=== PATIENT | male | born 1980 | race Caucasian/White ===

== ENCOUNTER 2016-08-17 13:11 | Emergency (ER) | payer MEDICARE, OTHER ==
[2016-08-17 13:31] VITALS: TEMP 98.1
--- NOTE | 2016-08-17 15:12 | ED ---
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 Patient is otherwise relatively symptomatic feels a little weak with little headache but that ended in part for the courses he's been home from the hospital. Patient has completed dialysis recently. Otherwise has no complaints no chest patient's breath or abdominal pain, no headache no neurological complaints - Related Data Home Medications Medication Instructions Recorded Confirmed Aspirin 81 mg PO HS 03/12/15 02/29/16 Diazepam [Valium] 10 mg PO HS PRN 03/12/15 02/29/16 Lisinopril [Prinivil] 20 mg PO BID 03/12/15 02/29/16 rOPINIRole HCL [Requip] 4 mg PO HS 03/12/15 02/29/16 traMADol HCl [Ultram] 50 mg PO TID PRN 03/12/15 02/29/16 Cilostazol [Cilostazol] 100 mg PO BID 02/29/16 02/29/16 Cinacalcet [Sensipar] 30 mg PO DAILY 02/29/16 02/29/16 Diazepam 10 mg PO DIRECTED 02/29/16 02/29/16 HYDROmorphone HCL [Dilaudid] 4 - 8 mg PO Q4H PRN 02/29/16 02/29/16 Methadone [Dolophine] 20 mg PO TID 02/29/16 02/29/16 Metoclopramide [Reglan] 5 mg PO ACHS 02/29/16 02/29/16 cloNIDine [Clonidine] 1 patch TRANSDERM Q7D 02/29/16 02/29/16 rOPINIRole HCL [Requip] 4 mg PO DIRECTED 02/29/16 02/29/16 Previous Rx's Medication Instructions Recorded Ondansetron Odt [Zofran ODT] 4 mg PO Q8HR PRN #15 tab 02/29/16 Allergies Allergy/AdvReac Type Severity Reaction Status Date / Time baclofen Allergy Confusion Verified 08/17/16 13:31 Penicillins Allergy Unknown Verified 08/17/16 13:31 Childhood Review of Systems ROS Statement: Those systems with pertinent positive or pertinent negative responses have been documented in the HPI. ROS Other: All systems not noted in ROS Statement are negative. Past Medical History Past Medical History: CVA/TIA, Diabetes Mellitus, Hypertension Additional Past Medical History / Comment(s): chiari malformation, dialysis, legally blind History of Any Multi-Drug Resistant Organisms: None Reported Additional Past Surgical History / Comment(s): eye surgery, fistula. right below the knee amputation. Past Anesthesia/Blood Transfusion Reactions: No Reported Reaction Past Psychological History: No Psychological Hx Reported Additional Psychological History / Comment(s): Single, not occur and tobacco user, denies current recreational drug use, multiple tattoos none which are new. He has evidence of animal exposures. Relates that his family is quite supportive including his parents in which he lives with. Is not able to work outside of the home, is medically disabled due to his blindness. He has no experience or extensive travels. Smoking Status: Never smoker Past Alcohol Use History: None Reported Past Drug Use History: Marijuana - Past Family History Father Family Medical History: Hypertension Mother Family Medical History: Diabetes Mellitus General Exam Limitations: no limitations General appearance: alert, in no apparent distress Head exam: Present: atraumatic, normocephalic, normal inspection Eye exam: Present: normal appearance, PERRL, EOMI. Absent: scleral icterus, conjunctival injection, periorbital swelling ENT exam: Present: normal exam, mucous membranes moist Neck exam: Present: normal inspection. Absent: tenderness, meningismus, lymphadenopathy Respiratory exam: Present: normal lung sounds bilaterally. Absent: respiratory distress, wheezes, rales, rhonchi, stridor Cardiovascular Exam: Present: regular rate, normal rhythm, normal heart sounds. Absent: systolic murmur, diastolic murmur, rubs, gallop, clicks GI/Abdominal exam: Present: soft, normal bowel sounds. Absent: distended, tenderness, guarding, rebound, rigid Extremities exam: Present: normal inspection, full ROM, normal capillary refill. Absent: tenderness, pedal edema, joint swelling, calf tenderness Back exam: Present: normal inspection Neurological exam: Present: alert, oriented X3, CN II-XII intact Psychiatric exam: Present: normal affect, normal mood Skin exam: Present: warm, dry, intact, normal color. Absent: rash Course Vital Signs 08/17/16 13:22 Temperature 98.1 F Pulse Rate 79 Respiratory 18 Rate Blood Pressure 202/120 O2 Sat by Pulse 99 Oximetry - Reevaluation(s) Reevaluation #1: 08/17/16 15:11 Patient's blood pressures improving at that time was no modifying factors, no intervention Medical Decision Making - Medical Decision Making 35 male to the ER for evaluation of elevated blood pressure, uncontrolled hypertension. Patient will be discharged home to increase carvedilol 2 pills twice a day Disposition Clinical Impression: Uncontrolled hypertension Disposition: HOME SELF-CARE Condition: Good Instructions: Chronic Hypertension (ED), Hypertension (ED) Referrals: Yash Watson MD [Primary Care Provider] - 1-2 days
[2016-08-17 15:20] VITALS: BP 184/112; PULSE 99; RESP 14
== END 2016-08-17 15:28 | disposition home or self-care (01) ==
LOC: EC 13:11
DX: I12.0 Hypertensive chronic kidney disease with stage 5 chronic kidney disease or end stage renal disease (principal); N18.6 End stage renal disease; Z99.2 Dependence on renal dialysis; H54.8 Legal blindness, as defined in USA; Z89.511 Acquired absence of right leg below knee; Z79.82 Long term (current) use of aspirin; Z79.891 Long term (current) use of opiate analgesic; Z79.899 Other long term (current) drug therapy; Z88.0 Allergy status to penicillin; Z88.1 Allergy status to other antibiotic agents; Z86.73 Personal history of transient ischemic attack (TIA), and cerebral infarction without residual deficits
CPT/HCPCS: 99283

== ENCOUNTER 2016-09-24 19:50 | Emergency (ER) | payer MEDICARE, OTHER ==
[2016-09-24 19:57] VITALS: RESP 20
[2016-09-24] MEDS ORDERED: DIAZEPAM 5 MG TAB PO STA (20:14)
--- NOTE | 2016-09-24 20:32 | ED ---
General Adult HPI - General Chief complaint: Extremity Injury, Upper Stated complaint: L arm pain Time Seen by Provider: 09/24/16 20:01 Source: patient, family, RN notes reviewed Mode of arrival: wheelchair Limitations: no limitations - History of Present Illness Initial comments: 35-year-old male with history of diabetes and end-stage renal disease presenting for left arm restless feeling. Patient states that he has had history of a "restlessness" in his left arm for several years but is significantly worsened over the last few days. Does have a functioning AV fistula in this arm. He was started on Requip for this in the past but states he takes this as needed. He denies any significant pain associated with this, but states it is very irritating and is unable to sleep because of it. He denies any chest pain or shortness of breath associated. He did receive dialysis this morning. He is scheduled for his next dialysis treatment on Monday. He has been on dialysis for 3 years. - Related Data Home Medications Medication Instructions Recorded Confirmed Aspirin 81 mg PO HS 03/12/15 09/24/16 Lisinopril [Prinivil] 20 mg PO BID 03/12/15 09/24/16 rOPINIRole HCL [Requip] 4 mg PO HS 03/12/15 09/24/16 Cilostazol [Cilostazol] 100 mg PO BID 02/29/16 09/24/16 Cinacalcet [Sensipar] 30 mg PO DAILY 02/29/16 09/24/16 Methadone [Dolophine] 20 mg PO TID 02/29/16 09/24/16 Metoclopramide [Reglan] 5 mg PO ACHS 02/29/16 09/24/16 cloNIDine [Clonidine] 1 patch TRANSDERM Q7D 02/29/16 09/24/16 rOPINIRole HCL [Requip] 4 mg PO DIRECTED 02/29/16 09/24/16 Previous Rx's Medication Instructions Recorded Sodium Polystyrene Sulfonate 15 gm PO ONCE #15 gm 09/24/16 [Kayexalate] Allergies Allergy/AdvReac Type Severity Reaction Status Date / Time baclofen Allergy Confusion Verified 09/24/16 19:57 Penicillins Allergy Unknown Verified 09/24/16 19:57 Childhood Review of Systems ROS Statement: Those systems with pertinent positive or pertinent negative responses have been documented in the HPI. ROS Other: All systems not noted in ROS Statement are negative. Past Medical History Past Medical History: CVA/TIA, Diabetes Mellitus, Hypertension Additional Past Medical History / Comment(s): chiari malformation, dialysis, legally blind History of Any Multi-Drug Resistant Organisms: None Reported Additional Past Surgical History / Comment(s): eye surgery, fistula. right below the knee amputation. Past Anesthesia/Blood Transfusion Reactions: No Reported Reaction Past Psychological History: No Psychological Hx Reported Additional Psychological History / Comment(s): Single, not occur and tobacco user, denies current recreational drug use, multiple tattoos none which are new. He has evidence of animal exposures. Relates that his family is quite supportive including his parents in which he lives with. Is not able to work outside of the home, is medically disabled due to his blindness. He has no experience or extensive travels. Smoking Status: Never smoker Past Alcohol Use History: None Reported Past Drug Use History: Marijuana - Past Family History Father Family Medical History: Hypertension Mother Family Medical History: Diabetes Mellitus General Exam - General Exam Comments Initial Comments: General: Awake and Alert. No acute distress. Does not appear acutely ill. Eyes: KRYSTYNA, EOM intact. No nystagmus. No scleral icterus. HENT: Atraumatic, normocephalic. Mucous membranes moist. Trachea midline. Neck: The neck is supple, there is no tenderness or JVD. Cardiovascular: Regular rate and rhythm. No murmur, rub, or gallop is appreciated. Distal pulses intact, 2+ radial bilateral. Left upper arm AV fistula with intact thrill. Respiratory: Lungs are clear to auscultation bilaterally. No wheezes, rales, rhonchi. No respiratory distress. Gastrointestinal: Soft, Nontender. No rebound or guarding. Non-distended. No masses or organomegaly noted. No CVA tenderness. Musculoskeletal: No tenderness. Normal ROM. No gross deformity. No strength deficits. Right BKA. Neurological: A&Ox3. CN II-XII grossly intact, There are no obvious motor or sensory deficits. Coordination appears grossly intact. Speech is normal. Skin: Skin is warm and dry and no rashes or lesions are noted. Psychiatric: Cooperative, appropriate mood & affect, normal judgment. Limitations: no limitations Course Vital Signs 09/24/16 09/24/16 09/24/16 19:54 22:00 22:44 Temperature 98.7 F 98.3 F Pulse Rate 90 83 82 Respiratory 20 20 20 Rate Blood Pressure 189/111 147/80 148/61 O2 Sat by Pulse 97 98 99 Oximetry EKG Findings - EKG Comments: EKG Findings:: EKG 20:26. Normal sinus rhythm. Rate 98. MD 122. QRS 82. QT/ QTc 348/444. Normal axis. LVH. No STEMI. Nonspecific EKG. Medical Decision Making - Medical Decision Making 35 y/o male w/ hx ESRD presenting for left arm restlessness and pain. Hx of this pain in the past. Symptoms appear consistent with neuropathic pain. No significant findings on clinical exam. EKG without any significant changes. EKG without ischemic changes or significant T wave changes. Labwork with stable CBC. BMP with mild hyperkalemia and evidence of ESRD. I spoke with Dr. Dso Santos regarding possible admission for observation, requests I speak with nephro first. I spoke with Dr. Duke, Nephrology. We do not think pt requires emergent dialysis at this time. He recommends kayexalate dose tonight and tomorrow and plan for dialysis Monday. Patient mother were updated on discussion. Discussed overall clinical stability this time. Patient is given a dose of morphine with significant improvement of his symptoms and his left arm. There is low suspicion of ischemic cause of symptoms of this time. Symptoms appear consistent with neuropathic pain secondary to his other disease process. Discussed importance of close follow-up with nephrology and dialysis first thing Monday. Discussed taking Kayexalate tomorrow and prescription was provided. Patient is currently on Lyrica as well as Requip. Discussed that he should start taking his Requip daily as he has been taking when necessary. Also discussed continuing the Neurontin he was recently started on a continue have this titrated up by his primary doctor. Discussed concerning signs symptoms from immediate return to the ED. Patient and mother are agreeable to plan of discharge home. - Lab Data Result diagrams: 09/24/16 20:25 09/24/16 20:25 Lab Results 09/24/16 09/24/16 Range/Units 20:25 20:25 WBC 9.0 (3.8-10.6) k/uL RBC 4.99 (4.30-5.90) m/uL Hgb 14.5 (13.0-17.5) gm/dL Hct 46.2 (39.0-53.0) % MCV 92.4 (80.0-100.0) fL MCH 29.1 (25.0-35.0) pg MCHC 31.5 (31.0-37.0) g/dL RDW 15.2 (11.5-15.5) % Plt Count 273 (150-450) k/uL Neutrophils % 67 % Lymphocytes % 19 % Monocytes % 6 % Eosinophils % 4 % Basophils % 2 % Neutrophils # 6.0 (1.3-7.7) k/uL Lymphocytes # 1.7 (1.0-4.8) k/uL Monocytes # 0.5 (0-1.0) k/uL Eosinophils # 0.4 (0-0.7) k/uL Basophils # 0.2 (0-0.2) k/uL Sodium 136 L (137-145) mmol/L Potassium 5.7 H (3.5-5.1) mmol/L Chloride 90 L (98-107) mmol/L Carbon Dioxide 26 (22-30) mmol/L Anion Gap 20 mmol/L BUN 34 H (9-20) mg/dL Creatinine 5.90 H* (0.66-1.25) mg/dL Est GFR (MDRD) Af Amer 13 (>60 ml/min/1.73 sqM) Est GFR (MDRD) Non-Af 11 (>60 ml/min/1.73 sqM) Glucose 216 H (74-99) mg/dL Calcium 10.1 (8.4-10.2) mg/dL - EKG Data -: EKG Interpreted by Nh EKG shows normal: sinus rhythm Rate: normal Disposition Clinical Impression: Left arm pain, ESRD (end stage renal disease) on dialysis, Hyperkalemia, Neuropathic pain Disposition: ADMITTED IP TO THIS [facility] Condition: Stable Instructions: End Stage Kidney Disease (ED), Peripheral Neuropathy (ED), Hyperkalemia (ED) Additional Instructions: Please take a dose of kayexalate tomorrow. Please take your Requip every day. Please continue to follow up with your primary doctor for management of your pain. Prescriptions: Sodium Polystyrene Sulfonate [Kayexalate] 15 gm PO ONCE #15 gm Referrals: Yash Watson MD [Primary Care Provider] - 1-2 days Time of Disposition: 22:38
[2016-09-24 20:43] LABS: Basophils # (A) 0.2 k/uL (0-0.2); Basophils % (A) 2 %; CHCM 31.4; Eosinophils # (A) 0.4 k/uL (0-0.7); Eosinophils % (A) 4 %; HCT 46.2 % (39.0-53.0); HDW 2.44; HGB 14.5 gm/dL (13.0-17.5); Luc # (Auto) 0.28; Luc % (Auto) 3; Lymphocytes # (A) 1.7 k/uL (1.0-4.8); Lymphocytes % (A) 19 %; MCH 29.1 pg (25.0-35.0); MCHC 31.5 g/dL (31.0-37.0); MCV 92.4 fL (80.0-100.0); Mean Platelet Volume 7.8; Monocytes # (A) 0.5 k/uL (0-1.0); Monocytes % (A) 6 %; Neutrophils % (A) 67 %; RBC 4.99 m/uL (4.30-5.90); RDW 15.2 % (11.5-15.5); WBC (Perox) 8.46
[2016-09-24 20:57] LABS: Calcium 10.1 mg/dL (8.4-10.2); Potassium 5.7 mmol/L (3.5-5.1)
[2016-09-24] MEDS ORDERED: MORPHINE SULFATE 4 MG/ML SYRINGE IVP STA (21:54)
[2016-09-24] MEDS ORDERED: ONDANSETRON 4 MG/2 ML VIAL IVP STA (21:54)
[2016-09-24] MEDS ORDERED: SODIUM POLYSTYRENE SULFONATE 15 GM/60 ML BOTTLE PO ONE (22:02)
[2016-09-24 22:45] VITALS: BP 148/61; PULSE 82; TEMP 98.3
== END 2016-09-24 22:45 | disposition home or self-care (01) ==
LOC: EC 19:50
DX: M79.602 Pain in left arm (principal); N18.6 End stage renal disease; I12.0 Hypertensive chronic kidney disease with stage 5 chronic kidney disease or end stage renal disease; Z99.2 Dependence on renal dialysis; E87.5 Hyperkalemia; M79.2 Neuralgia and neuritis, unspecified; H54.8 Legal blindness, as defined in USA; Z86.73 Personal history of transient ischemic attack (TIA), and cerebral infarction without residual deficits; Z79.82 Long term (current) use of aspirin; Z79.899 Other long term (current) drug therapy; Z88.0 Allergy status to penicillin; Z88.8 Allergy status to other drugs, medicaments and biological substances; Z89.511 Acquired absence of right leg below knee
CPT/HCPCS: 36415; 93005; 80048; 85025; 99284; 96374; 96375; J2270; J2405

== ENCOUNTER → 2016-09-28 | Outpatient (CLI) | payer MEDICARE, OTHER ==
--- NOTE | 2016-09-28 14:15 | CT ---
EXAMINATION TYPE: CT cervical spine wo con DATE OF EXAM: 09/28/2016 1:37 PM COMPARISON: NONE HISTORY: Lt arm numbness and weakness CT DLP: 726 mGycm Automated exposure control for dose reduction was used. TECHNIQUE: CT scan of the cervical spine is obtained without contrast, axial images are obtained, sagittal and c oronal reformatted images are also reviewed. FINDINGS: Loss of normal cervical lordosis could be due to muscle spasm. No significant central canal stenosis or foraminal encroachment. No disc herniation evident with the exception of small posterior disc bulg e at C4-5, possibly C5-6. Extensive arterial calcifications are present, correlate for renal failure, hyperparathyroidism. Cervical spine is visualized in its entirety from C1 through upper thoracic levels, demonstrates sati sfactory alignment without evidence of acute fracture or dislocation. Prevertebral soft tissue appea rs within normal limits. The C1-C2 articulation is within normal limits on the coronal images. IMPRESSION: There is no acute fracture or dislocation evident in the cervical spine. Additional findings above.
== END | disposition home or self-care (01) ==
LOC: RADCTMAIN 12:57
PROVIDERS: ATTEND Nurse Practitioner Adult Health
DX: M54.12 Radiculopathy, cervical region (principal)
CPT/HCPCS: 72125

== ENCOUNTER 2016-09-29 05:22 | Emergency (ER) | payer MEDICARE, OTHER ==
[2016-09-29 05:29] VITALS: BP 196/119; PULSE 103; RESP 20; TEMP 97.6
[2016-09-29] MEDS ORDERED: BENZTROPINE MESYLATE 1 MG TAB PO STA (06:06)
[2016-09-29] MEDS ORDERED: diphenhydrAMINE 50 MG CAP PO STA (06:06)
[2016-09-29] MEDS ORDERED: LORazepam 2 MG/ML SYRINGE IM STA (06:06)
[2016-09-29] MEDS ORDERED: HYDROmorphone 2 MG/ML 1 ML SYRINGE IM STA (06:08)
--- NOTE | 2016-09-29 06:16 | ED ---
General Adult HPI - General Chief complaint: Recheck/Abnormal Lab/Rx Stated complaint: restlessness Time Seen by Provider: 09/29/16 06:01 Source: patient, family, RN notes reviewed, old records reviewed Mode of arrival: ambulatory Limitations: no limitations - History of Present Illness Initial comments: This is a 35-year-old noted ER for evaluation. This patient comes in for evaluation of agitation, restlessness. Patient's lung, care medical history is on multiple medications his multiple medical issues. Patient coming over 2-3 days of restlessness wears been getting worse, but symptoms for about 2 weeks. Patient denies any new medications, he was prescribed gabapentin for the symptoms that he currently has. Patient denies fever chest pain cough or congestion no other significant complaints. Patient denies been without medications did take methadone last night - Related Data Home Medications Medication Instructions Recorded Confirmed Aspirin 81 mg PO HS 03/12/15 09/29/16 Lisinopril [Prinivil] 20 mg PO BID 03/12/15 09/29/16 rOPINIRole HCL [Requip] 4 mg PO HS 03/12/15 09/29/16 Cilostazol [Cilostazol] 100 mg PO BID 02/29/16 09/29/16 Cinacalcet [Sensipar] 30 mg PO DAILY 02/29/16 09/29/16 Methadone [Dolophine] 20 mg PO TID 02/29/16 09/29/16 Metoclopramide [Reglan] 5 mg PO ACHS 02/29/16 09/29/16 cloNIDine [Clonidine] 1 patch TRANSDERM Q7D 02/29/16 09/29/16 rOPINIRole HCL [Requip] 4 mg PO DIRECTED 02/29/16 09/29/16 Previous Rx's Medication Instructions Recorded Sodium Polystyrene Sulfonate 15 gm PO ONCE #15 gm 09/24/16 [Kayexalate] Allergies Allergy/AdvReac Type Severity Reaction Status Date / Time baclofen Allergy Confusion Verified 09/29/16 05:29 Penicillins Allergy Unknown Verified 09/29/16 05:29 Childhood Review of Systems ROS Statement: Those systems with pertinent positive or pertinent negative responses have been documented in the HPI. ROS Other: All systems not noted in ROS Statement are negative. Past Medical History Past Medical History: CVA/TIA, Diabetes Mellitus, Hypertension Additional Past Medical History / Comment(s): chiari malformation, dialysis, legally blind History of Any Multi-Drug Resistant Organisms: None Reported Additional Past Surgical History / Comment(s): eye surgery, fistula. right below the knee amputation. Past Anesthesia/Blood Transfusion Reactions: No Reported Reaction Past Psychological History: No Psychological Hx Reported Additional Psychological History / Comment(s): Single, not occur and tobacco user, denies current recreational drug use, multiple tattoos none which are new. He has evidence of animal exposures. Relates that his family is quite supportive including his parents in which he lives with. Is not able to work outside of the home, is medically disabled due to his blindness. He has no experience or extensive travels. Smoking Status: Never smoker Past Alcohol Use History: None Reported Past Drug Use History: Marijuana - Past Family History Father Family Medical History: Hypertension Mother Family Medical History: Diabetes Mellitus General Exam Limitations: no limitations General appearance: alert, in no apparent distress Head exam: Present: atraumatic, normocephalic, normal inspection Eye exam: Present: normal appearance, PERRL, EOMI. Absent: scleral icterus, conjunctival injection, periorbital swelling ENT exam: Present: normal exam, mucous membranes moist Neck exam: Present: normal inspection. Absent: tenderness, meningismus, lymphadenopathy Respiratory exam: Present: normal lung sounds bilaterally. Absent: respiratory distress, wheezes, rales, rhonchi, stridor Cardiovascular Exam: Present: regular rate, normal rhythm, tachycardia, normal heart sounds. Absent: systolic murmur, diastolic murmur, rubs, gallop, clicks GI/Abdominal exam: Present: soft, normal bowel sounds. Absent: distended, tenderness, guarding, rebound, rigid Extremities exam: Present: normal inspection, full ROM, normal capillary refill. Absent: tenderness, pedal edema, joint swelling, calf tenderness Back exam: Present: normal inspection Neurological exam: Present: alert, oriented X3, CN II-XII intact Psychiatric exam: Present: normal affect, normal mood Skin exam: Present: warm, dry, intact, normal color. Absent: rash Course Vital Signs 09/29/16 05:25 Temperature 97.6 F Pulse Rate 103 H Respiratory 20 Rate Blood Pressure 196/119 O2 Sat by Pulse 98 Oximetry - Reevaluation(s) Reevaluation #1: 09/29/16 06:16 Patient seen at multiple institutions for similar symptoms. Disposition Clinical Impression: Akathisia Disposition: HOME SELF-CARE Condition: Good Instructions: Extrapyramidal Symptoms (ED) Referrals: Yash Watson MD [Primary Care Provider] - 1-2 days
[2016-09-29] MEDS: ONDANSETRON ODT 4 MG TAB PO STA ×2 (06:21→06:49)
== END 2016-09-29 06:58 | disposition home or self-care (01) ==
LOC: EC 05:22
DX: G25.71 Drug induced akathisia (principal); I10 Essential (primary) hypertension; Z79.82 Long term (current) use of aspirin; Z79.899 Other long term (current) drug therapy; Z88.0 Allergy status to penicillin; Z88.8 Allergy status to other drugs, medicaments and biological substances; Z86.73 Personal history of transient ischemic attack (TIA), and cerebral infarction without residual deficits
CPT/HCPCS: 99284; 96372 ×2; J2060; J1170

== ENCOUNTER → 2017-10-16 | Outpatient (CLI) | payer MEDICARE, OTHER ==
--- NOTE | 2017-10-18 08:57 | P.ARTDOP ---
Arterial Doppler LOWER EXTREMITY ARTERIAL DOPPLER: DATE OF SERVICE: 10/16/2017 Reason for study: Ulcer left great toe. Doppler waveforms: Atypical at the right femoral and popliteal. Status post right BKA. Multiphasic at the left femoral and popliteal and atypical below.. Pulse volume recording: Plethysmography on the remaining 4 toes on the left foot are flat line.. Pressure gradients: Across the knee on the left. Ankle-brachial indices: Left is greater than 1 but probably falsely elevated even the PPG readings. 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 Suspect severe infrapopliteal disease on the left. Clinical correlation recommended.
== END | disposition home or self-care (01) ==
LOC: RADUSWWP 12:16
PROVIDERS: ATTEND Family Medicine
DX: I77.1 Stricture of artery (principal)
CPT/HCPCS: 93923

== ENCOUNTER 2022-09-13 16:59 | Inpatient (IN) | payer MEDICARE, OTHER ==
[2022-09-13 21:34] LABS: Basophils # (A) 0.1 k/uL (0-0.2); Basophils % (A) 2 %; Eosinophils # (A) 0.4 k/uL (0-0.7); Eosinophils % (A) 4 %; HCT 46.7 % (39.0-53.0); HGB 14.3 gm/dL (13.0-17.5); Hypochromasia Slight; Lymphocytes # (A) 2.2 k/uL (1.0-4.8); Lymphocytes % (A) 24 %; MCH 27.1 pg (25.0-35.0); MCHC 30.7 g/dL (31.0-37.0); MCV 88.4 fL (80.0-100.0); Mean Platelet Volume 8.2; Monocytes # (A) 0.6 k/uL (0-1.0); Monocytes % (A) 6 %; Neutrophils # (A) 5.5 k/uL (1.3-7.7); Neutrophils % (A) 61 %; Platelet Count 231 k/uL (150-450); RBC 5.28 m/uL (4.30-5.90); RDW 15.2 % (11.5-15.5)
[2022-09-13 21:50] LABS: Albumin 4.2 g/dL (3.5-5.0); Calcium 8.9 mg/dL (8.4-10.2); Magnesium 3.1 mg/dL (1.6-2.3); Phosphorus 7.4 mg/dL (2.5-4.5); Total Bilirubin 0.8 mg/dL (0.2-1.3); Total Protein 7.2 g/dL (6.3-8.2)
[2022-09-13 21:57] LABS: Potassium 6.4 mmol/L (3.5-5.1)
[2022-09-13] MEDS ORDERED: INSULIN REGULAR 100 UNIT/ML VIAL (IV) IV ONE (22:07)
[2022-09-13] MEDS ORDERED: DEXTROSE 50% SYRINGE 50 ML IVP STA (22:08)
[2022-09-13] MEDS ORDERED: SODIUM ZIRCONIUM CYCLOSILICATE 10 GM PACKET PO ONE (22:30)
--- NOTE | 2022-09-13 22:34 | ED ---
General Adult HPI - General Chief complaint: Extremity Problem,Nontraumatic Stated complaint: Recheck Time Seen by Provider: 09/13/22 20:50 Source: patient Mode of arrival: ambulatory Limitations: no limitations, physical limitation - History of Present Illness Initial comments: 41-year-old with past medical history of CVA, diabetes, hypertension, end-stage renal disease on hemodialysis Monday, and Monday who presents to the emergency department reporting that his fistula is not functioning. Dr. Fleming is his gate watchman and Dr. Hays is his vascular surgeon. He went to have dialysis today. They tried access his fistula however they only received clots back. Patient was unable to be dialyzed. It was recommended that the patient come into the emergency department for evaluation. Patient is asymptomatic at this time. No chest pain or shortness of breath. 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 - Related Data Home Medications Medication Instructions Recorded Confirmed Methadone [Dolophine] 15 mg PO BID 02/29/16 09/13/22 Gabapentin [Neurontin] 100 mg PO BID 09/13/22 09/13/22 Lokelma 5 Gm Packet 5 gm PO MOWEFR 09/13/22 09/13/22 Pantoprazole [Protonix] 40 mg PO HS 09/13/22 09/13/22 Sevelamer [Renvela] 800 - 1,600 mg PO AC-TID PRN 09/13/22 09/13/22 Sildenafil Citrate [Viagra] 25 mg PO DAILY PRN 09/13/22 09/13/22 Sucralfate [Carafate] 1 gm PO BID 09/13/22 09/13/22 rOPINIRole HCL [Requip] 5 mg PO DAILY 09/13/22 09/13/22 rOPINIRole HCL [Requip] 10 mg PO HS 09/13/22 09/13/22 Allergies Allergy/AdvReac Type Severity Reaction Status Date / Time baclofen Allergy Confusion Verified 09/13/22 22:05 Penicillins Allergy Unknown Verified 09/13/22 22:05 Childhood Review of Systems ROS Statement: Those systems with pertinent positive or pertinent negative responses have been documented in the HPI. ROS Other: All systems not noted in ROS Statement are negative. Past Medical History Past Medical History: CVA/TIA, Diabetes Mellitus, Hypertension Additional Past Medical History / Comment(s): chiari malformation, dialysis, legally blind History of Any Multi-Drug Resistant Organisms: None Reported Additional Past Surgical History / Comment(s): eye surgery, fistula. right below the knee amputation. Past Anesthesia/Blood Transfusion Reactions: No Reported Reaction Past Psychological History: No Psychological Hx Reported Smoking Status: Former smoker Past Alcohol Use History: None Reported Past Drug Use History: Marijuana - Past Family History Father Family Medical History: Hypertension Mother Family Medical History: Diabetes Mellitus General Exam Limitations: no limitations, physical limitation General appearance: alert, in no apparent distress Head exam: Present: atraumatic, normocephalic, normal inspection Eye exam: Present: other (blind) Respiratory exam: Present: normal lung sounds bilaterally. Absent: respiratory distress, wheezes, rales, rhonchi, stridor Cardiovascular Exam: Present: regular rate, normal rhythm, normal heart sounds. Absent: systolic murmur, diastolic murmur, rubs, gallop, clicks Extremities exam: Present: other (fistula left upper extremity - thrill present) Course Vital Signs 09/13/22 09/13/22 09/13/22 17:05 21:00 23:05 Temperature 98.2 F Pulse Rate 68 68 Pulse Rate [ 68 Apical] Respiratory 18 14 Rate Blood Pressure 186/126 126/78 O2 Sat by Pulse 99 96 Oximetry - Reevaluation(s) Reevaluation #1: Dr. Fleming returned my call. Patient is given 10 g of lokelma, 10 units of insulin and an amp of dextrose. Recheck potassium at 2:30 AM 09/13/22 22:30 EKG Findings - EKG Comments: EKG Findings:: EKG demonstrates sinus rhythm with a rate of 65. OH interval 149. QRS 100. QTC of 399. No widening complex. Mildly peaked T waves V3-V4. No acute ST segment elevations. Inverted T-wave in aVL Medical Decision Making - Medical Decision Making Was pt. sent in by a medical professional or institution (, PA, AUDIO OPERATOR, urgent c are, hospital, or jail...) When possible be specific @ -Dialysis clinic Did you speak to anyone other than the patient for history (EMS, parent, family, police, friend...)? What history was obtained from this source @ -Patient Did you review nursing and triage notes (agree or disagree)? Why? @ -I reviewed and agree with nursing and triage notes Were old charts reviewed (outside hosp., previous admission, EMS record, old EKG, old radiological studies, urgent care reports/EKG's, jail records)? Report findings @ -Old charts were reviewed Differential Diagnosis (chest pain, altered mental status, abdominal pain women, abdominal pain men, vaginal bleeding, weakness, fever, dyspnea, syncope, headache, dizziness, GI bleed, back pain, seizure, CVA, palpatations, mental health, musculoskeletal)? @ -hyperkalemia, malfunctioning fistula, anemia, clotting disorder, bacteremia EKG interpreted by me (3pts min.). @ -Yes X-rays interpreted by me (1pt min.). @ -None done CT interpreted by me (1pt min.). @ -None done U/S interpreted by me (1pt. min.). @ -None done What testing was considered but not performed or refused? (CT, X-rays, U/S, labs)? Why? @ -None What meds were considered but not given or refused? Why? @ -None Did you discuss the management of the patient with other professionals (professionals i.e. , PA, AUDIO OPERATOR, lab, RT, psych nurse, mental health social worker, quill picking machine operator, teacher, naval gunfire liaison officer, director case management)? Give summary @ -Dr. Quinones, Dr. Fleming, Dr. Bose Was smoking cessation discussed for >3mins.? @ -No Was critical care preformed (if so, how long)? @ -Yes, 35 minutes for hyperkalemia Were there social determinants of health that impacted care today? How? (Homelessness, low income, unemployed, alcoholism, drug addiction, transportati on, low edu. Level, literacy, decrease access to med. care, half-way, rehab)? @ -No Was there de-escalation of care discussed even if they declined (Discuss DNR or withdrawal of care, Hospice)? DNR status @ -No What co-morbidities impacted this encounter? (DM, HTN, Smoking, COPD, CAD, Cancer, CVA, ARF, Chemo, Hep., AIDS, mental health diagnosis, sleep apnea, morbid obesity)? @ -ESRD on hd, dm Was patient admitted / discharged? Hospital course, mention meds given and route, prescriptions, significant lab abnormalities, going to OR and other pertinent info. @ - Upon arrival patient was placed into room 3. A thorough history and physical exam was performed. 12-lead EKG is performed. Laboratory studies are conducted and confirmed hyperkalemia at 6.4. Kt Fleming. Recommended 10 units of insulin and an amp of dextrose. Also recommended 10 g of Lokelma. We will repeat a potassium at 2:30 AM. So called and spoke with Dr. Quinones. Patient is made aware that he will be nothing by mouth at midnight for possible procedure tomorrow. Patient agreeable to this. Patient admitted to the floor in stable condition Undiagnosed new problem with uncertain prognosis? @ -yes Drug Therapy requiring intensive monitoring for toxicity (Heparin, Nitro, Insulin, Cardizem)? @ -Insulin/lokelma Were any procedures done? @ -No Diagnosis/symptom? @ -acute hyperkalemia, thrombosed dialysis fistula, esrd on hd Acute, or Chronic, or Acute on Chronic? @ -acute (esrd - chronic) Uncomplicated (without systemic symptoms) or Complicated (systemic symptoms)? @ -complicated Side effects of treatment? @ -Hypoglycemia Exacerbation, Progression, or Severe Exacerbation? @ -No Poses a threat to life or bodily function? How? (Chest pain, [place], [place], pneumonia, PE, COPD, DKA, ARF, appy, cholecystitis, CVA, Diverticulitis, Homicidal, Suicidal, threat to staff... and all critical care pts) @ -yes - Lab Data Result diagrams: 09/15/22 05:55 09/16/22 06:17 Lab Results 09/13/22 09/13/22 Range/Units 20:59 20:59 WBC 9.0 (3.8-10.6) k/uL RBC 5.28 (4.30-5.90) m/uL Hgb 14.3 (13.0-17.5) gm/dL Hct 46.7 (39.0-53.0) % MCV 88.4 (80.0-100.0) fL MCH 27.1 (25.0-35.0) pg MCHC 30.7 L (31.0-37.0) g/dL RDW 15.2 (11.5-15.5) % Plt Count 231 (150-450) k/uL MPV 8.2 Neutrophils % 61 % Lymphocytes % 24 % Monocytes % 6 % Eosinophils % 4 % Basophils % 2 % Neutrophils # 5.5 (1.3-7.7) k/uL Lymphocytes # 2.2 (1.0-4.8) k/uL Monocytes # 0.6 (0-1.0) k/uL Eosinophils # 0.4 (0-0.7) k/uL Basophils # 0.1 (0-0.2) k/uL Hypochromasia Slight Sodium 132 L (137-145) mmol/L Potassium 6.4 H* (3.5-5.1) mmol/L Chloride 92 L (98-107) mmol/L Carbon Dioxide 24 (22-30) mmol/L Anion Gap 16 mmol/L BUN 72 H (9-20) mg/dL Creatinine 12.49 H* (0.66-1.25) mg/dL Est GFR (CKD-EPI)AfAm 5 (>60 ml/min/1.73 sqM) Est GFR (CKD-EPI)NonAf 4 (>60 ml/min/1.73 sqM) Glucose 130 H (74-99) mg/dL Calcium 8.9 (8.4-10.2) mg/dL Phosphorus 7.4 H (2.5-4.5) mg/dL Magnesium 3.1 H (1.6-2.3) mg/dL Total Bilirubin 0.8 (0.2-1.3) mg/dL AST 17 (17-59) U/L ALT 15 (4-49) U/L Alkaline Phosphatase 88 (38-126) U/L Total Protein 7.2 (6.3-8.2) g/dL Albumin 4.2 (3.5-5.0) g/dL Critical Care Time Critical Care Time: Yes Critical Care Time: 35 minutes Disposition Clinical Impression: Hyperkalemia, Dialysis AV fistula malfunction Disposition: ADMITTED IP TO THIS [facility] Condition: Stable Is patient prescribed a controlled substance at d/c from ED?: No Time of Disposition: 22:53 Decision to Admit Reason: Admit from EC Decision Date: 09/13/22 Decision Time: 22:53
[2022-09-13] MEDS ORDERED: NALOXONE 0.4 MG/ML 1 ML VIAL IV PRN (22:53)
[2022-09-14 00:18] LABS: Glucose,Whole Blood 60 mg/dL (70-110)
--- NOTE | 2022-09-14 01:32 | P.HPIM ---
History of Present Illness H&P Date: 09/13/22 The patient is a 41-year-old male with a PMH of type II DM status post right BKA, left 5 toe amputations, and multiple finger amputations on bilateral hands, ESRD on hemodialysis via left upper extremity fistula Tu/Angela/Sat, history of CVA, hypertension who was sent to the emergency room for a malfunctioning fistula. The patient attempted to go to his routine dialysis session earlier today where they attempted to access the fistula multiple times were only able to receive clots. The patient was advised to go to the emergency room for further management. The patient has no complaints at the time of interview and reports feeling at his baseline. Denied experiencing chest discomfort or short ness of breath. Denied nausea, vomiting, abdominal pain, diarrhea. Review of systems: Pertinent positives and negatives as discussed in HPI, a complete review of systems was performed and all other systems are negative. Physical examination: Vital signs reviewed General: non toxic, no distress, appears older than stated age, overweight Derm: no unusual rashes/lesions, warm Head: atraumatic, normocephalic, symmetric Eyes: EOMI, no lid lag, anicteric sclera, pupils equal round reactive to light ENT: Nose and ears atraumatic Neck: No cervical lymphadenopathy, trachea midline, supple Mouth: no lip lesion, mucus membranes moist Cardiovascular: S1S2 reg, no murmur, positive dorsalis pedis pulse bilateral, no edema Lungs: CTA bilateral, no rhonchi, no rales, no accessory muscle use Abdominal: soft, nontender to palpation, no guarding Ext: Right BKA, no gross muscle atrophy, no contractures, left upper extremity fistula with strong pulse Neuro: CN II-XI grossly intact, no gross focal neuro deficits Psych: Alert, oriented, appropriate affect Assessment: Malfunctioning AV fistula Hyperkalemia Chronic conditions: ESRD, history of CVA, hypertension, type II DM Imaging: EKG reveals sinus rhythm at 65 bpm with left axis deviation and poor R-wave progression. Data Review: Laboratory evaluation was remarkable for sodium 130, potassium 6.4, BUN 72, creatinine 12.49, glucose 130, and magnesium 3.1. Plan: Vascular surgery consulted for fistula repair Nephrology consulted for resumption of hemodialysis Status post hyperkalemia cocktail Recheck levels at 2:30 AM Nothing by mouth after midnight Insulin sliding scale blood glucose monitoring DVT prophylaxis: Heparin subq The patient is admitted with an anticipated greater than 2 midnight stay for evaluation of AV fistula malfunction CODE STATUS: Full Code Discussed with: Patient Anticipated discharge place: Home Past Medical History Past Medical History: CVA/TIA, Diabetes Mellitus, Hypertension Additional Past Medical History / Comment(s): chiari malformation, dialysis, legally blind History of Any Multi-Drug Resistant Organisms: None Reported Additional Past Surgical History / Comment(s): eye surgery, fistula. right below the knee amputation. Past Anesthesia/Blood Transfusion Reactions: No Reported Reaction Past Psychological History: No Psychological Hx Reported Smoking Status: Former smoker Past Alcohol Use History: None Reported Past Drug Use History: Marijuana - Past Family History Father Family Medical History: Hypertension Mother Family Medical History: Diabetes Mellitus Medications and Allergies Home Medications Medication Instructions Recorded Confirmed Type Methadone [Dolophine] 15 mg PO BID 02/29/16 09/13/22 History Famotidine [Pepcid] 20 mg PO DAILY 09/13/22 09/13/22 History Gabapentin [Neurontin] 100 mg PO BID 09/13/22 09/13/22 History Lokelma 5 Gm Packet 5 gm PO MOWEFR 09/13/22 09/13/22 History Pantoprazole [Protonix] 40 mg PO HS 09/13/22 09/13/22 History Sevelamer [Renvela] 800 - 1,600 mg PO AC-TID PRN 09/13/22 09/13/22 History Sildenafil Citrate [Viagra] 25 mg PO DAILY PRN 09/13/22 09/13/22 History Sucralfate [Carafate] 1 gm PO BID 09/13/22 09/13/22 History rOPINIRole HCL [Requip] 5 mg PO DAILY 09/13/22 09/13/22 History rOPINIRole HCL [Requip] 10 mg PO HS 09/13/22 09/13/22 History Allergies Allergy/AdvReac Type Severity Reaction Status Date / Time baclofen Allergy Confusion Verified 09/13/22 22:05 Penicillins Allergy Unknown Verified 09/13/22 22:05 Childhood Physical Exam Vitals: Vital Signs Temp Pulse Pulse Resp BP Pulse Ox 09/13/22 23:05 68 14 126/78 96 09/13/22 21:00 68 09/13/22 17:05 98.2 F 68 18 186/126 99 Intake and Output 09/13/22 09/13/22 09/14/22 14:59 22:59 06:59 Other: Weight 86.6 kg Results CBC & Chem 7: 09/13/22 20:59 09/13/22 20:59 Labs: Abnormal Lab Results - Last 24 Hours (Table) 09/13/22 09/13/22 Range/Units 20:59 20:59 MCHC 30.7 L (31.0-37.0) g/dL Sodium 132 L (137-145) mmol/L Potassium 6.4 H* (3.5-5.1) mmol/L Chloride 92 L (98-107) mmol/L BUN 72 H (9-20) mg/dL Creatinine 12.49 H* (0.66-1.25) mg/dL Glucose 130 H (74-99) mg/dL Phosphorus 7.4 H (2.5-4.5) mg/dL Magnesium 3.1 H (1.6-2.3) mg/dL
[2022-09-14 01:47] LABS: Glucose,Whole Blood 131 mg/dL (70-110)
[2022-09-14] MEDS ORDERED: SODIUM POLYSTYRENE SULFONATE 15 GM/60 ML BOTTLE PO STA (04:45)
[2022-09-14 05:55] LABS: Glucose,Whole Blood 147 mg/dL (70-110)
[2022-09-14] MEDS: INSULIN ASPART (NovoLOG) 100 UNIT/ML VIAL SQ SCH ×4 (06:07→20:44)
[2022-09-14 06:09] LABS: Basophils # (A) 0.1 k/uL (0-0.2); Basophils % (A) 1 %; Eosinophils # (A) 0.3 k/uL (0-0.7); Eosinophils % (A) 3 %; HCT 49.3 % (39.0-53.0); HGB 14.8 gm/dL (13.0-17.5); Hypochromasia Moderate; Lymphocytes # (A) 1.8 k/uL (1.0-4.8); Lymphocytes % (A) 21 %; Mean Platelet Volume 8.1; Monocytes # (A) 0.5 k/uL (0-1.0); Monocytes % (A) 5 %; Neutrophils % (A) 67 %; Platelet Count 221 k/uL (150-450); RBC 5.48 m/uL (4.30-5.90); RDW 15.2 % (11.5-15.5)
[2022-09-14 06:10] LABS: Albumin 4.3 g/dL (3.5-5.0); Calcium 9.3 mg/dL (8.4-10.2); Total Bilirubin 0.9 mg/dL (0.2-1.3); Total Protein 7.3 g/dL (6.3-8.2)
[2022-09-14 07:17] LABS: Potassium 7.2 mmol/L (3.5-5.1)
[2022-09-14] MEDS ORDERED: DEXTROSE 50% SYRINGE 50 ML IVP STA ×2 (07:32→11:38)
[2022-09-14] MEDS: FAMOTIDINE 20 MG TAB PO SCH (07:38)
[2022-09-14] MEDS: SUCRALFATE 1 GM TAB PO SCH ×2 (07:38→20:46)
[2022-09-14] MEDS ORDERED: SODIUM ZIRCONIUM CYCLOSILICATE 10 GM PACKET PO ONE (08:00)
[2022-09-14] MEDS ORDERED: INSULIN REGULAR 100 UNIT/ML VIAL (IV) IV ONE (08:00)
[2022-09-14] MEDS ORDERED: CALCIUM GLUCONATE IN NACL 1 GM in SALINE 1 100ML.BAG IVPB ONE (08:00)
[2022-09-14] MEDS ORDERED: hydrALAZINE HCL 25 MG TAB PO STA (08:09)
[2022-09-14] MEDS: METHADONE 5 MG TAB PO SCH ×2 (08:42→20:45)
[2022-09-14] MEDS: GABAPENTIN 100 MG CAP PO SCH ×2 (08:42→20:45)
[2022-09-14] MEDS: HEPARIN SODIUM,PORCINE/PF 5,000 UNIT/0.5 ML SYRINGE SQ SCH ×2 (08:44→16:41)
--- NOTE | 2022-09-14 09:10 | US ---
EXAMINATION TYPE: US venous doppler duplex UE LT DATE OF EXAM: 09/14/2022 COMPARISON: NONE CLINICAL HISTORY: evaluate fistula. Exam ordered to specifically evaluate fistula . This was only an exam to evaluate the fistula. Full venous study was not performed. Exam is under venous extremity due to no charge for fistulas. *Malfunctioning fistula at dialysis yesterday. Dr. Hays was present to watch the ultrasound exam. Left fistula was scanned. Internal echoes were seen within the fistula. Partial thrombus noted within fistula, but color flow was seen throughout with color defect. IMPRESSION: Partial occlusion of the left upper extremity surgical fistula for dialysis. No complete occlusion seen.
--- NOTE | 2022-09-14 10:14 | P.GSCN ---
History of Present Illness Consult date: 09/14/22 Reason for Consult: Malfunctioning dialysis fistula Requesting physician: Ginny Villa History of present illness: This is a 41-year-old male with multiple comorbidities including coronary artery disease, peripheral arterial disease with previous below the knee amputation and TMA, end-stage renal disease on hemodialysis, CVA and hypertension who was sent to the emergency department from hemodialysis after having difficulty with access for dialysis yesterday. Patient initially went to [facility] and was transferred to [facility] for further vascular surgical evaluation. Patient states Dr. Vega placed his fistula about 11 years ago. It is in the left upper extremity and with history of aneurysm. Apparently a few weeks ago outpatient dialysis had some difficulty with accessing the fistula as well as yesterday and states that there were some clots obtained. He did not undergo dialysis yesterday. His regular schedule is Monday. He currently is complaining of bilateral hand pain, states that he has neuropathy. He denies any shortness of breath, chest pain, swelling, abdominal pain, nausea or vomiting. Today's labs WBC 9.0 hemoglobin 14.8 platelet count 221,000 sodium 134 potassium 7.2 BUN 77 creatinine 13 Review of Systems A 14 point review systems was completed all pertinent positives and negatives as stated in the HPI. Past Medical History Past Medical History: CVA/TIA, Diabetes Mellitus, Hypertension Additional Past Medical History / Comment(s): chiari malformation, dialysis, legally blind History of Any Multi-Drug Resistant Organisms: None Reported Additional Past Surgical History / Comment(s): eye surgery, fistula. right below the knee amputation. Past Anesthesia/Blood Transfusion Reactions: No Reported Reaction Past Psychological History: No Psychological Hx Reported Smoking Status: Former smoker Past Alcohol Use History: None Reported Past Drug Use History: Marijuana - Past Family History Father Family Medical History: Hypertension Mother Family Medical History: Diabetes Mellitus Medications and Allergies Home Medications Medication Instructions Recorded Confirmed Type Methadone [Dolophine] 15 mg PO BID 02/29/16 09/13/22 History Famotidine [Pepcid] 20 mg PO DAILY 09/13/22 09/13/22 History Gabapentin [Neurontin] 100 mg PO BID 09/13/22 09/13/22 History Lokelma 5 Gm Packet 5 gm PO MOWEFR 09/13/22 09/13/22 History Pantoprazole [Protonix] 40 mg PO HS 09/13/22 09/13/22 History Sevelamer [Renvela] 800 - 1,600 mg PO AC-TID PRN 09/13/22 09/13/22 History Sildenafil Citrate [Viagra] 25 mg PO DAILY PRN 09/13/22 09/13/22 History Sucralfate [Carafate] 1 gm PO BID 09/13/22 09/13/22 History rOPINIRole HCL [Requip] 5 mg PO DAILY 09/13/22 09/13/22 History rOPINIRole HCL [Requip] 10 mg PO HS 09/13/22 09/13/22 History Allergies Allergy/AdvReac Type Severity Reaction Status Date / Time baclofen Allergy Confusion Verified 09/13/22 22:05 Penicillins Allergy Unknown Verified 09/13/22 22:05 Childhood Surgical - Exam Vital Signs Temp Pulse Resp BP Pulse Ox 98.2 F 68 18 186/126 99 09/13/22 17:05 09/13/22 17:05 09/13/22 17:05 09/13/22 17:05 09/13/22 17:05 General appearance: The patient is alert, oriented, appears in no acute distress. HET: Head is normocephalic and atraumatic. Pupils are equal and reactive. Neck: Supple. Trachea midline. Heart: Regular. Lungs: Equal expansion, normal respiratory effort. Abdomen: Soft, nontender, nondistended. Extremities: Normal skin color and turgor. Left upper extremity fistula with palpable thrill and audible bruit, with noted aneurysm. Right lower extremity [id number] amputation a well healed. Left lower extremity TMA, left hand with prior finger amputations. Neurological: No focal deficits. Strength and sensation are grossly intact. Results - Labs 09/14/22 05:28 09/14/22 05:28 Abnormal Lab Results - Last 24 Hours (Table) 09/13/22 09/13/22 09/14/22 Range/Units 20:59 20:59 00:14 MCHC 30.7 L (31.0-37.0) g/dL Sodium 132 L (137-145) mmol/L Potassium 6.4 H* (3.5-5.1) mmol/L Chloride 92 L (98-107) mmol/L BUN 72 H (9-20) mg/dL Creatinine 12.49 H* (0.66-1.25) mg/dL Glucose 130 H (74-99) mg/dL POC Glucose (mg/dL) 60 L (70-110) mg/dL Phosphorus 7.4 H (2.5-4.5) mg/dL Magnesium 3.1 H (1.6-2.3) mg/dL AST (17-59) U/L 09/14/22 09/14/22 09/14/22 Range/Units 01:46 05:28 05:28 MCHC 30.0 L (31.0-37.0) g/dL Sodium 134 L (137-145) mmol/L Potassium 7.2 H* (3.5-5.1) mmol/L Chloride 91 L (98-107) mmol/L BUN 77 H (9-20) mg/dL Creatinine 13.04 H* (0.66-1.25) mg/dL Glucose 118 H (74-99) mg/dL POC Glucose (mg/dL) 131 H (70-110) mg/dL Phosphorus (2.5-4.5) mg/dL Magnesium (1.6-2.3) mg/dL AST 15 L (17-59) U/L 09/14/22 Range/Units 05:53 MCHC (31.0-37.0) g/dL Sodium (137-145) mmol/L Potassium (3.5-5.1) mmol/L Chloride (98-107) mmol/L BUN (9-20) mg/dL Creatinine (0.66-1.25) mg/dL Glucose (74-99) mg/dL POC Glucose (mg/dL) 147 H (70-110) mg/dL Phosphorus (2.5-4.5) mg/dL Magnesium (1.6-2.3) mg/dL AST (17-59) U/L Diabetes panel 09/13/22 09/14/22 Range/Units 20:59 05:28 Sodium 132 L 134 L (137-145) mmol/L Potassium 6.4 H* 7.2 H* (3.5-5.1) mmol/L Chloride 92 L 91 L (98-107) mmol/L Carbon Dioxide 24 26 (22-30) mmol/L BUN 72 H 77 H (9-20) mg/dL Creatinine 12.49 H* 13.04 H* (0.66-1.25) mg/dL Glucose 130 H 118 H (74-99) mg/dL Calcium 8.9 9.3 (8.4-10.2) mg/dL AST 17 15 L (17-59) U/L ALT 15 15 (4-49) U/L Alkaline Phosphatase 88 91 (38-126) U/L Total Protein 7.2 7.3 (6.3-8.2) g/dL Albumin 4.2 4.3 (3.5-5.0) g/dL Calcium panel 09/13/22 09/14/22 Range/Units 20:59 05:28 Calcium 8.9 9.3 (8.4-10.2) mg/dL Phosphorus 7.4 H (2.5-4.5) mg/dL Albumin 4.2 4.3 (3.5-5.0) g/dL Pituitary panel 09/13/22 09/14/22 Range/Units 20:59 05:28 Sodium 132 L 134 L (137-145) mmol/L Potassium 6.4 H* 7.2 H* (3.5-5.1) mmol/L Chloride 92 L 91 L (98-107) mmol/L Carbon Dioxide 24 26 (22-30) mmol/L BUN 72 H 77 H (9-20) mg/dL Creatinine 12.49 H* 13.04 H* (0.66-1.25) mg/dL Glucose 130 H 118 H (74-99) mg/dL Calcium 8.9 9.3 (8.4-10.2) mg/dL Adrenal panel 09/13/22 09/14/22 Range/Units 20:59 05:28 Sodium 132 L 134 L (137-145) mmol/L Potassium 6.4 H* 7.2 H* (3.5-5.1) mmol/L Chloride 92 L 91 L (98-107) mmol/L Carbon Dioxide 24 26 (22-30) mmol/L BUN 72 H 77 H (9-20) mg/dL Creatinine 12.49 H* 13.04 H* (0.66-1.25) mg/dL Glucose 130 H 118 H (74-99) mg/dL Calcium 8.9 9.3 (8.4-10.2) mg/dL Total Bilirubin 0.8 0.9 (0.2-1.3) mg/dL AST 17 15 L (17-59) U/L ALT 15 15 (4-49) U/L Alkaline Phosphatase 88 91 (38-126) U/L Total Protein 7.2 7.3 (6.3-8.2) g/dL Albumin 4.2 4.3 (3.5-5.0) g/dL - Imaging Comments: Left upper extremity venous duplex reports partial occlusion of the left upper extremity surgical fistula for dialysis. No complete occlusion seen. Assessment and Plan Assessment: 1. Malfunctioning left brachiocephalic fistula 2. End-stage renal disease requiring hemodialysis 3. Hyperkalemia 4. History of peripheral arterial disease 5. History of coronary artery disease 6. Prior right BKA, left TMA, left fifth finger amputations Plan: 1. Obtain ultrasound of left upper extremity to evaluate fistula 2. Left upper extremity ultrasound imaging reviewed by Dr. Hays 3. Recommend dialysis as a fistula has good blood flow, orders per nephrology 4. Patient tentatively scheduled for left upper extremity fistulogram 5. Keep nothing by mouth 6. Continue medical management Thank you for this consultation, we will continue to follow. The impression and plan of care has been dictated as directed. Dr. Hays I performed a history and examination of this patient, discussed the same with the dictator. I agree with the dictator's note ,documented as a scribe. Any additional findings or plans will be noted.
[2022-09-14] MEDS ORDERED: diphenhydrAMINE 50 MG/ML 1 ML VIAL IVP STA ×2 (10:15→11:44)
--- NOTE | 2022-09-14 11:07 | P.NPCON ---
History of Present Illness - Reason for Consult end stage renal disease - History of Present Illness Patient is a 41-year-old male with end-stage renal disease on hemodialysis on a Monday schedule. Patient was sent into the hospital from the dialysis unit as his AV graft was not functional and multiple clots were pulled out. Patient usually has significant hyperkalemia and potassium was elevated at 6.8 yesterday. This morning it was 7.2. Ultrasound of the AV graft shows that the graft is patent. Patient was evaluated by vascular surgery and they have asked to try hemodialysis. Patient has pseudoaneurysms as well Patient did receive IV treatment for the hyperkalemia. Review of Systems As per HPI Past Medical History Past Medical History: CVA/TIA, Diabetes Mellitus, Hypertension Additional Past Medical History / Comment(s): chiari malformation, dialysis, legally blind History of Any Multi-Drug Resistant Organisms: None Reported Additional Past Surgical History / Comment(s): eye surgery, fistula. right below the knee amputation. Past Anesthesia/Blood Transfusion Reactions: No Reported Reaction Past Psychological History: No Psychological Hx Reported Smoking Status: Former smoker Past Alcohol Use History: None Reported Past Drug Use History: Marijuana - Past Family History Father Family Medical History: Hypertension Mother Family Medical History: Diabetes Mellitus Medications and Allergies Home Medications Medication Instructions Recorded Confirmed Type Methadone [Dolophine] 15 mg PO BID 02/29/16 09/13/22 History Famotidine [Pepcid] 20 mg PO DAILY 09/13/22 09/13/22 History Gabapentin [Neurontin] 100 mg PO BID 09/13/22 09/13/22 History Lokelma 5 Gm Packet 5 gm PO MOWEFR 09/13/22 09/13/22 History Pantoprazole [Protonix] 40 mg PO HS 09/13/22 09/13/22 History Sevelamer [Renvela] 800 - 1,600 mg PO AC-TID PRN 09/13/22 09/13/22 History Sildenafil Citrate [Viagra] 25 mg PO DAILY PRN 09/13/22 09/13/22 History Sucralfate [Carafate] 1 gm PO BID 09/13/22 09/13/22 History rOPINIRole HCL [Requip] 5 mg PO DAILY 09/13/22 09/13/22 History rOPINIRole HCL [Requip] 10 mg PO HS 09/13/22 09/13/22 History Allergies Allergy/AdvReac Type Severity Reaction Status Date / Time baclofen Allergy Confusion Verified 09/13/22 22:05 Penicillins Allergy Unknown Verified 09/13/22 22:05 Childhood Physical Exam Vitals: Vital Signs Temp Pulse Pulse Resp BP BP BP 09/14/22 07:18 97.5 F L 58 L 17 199/136 207/144 09/14/22 02:00 97.0 F L 65 15 134/89 09/14/22 00:48 65 134/89 09/14/22 00:25 192/106 09/13/22 23:05 68 14 126/78 09/13/22 21:00 68 09/13/22 17:05 98.2 F 68 18 186/126 Pulse Ox 09/14/22 07:18 100 09/14/22 02:00 97 09/14/22 00:48 09/14/22 00:25 09/13/22 23:05 96 09/13/22 21:00 09/13/22 17:05 99 Intake and Output 09/13/22 09/14/22 09/14/22 22:59 06:59 14:59 Other: Voiding Method Urinal # Voids 0 Weight 86.6 kg 86.6 kg Patient is awake, comfortable, restless legs noted Alert oriented 3 Examination of the heart S1 and S2 Examination lungs bilateral breath sounds are heard Abdomen is soft nontender Examination of the lower extremities shows bilateral BKA AV graft currently dressed with to needles in, awaiting to start treatment Results - Lab Results Most recent lab results Calcium 9.3 mg/dL (8.4-10.2) 09/14/22 05:28 Phosphorus 7.4 mg/dL (2.5-4.5) H 09/13/22 20:59 Magnesium 3.1 mg/dL (1.6-2.3) H 09/13/22 20:59 09/14/22 05:28 09/14/22 05:28 Assessment and Plan Assessment: 1. End-stage renal disease on hemodialysis on a Monday [facility] 2. Hyperkalemia associated with end-stage renal disease 3. Malfunctioning AV graft been evaluated by vascular surgery 4. CK D mineral bone disorder Plan: Hemodialysis today if AV graft is functional. The venous pressures have been high and this will be communicated back to vascular surgery.
[2022-09-14 11:27] LABS: Glucose,Whole Blood 46 mg/dL (70-110)
[2022-09-14] MEDS ORDERED: hydrALAZINE HCL 20 MG/ML 1 ML VIAL IVP STA (11:35)
[2022-09-14 11:46] LABS: Glucose,Whole Blood 68 mg/dL (70-110)
[2022-09-14 12:10] LABS: Glucose,Whole Blood 84 mg/dL (70-110)
[2022-09-14] MEDS ORDERED: HYDROmorphone 1 MG/ML 1 ML SYRINGE IVP STA (14:29)
[2022-09-14] MEDS ORDERED: LORazepam 2 MG/ML INJ IV PRN (14:29)
--- NOTE | 2022-09-14 15:22 | P.PN ---
Subjective Progress Note Date: 09/14/22 The patient is a 41-year-old male with a PMH of type II DM status post right BKA, left 5 toe amputations, and multiple finger amputations on bilateral hands, ESRD on hemodialysis via left upper extremity fistula /Angela/Mon, history of CVA, hypertension who was sent to the emergency room for a malfunctioning fistula. The patient attempted to go to his routine dialysis session earlier today where they attempted to access the fistula multiple times were only able to receive clots. Laboratory evaluation was remarkable for sodium 130, potassium 6.4, BUN 72, creatinine 12.49, glucose 130, and magnesium 3.1. EKG reveals sinus rhythm at 65 bpm with left axis deviation and poor R-wave progression. Patient was given hyperkalemia cocktail and admitted for further management. Repeat potassium was 7.2 and hyperkalemia cocktail was repeated. Venous Doppler was performed which showed partial occlusion of the left upper extremity surgical fistula with no complete occlusion. Nephrology was consulted and dialysis was initiated. Patient was seen and examined this morning. No acute events overnight. Patient reports neuropathic pain in his upper extremities. He denies any chest pain, shortness of breath, palpitations or lightheadedness. General: non toxic, no distress, appears older than stated age, overweight Derm: no unusual rashes/lesions, warm Head: atraumatic, normocephalic, symmetric Eyes: EOMI, no lid lag, anicteric sclera ENT: Nose and ears atraumatic Neck: No cervical lymphadenopathy, trachea midline, supple Mouth: no lip lesion, mucus membranes moist Cardiovascular: S1S2 reg, no murmur, no edema Lungs: CTA bilateral, no rhonchi, no rales, no accessory muscle use Abdominal: soft, nontender to palpation, no guarding Ext: Right BKA, no gross muscle atrophy, no contractures, left upper extremity fistula with strong pulse Neuro: no gross focal neuro deficits Psych: Alert, oriented, appropriate affect Malfunctioning AV fistula Hyperkalemia Hypertensive urgency Diabetes mellitus with hypoglycemia Chronic conditions: ESRD, history of CVA, hypertension Based on my assessment of this patient, this patient meets a high complexity level of care. I have reviewed the following customer service sales consultant notes: Vascular surgery note 09/14, fistulogram tomorrow and possible tunneled catheter if needed. Nephrology note 09/14, hemodialysis today if AV graft functional. I have reviewed the results of the following tests: BMP shows potassium of 7.2, BUN of 77 and creatinine of 13.04. I have ordered the following tests: Repeat potassium ordered for today. Repeat BMP ordered for tomorrow morning. I have discussed the care of this patient with the following independent historian: None. I have independently interpreted the following test below: None. I have discussed the management of this patient with the following physician: None. This patient has a high risk of morbidity due to the following reasons: Patient has an acute diagnosis of hyperkalemia secondary to ESRD and missed dialysis session that poses a threat to life or bodily function. He is also noted to be hypoglycemic with [id number] glucose of 46 requiring amps of D50. He is also noted BP as high as 207/144 requiring IV push of hydralazine as needed. Patient was given 1 g calcium gluconate IV, 10 units of IV regular insulin/D50, Lokelma 10 g by mouth once for potassium of 7.2 this morning. His repeat potassium is 4.9. Currently undergoing hemodialysis. Plans for fistulogram tomorrow and possible tunneled catheter if needed. Telemetry monitoring order ed. Patient was given hydralazine 25 mg by mouth for BP of 207/144 this morning. Repeat BP 262/136. Hydralazine 10 mg IV ordered. Most recent BP 124/66. Objective - Vital Signs Vital signs: Vital Signs Temp 97.7 F 09/14/22 13:36 Pulse 79 09/14/22 13:36 Resp 19 09/14/22 13:36 BP 124/66 09/14/22 13:36 Pulse Ox 100 09/14/22 13:36 FiO2 Intake & Output 09/13/22 09/14/22 09/14/22 18:59 06:59 18:59 Weight 86.6 kg 86.6 kg Other: Voiding Method Urinal # Voids 0 - Labs CBC & Chem 7: 09/14/22 05:28 09/14/22 10:34 Labs: Abnormal Lab Results - Last 24 Hours (Table) 09/13/22 09/13/22 09/14/22 Range/Units 20:59 20:59 00:14 MCHC 30.7 L (31.0-37.0) g/dL Sodium 132 L (137-145) mmol/L Potassium 6.4 H* (3.5-5.1) mmol/L Chloride 92 L (98-107) mmol/L BUN 72 H (9-20) mg/dL Creatinine 12.49 H* (0.66-1.25) mg/dL Glucose 130 H (74-99) mg/dL POC Glucose (mg/dL) 60 L (70-110) mg/dL Phosphorus 7.4 H (2.5-4.5) mg/dL Magnesium 3.1 H (1.6-2.3) mg/dL AST (17-59) U/L 09/14/22 09/14/22 09/14/22 Range/Units 01:46 05:28 05:28 MCHC 30.0 L (31.0-37.0) g/dL Sodium 134 L (137-145) mmol/L Potassium 7.2 H* (3.5-5.1) mmol/L Chloride 91 L (98-107) mmol/L BUN 77 H (9-20) mg/dL Creatinine 13.04 H* (0.66-1.25) mg/dL Glucose 118 H (74-99) mg/dL POC Glucose (mg/dL) 131 H (70-110) mg/dL Phosphorus (2.5-4.5) mg/dL Magnesium (1.6-2.3) mg/dL AST 15 L (17-59) U/L 09/14/22 09/14/22 09/14/22 Range/Units 05:53 11:24 11:45 MCHC (31.0-37.0) g/dL Sodium (137-145) mmol/L Potassium (3.5-5.1) mmol/L Chloride (98-107) mmol/L BUN (9-20) mg/dL Creatinine (0.66-1.25) mg/dL Glucose (74-99) mg/dL POC Glucose (mg/dL) 147 H 46 L 68 L (70-110) mg/dL Phosphorus (2.5-4.5) mg/dL Magnesium (1.6-2.3) mg/dL AST (17-59) U/L
[2022-09-14 16:28] LABS: Glucose,Whole Blood 84 mg/dL (70-110)
[2022-09-14 18:07] LABS: Glucose,Whole Blood 117 mg/dL (70-110)
[2022-09-14] MEDS: HYDROmorphone 1 MG/ML 1 ML SYRINGE IVP PRN (18:22)
[2022-09-14 20:21] LABS: Glucose,Whole Blood 101 mg/dL (70-110)
[2022-09-14] MEDS: PANTOPRAZOLE 40 MG TABLET PO SCH (20:46)
[2022-09-14] MEDS: rOPINIRole HCL 4 MG TABLET PO SCH (20:46)
[2022-09-15] MEDS: HYDROmorphone 1 MG/ML 1 ML SYRINGE IVP PRN ×4 (00:36→21:55)
[2022-09-15] MEDS: HEPARIN SODIUM,PORCINE/PF 5,000 UNIT/0.5 ML SYRINGE SQ SCH ×3 (00:36→16:31)
[2022-09-15] MEDS ORDERED: diphenhydrAMINE 25 MG CAP PO STA (05:25)
[2022-09-15 06:07] LABS: Glucose,Whole Blood 71 mg/dL (70-110)
[2022-09-15] MEDS: INSULIN ASPART (NovoLOG) 100 UNIT/ML VIAL SQ SCH ×4 (06:07→20:43)
[2022-09-15 07:26] LABS: HCT 48.4 % (39.0-53.0); HGB 14.5 gm/dL (13.0-17.5); Hypochromasia Moderate; MCH 26.9 pg (25.0-35.0); MCV 89.8 fL (80.0-100.0); Mean Platelet Volume 8.5; Platelet Count 192 k/uL (150-450); RBC 5.39 m/uL (4.30-5.90); RDW 15.5 % (11.5-15.5); WBC 6.9 k/uL (3.8-10.6)
[2022-09-15 07:52] LABS: African American GFR (CKD) 6 (>60 ml/min/1.73 sqM); Anion Gap 16 mmol/L; Blood Urea Nitrogen 45 mg/dL (9-20); Calcium 8.8 mg/dL (8.4-10.2); Carbon Dioxide 24 mmol/L (22-30); Chloride 95 mmol/L (98-107); Glucose 68 mg/dL (74-99); Non-African American GFR(CKD) 6 (>60 ml/min/1.73 sqM); Sodium 135 mmol/L (137-145)
[2022-09-15] MEDS ORDERED: DEXTROSE 50% SYRINGE 50 ML IVP STA (08:22)
[2022-09-15] MEDS: GABAPENTIN 100 MG CAP PO SCH ×2 (10:37→20:39)
[2022-09-15] MEDS: SUCRALFATE 1 GM TAB PO SCH ×2 (10:37→20:40)
[2022-09-15] MEDS: FAMOTIDINE 20 MG TAB PO SCH (10:37)
[2022-09-15] MEDS: METHADONE 5 MG TAB PO SCH ×2 (10:37→20:39)
[2022-09-15 11:38] LABS: Glucose,Whole Blood 82 mg/dL (70-110)
[2022-09-15] MEDS ORDERED: LIDOCAINE 1% INJ 10MG/ML (20 ML MDV) ONE (12:11)
[2022-09-15] MEDS ORDERED: fentaNYL (PF) 50 MCG/ML 2 ML AMP ONE (12:28)
[2022-09-15] MEDS ORDERED: SODIUM CHLORIDE 0.9% 500 ML 500 ML IV ONE (12:30)
[2022-09-15] MEDS: fentaNYL (PF) 50 MCG/ML 2 ML AMP IVP ONE ×2 (12:31→12:43)
[2022-09-15] MEDS: MIDAZOLAM 2 MG/2 ML VIAL IVP ONE ×2 (12:31→12:39)
[2022-09-15] MEDS ORDERED: LIDOCAINE 1% INJ 10MG/ML (30 ML VIAL-PF) SQ ONE ×3 (12:35→12:37)
[2022-09-15] MEDS ORDERED: diphenhydrAMINE 50 MG/ML 1 ML VIAL ONE (12:50)
[2022-09-15] MEDS: diphenhydrAMINE 50 MG/ML 1 ML VIAL IVP ONE ×2 (12:51→13:00)
[2022-09-15] MEDS ORDERED: ALTEPLASE 2 MG VIAL (CATHFLO) IV STA (12:52)
--- NOTE | 2022-09-15 12:53 | P.PN ---
Subjective Patient is seen for follow-up for end-stage renal disease. He was admitted to the hospital with malfunctioning AV graft and hyperkalemia. Patient is scheduled for fistulogram today. He was able to have her treatment yesterday although he has been complaining of significant pain in his left hand. Patient will be dialyzed again today post fistulogram. Objective - Vital Signs Vital signs: Vital Signs Temp 98.3 F 09/15/22 07:14 Pulse 81 09/15/22 07:45 Resp 14 09/15/22 07:45 BP 144/82 09/15/22 07:14 Pulse Ox 97 09/15/22 07:14 FiO2 Intake & Output 09/14/22 09/15/22 09/15/22 18:59 06:59 18:59 Output Total 3500 3500 Balance -3500 -3500 Output: Hemodialysis 3500 3500 Other: Voiding Method Urinal Urinal Urinal # Voids 0 0 - Exam Awake, comfortable, no acute distress Alert oriented 3 Examination of the heart S1 and S2 Examination lungs bilateral breath sounds are heard Abdomen is soft nontender Examination of the lower extremities shows bilateral BKA DREDGE LEVER OPERATOR exam grossly intact - Labs CBC & Chem 7: 09/15/22 05:55 09/15/22 05:55 Labs: Abnormal Lab Results - Last 24 Hours (Table) 09/14/22 09/15/22 09/15/22 Range/Units 18:06 05:55 05:55 MCHC 30.0 L (31.0-37.0) g/dL Sodium 135 L (137-145) mmol/L Chloride 95 L (98-107) mmol/L BUN 45 H (9-20) mg/dL Creatinine 10.41 H* (0.66-1.25) mg/dL Glucose 68 L (74-99) mg/dL POC Glucose (mg/dL) 117 H (70-110) mg/dL Assessment and Plan Assessment: 1. End-stage renal disease on hemodialysis on a Monday schedule 2. Hyperkalemia associated with end-stage renal disease, improved post hemodialysis yesterday 3. Malfunctioning AV graft been evaluated by vascular surgery, going for fistulogram today 4. CK D mineral bone disorder Plan: Hemodialysis today after fistulogram
[2022-09-15] MEDS ORDERED: ALTEPLASE 2 MG VIAL (CATHFLO) IA ONE (13:07)
--- NOTE | 2022-09-15 13:30 | P.OP ---
Date of Procedure: 09/15/22 Description of Procedure: Preoperative diagnosis: [End-stage renal disease, malfunctioning left upper extremity fistula, aneurysmal.] Postoperative diagnosis: Same Procedure: [Ultrasound-guided axis Fistulogram From: Thrombolysis with TPA Percutaneous transluminal balloon angioplasty of in-stent restenosis, 8 x 40, 10 x 40 Percutaneous transluminal balloon angioplasty of fistula 8 x 40, 10 x 40 37 minutes moderate conscious sedation, personally monitoring certified RN administration as well as hemodynamic monitoring] Surgeon: Faith Hays D.O. EBL: [Less than 10 mL] IV fluids: [See records] Urine output: [None] Drains: [None] Complications: [None immediately apparent] Condition: [Stable, palpable thrill, palpable radial pulse] Operative indication and findings: [Patient is a 41-year-old male with end-stage renal disease and a complex access history. He has evidence of aneurysmal disease to his left upper extremity fistula and previous or stenting. This was areas of thrombus and has been having difficulty with dialysis. He is here today for fistulogram and intervention.] Procedure in detail: [Patient was taken to the special suite and placed in supine position. Left upper extremity is prepped and draped in usual sterile fashion. A preprocedure timeout was performed, all parties were in agreement. Using ultrasound, the fistula was identified, there was evidence of mild mural thrombus however the proximal portion of the vessel appeared patent and compressible. Permanent image was stored. Ultrasound guidance, micro-access needle was used to access the fistula and Seldinger technique was used eventually 6-Turkmen sheath. An angiogram was performed, initially there was no obvious flow beyond the first area of aneurysmal dilation. Catheters and wires were then utilized to access and passed through the fistula, through the stent into the subclavian and axillary veins. Imaging here was performed showing patency of the vessel was larger diameter. Contrast was then injected is otherwise fashion back towards the level of the stent, there did appear to be diminished flow in the stent without evidence of stenosis severely through the stent. At that point the wire was then readvanced, a 8 x 40 balloon was utilized to angioplasty the previous stent and through majority of the fistula. Imaging was performed showing significant improvement of flow but with still some evidence of waste at the outflow portion therefore a 10 x 40 balloon was used to area. Repeat imaging was significantly improved. There was still evidence of mural thrombus through the proximal area of aneurysmal dilation again this was angioplastied. Final imaging was in TPA was instilled at that moment in order to help macerated any further portions of more proximal thrombus. At that point there appeared to be significant improvement in palpation and thrill therefore the procedure was concluded. Catheters and wires were removed. The sheath was removed with [id number] suture for hemostasis and manual pressure. The patient tolerated the procedure well. Going forward he may need intervention and surgery to remove the portion of the dilated fistula if it continues to be problematic at dialysis.
--- NOTE | 2022-09-15 13:33 | IR ---
EXAMINATION TYPE: IR angio upper extremity LT DATE OF EXAM: 09/15/2022 CLINICAL HISTORY: Failed dialysis. TECHNIQUE: Fluoroscopy. COMPARISON: None. FINDINGS: Fluoroscopic guidance was provided during left upper extremity fistulogram procedure perfo rmed by Dr. Hays. A total of 8.1 minutes of fluoroscopic time was utilized during the procedure and the 117 spot images was acquired. Total DAP 2.36 Gy x cm2. Please refer to procedure note for furth er details. IMPRESSION: As Above.
--- NOTE | 2022-09-15 16:13 | P.PN ---
Subjective Progress Note Date: 09/15/22 The patient is a 41-year-old male with a PMH of type II DM status post right BKA, left 5 toe amputations, and multiple finger amputations on bilateral hands, ESRD on hemodialysis via left upper extremity fistula /Angela/Mon, history of CVA, hypertension who was sent to the emergency room for a malfunctioning fistula. The patient attempted to go to his routine dialysis session earlier today where they attempted to access the fistula multiple times were only able to receive clots. Laboratory evaluation was remarkable for sodium 130, potassium 6.4, BUN 72, creatinine 12.49, glucose 130, and magnesium 3.1. EKG reveals sinus rhythm at 65 bpm with left axis deviation and poor R-wave progression. Patient was given hyperkalemia cocktail and admitted for further management. Repeat potassium was 7.2 and hyperkalemia cocktail was repeated. Venous Doppler was performed which showed partial occlusion of the left upper extremity surgical fistula with no complete occlusion. Nephrology was consulted and dialysis was initiated. Patient was seen and examined this morning. No acute events overnight. Patient reports well controlled neuropathic pain in his upper extremities. He denies any chest pain, shortness of breath, palpitations or lightheadedness. General: non toxic, no distress, appears older than stated age, overweight Derm: no unusual rashes/lesions, warm Head: atraumatic, normocephalic, symmetric Eyes: EOMI, no lid lag, anicteric sclera ENT: Nose and ears atraumatic Neck: No cervical lymphadenopathy, trachea midline, supple Mouth: no lip lesion, mucus membranes moist Cardiovascular: S1S2 reg, no murmur, no edema Lungs: CTA bilateral, no rhonchi, no rales, no accessory muscle use Abdominal: soft, nontender to palpation, no guarding Ext: Right BKA, no gross muscle atrophy, no contractures, left upper extremity fistula with strong pulse Neuro: no gross focal neuro deficits Psych: Alert, oriented, appropriate affect Malfunctioning AV fistula Hypertension Diabetes mellitus with hypoglycemia Resolved: Hyperkalemia, Hypertensive urgency Chronic conditions: ESRD, history of CVA, hypertension Based on my assessment of this patient, this patient meets a moderate complexity level of care. I have reviewed the following weight loss sales consultant notes: Nephrology note 09/15, patient will be dialyzed again today post fistulogram. I have reviewed the results of the following tests: CBC is unremarkable. BMP shows sodium of 135, chloride of 95, BUN of 45, creatinine of 10.41, glucose of 68. I have ordered the following tests: Repeat BMP ordered for tomorrow morning. I have discussed the care of this patient with the following independent historian: None. I have independently interpreted the following test below: None. I have discussed the management of this patient with the following physician: None. This patient has a moderate risk of morbidity due to the following reasons: Plans for fistulogram today. Plans for dialysis after his procedure. His blood pressure is improved after receiving hemodialysis yesterday. Hyperkalemia has resolved with hyperkalemia cocktail and hemodialysis. Anticipated discharge home tomorrow if electrolytes remained stable. Objective - Vital Signs Vital signs: Vital Signs Temp 98.3 F 09/15/22 07:14 Pulse 81 09/15/22 07:45 Resp 14 09/15/22 07:45 BP 144/82 09/15/22 07:14 Pulse Ox 97 09/15/22 07:14 FiO2 Intake & Output 09/14/22 09/15/22 09/15/22 18:59 06:59 18:59 Intake Total 400 Output Total 3500 3500 Balance -3500 -3500 400 Intake: IV 400 Output: Hemodialysis 3500 3500 Other: Voiding Method Urinal Urinal Urinal # Voids 0 0 - Labs CBC & Chem 7: 09/15/22 05:55 09/15/22 05:55 Labs: Abnormal Lab Results - Last 24 Hours (Table) 09/14/22 09/15/22 09/15/22 Range/Units 18:06 05:55 05:55 MCHC 30.0 L (31.0-37.0) g/dL Sodium 135 L (137-145) mmol/L Chloride 95 L (98-107) mmol/L BUN 45 H (9-20) mg/dL Creatinine 10.41 H* (0.66-1.25) mg/dL Glucose 68 L (74-99) mg/dL POC Glucose (mg/dL) 117 H (70-110) mg/dL
[2022-09-15 16:54] LABS: Glucose,Whole Blood 74 mg/dL (70-110)
[2022-09-15] MEDS: rOPINIRole HCL 4 MG TABLET PO SCH (20:38)
[2022-09-15] MEDS: PANTOPRAZOLE 40 MG TABLET PO SCH (20:40)
[2022-09-15 20:42] LABS: Glucose,Whole Blood 154 mg/dL (70-110)
[2022-09-16] MEDS: HEPARIN SODIUM,PORCINE/PF 5,000 UNIT/0.5 ML SYRINGE SQ SCH ×3 (00:21→17:10)
[2022-09-16] MEDS: HYDROmorphone 1 MG/ML 1 ML SYRINGE IVP PRN ×2 (03:29→13:53)
[2022-09-16] MEDS ORDERED: hydrALAZINE HCL 25 MG TAB PO STA ×2 (05:17→15:43)
[2022-09-16] MEDS ORDERED: HYDROmorphone 1 MG/ML 1 ML SYRINGE IVP STA (06:30)
[2022-09-16 06:41] LABS: Glucose,Whole Blood 113 mg/dL (70-110)
[2022-09-16] MEDS: INSULIN ASPART (NovoLOG) 100 UNIT/ML VIAL SQ SCH ×3 (07:25→17:10)
[2022-09-16 07:44] LABS: African American GFR (CKD) 6 (>60 ml/min/1.73 sqM); Anion Gap 15 mmol/L; Blood Urea Nitrogen 55 mg/dL (9-20); Calcium 8.8 mg/dL (8.4-10.2); Carbon Dioxide 24 mmol/L (22-30); Chloride 95 mmol/L (98-107); Glucose 93 mg/dL (74-99); Non-African American GFR(CKD) 5 (>60 ml/min/1.73 sqM); Potassium 5.3 mmol/L (3.5-5.1); Sodium 134 mmol/L (137-145)
[2022-09-16] MEDS: GABAPENTIN 100 MG CAP PO SCH (10:34)
[2022-09-16] MEDS: FAMOTIDINE 20 MG TAB PO SCH (10:34)
[2022-09-16] MEDS: SUCRALFATE 1 GM TAB PO SCH (10:34)
[2022-09-16] MEDS: METHADONE 5 MG TAB PO SCH (10:34)
[2022-09-16] MEDS ORDERED: LIDOCAINE 1% INJ 10MG/ML (20 ML MDV) ONE (10:39)
[2022-09-16] MEDS ORDERED: HEPARIN SODIUM 1,000 UN/ML (10ML VL) ONE (10:40)
[2022-09-16] MEDS ORDERED: fentaNYL (PF) 50 MCG/ML 2 ML AMP ONE (10:45)
[2022-09-16] MEDS ORDERED: PROPOFOL 10 MG/ML 20 ML VIAL IV ONE (10:45)
[2022-09-16] MEDS ORDERED: MIDAZOLAM 2 MG/2 ML VIAL ONE (10:45)
[2022-09-16] MEDS ORDERED: KETAMINE 10 MG/ML 20 ML VIAL ONE (10:45)
[2022-09-16] MEDS: CLINDAMYCIN 900 MG in DEXTROSE 5% IN WATER 50 ML IVPB STA ×4 (11:00→11:15)
[2022-09-16] MEDS ORDERED: LIDOCAINE 1% INJ 10MG/ML (30 ML VIAL-PF) SQ ONE (11:17)
--- NOTE | 2022-09-16 11:57 | P.OP ---
Date of Procedure: 09/16/22 Description of Procedure: DATE OF PROCEDURE: 09/16/2022 PREOPERATIVE DIAGNOSIS: Need for dialysis malfunctioning left upper extremity AV fistula, aneurysmal PROCEDURE: 1. Ultrasound-guided right internal jugular vein access. 2. Placement of a 23 cm tunneled dialysis catheter with fluoroscopic ass istance. PROCEDURE: The patient was brought to the Professor Of Counseling placed in supine position. The bilateral necks were prepped and draped in usual sterile fashion. A preprocedure timeout was performed, all parties were in agreement. Using ultrasound the right internal jugular was identified. It was patent and compressible. Permanent image was stored The site overlying the vein was anesthetized with 1% lidocaine plain and an access needle was used to gain access to the internal jugular vein with return of dark venous, nonpulsatile blood. Seldinger technique was used and a micro-access sheath was placed. Attention was then turned towards the tunnel. The chest wall was anesthetized with 1% lidocaine plain. A small shirin and the skin was made and the previously flushed catheter was tunneled through the anticipated location. Using Seldinger technique and fluoroscopic assistance, the 35 Glidewire was placed and the tract was serially dilated. This was relatively difficult due to previous scar tissue. The final tear-away sheath was left in place. The inner cannula and wire were removed. The catheter was placed in the tear-away sheath was removed in standard fashion. The catheter showed good positioning was final resting place in the cavoatrial junction. The catheter aspirated and flushed freely. The incision at the neck was reapproximated with interrupted sutures of 4-0 Vi cryl. The catheter was sutured in place with 3-0 nylon. Dressings were placed. The patient was allowed to awaken from anesthesia and transferred to recovery in stable condition having tolerated the procedure well. A post procedure chest x-ray is pending
[2022-09-16 11:58] VITALS: RESP 16
[2022-09-16] MEDS ORDERED: IV FLUID CONTINUATION 1,000 ML IV ONE (11:58)
[2022-09-16 12:04] LABS: Glucose,Whole Blood 86 mg/dL (70-110)
--- NOTE | 2022-09-16 12:05 | IR ---
EXAMINATION TYPE: IR cvc insert central tunneled DATE OF EXAM: 09/16/2022 COMPARISON: NONE HISTORY: Fluoroscopy time. Fluoroscopy was provided to the referring clinician.
[2022-09-16 13:21] VITALS: PULSE 70
--- NOTE | 2022-09-16 15:44 | P.PN ---
Subjective Patient is seen for follow-up for end-stage renal disease. He was admitted to the hospital with malfunctioning AV graft and hyperkalemia. S/p fistulogram yesterday s/p angioplasty. Access could not be used yesterday therefore pt is having an IJ cath placed. Sleeping this am but arousable. Objective - Vital Signs Vital signs: Vital Signs Temp 98.0 F 09/16/22 11:50 Pulse 70 09/16/22 13:02 Resp 16 09/16/22 13:02 BP 205/100 09/16/22 13:02 Pulse Ox 97 09/16/22 13:02 FiO2 Intake & Output 09/15/22 09/16/22 09/16/22 18:59 06:59 18:59 Intake Total 600 281 Balance 600 281 Intake: IV 400 81 Oral 200 200 Other: Voiding Method Urinal Toilet Toilet # Voids 0 # Bowel Movements 1 - Exam Sleeping but arousable, comfortable, no acute distress Abdomen is soft nontender Examination of the lower extremities shows bilateral BKA - Labs CBC & Chem 7: 09/15/22 05:55 09/16/22 06:17 Labs: Abnormal Lab Results - Last 24 Hours (Table) 09/15/22 09/16/22 09/16/22 Range/Units 20:41 06:17 06:38 Sodium 134 L (137-145) mmol/L Potassium 5.3 H (3.5-5.1) mmol/L Chloride 95 L (98-107) mmol/L BUN 55 H (9-20) mg/dL Creatinine 11.73 H* (0.66-1.25) mg/dL POC Glucose (mg/dL) 154 H 113 H (70-110) mg/dL Assessment and Plan Assessment: 1. End-stage renal disease on hemodialysis on a Monday schedule 2. Hyperkalemia associated with end-stage renal disease, improved post hemodialysis yesterday 3. Malfunctioning AV graft been evaluated by vascular surgery, going for permcath placement today 4. CK D mineral bone disorder Plan: Hemodialysis today after catheter placement.
--- NOTE | 2022-09-16 15:47 | P.PN ---
Subjective Progress Note Date: 09/16/22 The patient is a 41-year-old male with a PMH of type II DM status post right BKA, left 5 toe amputations, and multiple finger amputations on bilateral hands, ESRD on hemodialysis via left upper extremity fistula /Angela/Mon, history of CVA, hypertension who was sent to the emergency room for a malfunctioning fistula. The patient attempted to go to his routine dialysis session earlier today where they attempted to access the fistula multiple times were only able to receive clots. Laboratory evaluation was remarkable for sodium 130, potassium 6.4, BUN 72, creatinine 12.49, glucose 130, and magnesium 3.1. EKG reveals sinus rhythm at 65 bpm with left axis deviation and poor R-wave progression. Patient was given hyperkalemia cocktail and admitted for further management. Repeat potassium was 7.2 and hyperkalemia cocktail was repeated. Venous Doppler was performed which showed partial occlusion of the left upper extremity surgical fistula with no complete occlusion. Nephrology was consulted and dialysis was initiated. Patient was seen and examined this morning. No acute events overnight. Patient reports well controlled neuropathic pain in his upper extremities. Fistulogram done yesterday but unable to obtain access for HD. Patient frustrated about being in the hospital. He denies any chest pain, shortness of breath, palpitations or lightheadedness. General: non toxic, no distress, appears older than stated age, overweight Derm: no unusual rashes/lesions, warm Head: atraumatic, normocephalic, symmetric Eyes: EOMI, no lid lag, anicteric sclera ENT: Nose and ears atraumatic Neck: No cervical lymphadenopathy, trachea midline, supple Mouth: no lip lesion, mucus membranes moist Cardiovascular: S1S2 reg, no murmur, no edema Lungs: CTA bilateral, no rhonchi, no rales, no accessory muscle use Abdominal: soft, nontender to palpation, no guarding Ext: Right BKA, no gross muscle atrophy, no contractures, left upper extremity fistula with strong pulse Neuro: no gross focal neuro deficits Psych: Alert, oriented, appropriate affect Malfunctioning AV fistula Hyperkalemia Hypertensive urgency Diabetes mellitus with resolved hypoglycemia Chronic conditions: ESRD, history of CVA, hypertension Based on my assessment of this patient, this patient meets a moderate complexity level of care. I have reviewed the following media consultant notes: Vascular note 09/16, Ultrasound-guided right internal jugular vein access, placement of a 23 cm tunneled dialysis catheter with fluoroscopic assistance. I have reviewed the results of the following tests: BMP shows sodium of 134, potassium of 5.3, chloride of 95, BUN of 55, creatinine of 11.73. I have ordered the following tests: Repeat BMP ordered for tomorrow morning. I have discussed the care of this patient with the following independent historian: None. I have independently interpreted the following test below: None. I have discussed the management of this patient with the following physician: None. This patient has a moderate risk of morbidity due to the following reasons: Patient will need hemodialysis access today to be done by Vascular surgery. Plans for dialysis after his procedure. His blood pressure is elevated at 205/100. Hydralazing 25 mg by mouth one time ordered. Hyperkalemia, mild at 5.3, hopeful hemodialysis today. Objective - Vital Signs Vital signs: Vital Signs Temp 98.0 F 09/16/22 11:50 Pulse 70 09/16/22 13:02 Resp 16 09/16/22 13:02 BP 205/100 09/16/22 13:02 Pulse Ox 97 09/16/22 13:02 FiO2 Intake & Output 09/15/22 09/16/22 09/16/22 18:59 06:59 18:59 Intake Total 600 281 Balance 600 281 Intake: IV 400 81 Oral 200 200 Other: Voiding Method Urinal Toilet Toilet # Voids 0 # Bowel Movements 1 - Labs CBC & Chem 7: 09/15/22 05:55 09/16/22 06:17 Labs: Abnormal Lab Results - Last 24 Hours (Table) 09/15/22 09/16/22 09/16/22 Range/Units 20:41 06:17 06:38 Sodium 134 L (137-145) mmol/L Potassium 5.3 H (3.5-5.1) mmol/L Chloride 95 L (98-107) mmol/L BUN 55 H (9-20) mg/dL Creatinine 11.73 H* (0.66-1.25) mg/dL POC Glucose (mg/dL) 154 H 113 H (70-110) mg/dL
[2022-09-16 16:20] VITALS: BP 90/50; TEMP 98.1
[2022-09-16 16:32] LABS: Glucose,Whole Blood 86 mg/dL (70-110)
--- NOTE | 2022-09-16 16:39 | XR ---
EXAMINATION TYPE: XR chest 1V portable DATE OF EXAM: 09/16/2022 Comparison: 06/29/2013 Clinical History: 41-year-old male check position of tunneled catheter placement Findings: Right-sided double-lumen hemodialysis catheter tip at the upper right atrium. Somewhat low lung volum es. Similar asymmetric elevation right hemidiaphragm. Benefit of atelectasis of the right mid lung. H eart appears normal size. Mild interstitial prominence likely chronic. No consolidation or pleural ef fusion. Impression: Hypoventilatory changes. Similar asymmetric elevation right hemidiaphragm. If concern for hemidiaphra gmatic paralysis, a fluoroscopic sniff test could be considered. The duodenal lumen right-sided hemodialysis catheter has its tip in the upper right atrium.
--- NOTE | 2022-09-16 18:39 | P.DS ---
Providers Date of admission: 09/13/22 23:00 Expected date of discharge: 09/16/22 Attending physician: Ace Bose MD Consults: 09/13/22 22:53 Consult Physician Urgent Consulting Provider: Faith Hays Consult Reason/Comments: non functioning dialysis fistula Do you want consulting provider notified?: Already Contacted Consult Physician Urgent Consulting Provider: Caitlyn Fleming Consult Reason/Comments: esrd on hd, hyperkalemia Do you want consulting provider notified?: Already Contacted Primary care physician: Yash Whyte [facility] Course: The patient is a 41-year-old male with a PMH of type II DM status post right BKA, left 5 toe amputations, and multiple finger amputations on bilateral hands, ESRD on hemodialysis via left upper extremity fistula /Mon/Mon, history of CVA, hypertension who was sent to the emergency room for a malfunctioning fistula. The patient attempted to go to his routine dialysis session earlier today where they attempted to access the fistula multiple times were only able to receive clots. Laboratory evaluation was remarkable for sodium 130, potassium 6.4, BUN 72, creatinine 12.49, glucose 130, and magnesium 3.1. EKG reveals sinus rhythm at 65 bpm with left axis deviation and poor R-wave progression. Patient was given hyperkalemia cocktail and admitted for further management. Repeat potassium was 7.2 and hyperkalemia cocktail was repeated. Venous Doppler was performed which showed partial occlusion of the left upper extremity surgical fistula with no complete occlusion. Nephrology was consulted and dialysis was initiated. His blood pressure normalized and hyperkalemia resolved after undergoing dialysis. He underwent fistulogram with thrombolysis with TPA on 09/15. Postprocedure, he was unable to be dialyzed. Dialysis catheter was placed under fluoroscopic assistance, ultrasound-guided in the right internal jugular vein on 09/16 by vascular surgery. He underwent hemodialysis successfully after that. Patient was requesting to be discharged home after hemodialysis today. Patient be discharged home with the following instructions: Diet: Renal diet Follow-up with your PCP within 1-2 days of discharge. Follow-up with vascular surgery within 1 week of discharge. Resume hemodialysis sessions on a Monday schedule. Take all medications as advised. Pertinent procedures include venous Doppler, chest x-ray Pertinent procedures include fistulogram and right internal jugular vein dialysis catheter insertion. Refer to progress note dated 09/16 for physical exam. Discharge diagnoses: Malfunctioning AV fistula Hyperkalemia Hypertensive urgency Diabetes mellitus with resolved hypoglycemia Chronic conditions: ESRD, history of CVA, hypertension This complication discharge took 35 minutes to complete. Patient Condition at Discharge: Stable Plan - Discharge Summary Discharge Rx Participant: Yes New Discharge Prescriptions: Continue Methadone [Dolophine] 15 mg PO BID Sucralfate [Carafate] 1 gm PO BID Sildenafil Citrate [Viagra] 25 mg PO DAILY PRN PRN Reason: e.d. rOPINIRole HCL [Requip] 5 mg PO DAILY Pantoprazole [Protonix] 40 mg PO HS Gabapentin [Neurontin] 100 mg PO BID rOPINIRole HCL [Requip] 10 mg PO HS Sevelamer [Renvela] 800 - 1,600 mg PO AC-TID PRN PRN Reason: depending on meal size Lokelma 5 Gm Packet 5 gm PO MOWEFR Discontinued Famotidine [Pepcid] 20 mg PO DAILY Discharge Medication List Methadone [Dolophine] 15 mg PO BID 02/29/16 [History] Gabapentin [Neurontin] 100 mg PO BID 09/13/22 [History] Lokelma 5 Gm Packet 5 gm PO MOWEFR 09/13/22 [History] Pantoprazole [Protonix] 40 mg PO HS 09/13/22 [History] Sevelamer [Renvela] 800 - 1,600 mg PO AC-TID PRN 09/13/22 [History] Sildenafil Citrate [Viagra] 25 mg PO DAILY PRN 09/13/22 [History] Sucralfate [Carafate] 1 gm PO BID 09/13/22 [History] rOPINIRole HCL [Requip] 5 mg PO DAILY 09/13/22 [History] rOPINIRole HCL [Requip] 10 mg PO HS 09/13/22 [History] Follow up Appointment(s)/Referral(s): Yash Watson MD [Primary Care Provider] - 1-2 days Faith Hays DO [STAFF PHYSICIAN] - 2 Weeks Activity/Diet/Wound Care/Special Instructions: Diet: Renal diet Follow-up with your PCP within 1-2 days of discharge. Follow-up with vascular surgery within 1 week of discharge. Resume hemodialysis sessions on a Jessica Thursday Saturday schedule. Take all medications as advised. Discharge Disposition: HOME SELF-CARE
== END 2022-09-16 19:56 | disposition home or self-care (01) | DRG 252 ==
LOC: EC 16:59 → 3SCARD 23:00 → 4SSUR 23:12
PROVIDERS: ADMIT Internal Medicine; ATTEND Internal Medicine
PROC: 03CY3ZZ Extirpation of Matter from Upper Artery, Percutaneous Approach (ICD-10-PCS; 2022-09-15)
PROC: 3E04317 Introduction of Other Thrombolytic into Central Vein, Percutaneous Approach (ICD-10-PCS; 2022-09-15)
PROC: B51W1ZZ Fluoroscopy of Dialysis Shunt/Fistula using Low Osmolar Contrast (ICD-10-PCS; principal; 2022-09-15 14:10)
PROC: 0JH63XZ Insertion of Tunneled Vascular Access Device into Chest Subcutaneous Tissue and Fascia, Percutaneous Approach (ICD-10-PCS; 2022-09-16)
PROC: 02HV33Z Insertion of Infusion Device into Superior Vena Cava, Percutaneous Approach (ICD-10-PCS; 2022-09-16)
PROC: 5A1D70Z Performance of Urinary Filtration, Intermittent, Less than 6 Hours Per Day (ICD-10-PCS; 2022-09-16)
DX: T82.510A Breakdown (mechanical) of surgically created arteriovenous fistula, initial encounter (principal); N18.6 End stage renal disease; I12.0 Hypertensive chronic kidney disease with stage 5 chronic kidney disease or end stage renal disease; T82.856A Stenosis of peripheral vascular stent, initial encounter; E11.649 Type 2 diabetes mellitus with hypoglycemia without coma; I51.3 Intracardiac thrombosis, not elsewhere classified; I72.8 Aneurysm of other specified arteries; E11.22 Type 2 diabetes mellitus with diabetic chronic kidney disease; E11.51 Type 2 diabetes mellitus with diabetic peripheral angiopathy without gangrene; E11.42 Type 2 diabetes mellitus with diabetic polyneuropathy; I16.0 Hypertensive urgency; M89.8X9 Other specified disorders of bone, unspecified site; E87.5 Hyperkalemia; H54.8 Legal blindness, as defined in USA; Y71.1 Therapeutic (nonsurgical) and rehabilitative cardiovascular devices associated with adverse incidents; Y71.2 Prosthetic and other implants, materials and accessory cardiovascular devices associated with adverse incidents; Z99.2 Dependence on renal dialysis; Z87.891 Personal history of nicotine dependence; Z89.511 Acquired absence of right leg below knee; Z86.73 Personal history of transient ischemic attack (TIA), and cerebral infarction without residual deficits; Q07.00 Arnold-Chiari syndrome without spina bifida or hydrocephalus; Z88.0 Allergy status to penicillin; Z88.8 Allergy status to other drugs, medicaments and biological substances; Z79.899 Other long term (current) drug therapy; Z79.891 Long term (current) use of opiate analgesic; Z86.79 Personal history of other diseases of the circulatory system; Z89.512 Acquired absence of left leg below knee; Z89.022 Acquired absence of left finger(s); Z89.021 Acquired absence of right finger(s)
CPT/HCPCS: 36415; 36558; 36905; 71045; 76937; 77001; 80048; 80053; 83735; 84100; 84132; 85025; 85027; 90935; 93005; 96374; 99285

== ENCOUNTER 2022-10-07 05:39 | Day surgery (SDC) | payer MEDICARE, OTHER ==
[2022-10-05 11:14] VITALS: BMI 28.0
[2022-10-07] MEDS ORDERED: LACTATED RINGERS 1,000 ML IV SCH (05:51)
[2022-10-07] MEDS ORDERED: ONDANSETRON 4 MG/2 ML VIAL IVP ONE (05:51)
[2022-10-07] MEDS ORDERED: SCOPOLAMINE 1 MG/72 HR PATCH TRANSDERM ONE (05:51)
[2022-10-07] MEDS ORDERED: DEXAMETHASONE SOD PHOSPHATE 4 MG/ML 1 ML VIAL IV ONE (05:51)
[2022-10-07 06:23] LABS: Glucose,Whole Blood 103 mg/dL (70-110)
[2022-10-07] MEDS ORDERED: MIDAZOLAM 2 MG/2 ML VIAL IVP ONE (06:51)
[2022-10-07] MEDS ORDERED: HYDROmorphone 0.5 MG/0.5 ML SYRINGE IVP PRN (07:00)
[2022-10-07] MEDS ORDERED: NEOSTIGMINE 1 MG/ML 10 ML VIAL ONE (07:29)
[2022-10-07] MEDS ORDERED: ROCURONIUM 10 MG/ML (5 ML VIAL) IV ONE (07:29)
[2022-10-07] MEDS ORDERED: fentaNYL (PF) 50 MCG/ML 2 ML AMP ONE (07:29)
[2022-10-07] MEDS ORDERED: GLYCOPYRROLATE 0.2 MG/ML 2 ML VIAL ONE (07:29)
[2022-10-07] MEDS ORDERED: HYDROmorphone (PF) 1 MG/ML ONE (07:29)
[2022-10-07] MEDS ORDERED: PHENYLEPHRINE-0.9% NACL SYG 1,000 MCG/10 ML SYRINGE ONE (07:29)
[2022-10-07] MEDS ORDERED: PROPOFOL 10 MG/ML 20 ML VIAL IV ONE (07:29)
[2022-10-07] MEDS ORDERED: LIDOCAINE 2% INJ 20 MG/ML (2 ML VIAL) ONE (07:29)
[2022-10-07] MEDS ORDERED: SUCCINYLCHOLINE CHLORIDE 200 MG/10 ML VIAL IV ONE (07:29)
[2022-10-07] MEDS ORDERED: ePHEDrine 50 MG/ML 1 ML VIAL ONE (07:29)
[2022-10-07] MEDS ORDERED: THROMBIN (BOVINE) 5,000 UNIT VIAL MISCELLANE ONE (07:56)
[2022-10-07] MEDS ORDERED: GELATIN SPONGE,ABSORB (LARGE) 1 EACH SPONGE MISCELLANE ONE (07:56)
[2022-10-07 10:44] VITALS: RESP 16; TEMP 97.4
--- NOTE | 2022-10-07 10:46 | P.OP ---
Date of Procedure: 10/07/22 Description of Procedure: Preoperative diagnosis: End-stage renal disease, aneurysmal left upper extremity AV fistula, malfunctioning Postoperative diagnosis: Same Procedure: Revision of left upper extremity AV fistula with aneurysmal resection and interposition CryoVein bypass graft Surgeon: Faith Hays D.O. Asst.: Anesthesia: Gen. 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 It has since had some thrombus and is leaking and painful therefore is brought here today for revision and resection of the aneurysmal portion. Risks and benefits including but not limited to bleeding, infection, worsened steal syndrome, injury to the vessel were discussed. He seemingly understands and is willing to proceed. Procedure in detail: The patient was brought to the operative suite and placed in supine position. Left upper extremity prepped and draped in usual sterile fashion. A preprocedure timeout was performed, all parties were in agreement. At the level of the inflow, an incision was made and carried down through subcutaneous tissues. Careful dissection was performed allowed to encircle the proximal portion of the AV fistula. It did appear to be thrombus at this time. A vessel loop was placed. Attention was then turned towards the outflow, a similar manner incision was made and carried down, electrocautery was used to dissect through the subcutaneous tissues and scar tissue. There was a previously placed stent in this area therefore further dissection towards the axilla was performed. A spot with there was no palpable stent was encircled. Again this also failed to have thrombus at this time. A curvilinear incision was made at the base of the medial portion of the fistula and aneurysmal disease. As best as possible, the aneurysmal fistula was skeletonized. There was a curvilinear incision made at the outward portion to excise the skin that was ulcerative. The fistula was dissected free circumferentially and at that point at the proximal distal control was transected and removed from the field. In part a skin flap was raised along the medial portion to allow for future proposed closure. Thrombectomy was then performed with multiple passes through the outflow, a 5 dilator was placed easily without issue at that point did return nonpulsatile venous flow. The same attention was then toward towards the inflow, multiple passes of the 4 Pato were placed with resolution of thrombus and improved inflow, there did appear to be some atherosclerotic disease at this level. Both vessels were flushed with heparinized saline. Attention was then turned toward the newly proposed location for the graft. A tunneler was placed. The CryoVein graft was inspected there was 2 areas of small leak that were sutured with 7-0 Prolene. Leak was improved. The graft was then tunneled and rested in place without any twisting. The graft was then cut to size and an anastomosis was created with 6-0 Prolene. Prior to completion of anastomosis, the graft was flushed. The mass was completed and hemostasis was achieved with rapid sutures of 6-0 Prolene and thrombin Gelfoam. Attention was then turned towards the outflow anastomosis. The graft was cut to size and again using 6-0 Prolene, an anastomosis was created. Prior to completion of the anastomosis, the vein was allowed to backbleed. The graft was flushed to alleviate any air. The anastomosis was completed. Again hemostasis was achieved with 6-0 Prolene and thrombin and Gelfoam. Hemostasis was found to be adequate at both sites. Attention was then turned towards closing, the wound was irrigated. Interrupted sutures of 3-0 Vicryl were placed at the deep dermal level. The skin appeared to come together quite well due to the previous release of the medial flap. There was multiphasic flow noted proximally and distally to the anastomosis prior to closure. The skin was then reprepped using running 4-0 Monocryl in subcuticular fashion. Dressings were placed. The patient was allowed awaken from anesthesia and transported to recovery in stable condition having tolerated the procedure well. Plan - Discharge Summary Discharge Rx Participant: No New Discharge Prescriptions: No Action Methadone [Dolophine] 15 mg PO BID Sucralfate [Carafate] 1 gm PO BID rOPINIRole HCL [Requip] 5 mg PO DAILY Pantoprazole [Protonix] 40 mg PO HS Gabapentin [Neurontin] 100 mg PO BID rOPINIRole HCL [Requip] 10 mg PO HS Sevelamer [Renvela] 800 - 1,600 mg PO AC-TID PRN PRN Reason: depending on meal size Lokelma 5 Gm Packet 5 gm PO MOWEFR PRN PRN Reason: High Potassium Levels Clopidogrel [Plavix] 75 mg PO DAILY Discharge Medication List Methadone [Dolophine] 15 mg PO BID 02/29/16 [History] Gabapentin [Neurontin] 100 mg PO BID 09/13/22 [History] Lokelma 5 Gm Packet 5 gm PO MOWEFR PRN 09/13/22 [History] Pantoprazole [Protonix] 40 mg PO HS 09/13/22 [History] Sevelamer [Renvela] 800 - 1,600 mg PO AC-TID PRN 09/13/22 [History] Sucralfate [Carafate] 1 gm PO BID 09/13/22 [History] rOPINIRole HCL [Requip] 5 mg PO DAILY 09/13/22 [History] rOPINIRole HCL [Requip] 10 mg PO HS 09/13/22 [History] Clopidogrel [Plavix] 75 mg PO DAILY 10/05/22 [History] Follow up Appointment(s)/Referral(s): Faith Hays DO [STAFF PHYSICIAN] - 2 Weeks Activity/Diet/Wound Care/Special Instructions: No showering. Leave dressing in place for 48 hours. May remove thereafter and recover. No heavy lifting. Minimal use of left upper extremity at this time. Continue home medications. Continue home diet otherwise. Discharge Disposition: HOME SELF-CARE
[2022-10-07] MEDS: fentaNYL (PF) 50 MCG/1 ML VIAL IV ONE ×2 (11:02→11:12)
[2022-10-07] MEDS ORDERED: fentaNYL (PF) 50 MCG/1 ML VIAL IV ONE (11:02)
[2022-10-07 11:23] LABS: Glucose,Whole Blood 120 mg/dL (70-110)
[2022-10-07 12:44] VITALS: BP 115/67; PULSE 75
== END 2022-10-07 12:45 | disposition home or self-care (01) ==
LOC: OR 05:39 → EDSTATUS 07:30 → OR 12:45
PROVIDERS: ATTEND Surgery
DX: T82.868A Thrombosis due to vascular prosthetic devices, implants and grafts, initial encounter (principal); T82.530A Leakage of surgically created arteriovenous fistula, initial encounter; Y83.2 Surgical operation with anastomosis, bypass or graft as the cause of abnormal reaction of the patient, or of later complication, without mention of misadventure at the time of the procedure; N18.6 End stage renal disease; Z99.2 Dependence on renal dialysis; E11.22 Type 2 diabetes mellitus with diabetic chronic kidney disease; F12.90 Cannabis use, unspecified, uncomplicated; Z86.73 Personal history of transient ischemic attack (TIA), and cerebral infarction without residual deficits; E11.319 Type 2 diabetes mellitus with unspecified diabetic retinopathy without macular edema; H54.8 Legal blindness, as defined in USA; Q07.00 Arnold-Chiari syndrome without spina bifida or hydrocephalus; Z79.02 Long term (current) use of antithrombotics/antiplatelets; Z79.899 Other long term (current) drug therapy; Z89.511 Acquired absence of right leg below knee; Z89.029 Acquired absence of unspecified finger(s); Z98.890 Other specified postprocedural states; Z88.0 Allergy status to penicillin; Z88.8 Allergy status to other drugs, medicaments and biological substances
CPT/HCPCS: 36833; C1757 ×2; J2250; J0330; J1100; J2710; J0690; J2405; J3010 ×2; J1170; J2370; J2704; J2001

== ENCOUNTER 2022-12-25 10:13 | Emergency (ER) | payer MEDICARE, OTHER ==
[2022-12-25 10:34] VITALS: BP 173/85; PULSE 66; RESP 18; TEMP 97.7
--- NOTE | 2022-12-25 11:18 | ED ---
General Adult HPI - General Chief complaint: Recheck/Abnormal Lab/Rx Stated complaint: Catheter issue Time Seen by Provider: 12/25/22 10:48 Source: patient, family, RN notes reviewed Mode of arrival: wheelchair Limitations: physical limitation - History of Present Illness Initial comments: Patient is a pleasant 42-year-old male presenting to the emergency department with concerns for leakage from his dialysis catheter. Patient does have catheter right chest for dialysis. Last dialysis was yesterday. Patient woke this morning with leaking of saline and some blood. Patient states this was less than a quarter of a cup. Patient states it may be continuing but is starting to improve. Patient does have fistula left arm however has not yet functioning psoas overlying on the dialysis catheter. No other complaints. - Related Data Home Medications Medication Instructions Recorded Confirmed Methadone [Dolophine] 15 mg PO BID 02/29/16 10/07/22 Gabapentin [Neurontin] 100 mg PO BID 09/13/22 10/07/22 Lokelma 5 Gm Packet 5 gm PO MOWEFR PRN 09/13/22 10/07/22 Pantoprazole [Protonix] 40 mg PO HS 09/13/22 10/07/22 Sevelamer [Renvela] 800 - 1,600 mg PO AC-TID PRN 09/13/22 10/07/22 Sucralfate [Carafate] 1 gm PO BID 09/13/22 10/07/22 rOPINIRole HCL [Requip] 5 mg PO DAILY 09/13/22 10/07/22 rOPINIRole HCL [Requip] 10 mg PO HS 09/13/22 10/07/22 Clopidogrel [Plavix] 75 mg PO DAILY 10/05/22 10/05/22 Allergies Allergy/AdvReac Type Severity Reaction Status Date / Time baclofen Allergy Confusion Verified 12/25/22 10:34 Penicillins Allergy Unknown Verified 12/25/22 10:34 Childhood Review of Systems ROS Statement: Those systems with pertinent positive or pertinent negative responses have been documented in the HPI. ROS Other: All systems not noted in ROS Statement are negative. Constitutional: Denies: fever Eyes: Denies: eye pain ENT: Denies: ear pain Respiratory: Denies: cough Cardiovascular: Denies: chest pain Endocrine: Denies: fatigue Gastrointestinal: Denies: abdominal pain Past Medical History Past Medical History: Coronary Artery Disease (CAD), CVA/TIA, Diabetes Mellitus, Dialysis, Eye Disorder, GERD/Reflux, Renal Disease, Vascular Disorder Additional Past Medical History / Comment(s): Hx CVA 11 yrs ago, no residual effects. Diet Controlled Diabetes. Chiari malformation. Dialysis, [facility]. Legally blind. History of Any Multi-Drug Resistant Organisms: None Reported Past Surgical History: Orthopedic Surgery Additional Past Surgical History / Comment(s): Eye surgery, fistula, right below the knee amputation. Bypass. Past Anesthesia/Blood Transfusion Reactions: No Reported Reaction Past Psychological History: No Psychological Hx Reported Smoking Status: Former smoker Past Alcohol Use History: None Reported Past Drug Use History: Marijuana - Past Family History Father Family Medical History: Hypertension Mother Family Medical History: Diabetes Mellitus General Exam Limitations: physical limitation General appearance: alert, in no apparent distress Head exam: Present: atraumatic Eye exam: Present: normal appearance Neck exam: Present: normal inspection Respiratory exam: Present: normal lung sounds bilaterally, other (Right anterior chest wall with dialysis catheter. There is a tiny hole, approximately 1 mm just after the application near the blue cap.) Cardiovascular Exam: Present: regular rate, normal rhythm GI/Abdominal exam: Present: soft. Absent: tenderness Extremities exam: Present: other (Left upper arm fistula) Neurological exam: Present: alert Psychiatric exam: Present: normal affect, normal mood Skin exam: Present: normal color Course Vital Signs 12/25/22 12/25/22 10:29 12:32 Temperature 97.7 F Pulse Rate 66 Respiratory 18 18 Rate Blood Pressure 173/85 O2 Sat by Pulse 95 Oximetry Medical Decision Making - Medical Decision Making Was pt. sent in by a medical professional or institution (, PA, MARKETING INTELLIGENCE MANAGER, urgent care, hospital, or jail...) When possible be specific @ -No Did you speak to anyone other than the patient for history (EMS, parent, family, police, friend...)? What history was obtained from this source @ -Family is present and helps her right history including history of dialysis days Did you review nursing and triage notes (agree or disagree)? Why? @ -I reviewed and agree with nursing and triage notes Were old charts reviewed (outside hosp., previous admission, EMS record, old EKG, old radiological studies, urgent care reports/EKG's, jail records)? Report findings @ -No old charts were reviewed Differential Diagnosis (chest pain, altered mental status, abdominal pain women, abdominal pain men, vaginal bleeding, weakness, fever, dyspnea, syncope, headache, dizziness, GI bleed, back pain, seizure, CVA, palpatations, mental health)? @ -not applicable EKG interpreted by me (3pts min.). @ -As above X-rays interpreted by me (1pt min.). @ -None done CT interpreted by me (1pt min.). @ -None done U/S interpreted by me (1pt. min.). @ -None done What testing was considered but not performed or refused? (CT, X-rays, U/S, labs)? Why? @ -None What meds were considered but not given or refused? Why? @ -None Did you discuss the management of the patient with other professionals (professionals i.e. , PA, MARKETING INTELLIGENCE MANAGER, lab, RT, psych nurse, social research assistant, vacuum metalizing supervisor, teacher, community development officer, pillowcase cutter)? Give summary @ -Case was discussed with Dr. Patel who states he cannot emergently switched catheter as he is in surgery at a different facility. He does recommend Tegaderm and patient follow-up with office for replacement of catheter Was smoking cessation discussed for >3mins.? @ -No Was critical care preformed (if so, how long)? @ -No Were there social determinants of health that impacted care today? How? (Homelessness, low income, unemployed, alcoholism, drug addiction, transportation, low edu. Level, literacy, decrease access to med. care, custodial, rehab)? @ -No Was there de-escalation of care discussed even if they declined (Discuss DNR or withdrawal of care, Hospice)? DNR status @ -No What co-morbidities impacted this encounter? (DM, HTN, Smoking, COPD, CAD, Cancer, CVA, ARF, Chemo, Hep., AIDS, mental health diagnosis, sleep apnea, morbid obesity)? @ -None Was patient admitted / discharged? Hospital course, mention meds given and route, prescriptions, significant lab abnormalities, going to OR and other pertinent info. @ -Patient had Tegaderm placed over catheter. Patient will be discharged for follow-up with vascular tomorrow for catheter replacement. Undiagnosed new problem with uncertain prognosis? @ -No Drug Therapy requiring intensive monitoring for toxicity (Heparin, Nitro, Insulin, Cardizem)? @ -No Were any procedures done? @ -Tegaderm was placed over catheter with control of leaking. This was reevaluated after 30 minutes and leaking is still control. Diagnosis/symptom? @ -Leaking dialysis catheter Acute, or Chronic, or Acute on Chronic? @ -Acute Uncomplicated (without systemic symptoms) or Complicated (systemic symptoms)? @ -default Side effects of treatment? @ -No Exacerbation, Progression, or Severe Exacerbation? @ -No Poses a threat to life or bodily function? How? (Chest pain, [place], [place], pneumonia, PE, COPD, DKA, ARF, appy, cholecystitis, CVA, Diverticulitis, Homicidal, Suici katy, threat to staff... and all critical care pts) @ -No Disposition Clinical Impression: Leakage of vascular dialysis catheter Disposition: HOME SELF-CARE Condition: Stable Instructions (If sedation given, give patient instructions): How to Care for Your Chest or Abdominal Catheter (ED) Additional Instructions: Please follow-up tomorrow with Dr. Beckman or Dr. Hays. You will need catheter changed for dialysis for Monday. Return for increased bleeding, bleeding, worsening symptoms or other concerns. Is patient prescribed a controlled substance at d/c from ED?: No Referrals: Yash Watson MD [Primary Care Provider] - 1-2 days Faith Hays DO [STAFF PHYSICIAN] - 1-2 days Reece Olsen DO [Doctor of Osteopathic Medicine] - 1-2 days Time of Disposition: 12:42
== END 2022-12-25 13:12 | disposition home or self-care (01) ==
LOC: EC 10:13
DX: T82.43XA Leakage of vascular dialysis catheter, initial encounter (principal); E11.9 Type 2 diabetes mellitus without complications; I25.10 Atherosclerotic heart disease of native coronary artery without angina pectoris; K21.9 Gastro-esophageal reflux disease without esophagitis; F12.90 Cannabis use, unspecified, uncomplicated; Z87.891 Personal history of nicotine dependence; Z99.2 Dependence on renal dialysis; Z86.73 Personal history of transient ischemic attack (TIA), and cerebral infarction without residual deficits; Z88.0 Allergy status to penicillin; Z88.6 Allergy status to analgesic agent; Z79.02 Long term (current) use of antithrombotics/antiplatelets; Z79.899 Other long term (current) drug therapy
CPT/HCPCS: 99283

== ENCOUNTER 2022-12-26 16:14 | Inpatient (IN) | payer MEDICARE, OTHER ==
--- NOTE | 2022-12-26 17:13 | XR ---
EXAMINATION TYPE: XR chest 2V DATE OF EXAM: 12/26/2022 COMPARISON: 09/16/22 HISTORY: difficulty breathing TECHNIQUE: Frontal and lateral views of the chest are obtained. FINDINGS: Large bore central venous line unchanged in position. Increased right infrahilar density may reflect developing infiltrate. No evidence for pneumothorax. No pleural effusion. The cardiac silhouette size is within normal limits. The osseous structures are grossly intact. IMPRESSION: 1. Increased right infrahilar density may reflect developing infiltrate.
[2022-12-26 17:21] LABS: Anisocytosis Slight; Basophils # (A) 0.1 k/uL (0-0.2); Basophils % (A) 1 %; Eosinophils # (A) 0.3 k/uL (0-0.7); Eosinophils % (A) 4 %; HCT 38.1 % (39.0-53.0); HGB 11.6 gm/dL (13.0-17.5); Hypochromasia Marked; Lymphocytes # (A) 1.4 k/uL (1.0-4.8); Lymphocytes % (A) 16 %; MCH 26.5 pg (25.0-35.0); MCHC 30.5 g/dL (31.0-37.0); MCV 87.1 fL (80.0-100.0); Mean Platelet Volume 8.1; Monocytes # (A) 0.5 k/uL (0-1.0); Monocytes % (A) 6 %; Neutrophils # (A) 6.2 k/uL (1.3-7.7); Neutrophils % (A) 73 %; Platelet Count 256 k/uL (150-450); RBC 4.38 m/uL (4.30-5.90); RDW 16.2 % (11.5-15.5); WBC 8.6 k/uL (3.8-10.6)
--- NOTE | 2022-12-26 17:21 | ED ---
General Adult HPI - General Chief complaint: Shortness of Breath Stated complaint: SOB-revisit Time Seen by Provider: 12/26/22 16:50 Source: patient, RN notes reviewed, old records reviewed Mode of arrival: ambulatory Limitations: no limitations - History of Present Illness Initial comments: Patient is a 42-year-old male who presents emergency Department, no shortness of breath. Patient is a history of blindness, diabetes, prior CVA, ESRD on hemodialysis via left upper extremity AV fistula and also has a dialysis port in the right chest. States he has not missed dialysis and only goes to state there is a Monday. Last dialysis run was on Monday. Was seen here yesterday for a leaky dialysis catheter which was resolved and he is to follow-up with passive surgery outpatient. States that approximately 1-2 hours prior to arrival he began experiencing worsening shortness of breath. Denies any cough. Denies any fevers. Denies chest pain. Denies any abdominal pain or nausea or vomiting. States he is normally hypertensive. His no other acute complaints at this time. Denies any sick contacts. Presents over concern for his acute onset shortness of breath of unknown etiology. Denies any lower extremity swelling. States this has happened previously over the long weekend when he does not get dialyzed, despite not missing any runs. States his blood pressure typically is elevated, with systolics running between 170 and 200. - Related Data Home Medications Medication Instructions Recorded Confirmed Methadone [Dolophine] 15 mg PO BID 02/29/16 12/26/22 Gabapentin [Neurontin] 100 mg PO TID 09/13/22 12/26/22 Lokelma 5 Gm Packet 5 gm PO MOWEFR PRN 09/13/22 12/26/22 Pantoprazole [Protonix] 40 mg PO DAILY 09/13/22 12/26/22 Sevelamer [Renvela] 800 - 1,600 mg PO TID-W/MEALS 09/13/22 12/26/22 Sucralfate [Carafate] 1 gm PO BID 09/13/22 12/26/22 rOPINIRole HCL [Requip] 5 mg PO DAILY 09/13/22 12/26/22 rOPINIRole HCL [Requip] 10 mg PO HS 09/13/22 12/26/22 Clopidogrel [Plavix] 75 mg PO DAILY 10/05/22 12/26/22 Allergies Allergy/AdvReac Type Severity Reaction Status Date / Time Penicillins Allergy Unknown Verified 12/26/22 17:37 Childhood baclofen AdvReac Confusion Verified 12/26/22 17:37 Review of Systems ROS Statement: Those systems with pertinent positive or pertinent negative responses have been documented in the HPI. Review of Systems: CONST: Denies fever EYES: Denies blurry vision ENT: Denies nasal congestion C/V: Denies Chest pain RESP: Endorses shortness of breath GI: Denies abdominal pain : Denies dysuria SKIN: Denies rash. MSK: Denies joint pain. NEURO: Denies headache ROS Other: All systems not noted in ROS Statement are negative. Past Medical History Past Medical History: Coronary Artery Disease (CAD), CVA/TIA, Diabetes Mellitus, Dialysis, Eye Disorder, GERD/Reflux, Renal Disease, Vascular Disorder Additional Past Medical History / Comment(s): Hx CVA 11 yrs ago, no residual effects. Diet Controlled Diabetes. Chiari malformation. Dialysis, [facility]. Lega lly blind. History of Any Multi-Drug Resistant Organisms: None Reported Past Surgical History: Orthopedic Surgery Additional Past Surgical History / Comment(s): Eye surgery, fistula, right below the knee amputation. Bypass. Past Anesthesia/Blood Transfusion Reactions: No Reported Reaction Past Psychological History: No Psychological Hx Reported Smoking Status: Former smoker Past Alcohol Use History: None Reported Past Drug Use History: Marijuana - Past Family History Father Family Medical History: Hypertension Mother Family Medical History: Diabetes Mellitus General Exam - General Exam Comments Initial Comments: General: Appears in no acute distress. HEAD: Normal with no signs of head trauma. EYES: Patient is blind. ENT: Hearing grossly intact, normal oropharynx. RESPIRATORY: Coarse breath sounds bilaterally. Apparently had increased work of breathing in triage but currently is resting comfortably. No hypoxia on room air. C/V: Regular rate and rhythm. S1 and S2 auscultated, no edema, peripheral pulses 2+ and intact throughout ABD: Abd is soft, nontender, nondistended EXT: Normal range of motion, no obvious deformity. Multiple chronic amputations of the lower extremities. SKIN: No rashes or lesions observed on exposed skin. NEURO: Alert and oriented x 4. Cranial nerves II-XII intact. No focal sensory or strength deficits. Limitations: no limitations Course Vital Signs 12/26/22 12/26/22 12/26/22 16:16 16:25 16:47 Temperature 97.4 F L Pulse Rate 68 67 73 Respiratory 38 H 24 22 Rate Blood Pressure 183/131 207/127 O2 Sat by Pulse 99 98 97 Oximetry 12/26/22 12/26/22 12/26/22 17:19 18:52 19:54 Temperature Pulse Rate 65 78 80 Respiratory 24 18 18 Rate Blood Pressure 194/124 225/127 209/124 O2 Sat by Pulse 99 98 98 Oximetry 12/26/22 12/26/22 12/26/22 20:12 20:57 21:12 Temperature 98.2 F Pulse Rate 86 87 72 Respiratory 18 18 18 Rate Blood Pressure 198/145 178/121 O2 Sat by Pulse 97 Oximetry Medical Decision Making - Medical Decision Making Was pt. sent in by a medical professional or institution (, PA, CONCRETE [employer] SUPERINTENDENT, urgent care, hospital, or fdc...) When possible be specific @ -No Did you speak to anyone other than the patient for history (EMS, parent, family, police, friend...)? What history was obtained from this source @ -No Did you review nursing and triage notes (agree or disagree)? Why? @ -I reviewed and agree with nursing and triage notes Were old charts reviewed (outside hosp., previous admission, EMS record, old EKG, old radiological studies, urgent care reports/EKG's, fdc records)? Report findings @ -No old charts were reviewed Differential Diagnosis (chest pain, altered mental status, abdominal pain women, abdominal pain men, vaginal bleeding, weakness, fever, dyspnea, syncope, headache, dizziness, GI bleed, back pain, seizure, CVA, palpatations, mental health, musculoskeletal)? @ -Differential Dyspnea: Coronary syndrome, arrhythmia, tamponade, asthma, COPD, pulmonary embolism, pneumonia, pneumothorax, pulmonary effusion, anaphylaxis, diabetic ketoacidosis, flailed chest, pulmonary contusion, diaphragmatic rupture, anemia, neuromuscular, this is not meant to be an all-inclusive list. EKG interpreted by me (3pts min.). @ -As above X-rays interpreted by me (1pt min.). @ -Chest x-ray reveals what appears to be pulmonary vascular congestion bilaterally. CT interpreted by me (1pt min.). @ -None done U/S interpreted by me (1pt. min.). @ -None done What testing was considered but not performed or refused? (CT, X-rays, U/S, labs)? Why? @ -None What meds were considered but not given or refused? Why? @ -None Did you discuss the management of the patient with other professionals (professionals i.e. , PA, CONCR[employer] SUPERINTENDENT, lab, RT, psych nurse, social contact worker, automotive parts advisor, teacher, press officer, case filler)? Give summary @ -I discussed the case with admitting physician Dr. Peñaloza who accepted the patient. I discussed the case with Dr. Quinones of vascular surgery who is on- call and spoke with the patient's vascular surgeon Dr. Hays who agreed to the consult but states after discussion that the AV fistula should work for dialysis without issue. I spoke with the emergency department director on-call Dr. Fleming who was in agreement with the plan for dialysis. I spoke with the ICU attending Dr. Torres who accepted the patient to the ICU, and we did discuss the vascular access issue, and we will attempt to dialyze in the ER if possible. He was in agreement with the plan. Was smoking cessation discussed for >3mins.? @ -No Was critical care preformed (if so, how long)? @ -yes, 45 min Were there social determinants of health that impacted care today? How? (Homelessness, low income, unemployed, alcoholism, drug addiction, transportation, low edu. Level, literacy, decrease access to med. care, shelter, rehab)? @ -No Was there de-escalation of care discussed even if they declined (Discuss DNR or withdrawal of care, Hospice)? DNR status @ -No What co-morbidities impacted this encounter? (DM, HTN, Smoking, COPD, CAD, Cancer, CVA, ARF, Chemo, Hep., AIDS, mental health diagnosis, sleep apnea, morbid obesity)? @ -ESRD on hemodialysis Was patient admitted / discharged? Hospital course, mention meds given and route, prescriptions, significant lab abnormalities, going to OR and other per tinent info. @ -Based on the patient's presentation and physical exam, I'm concerned for possible volume overload. The patient as we are approaching his dialysis state and patient appears mildly hypertensive. Vital signs were within acceptable limits. Mildly hypertensive but otherwise resting comfortably. No respiratory distress. No hypoxia. We will obtain broad workup, chest x-ray from EKG. EKG shows no signs of acute ischemia. Chest x-ray does show pulmonary vascular congestion. Patient's laboratory studies are remarkable for elevated BUN/creatinine setting of ESRD on hemodialysis. Potassium within normal limits. Troponin elevated, however I do suspect this is secondary to the renal dysfunction. Patient has no chest pain. We will trend it. BNP is also ric vated to 41,000. Viral swabs are negative. On reevaluation, patient is complaining of his chronic pain and he will be given his normal methadone dose he did not take earlier. Patient's blood pressure is ranging anywhere from 180s systolic to 220 systolic. I do believe this is likely multifactorial from both pain as well as volume overload state considering his workup and chest x-ray. Patient remains not hypoxic on room air. However due to his volume overload state, and likely impending need for dialysis I will admit the patient at this time with hypertensive emergency as well as need for dialysis for volume overload. He was in agreement this plan. We did discuss his vascular access, and he believes that the permacath needs to be swapped and that the AV fistula will not work. I did discuss with on-call vascular surgeon Dr. Quinones who discussed with the patient's vascular surgeon Dr. Hays who states that the vascular access in his left upper extremity, AV fistula will work without need for the permacath. I contacted nephrology on- call, Dr. Fleming who was in agreement with ranging from dialysis. Patient was placed on a nitroglycerin drip due to the hypertensive emergency. I contacted ICU attending on-call Dr. Torres as the patient will require a ICU bed for the titratable nitro drip. We did discuss that if possible we will obtain dialysis in the ER, however if unable to we will admit to the unit. We did discuss the vascular access issue which seems to be resolved. He accepted the patient to unit. I spoke with the admitting physician, Dr. Peñaloza who accepted the patient. I did the patient and he was in agreement this plan. Undiagnosed new problem with uncertain prognosis? @ -No Drug Therapy requiring intensive monitoring for toxicity (Heparin, Nitro, Insulin, Cardizem)? @ -yes, Nitro Were any procedures done? @ -No Diagnosis/symptom? @ -Hypertensive emergency, volume overload Acute, or Chronic, or Acute on Chronic? @ -Acute Uncomplicated (without systemic symptoms) or Complicated (systemic symptoms)? @ -Complicated Side effects of treatment? @ -none Exacerbation, Progression, or Severe Exacerbation] @ -Exacerbation Poses a threat to life or bodily function? @ -Yes Diagnosis/symptom? @ -ESRD on hemodialysis, Acute, or Chronic, or Acute on Chronic? @ -Chronic Uncomplicated (without systemic symptoms) or Complicated (systemic symptoms)? @ -Complicated Side effects of treatment? @ -none Exacerbation, Progression, or Severe Exacerbation] @ -no Poses a threat to life or bodily function? @ -no - Lab Data Result diagrams: 12/26/22 17:03 12/26/22 17:03 Lab Results 12/26/22 12/26/22 12/26/22 Range/Units 17:03 17:03 17:03 WBC 8.6 (3.8-10.6) k/uL RBC 4.38 (4.30-5.90) m/uL Hgb 11.6 L (13.0-17.5) gm/dL Hct 38.1 L (39.0-53.0) % MCV 87.1 (80.0-100.0) fL MCH 26.5 (25.0-35.0) pg MCHC 30.5 L (31.0-37.0) g/dL RDW 16.2 H (11.5-15.5) % Plt Count 256 (150-450) k/uL MPV 8.1 Neutrophils % 73 % Lymphocytes % 16 % Monocytes % 6 % Eosinophils % 4 % Basophils % 1 % Neutrophils # 6.2 (1.3-7.7) k/uL Lymphocytes # 1.4 (1.0-4.8) k/uL Monocytes # 0.5 (0-1.0) k/uL Eosinophils # 0.3 (0-0.7) k/uL Basophils # 0.1 (0-0.2) k/uL Hypochromasia Marked Anisocytosis Slight PT 10.4 (9.0-12.0) sec INR 1.0 (<1.2) APTT 30.1 H (22.0-30.0) sec Sodium 133 L (137-145) mmol/L Potassium 4.6 (3.5-5.1) mmol/L Chloride 93 L (98-107) mmol/L Carbon Dioxide 24 (22-30) mmol/L Anion Gap 16 mmol/L BUN 46 H (9-20) mg/dL Creatinine 8.83 H* (0.66-1.25) mg/dL Est GFR (CKD-EPI)AfAm 8 (>60 ml/min/1.73 sqM) Est GFR (CKD-EPI)NonAf 7 (>60 ml/min/1.73 sqM) Glucose 109 H (74-99) mg/dL Calcium 9.8 (8.4-10.2) mg/dL Magnesium 2.8 H (1.6-2.3) mg/dL Total Bilirubin 0.9 (0.2-1.3) mg/dL AST 20 (17-59) U/L ALT 18 (4-49) U/L Alkaline Phosphatase 62 (38-126) U/L Troponin I (0.000-0.034) ng/mL NT-Pro-B Natriuret Pep pg/mL Total Protein 7.2 (6.3-8.2) g/dL Albumin 4.1 (3.5-5.0) g/dL Influenza Type A (PCR) (Not Detectd) Influenza Type B (PCR) (Not Detectd) RSV (PCR) (Not Detectd) SARS-CoV-2 (PCR) (Not Detectd) 12/26/22 12/26/22 12/26/22 Range/Units 17:03 17:03 17:03 WBC (3.8-10.6) k/uL RBC (4.30-5.90) m/uL Hgb (13.0-17.5) gm/dL Hct (39.0-53.0) % MCV (80.0-100.0) fL MCH (25.0-35.0) pg MCHC (31.0-37.0) g/dL RDW (11.5-15.5) % Plt Count (150-450) k/uL MPV Neutrophils % % Lymphocytes % % Monocytes % % Eosinophils % % Basophils % % Neutrophils # (1.3-7.7) k/uL Lymphocytes # (1.0-4.8) k/uL Monocytes # (0-1.0) k/uL Eosinophils # (0-0.7) k/uL Basophils # (0-0.2) k/uL Hypochromasia Anisocytosis PT (9.0-12.0) sec INR (<1.2) APTT (22.0-30.0) sec Sodium (137-145) mmol/L Potassium (3.5-5.1) mmol/L Chloride (98-107) mmol/L Carbon Dioxide (22-30) mmol/L Anion Gap mmol/L BUN (9-20) mg/dL Creatinine (0.66-1.25) mg/dL Est GFR (CKD-EPI)AfAm (>60 ml/min/1.73 sqM) Est GFR (CKD-EPI)NonAf (>60 ml/min/1.73 sqM) Glucose (74-99) mg/dL Calcium (8.4-10.2) mg/dL Magnesium (1.6-2.3) mg/dL Total Bilirubin (0.2-1.3) mg/dL AST (17-59) U/L ALT (4-49) U/L Alkaline Phosphatase (38-126) U/L Troponin I 0.283 H* (0.000-0.034) ng/mL NT-Pro-B Natriuret Pep 75023 pg/mL Total Protein (6.3-8.2) g/dL Albumin (3.5-5.0) g/dL Influenza Type A (PCR) Not Detected (Not Detectd) Influenza Type B (PCR) Not Detected (Not Detectd) RSV (PCR) Not Detected (Not Detectd) SARS-CoV-2 (PCR) Not Detected (Not Detectd) - EKG Data -: EKG Interpreted by Me EKG Comments: 12-lead Electrocardiogram Interpretation Note EKG was reviewed and interpreted by myself. 12-lead ECG performed at 1626 is interpreted by me as revealing normal sinus rhythm at a rate of 67 beats per minute. [place] is normal. [place] interval is 154 ms, QRS durations 103 ms, QTc is 410 ms.. There were no ST or T wave abnormalities to suggest myocardial ischemia or injury. R wave progression across the precordium was satisfactory. By my interpretation this EKG is non-diagnostic for acute ischemia. Critical Care Time Critical Care Time: Yes Total Critical Care Time: 45 Disposition Clinical Impression: ESRD (end stage renal disease) on dialysis, Hypertensive emergency, Volume overload, Dyspnea, Elevated troponin, Chronic pain Disposition: ADMITTED IP TO THIS HOSP Condition: Serious Time of Disposition: 19:20
[2022-12-26] MEDS ORDERED: hydrALAZINE HCL 20 MG/ML 1 ML VIAL IVP STA (17:27)
[2022-12-26 17:32] LABS: Partial Thromboplastin Time 30.1 sec (22.0-30.0); Prothrombin Time 10.4 sec (9.0-12.0)
[2022-12-26 17:39] LABS: ALT 18 U/L (4-49); AST 20 U/L (17-59); African American GFR (CKD) 8 (>60 ml/min/1.73 sqM); Albumin 4.1 g/dL (3.5-5.0); Alkaline Phosphatase 62 U/L (38-126); Anion Gap 16 mmol/L; Blood Urea Nitrogen 46 mg/dL (9-20); Calcium 9.8 mg/dL (8.4-10.2); Carbon Dioxide 24 mmol/L (22-30); Chloride 93 mmol/L (98-107); Glucose 109 mg/dL (74-99); Magnesium 2.8 mg/dL (1.6-2.3); Non-African American GFR(CKD) 7 (>60 ml/min/1.73 sqM); Potassium 4.6 mmol/L (3.5-5.1); Sodium 133 mmol/L (137-145); Total Bilirubin 0.9 mg/dL (0.2-1.3); Total Protein 7.2 g/dL (6.3-8.2)
[2022-12-26] MEDS ORDERED: ACETAMINOPHEN TAB 500 MG TAB PO STA (17:52)
[2022-12-26] MEDS ORDERED: METHADONE 5 MG TAB PO STA (18:00)
[2022-12-26] MEDS ORDERED: MORPHINE SULFATE 4 MG/ML SYRINGE IVP STA (18:42)
[2022-12-26] MEDS ORDERED: NITROGLYCERIN-D5W PMX 50 MG in DEXTROSE/WATER 1 250ML.BAG IV ONE (18:57)
[2022-12-26] MEDS ORDERED: diphenhydrAMINE 50 MG/ML 1 ML VIAL IVP STA (18:58)
[2022-12-26] MEDS ORDERED: NALOXONE 0.4 MG/ML 1 ML VIAL IV PRN ×2 (19:27→20:45)
[2022-12-26 19:38] LABS: Glucose,Whole Blood 97 mg/dL (70-110)
[2022-12-26 21:12] LABS: Glucose,Whole Blood 93 mg/dL (70-110)
[2022-12-26] MEDS: SUCRALFATE 1 GM TAB PO SCH (21:38)
[2022-12-26] MEDS ORDERED: LORazepam 1 MG TAB PO STA (21:41)
[2022-12-26] MEDS ORDERED: diphenhydrAMINE 50 MG/ML 1 ML VIAL IVP ONE (22:30)
[2022-12-26] MEDS ORDERED: rOPINIRole HCL 4 MG TABLET PO SCH (23:00)
[2022-12-27] MEDS: GABAPENTIN 100 MG CAP PO SCH ×2 (00:38→13:44)
--- NOTE | 2022-12-27 01:24 | P.CNPUL ---
History of Present Illness Consult date: 12/27/22 Requesting physician: Sam Schneider Reason for consult: other (ICU management; fluid overload) Chief complaint: Shortness of breath History of present illness: I am seeing this patient in consultation today 12/27/2022 in the intensive care unit for hypertensive emergency and fluid overload. Patient is a 42-year-old white male with past medical history significant for multiple comorbidities including end-stage renal disease requiring hemodialyisis, diabetes mellitus type 2, hypertension, diabetic neuropathy, restless leg syndrome, peripheral arterial disease and prior vascular stents, right below the knee and left toe amputations, coronary artery disease, previous CVA, legally blind, and Chiari malformation. The patient normally receives hemodialysis on a Monday, , and Monday schedule. He does not normally miss dialysis. The patient had been having issues with his left arm AV fistula back in August,. Apparently, there was a thrombus and aneurysmal disease requiring revision of the fistula on October 07. The patient subsequently had a right subclavian Permacath placed for hemodialysis in the meantime. The patient presented on December 25 for leaking of the Permacath. He reportedly did not miss hemodialysis on Monday. He presented to the emergency room yesterday evening with reports of shortness of breath, headache, and chest pain. The symptoms started approximately 1-2 hours before arrival. At that time, he was severely hypertensive, requiring nitroglycerin infusion which is currently infusing at 10 mics per minute. He does not normally take any antihypertensives at home. Chest x-ray on arrival appeared consistent with fluid overload. The patient is currently sitting up in bed, quite restless in bed, but not in any respiratory distress. He is on room air, and oxygenating at 95%. He is currently receiving hemodialysis. His blood pressure is more controlled. His symptoms of headache, chest pain, and shortness breath have have resolved. He denies any significant cough, fevers, chills, hemoptysis. He denies any sick contacts. He is not a tobacco smoker, but does occasionally smoke marijuana. He denies any heart palpitations, lightheadedness, syncope. CBC on arrival showed a WBC count of 8.6, hemoglobin 11.6, hematocrit 38.1, platelets 256. BMP on arrival showed a sodium 133, potassium 4.6, chloride 93, serum bicarb 24, BUN 46, creatinine 8.83, glucose 109. Troponins are elevated at 0.283, and his NT proBNP was also elevated at 41,400. ECG shows no acute ischemic changes. He was negative for influenza, RSV, COVID-19. Overall, the patient's condition appears to be improving. The nurse has been able to titrate down on the patient's nitroglycerin infusion since the initiation of hemodialysis. He does not appear encephalopathic, is oriented, and able to hold a conversation. The patient had been given two doses of Benadryl and Ativan for restlessness. The patient does have restless leg syndrome, I will restart his Requip. He does take methadone for chronic pain on an outpatient basis. He denies any current pain. Patient will be monitored in the intensive care unit. Review of Systems REVIEW OF SYSTEMS: CONSTITUTIONAL: Denies any recent significant weight loss or weight gain. EYES: Denies change in vision. EARS, NOSE, MOUTH, THROAT: Denies denies sore throat. Admits to headache which has improved since hemodialysis and blood pressure control CARDIOVASCULAR: See HPI RESPIRATORY: See HPI GASTROINTESTINAL: Denies change in appetite, abdominal pain, nausea and vomi ting, or diarrhea GENITOURINARY: Denies hematuria, denies infections. MUSKULOSKELETAL: Denies pain, denies swelling. INTEGUMENTARY: Denies rash, denies eczema. NEUROLOGICAL: Denies recent memory loss, no recent seizure activity. PSYCHIATRIC: Denies anxiety, denies depression. HEMATOLOGIC/LYMPHATIC: Denies anemia, denies enlarged lymph node Past Medical History Past Medical History: Coronary Artery Disease (CAD), CVA/TIA, Diabetes Mellitus, Dialysis, Eye Disorder, GERD/Reflux, Renal Disease, Vascular Disorder Additional Past Medical History / Comment(s): Hx CVA 11 yrs ago, no residual effects. Diet Controlled Diabetes. Chiari malformation. Dialysis, [facility]. Legally blind. History of Any Multi-Drug Resistant Organisms: None Reported Past Surgical History: Orthopedic Surgery Additional Past Surgical History / Comment(s): Eye surgery, Left UE AV shunt, right below the knee amputation, Left hand digits 1 & 3 amputation, right hand digit 3 amputation, left kneecap amputation, left foot toes amputated. Past Anesthesia/Blood Transfusion Reactions: No Reported Reaction Past Psychological History: No Psychological Hx Reported Additional Psychological History / Comment(s): Relates that his family is quite supportive including his parents in which he lives with. Is not able to work outside of the home, is medically disabled due to his blindness. He has no [facility] experience or extensive travels. Smoking Status: Former smoker Past Alcohol Use History: None Reported Additional Past Alcohol Use History / Comment(s): Quit smoking 15 yrs ago, current daily marajuana smoker.. Past Drug Use History: Marijuana Additional Drug Use History / Comment(s): Marijuana use daily. - Past Family History Father Family Medical History: Hypertension, Myocardial Infarction (MT) Additional Family Medical History / Comment(s): Father passed of MT 10 years ago. Mother Family Medical History: Diabetes Mellitus, Myocardial Infarction (MT), Thyroid Disorder Additional Family Medical History / Comment(s): [place] (2021) with stent. Medications and Allergies Home Medications Medication Instructions Recorded Confirmed Type Methadone [Dolophine] 15 mg PO BID 02/29/16 12/26/22 History Gabapentin [Neurontin] 100 mg PO TID 09/13/22 12/26/22 History Lokelma 5 Gm Packet 5 gm PO MOWEFR PRN 09/13/22 12/26/22 History Pantoprazole [Protonix] 40 mg PO DAILY 09/13/22 12/26/22 History Sevelamer [Renvela] 800 - 1,600 mg PO TID-W/MEALS 09/13/22 12/26/22 History Sucralfate [Carafate] 1 gm PO BID 09/13/22 12/26/22 History rOPINIRole HCL [Requip] 5 mg PO DAILY 09/13/22 12/26/22 History rOPINIRole HCL [Requip] 10 mg PO HS 09/13/22 12/26/22 History Clopidogrel [Plavix] 75 mg PO DAILY 10/05/22 12/26/22 History Allergies Allergy/AdvReac Type Severity Reaction Status Date / Time Penicillins Allergy Unknown Verified 12/26/22 17:37 Childhood baclofen AdvReac Confusion Verified 12/26/22 17:37 Physical Exam Vitals: Vital Signs Temp Pulse Pulse Resp BP BP Pulse Ox 12/26/22 23:30 90 13 167/130 96 12/26/22 23:15 95 12 175/125 96 12/26/22 23:00 87 13 158/99 98 12/26/22 22:55 98.2 F 88 12 175/125 95 12/26/22 22:45 86 12 154/82 96 12/26/22 22:30 89 17 195/119 95 12/26/22 22:20 84 12 195/119 93 L 12/26/22 22:10 79 14 176/121 99 12/26/22 22:00 81 13 164/124 97 12/26/22 21:50 78 12 148/105 96 12/26/22 21:40 81 10 L 167/108 98 12/26/22 21:30 80 28 H 190/116 91 L 12/26/22 21:20 76 20 190/116 97 12/26/22 21:12 98.2 F 72 18 97 12/26/22 20:57 87 18 178/121 12/26/22 20:12 86 18 198/145 12/26/22 19:54 80 18 209/124 98 12/26/22 18:52 78 18 225/127 98 12/26/22 17:19 65 24 194/124 99 12/26/22 16:47 73 22 207/127 97 12/26/22 16:25 67 24 98 12/26/22 16:16 97.4 F L 68 38 H 183/131 99 Intake and Output 12/26/22 12/26/22 12/27/22 14:59 22:59 06:59 Intake Total 16.325 Balance 16.325 Intake: Intake, IV Titration 16.325 Amount Nitroglycerin-D5w Pmx 50 16.325 mg In Dextrose/Water 1 250ml.bag @ 10 MCG/MIN 3 mls/hr IV .Q24H ONE Rx#: [id number] Other: # Voids 0 0 Weight 86 kg GENERAL EXAM: Alert and fully oriented, he is restless, but in no apparent distress. HEAD: Normocephalic and atraumatic EYES: Normal reaction of pupils, equal size. NOSE: Clear with pink turbinates. THROAT: No erythema or exudates. NECK: No masses, no JVD. CHEST: No chest wall deformity. LUNGS: Equal air entry with bibasilar crackles. No wheeze, rhonchi or dullness. On room air. No conversational dyspnea or accessory muscle use.. CVS: S1 and S2 normal with no audible murmur, regular rhythm. No extra heart sounds ABDOMEN: No hepatosplenomegaly, active bowel sounds, no guarding or rigidity. SPINE: No scoliosis or deformity SKIN: No rashes CENTRAL NERVOUS SYSTEM: No focal deficits, tone is normal in all 4 extremities. EXTREMITIES: There is no peripheral edema, clubbing, or cyanosis. Right [id number] amputation and left 1 through 5 toe amputations Results - Laboratory Findings CBC and BMP: 12/26/22 17:03 12/26/22 17:03 PT/INR, D-dimer PT 10.4 sec (9.0-12.0) 12/26/22 17:03 INR 1.0 (<1.2) 12/26/22 17:03 Abnormal lab findings: Abnormal Labs 12/26/22 12/26/22 12/26/22 17:03 17:03 17:03 Hgb 11.6 L Hct 38.1 L MCHC 30.5 L RDW 16.2 H APTT 30.1 H Sodium 133 L Chloride 93 L BUN 46 H Creatinine 8.83 H* Glucose 109 H Magnesium 2.8 H Troponin I 12/26/22 17:03 Hgb Hct MCHC RDW APTT Sodium Chloride BUN Creatinine Glucose Magnesium Troponin I 0.283 H* - Diagnostic Findings Chest x-ray: image reviewed Assessment and Plan Assessment: Dyspnea related to fluid volume overload, currently receiving emergent hem odialysis. Hypertensive emergency secondary to above, currently on nitroglycerin infusion at 10 mics per minute. End-stage renal disease requiring hemodialysis on a Monday, , Monday schedule. The patient did not miss hemodialysis. He does have a left arm AV fistula, which is currently being utilized for hemodialysis. The patient also has a right subclavian permacath, which was leaking one day prior to admission. Vascular services were consulted, and okayed the use of the left arm AV fistula for emergent hemodialysis. Elevated troponins, rule out NSTEMI. No ECG evidence of acute ischemia. Diabetes mellitus type 2, [id number] Diabetic neuropathy Restless leg syndrome Peripheral arterial disease with history of vascular stents. Ultimately, requiring a right below the knee amputation and left toe amputations. History of CVA Legally blind History of Chiari malformation Chronic pain Plan: Patient's medications, labs, chest x-ray reviewed The patient is currently receiving hemodialysis Continue nitroglycerin infusion for hypertension On room air Vascular services were consulted for leaking Permacath, and the patient's left arm AV fistula appears functional Hemodialysis per nephrology Trend troponins Consult cardiology Restart the patient's Requip Heparin for DVT prophylaxis Protonix for GI prophylaxis The patient will be monitored in the intensive care unit I have personally seen and examined the patient, performed the documentation and the assessment and plan as written. Number of minutes spent on the visit:20 Time with Patient: Greater than 30
[2022-12-27] MEDS ORDERED: DEXTROSE 50% SYRINGE 50 ML IVP PRN ×2 (02:12)
--- NOTE | 2022-12-27 02:15 | P.HPIM ---
History of Present Illness H&P Date: 12/26/22 Chief Complaint: RAMOS 42-year-old male with diabetes mellitus, end-stage renal disease on hemodialysis TTS He is coming in today for shortness of breath that started couple hours prior to presentation all of a sudden he reports that this has happened before over long weekends even if he doesn't miss dialysis. He also noted that his blood pressure was high and elevated he denies any fevers or chills denies any chest pain denies any angina vomiting abdominal pain denies any edges in bowel or urinary habits he had his full session of dialysis done on Monday he presented he is surrogate to the ED for some leakage from his right permacath. Patient also reports some restlessness overall his body and bilateral legs. 9 patient denies any sick contacts or recent illnesses denies travel hospital stay In the ED patient was found to have elevated blood pressure, patient doesn't take any blood pressure medications at home. He was started on nitro drip to help control his blood pressure Review of Systems Pertinent positives as noted in HPI. All other systems were reviewed and are negative Past Medical History Past Medical History: Coronary Artery Disease (CAD), CVA/TIA, Diabetes Mellitus, Dialysis, Eye Disorder, GERD/Reflux, Renal Disease, Vascular Disorder Additional Past Medical History / Comment(s): Hx CVA 11 yrs ago, no residual effects. Diet Controlled Diabetes. Chiari malformation. Dialysis, [facility]. Legally blind. History of Any Multi-Drug Resistant Organisms: None Reported Past Surgical History: Orthopedic Surgery Additional Past Surgical History / Comment(s): Eye surgery, fistula, right below the knee amputation. Bypass. Past Anesthesia/Blood Transfusion Reactions: No Reported Reaction Past Psychological History: No Psychological Hx Reported Smoking Status: Former smoker Past Alcohol Use History: None Reported Past Drug Use History: Marijuana - Past Family History Father Family Medical History: Hypertension Mother Family Medical History: Diabetes Mellitus Medications and Allergies Home Medications Medication Instructions Recorded Confirmed Type Methadone [Dolophine] 15 mg PO BID 02/29/16 12/26/22 History Gabapentin [Neurontin] 100 mg PO TID 09/13/22 12/26/22 History Lokelma 5 Gm Packet 5 gm PO MOWEFR PRN 09/13/22 12/26/22 History Pantoprazole [Protonix] 40 mg PO DAILY 09/13/22 12/26/22 History Sevelamer [Renvela] 800 - 1,600 mg PO TID-W/MEALS 09/13/22 12/26/22 History Sucralfate [Carafate] 1 gm PO BID 09/13/22 12/26/22 History rOPINIRole HCL [Requip] 5 mg PO DAILY 09/13/22 12/26/22 History rOPINIRole HCL [Requip] 10 mg PO HS 09/13/22 12/26/22 History Clopidogrel [Plavix] 75 mg PO DAILY 10/05/22 12/26/22 History Allergies Allergy/AdvReac Type Severity Reaction Status Date / Time Penicillins Allergy Unknown Verified 12/26/22 17:37 Childhood baclofen AdvReac Confusion Verified 12/26/22 17:37 Physical Exam Vitals: Vital Signs Temp Pulse Resp BP Pulse Ox 12/26/22 18:52 78 18 225/127 98 12/26/22 17:19 65 24 194/124 99 12/26/22 16:47 73 22 207/127 97 12/26/22 16:25 67 24 98 12/26/22 16:16 97.4 F L 68 38 H 183/131 99 Intake and Output 12/26/22 12/26/22 12/26/22 06:59 14:59 22:59 Other: Weight 86 kg Constitutional: restless, anxious Eyes: Anicteric sclerae, moist conjunctiva ENMT: NC/AT Oropharynx clear, no erythema, or exudates Neck: Supple, no masses, or JVD No carotid bruits No thyromegaly Lungs: good breath sounds ,with some rales at lung bases Clear to percussion Normal respiratory effort, no accessory muscle use Cardiovascular: Heart regular in rate and rhythm, No murmurs, gallops, or rubs No peripheral edema Abdominal: Soft Nontender, no guarding, rebound or rigidity Abdomen moving with respiration Normoactive bowel sounds No hepatomegaly, No splenomegaly No palpable mass No abdominal wall hernia noted Skin: Normal temperature, tone, texture, turgor Extremities: right BKA, amputation of the toes in the left foot, amputation of multiple phalanges over bilateral hands left AV fistula right chest permacath No digital cyanosis No clubbing Radial pulses intact and symmetrical No calf tenderness Psychiatric: Alert and oriented to person, place and time Appropriate affect Neuro Muscles Strength 5/5 in all 4 extremities Sensation to light touch grossly present throughout Cranial nerves II-XII grossly intact Lymphatics: no palpable cervical or supraclavicular lymph nodes Results CBC & Chem 7: 12/26/22 17:03 12/26/22 17:03 Labs: Abnormal Lab Results - Last 24 Hours (Table) 12/26/22 12/26/22 12/26/22 Range/Units 17:03 17:03 17:03 Hgb 11.6 L (13.0-17.5) gm/dL Hct 38.1 L (39.0-53.0) % MCHC 30.5 L (31.0-37.0) g/dL RDW 16.2 H (11.5-15.5) % APTT 30.1 H (22.0-30.0) sec Sodium 133 L (137-145) mmol/L Chloride 93 L (98-107) mmol/L BUN 46 H (9-20) mg/dL Creatinine 8.83 H* (0.66-1.25) mg/dL Glucose 109 H (74-99) mg/dL Magnesium 2.8 H (1.6-2.3) mg/dL Troponin I (0.000-0.034) ng/mL 12/26/22 Range/Units 17:03 Hgb (13.0-17.5) gm/dL Hct (39.0-53.0) % MCHC (31.0-37.0) g/dL RDW (11.5-15.5) % APTT (22.0-30.0) sec Sodium (137-145) mmol/L Chloride (98-107) mmol/L BUN (9-20) mg/dL Creatinine (0.66-1.25) mg/dL Glucose (74-99) mg/dL Magnesium (1.6-2.3) mg/dL Troponin I 0.283 H* (0.000-0.034) ng/mL Assessment and Plan Assessment: 42 year old male with ESRD on HD TTS, presented with elevated blood pressure and trouble breathing , I discussed the case with ED doc, I accepted the admission for emergent HD and blood pressure control with anticipated length of stay > 2 midnights hypertensive emergency elevated trops denies chest pain initiated on nitro drip to control his blood pressure monitor vital signs not on blood pressure meds at home initiate amlodipine 10 mg daily ESRD on HD TTS through left AV fistual and right chest perma cath emergent dialysis nephro consult bun 46 cr 8.8 DM insulin sliding scale ' peripheral neuropathy gabapentine RLS resume requip full code DVT PPX heparin sc TID blood work reviewed chronic anemia hgb 11.6 denies any bleeding continue to monitor WBC 8.6 unremarkable acute respiratory viral panel negative forRSV, covid and influenza
[2022-12-27 05:18] LABS: African American GFR (CKD) 12 (>60 ml/min/1.73 sqM); Anion Gap 13 mmol/L; Blood Urea Nitrogen 27 mg/dL (9-20); Calcium 9.3 mg/dL (8.4-10.2); Carbon Dioxide 29 mmol/L (22-30); Chloride 92 mmol/L (98-107); Glucose 77 mg/dL (74-99); Non-African American GFR(CKD) 10 (>60 ml/min/1.73 sqM); Phosphorus 4.2 mg/dL (2.5-4.5); Potassium 3.8 mmol/L (3.5-5.1); Sodium 134 mmol/L (137-145)
[2022-12-27 05:22] LABS: Anisocytosis Slight; Basophils # (A) 0.1 k/uL (0-0.2); Basophils % (A) 1 %; Eosinophils # (A) 0.4 k/uL (0-0.7); Eosinophils % (A) 5 %; HCT 38.6 % (39.0-53.0); HGB 11.5 gm/dL (13.0-17.5); Hypochromasia Marked; Lymphocytes # (A) 1.5 k/uL (1.0-4.8); Lymphocytes % (A) 20 %; MCH 25.6 pg (25.0-35.0); MCHC 29.7 g/dL (31.0-37.0); MCV 86.3 fL (80.0-100.0); Mean Platelet Volume 7.9; Monocytes # (A) 0.6 k/uL (0-1.0); Monocytes % (A) 7 %; Neutrophils % (A) 66 %; Platelet Count 259 k/uL (150-450); RBC 4.47 m/uL (4.30-5.90); RDW 16.4 % (11.5-15.5); WBC 7.7 k/uL (3.8-10.6)
[2022-12-27 07:52] LABS: Glucose,Whole Blood 91 mg/dL (70-110)
[2022-12-27] MEDS ORDERED: METOPROLOL TARTRATE 25 MG TAB PO SCH (09:00)
[2022-12-27] MEDS ORDERED: PANTOPRAZOLE 40 MG TABLET PO SCH (09:00)
[2022-12-27] MEDS ORDERED: HEPARIN SODIUM,PORCINE/PF 5,000 UNIT/0.5 ML SYRINGE SQ SCH (09:00)
[2022-12-27] MEDS ORDERED: hydrALAZINE HCL 25 MG TAB PO SCH (09:00)
[2022-12-27] MEDS ORDERED: CLOPIDOGREL 75 MG TAB PO SCH (09:00)
[2022-12-27] MEDS ORDERED: METHADONE 5 MG TAB PO SCH (09:00)
[2022-12-27] MEDS ORDERED: amLODIPine 10 MG TAB PO SCH (09:00)
[2022-12-27] MEDS ORDERED: diphenhydrAMINE 50 MG/ML 1 ML VIAL IVP STA (09:53)
[2022-12-27] MEDS ORDERED: diphenhydrAMINE 50 MG/ML 1 ML VIAL IVP PRN ×2 (09:53)
[2022-12-27] MEDS: INSULIN ASPART (NovoLOG) 100 UNIT/ML VIAL SQ SCH ×2 (09:55→13:29)
--- NOTE | 2022-12-27 10:47 | P.NPCON ---
History of Present Illness - Reason for Consult end stage renal disease - History of Present Illness Patient is a 42-year-old male with history of end-stage renal disease on hemodialysis on a Monday schedule. Patient was admitted to the hospital with complaints of shortness of breath. Chest x-ray showed evidence of pulmonary vascular congestion. O2 sats were not low however blood pressure was significantly elevated. Patient was dialyzed last night with 3 L of ultrafiltration. Patient states his breathing has improved. Patient is seen on hemodialysis again today. Patient has had issues with his AV fistula and therefore he had a permacath placed. There was leakage noted from the permacath and it is scheduled to be replaced/removed if the AV fistula works well. No history of fever or chills Review of Systems As per HPI Past Medical History Past Medical History: Coronary Artery Disease (CAD), CVA/TIA, Diabetes Mellitus, Dialysis, Eye Disorder, GERD/Reflux, Renal Disease, Vascular Disorder Additional Past Medical History / Comment(s): Hx CVA 11 yrs ago, no residual effects. Diet Controlled Diabetes. Chiari malformation. Dialysis, [facility]SA. Legally blind. History of Any Multi-Drug Resistant Organisms: None Reported Past Surgical History: Orthopedic Surgery Additional Past Surgical History / Comment(s): Eye surgery, fistula, right below the knee amputation. Bypass. Past Anesthesia/Blood Transfusion Reactions: No Reported Reaction Past Psychological History: No Psychological Hx Reported Smoking Status: Former smoker Past Alcohol Use History: None Reported Past Drug Use History: Marijuana - Past Family History Father Family Medical History: Hypertension Additional Family Medical History / Comment(s): Father passed of [place] 10 years ago. Mother Family Medical History: Diabetes Mellitus Additional Family Medical History / Comment(s): [place] (2021) with stent. Medications and Allergies Home Medications Medication Instructions Recorded Confirmed Type Methadone [Dolophine] 15 mg PO BID 02/29/16 12/26/22 History Gabapentin [Neurontin] 100 mg PO TID 09/13/22 12/26/22 History Lokelma 5 Gm Packet 5 gm PO MOWEFR PRN 09/13/22 12/26/22 History Pantoprazole [Protonix] 40 mg PO DAILY 09/13/22 12/26/22 History Sevelamer [Renvela] 800 - 1,600 mg PO TID-W/MEALS 09/13/22 12/26/22 History Sucralfate [Carafate] 1 gm PO BID 09/13/22 12/26/22 History rOPINIRole HCL [Requip] 5 mg PO DAILY 09/13/22 12/26/22 History rOPINIRole HCL [Requip] 10 mg PO HS 09/13/22 12/26/22 History Clopidogrel [Plavix] 75 mg PO DAILY 10/05/22 12/26/22 History Allergies Allergy/AdvReac Type Severity Reaction Status Date / Time Penicillins Allergy Unknown Verified 12/26/22 17:37 Childhood baclofen AdvReac Confusion Verified 12/26/22 17:37 Physical Exam Vitals: Vital Signs Temp Pulse Pulse Resp BP BP Pulse Ox 12/27/22 07:45 82 18 147/91 98 12/27/22 07:30 70 12/27/22 07:15 90 14 217/121 99 12/27/22 07:00 79 13 153/118 95 12/27/22 06:45 83 12 143/94 98 12/27/22 06:30 82 17 160/109 98 12/27/22 06:15 89 15 149/113 96 12/27/22 06:00 82 12 141/91 97 12/27/22 05:45 82 12 95 12/27/22 05:30 79 13 167/89 98 12/27/22 05:15 77 12 96 12/27/22 05:00 79 14 165/97 98 12/27/22 04:45 78 13 149/102 91 L 12/27/22 04:30 79 12 179/110 94 L 12/27/22 04:15 82 13 183/114 98 12/27/22 04:00 98.6 F 86 12 161/110 92 L 12/27/22 03:45 88 23 162/109 97 12/27/22 03:30 80 23 149/104 92 L 12/27/22 03:15 82 22 166/102 94 L 12/27/22 03:00 78 13 151/112 92 L 12/27/22 02:45 86 24 140/96 96 12/27/22 02:30 81 12 115/98 99 12/27/22 02:15 81 12 131/103 99 12/27/22 02:00 79 13 139/67 98 12/27/22 01:45 88 16 125/91 95 12/27/22 01:30 87 12 118/94 96 12/27/22 01:15 82 10 L 114/79 97 12/27/22 01:00 84 11 L 142/103 96 12/27/22 00:46 98.8 F 77 18 137/93 12/27/22 00:45 86 14 137/93 97 12/27/22 00:30 87 13 141/119 97 12/27/22 00:15 87 18 146/100 96 12/27/22 00:00 97.7 F 86 12 166/115 97 12/26/22 23:45 89 12 133/95 88 L 12/26/22 23:38 90 16 92 L 12/26/22 23:30 90 13 167/130 96 12/26/22 23:15 95 12 175/125 96 12/26/22 23:00 87 13 158/99 98 12/26/22 22:55 98.2 F 88 12 175/125 95 12/26/22 22:45 86 12 154/82 96 12/26/22 22:30 89 17 195/119 95 12/26/22 22:20 84 12 195/119 93 L 12/26/22 22:10 79 14 176/121 99 12/26/22 22:00 81 13 164/124 97 12/26/22 21:50 78 12 148/105 96 12/26/22 21:40 81 10 L 167/108 98 12/26/22 21:30 80 28 H 190/116 91 L 12/26/22 21:20 76 20 190/116 97 12/26/22 21:12 98.2 F 72 18 97 12/26/22 20:57 87 18 178/121 12/26/22 20:12 86 18 198/145 12/26/22 19:54 80 18 209/124 98 12/26/22 18:52 78 18 225/127 98 12/26/22 17:19 65 24 194/124 99 12/26/22 16:47 73 22 207/127 97 12/26/22 16:25 67 24 98 12/26/22 16:16 97.4 F L 68 38 H 183/131 99 Intake and Output 12/26/22 12/27/22 12/27/22 22:59 06:59 14:59 Intake Total 16.325 709.675 12.225 Output Total 3000 0 Balance 16.325 -2290.325 12.225 Intake: Intake, IV Titration 16.325 9.675 12.225 Amount Nitroglycerin-D5w Pmx 50 16.325 9.675 12.225 mg In Dextrose/Water 1 250ml.bag @ 10 MCG/MIN 3 mls/hr IV .Q24H ONE Rx#: [id number] Oral 200 Hemodialysis 500 Output: Urine 0 0 Hemodialysis 3000 Other: # Voids 0 Weight 86 kg 84.7 kg Patient is awake, comfortable, no acute distress Alert oriented 3 Examination of the heart S1 and S2 Examination of the lungs bilateral breath sounds are heard [place] abdomen is soft Examination lower extremities shows right [employer] exam grossly intact Results - Lab Results Most recent lab results Calcium 9.3 mg/dL (8.4-10.2) 12/27/22 03:53 Phosphorus 4.2 mg/dL (2.5-4.5) 12/27/22 03:53 Magnesium 2.8 mg/dL (1.6-2.3) H 12/26/22 17:03 12/27/22 03:53 12/27/22 03:53 Assessment and Plan Assessment: 1. End-stage renal disease on hemodialysis on a Monday schedule currently with an IJ permacath and an AV fistula which has recently had intervention. The IJ permacath wasn't leaking therefore it is not being used and Will BE removed. . Fistula was used successfully last night. 2. Volume overload 3. Hypertension partly volume sensitive 4. Peripheral vascular disease follows with vascular at [facility] as well 5. Chronic pain being managed at [facility] Plan: Hemodialysis today. Goal UF about 2.5 L. Weaned down nitro drip We may not need an IJ permacath if we're able to use the fistula successfully. Increase hydralazine if blood pressure remains elevated post dialysis.
--- NOTE | 2022-12-27 11:19 | P.GSCN ---
History of Present Illness Consult date: 12/27/22 Reason for Consult: Permacath leaking Requesting physician: Sam Schneider History of present illness: This is a 42-year-old male with a past medical history including end-stage renal disease on hemodialysis, hypertension, diabetes mellitus, coronary artery disease, and CVA who presented to the emergency department with shortness of breath. Patient states he felt like it was similar to past episodes where he missed dialysis over long weekend however he did get his dialysis as scheduled with his last dialysis being on Monday prior to coming into the emergency department. Patient was admitted to the ICU with fluid overload and hypertensive emergency and was initiated on a nitro drip. Patient has a left u pper extremity V fistula as well as a right IJ permacath which patient has been complaining of it leaking. Patient was supposed to follow-up in our office to have it removed however he came to the emergency department with shortness of breath. Vascular surgery was consulted for permacatheter leaking. Patient underwent revision of left upper extremity AV fistula on 10/07/2022 and is able to use the fistula. He had a chest x-ray yesterday that showed pulmonary vascular congestion catheter in place. He underwent dialysis yesterday evening, he has again scheduled today. States breathing has improved, denies any chest pain, no abdominal pain, nausea or vomiting. No fever or chills. Review of Systems A 14 point review systems was completed all pertinent positives and negatives as stated in the HPI. Past Medical History Past Medical History: Coronary Artery Disease (CAD), CVA/TIA, Diabetes Mellitus, Dialysis, Eye Disorder, GERD/Reflux, Renal Disease, Vascular Disorder Additional Past Medical History / Comment(s): Hx CVA 11 yrs ago, no residual effects. Diet Controlled Diabetes. Chiari malformation. Dialysis, TUTHSA. Legally blind. History of Any Multi-Drug Resistant Organisms: None Reported Past Surgical History: Orthopedic Surgery Additional Past Surgical History / Comment(s): Eye surgery, fistula, right below the knee amputation. Bypass. Past Anesthesia/Blood Transfusion Reactions: No Reported Reaction Past Psychological History: No Psychological Hx Reported Smoking Status: Former smoker Past Alcohol Use History: None Reported Past Drug Use History: Marijuana - Past Family History Father Family Medical History: Hypertension Additional Family Medical History / Comment(s): Father passed of GA 10 years ago. Mother Family Medical History: Diabetes Mellitus Additional Family Medical History / Comment(s): GA (2021) with stent. Medications and Allergies Home Medications Medication Instructions Recorded Confirmed Type Methadone [Dolophine] 15 mg PO BID 02/29/16 12/26/22 History Gabapentin [Neurontin] 100 mg PO TID 09/13/22 12/26/22 History Lokelma 5 Gm Packet 5 gm PO MOWEFR PRN 09/13/22 12/26/22 History Pantoprazole [Protonix] 40 mg PO DAILY 09/13/22 12/26/22 History Sevelamer [Renvela] 800 - 1,600 mg PO TID-W/MEALS 09/13/22 12/26/22 History Sucralfate [Carafate] 1 gm PO BID 09/13/22 12/26/22 History rOPINIRole HCL [Requip] 5 mg PO DAILY 09/13/22 12/26/22 History rOPINIRole HCL [Requip] 10 mg PO HS 09/13/22 12/26/22 History Clopidogrel [Plavix] 75 mg PO DAILY 10/05/22 12/26/22 History Allergies Allergy/AdvReac Type Severity Reaction Status Date / Time Penicillins Allergy Unknown Verified 12/26/22 17:37 Childhood baclofen AdvReac Confusion Verified 12/26/22 17:37 Surgical - Exam Vital Signs Temp Pulse Resp BP Pulse Ox 97.4 F L 68 38 H 183/131 99 12/26/22 16:16 12/26/22 16:16 12/26/22 16:16 12/26/22 16:16 12/26/22 16:16 General appearance: The patient is alert, oriented, appears in no acute distress. HET: Head is normocephalic and atraumatic. Pupils are equal and reactive. Neck: Supple. Heart: Regular. Chest: Right chest wall HT catheter in place with no surrounding redness or drainage or hematoma. Lungs: Equal expansion, normal respiratory effort. Abdomen: Soft, nontender, nondistended. Extremities: Normal skin color and turgor. Neurological: No focal deficits. Results - Labs 12/27/22 03:53 12/27/22 03:53 Abnormal Lab Results - Last 24 Hours (Table) 12/26/22 12/26/22 12/26/22 Range/Units 17:03 17:03 17:03 Hgb 11.6 L (13.0-17.5) gm/dL Hct 38.1 L (39.0-53.0) % MCHC 30.5 L (31.0-37.0) g/dL RDW 16.2 H (11.5-15.5) % APTT 30.1 H (22.0-30.0) sec Sodium 133 L (137-145) mmol/L Chloride 93 L (98-107) mmol/L BUN 46 H (9-20) mg/dL Creatinine 8.83 H* (0.66-1.25) mg/dL Glucose 109 H (74-99) mg/dL Magnesium 2.8 H (1.6-2.3) mg/dL Troponin I (0.000-0.034) ng/mL 12/26/22 12/27/22 12/27/22 Range/Units 17:03 00:31 03:53 Hgb 11.5 L (13.0-17.5) gm/dL Hct 38.6 L (39.0-53.0) % MCHC 29.7 L (31.0-37.0) g/dL RDW 16.4 H (11.5-15.5) % APTT (22.0-30.0) sec Sodium (137-145) mmol/L Chloride (98-107) mmol/L BUN (9-20) mg/dL Creatinine (0.66-1.25) mg/dL Glucose (74-99) mg/dL Magnesium (1.6-2.3) mg/dL Troponin I 0.283 H* 0.314 H* (0.000-0.034) ng/mL 12/27/22 Range/Units 03:53 Hgb (13.0-17.5) gm/dL Hct (39.0-53.0) % MCHC (31.0-37.0) g/dL RDW (11.5-15.5) % APTT (22.0-30.0) sec Sodium 134 L (137-145) mmol/L Chloride 92 L (98-107) mmol/L BUN 27 H (9-20) mg/dL Creatinine 6.21 H (0.66-1.25) mg/dL Glucose (74-99) mg/dL Magnesium (1.6-2.3) mg/dL Troponin I (0.000-0.034) ng/mL Diabetes panel 12/26/22 12/27/22 Range/Units 17:03 03:53 Sodium 133 L 134 L (137-145) mmol/L Potassium 4.6 3.8 (3.5-5.1) mmol/L Chloride 93 L 92 L (98-107) mmol/L Carbon Dioxide 24 29 (22-30) mmol/L BUN 46 H 27 H (9-20) mg/dL Creatinine 8.83 H* 6.21 H (0.66-1.25) mg/dL Glucose 109 H 77 (74-99) mg/dL Calcium 9.8 9.3 (8.4-10.2) mg/dL AST 20 (17-59) U/L ALT 18 (4-49) U/L Alkaline Phosphatase 62 (38-126) U/L Total Protein 7.2 (6.3-8.2) g/dL Albumin 4.1 (3.5-5.0) g/dL Calcium panel 12/26/22 12/27/22 Range/Units 17:03 03:53 Calcium 9.8 9.3 (8.4-10.2) mg/dL Phosphorus 4.2 (2.5-4.5) mg/dL Albumin 4.1 (3.5-5.0) g/dL Pituitary panel 12/26/22 12/27/22 Range/Units 17:03 03:53 Sodium 133 L 134 L (137-145) mmol/L Potassium 4.6 3.8 (3.5-5.1) mmol/L Chloride 93 L 92 L (98-107) mmol/L Carbon Dioxide 24 29 (22-30) mmol/L BUN 46 H 27 H (9-20) mg/dL Creatinine 8.83 H* 6.21 H (0.66-1.25) mg/dL Glucose 109 H 77 (74-99) mg/dL Calcium 9.8 9.3 (8.4-10.2) mg/dL Adrenal panel 12/26/22 12/27/22 Range/Units 17:03 03:53 Sodium 133 L 134 L (137-145) mmol/L Potassium 4.6 3.8 (3.5-5.1) mmol/L Chloride 93 L 92 L (98-107) mmol/L Carbon Dioxide 24 29 (22-30) mmol/L BUN 46 H 27 H (9-20) mg/dL Creatinine 8.83 H* 6.21 H (0.66-1.25) mg/dL Glucose 109 H 77 (74-99) mg/dL Calcium 9.8 9.3 (8.4-10.2) mg/dL Total Bilirubin 0.9 (0.2-1.3) mg/dL AST 20 (17-59) U/L ALT 18 (4-49) U/L Alkaline Phosphatase 62 (38-126) U/L Total Protein 7.2 (6.3-8.2) g/dL Albumin 4.1 (3.5-5.0) g/dL Assessment and Plan Assessment: 1. End-stage renal disease on hemodialysis via left upper extremity AV fistula 2. Right IJ permacatheter, malfunctioning 3. Shortness of breath 4. Volume overload 5. Hypertensive emergency 6. Diabetes mellitus Plan: 1. Continue symptomatic and supportive care 2. May use left upper extremity AV fistula for hemodialysis 3. Plan will be to remove right IJ tunnel cath, this is nonemergent 4. Continue medical and ICU management 5. Continue recommendations from nephrology Thank you for this consultation. The impression and plan of care has been dictated as directed. I performed a history and examination of this patient, discussed the same with the dictator. I agree with the dictator's note ,documented as a scribe. Any additional findings or plans will be noted.
[2022-12-27 11:49] LABS: Glucose,Whole Blood 86 mg/dL (70-110)
--- NOTE | 2022-12-27 12:45 | CONS ---
CONSULTATION HISTORY OF PRESENT ILLNESS: Reece is a 42-year-old gentleman with history of end-stage renal disease, on hemodialysis, diabetes, CAD, prior CVA, who is legally blind, comes to the hospital, complaining of shortness of breath, was found to be in congestive heart failure and he also had elevated blood pressure. He received intravenous nitroglycerin for blood pressure control and is currently admitted to ICU. He received dialysis and the blood pressures have gotten better. He did not miss his dialysis. He does not have chest pain or difficulty in breathing at the moment. The shortness of breath that he came in with has improved. The blood pressures are better controlled. EKG shows sinus rhythm, left axis deviation, and changes of left ventricular hypertrophy. Troponins are elevated at 0.2 and 0.3 secondary to renal failure. BUN and creatinine are elevated at 27 and 6.2, hemoglobin is 11.5. The plan at this stage is to treat him with medical therapy, including hydralazine, Lopressor and Norvasc for better blood pressure control and if necessary, we will increase the dose of hydralazine. The mild elevation in troponin does not require any further workup at this time. I am going to obtain a 2D echo to evaluate his LV function. PAST MEDICAL HISTORY: Significant for end-stage renal disease, on hemodialysis; coronary artery disease; prior CVA; bilateral amputations. MEDICATIONS: At home included: 1. Requip. 2. Catapres. 3. Protonix. 4. . 5. Neurontin. 6. Plavix. ALLERGIES: To penicillin and baclofen. FAMILY HISTORY: Negative for premature coronary artery disease. REVIEW OF SYSTEMS: review of systems have been performed. Pertinents are as documented. PHYSICAL EXAMINATION: VITAL SIGNS: Stable. CHEST: Reveals good air entry bilaterally. HEART: Reveals first and second heart sounds and a systolic murmur at the apex. ABDOMEN: Soft. EXTREMITIES: Examination of the extremities shows right below-knee amputation and left- sided toe amputation. LABORATORY DATA: Labs showed that the BUN and creatinine were elevated; troponin is mildly elevated. EKG does not reveal acute ischemic changes. ASSESSMENT: 1. Acute onset pulmonary edema. 2. Hypertensive heart disease. 3. End-stage renal disease, on hemodialysis. PLAN: We will control his blood pressure. Continue current medications. Continue with dialysis. I will obtain a 2D echo on him. MMODL / GENOVEVAN: [id number] /
[2022-12-27 13:03] VITALS: TEMP 98
[2022-12-27] MEDS: SUCRALFATE 1 GM TAB PO SCH (13:33)
[2022-12-27 14:08] VITALS: BP 109/83; PULSE 84; RESP 16
--- NOTE | 2022-12-27 15:36 | P.DS ---
Providers Date of admission: 12/26/22 19:27 Expected date of discharge: 12/27/22 Attending physician: Iraida Peñaloza DO Consults: 12/26/22 19:17 Consult Physician Routine Consulting Provider: Manjinder Quinones Consult Reason/Comments: permacath leaking Do you want consulting provider notified?: Already Contacted Consult Physician Routine Consulting Provider: Caitlyn Fleming Consult Reason/Comments: dialysis Do you want consulting provider notified?: Yes 12/26/22 19:27 Consult Physician Stat Consulting Provider: Deuce Torres Consult Reason/Comments: htn emergency/volume overload on nitro drip Do you want consulting provider notified?: Already Contacted 12/27/22 01:25 Consult Physician Urgent Consulting Provider: Virgilio Gunderson Consult Reason/Comments: Hypertensive urgency; elevated troponins Do you want consulting provider notified?: Yes Primary care [facility]: [facility] Course: hypertensive emergency elevated trops ESRD on HD TTS through left AV fistual and right chest perma cath DM Peripheral Neuropathy RLS 42 year old male with ESRD on HD TTS who presented with elevated blood pressure and trouble breathing. In the emergency room, patient was afebrile, hypertensive to 207/127, heart rate 73, 97% on 2 L nasal pain. CBC showed mild anemia to 11.5. Basic metabolic panel showed creatinine of 3.83, BUN of 46. Liver function tests are unremarkable. Initial troponin is 0.283 that trended to 0.314. BNP was 41,400. If once a, B, RSV, Covid were negative. Coags are unremarkable. Chest x-ray showed increased right infrahilar density reflecting developing infiltrate. EKG showed normal sinus rhythm with mild left axis deviation. Patient was admitted for hypertensive emergency requiring nitroglycerin drip as well as need for dialysis. Patient underwent 2 dialysis sessions, the first was emergent during the day of admission, then had another dialysis session just prior to discharge. After these sessions in which he had a total of 4-5 L of ultrafiltrate removed, patient's blood pressure had improved to 109/83, off of the nitroglycerin drip and only requiring oral blood pressure medications including hydralazine, amlodipine, metoprolol. Patient was discharged home on the same medications and instructed to follow-up with primary care, vascular surgery for removal of permacath since his AV fistula was functioning, cardiology regarding his likelihood of diastolic dysfunction. I spent 40 minutes corrugating this discharge on 12/27 Gen: awake, alert HEENT: normocephalic, atraumatic, good hearing acuity, moist mucous membranes Resp: good air exchange, breathing comfortably with no accessory muscle use CVS: good distal perfusion x 4, GI: soft, NTTP, ND : no SPT, no CVAT, ching catheter not present MSK: no pitting edema, no clubbing, Right sided BKA Neuro: non-focal, moving all extremities Psych: cooperative, euthymic mood Patient Condition at Discharge: Good Plan - Discharge Summary Discharge Rx Participant: No New Discharge Prescriptions: New hydrALAZINE HCL [Apresoline] 25 mg PO BID #60 tab Metoprolol Tartrate [Lopressor] 25 mg PO DAILY #30 tab amLODIPine [Norvasc] 10 mg PO DAILY #30 tab Continue Methadone [Dolophine] 15 mg PO BID Sucralfate [Carafate] 1 gm PO BID rOPINIRole HCL [Requip] 5 mg PO DAILY Pantoprazole [Protonix] 40 mg PO DAILY Gabapentin [Neurontin] 100 mg PO TID rOPINIRole HCL [Requip] 10 mg PO HS Sevelamer [Renvela] 800 - 1,600 mg PO TID-W/MEALS Lokelma 5 Gm Packet 5 gm PO MOWEFR PRN PRN Reason: High Potassium Levels Clopidogrel [Plavix] 75 mg PO DAILY Discharge Medication List Methadone [Dolophine] 15 mg PO BID 02/29/16 [History] Gabapentin [Neurontin] 100 mg PO TID 09/13/22 [History] Lokelma 5 Gm Packet 5 gm PO MOWEFR PRN 09/13/22 [History] Pantoprazole [Protonix] 40 mg PO DAILY 09/13/22 [History] Sevelamer [Renvela] 800 - 1,600 mg PO TID-W/MEALS 09/13/22 [History] Sucralfate [Carafate] 1 gm PO BID 09/13/22 [History] rOPINIRole HCL [Requip] 5 mg PO DAILY 09/13/22 [History] rOPINIRole HCL [Requip] 10 mg PO HS 09/13/22 [History] Clopidogrel [Plavix] 75 mg PO DAILY 10/05/22 [History] Metoprolol Tartrate [Lopressor] 25 mg PO DAILY #30 tab 12/27/22 [Rx] amLODIPine [Norvasc] 10 mg PO DAILY #30 tab 12/27/22 [Rx] hydrALAZINE HCL [Apresoline] 25 mg PO BID #60 tab 12/27/22 [Rx] Follow up Appointment(s)/Referral(s): Yash Watson MD [Primary Care Provider] - 01/06/23 2:15 pm (Appointment with Faith Monae DO [STAFF PHYSICIAN] - 01/04/23 12:00 pm (See Dr Ching for [id number] removal.) Esteban Duarte MD [STAFF PHYSICIAN] - 1 Week (Office will call with appointment date and time.) Patient Instructions/Handouts: Heart Failure (ER), Pulmonary Edema (ED), Chronic Hypertension (ED), Dyspnea (ED), Low-Sodium Diet (ED), Hypertensive Crisis (GEN), Hypertension (ED), End Stage Kidney Disease (ED), Shortness of Breath (ED), Hypertension and Diabetes (ED) Activity/Diet/Wound Care/Special Instructions: Please follow up with Dr. Ching for permacath removal. Discharge Disposition: HOME SELF-CARE
[2022-12-27] MEDS ORDERED: rOPINIRole HCL 4 MG TABLET PO SCH (21:00)
[2022-12-28] MEDS ORDERED: SODIUM ZIRCONIUM CYCLOSILICATE 10 GM PACKET PO SCH (09:00)
--- NOTE | 2022-12-28 10:00 | CA ---
Transthoracic Echo Report Name: Reece Li Age: 42 Gender: M : 1980 Exam Date: 12/27/2022 13:58 Exam Location: [place] [facility] Ht (in): 69 Wt (lb): 186 Ordering Physician: Esteban Duarte MD ([id number]) Attending/Referring Phys: Felicia CHRISTENSEN [employer] Sales Representative Johnson Amaya Procedure CPT: Indications: chf Cardiac Hx: Technical Quality: Fair Contrast 1: Lumason Total Dose (mL): 5 Contrast 2: Agitated Saline Total Dose (mL): 10 MEASUREMENTS (Male / Female) Normal Values 2D ECHO LV Diastolic Diameter PLAX 3.7 cm 4.2 - 5.9 / 3.9 - 5.3 cm IVS Diastolic Thickness 1.4 cm 0.6 - 1.0 / 0.6 - 0.9 cm LVPW Diastolic Thickness 1.0 cm 0.6 - 1.0 / 0.6 - 0.9 cm LV Relative Wall Thickness 0.6 RV Internal Dim ED PLAX 3.0 cm LVOT Diameter 2.0 cm Aortic Root Diameter 2.6 cm LA Systolic Diameter LX 4.1 cm 3.0 - 4.0 / 2.7 - 3.8 cm LV Diastolic Volume MOD BP 63.7 cm??? 67 - 155 / 56 - 104 cm??? LV Systolic Volume MOD BP 29.8 cm??? 22 - 58 / 19 - 49 cm??? LV Ejection Fraction MOD BP 53.2 % >= 55 % LV Diastolic Volume MOD 4C 75.0 cm??? LV Systolic Volume MOD 4C 35.6 cm??? LV Ejection Fraction MOD 4C 52.5 % LV Diastolic Length 4C 6.6 cm LV Systolic Length 4C 6.0 cm LV Diastolic Volume MOD 2C 52.1 cm??? LV Systolic Volume MOD 2C 23.3 cm??? LV Ejection Fraction MOD 2C 55.3 % LV Diastolic Length 2C 6.9 cm LV Systolic Length 2C 6.5 cm LA Volume 59.9 cm??? 18 - 58 / 22 - 52 cm??? Ascending Aorta Diameter 2.9 cm DOPPLER AV Peak Velocity 206.6 cm/s AV Peak Gradient 17.1 mmHg LVOT Peak Velocity 129.3 cm/s LVOT Peak Gradient 6.7 mmHg AV Area Cont Eq pk 1.9 cm??? Mitral E Point Velocity 118.0 cm/s Mitral A Point Velocity 119.1 cm/s Mitral E to A Ratio 1.0 MV Deceleration Time 353.0 ms TR Peak Velocity 143.3 cm/s TR Peak Gradient 8.2 mmHg Right Ventricular Systolic Press 13.2 mmHg FINDINGS Left Ventricle Left ventricular ejection fraction is estimated at 60-65 %. Mild Concentric LVH. Normal LV size. Right Ventricle Normal right ventricular size. Right Atrium Normal right atrial size. Left Atrium Mildly increased left atrial diameter. Mildly increased left atrial volume. Mildly increased left atrial area. Mitral Valve Moderate thickening/calcification of the posterior mitral valve leaflet. Trace MR. Aortic Valve Mild AV Sclerosis/Calcilication. No aortic stenosis. No aortic regurgitation. Tricuspid Valve Structurally normal tricuspid valve. Trace TR. Pulmonic Valve Pulmonic valve not well visualized. No pulmonic regurgitation. Pericardium Not well visualized. Grossl unremarkable. Aorta Normal size aortic root and proximal ascending aorta. CONCLUSIONS Normal LV size and systolic function. Mild to moderate concentric LVH. Mild left atrial enlargement. Mitral annular calcification and aortic valve sclerosis without restriction. Mild mitral and tricuspid regurgitation no pulmonary hypertension no pericardial effusion Previewed by: Dr. Yonny Mcdermott MD (Electronically Signed) Final Date: 28 December 2022 09:59
== END 2022-12-27 15:30 | disposition home or self-care (01) | DRG 640 ==
LOC: EC 16:14 → SUPCPDRO 16:14 → 2SICU 19:27
PROVIDERS: ADMIT Internal Medicine; ATTEND Internal Medicine
PROC: 5A1D70Z Performance of Urinary Filtration, Intermittent, Less than 6 Hours Per Day (ICD-10-PCS; principal; 2022-12-27)
DX: E87.70 Fluid overload, unspecified (principal); J81.0 Acute pulmonary edema; I16.1 Hypertensive emergency; I13.2 Hypertensive heart and chronic kidney disease with heart failure and with stage 5 chronic kidney disease, or end stage renal disease; R79.89 Other specified abnormal findings of blood chemistry; Z20.822 Contact with and (suspected) exposure to COVID-19; H54.8 Legal blindness, as defined in USA; I25.10 Atherosclerotic heart disease of native coronary artery without angina pectoris; I50.9 Heart failure, unspecified; G25.81 Restless legs syndrome; E11.22 Type 2 diabetes mellitus with diabetic chronic kidney disease; E11.51 Type 2 diabetes mellitus with diabetic peripheral angiopathy without gangrene; E11.42 Type 2 diabetes mellitus with diabetic polyneuropathy; D64.9 Anemia, unspecified; G89.29 Other chronic pain; Z79.02 Long term (current) use of antithrombotics/antiplatelets; Z79.899 Other long term (current) drug therapy; I08.1 Rheumatic disorders of both mitral and tricuspid valves; Z86.73 Personal history of transient ischemic attack (TIA), and cerebral infarction without residual deficits; Z99.2 Dependence on renal dialysis; Z89.511 Acquired absence of right leg below knee; Z88.0 Allergy status to penicillin; Z88.1 Allergy status to other antibiotic agents; Z82.49 Family history of ischemic heart disease and other diseases of the circulatory system; Z87.891 Personal history of nicotine dependence; Z86.79 Personal history of other diseases of the circulatory system
CPT/HCPCS: 36415; 71046; 80048; 80053; 83735; 83880; 84100; 84484; 85025; 85610; 85730; 87636; 90935; 93005; 93306; 96365; 96375; 99291

== ENCOUNTER 2023-05-21 15:00 | Observation (INO) | payer MEDICARE, OTHER ==
--- NOTE | 2023-05-21 15:30 | ED ---
General Adult HPI - General Chief complaint: Shortness of Breath Stated complaint: sob Time Seen by Provider: 05/21/23 15:12 Source: patient Mode of arrival: wheelchair Limitations: no limitations - History of Present Illness Initial comments: Dictation was produced using [employer] dictation software. please excuse any grammatical, word or spelling errors. Chief Complaint: 42-year-old male presents emergency Department with chief compl aint of shortness of breath History of Present Illness: Patient is a 42-year-old male he has past medical history of end-stage renal disease. Patient states that he missed [facility] on Monday because of total body pain. 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 He gets dialysis typically Monday and Monday at the local nearby [facility]. Fever or chills. No cough. Patient's last dialysis was . His system technologist is Dr. Fleming. The ROS documented in this emergency department record has been reviewed and confirmed by me. Those systems with pertinent positive or negative responses have been documented in the HPI. All other systems are other negative and/or noncontributory. - Related Data Home Medications Medication Instructions Recorded Confirmed Methadone [Dolophine] 15 mg PO BID 02/29/16 12/26/22 Gabapentin [Neurontin] 100 mg PO TID 09/13/22 12/26/22 Lokelma 5 Gm Packet 5 gm PO MOWEFR PRN 09/13/22 12/26/22 Pantoprazole [Protonix] 40 mg PO DAILY 09/13/22 12/26/22 Sevelamer [Renvela] 800 - 1,600 mg PO TID-W/MEALS 09/13/22 12/26/22 Sucralfate [Carafate] 1 gm PO BID 09/13/22 12/26/22 rOPINIRole HCL [Requip] 5 mg PO DAILY 09/13/22 12/26/22 rOPINIRole HCL [Requip] 10 mg PO HS 09/13/22 12/26/22 Clopidogrel [Plavix] 75 mg PO DAILY 10/05/22 12/26/22 Previous Rx's Medication Instructions Recorded Metoprolol Tartrate [Lopressor] 25 mg PO DAILY #30 tab 12/27/22 amLODIPine [Norvasc] 10 mg PO DAILY #30 tab 12/27/22 hydrALAZINE HCL [Apresoline] 25 mg PO BID #60 tab 12/27/22 Allergies Allergy/AdvReac Type Severity Reaction Status Date / Time Penicillins Allergy Unknown Verified 05/21/23 15:05 Childhood baclofen AdvReac Confusion Verified 05/21/23 15:05 Review of Systems ROS Statement: Those systems with pertinent positive or pertinent negative responses have been documented in the HPI. ROS Other: All systems not noted in ROS Statement are negative. Past Medical History Past Medical History: Coronary Artery Disease (CAD), CVA/TIA, Diabetes Mellitus, Dialysis, Eye Disorder, GERD/Reflux, Renal Disease, Vascular Disorder Additional Past Medical History / Comment(s): Hx CVA 11 yrs ago, no residual effects. Diet Controlled Diabetes. Chiari malformation. Dialysis, [facility]. Legally blind. History of Any Multi-Drug Resistant Organisms: None Reported Past Surgical History: Orthopedic Surgery Additional Past Surgical History / Comment(s): Eye surgery, fistula, right below the knee amputation. Bypass. Past Anesthesia/Blood Transfusion Reactions: No Reported Reaction Past Psychological History: No Psychological Hx Reported Smoking Status: Former smoker Past Alcohol Use History: None Reported Past Drug Use History: Marijuana - Past Family History Father Family Medical History: Hypertension Additional Family Medical History / Comment(s): Father passed of [place] 10 years ago. Mother Family Medical History: Diabetes Mellitus Additional Family Medical History / Comment(s): [place] (2021) with stent. General Exam - General Exam Comments Initial Comments: PHYSICAL EXAM: General Impression: Alert and oriented x3, not in acute distress HEENT: Normocephalic atraumatic, extra-ocular movements intact, pupils equal and reactive to light bilaterally, mucous membranes moist. Cardiovascular: Heart regular rate and rhythm Chest: Able to complete full sentences, no retractions, no tachypnea Abdomen: abdomen soft, non-tender, non-distended, no organomegaly Musculoskeletal: Right lower extremity BKA Motor: no focal deficits noted Neurological: CN II-XII grossly intact, no focal motor or sensory deficits noted Skin: Intact with no visualized rashes Psych: Normal affect and mood Limitations: no limitations Course Vital Signs 05/21/23 05/21/23 05/21/23 15:02 15:15 15:18 Temperature 97.4 F L 97.9 F Pulse Rate 80 82 Respiratory 18 20 18 Rate Blood Pressure 211/120 185/102 O2 Sat by Pulse 99 100 Oximetry 05/21/23 16:35 Temperature Pulse Rate 85 Respiratory Rate Blood Pressure 225/146 O2 Sat by Pulse Oximetry EKG Findings - EKG Comments: EKG Findings:: My EKG interpretation: Ventricular rate 70, sinus rhythm,. 145, QRS 106, QTC 42. No NE prolongation, no QTC prolongation, no ST changes noted. Hyperacute T waves in anterior precordial leads. Medical Decision Making - Medical Decision Making Was pt. sent in by a medical professional or institution (, PA, MAINTENANCE MANAGER, urgent care, hospital, or halfway...) When possible be specific @ -No Did you speak to anyone other than the patient for history (EMS, parent, family, police, friend...)? What history was obtained from this source @ -No Did you review nursing and triage notes (agree or disagree)? Why? @ -I reviewed and agree with nursing and triage notes Were old charts reviewed (outside hosp., previous admission, EMS record, old EKG, old radiological studies, urgent care reports/EKG's, halfway records)? Report findings @ -No old charts were reviewed Differential Diagnosis (chest pain, altered mental status, abdominal pain women, abdominal pain men, vaginal bleeding, musculoskeletal, weakness, fever, dyspnea, syncope, headache, dizziness, GI bleed, back pain, seizure, CVA, palpatations, mental health)? @ -Differential Dyspnea: Coronary syndrome, arrhythmia, tamponade, asthma, COPD, pulmonary embolism, pne umonia, pneumothorax, pulmonary effusion, anaphylaxis, diabetic ketoacidosis, flailed chest, pulmonary contusion, diaphragmatic rupture, anemia, neuromuscular, this is not meant to be an all-inclusive list. EKG interpreted by me (3pts min.). @ -See above X-rays interpreted by me (1pt min.). @ -Chest x-ray shows small focal infiltrate right lung base CT interpreted by me (1pt min.). @ -None done U/S interpreted by me (1pt. min.). @ -None done What testing was considered but not performed or refused? (CT, X-rays, U/S, labs)? Why? @ -None What meds were considered but not given or refused? Why? @ -[None] Did you discuss the management of the patient with other professionals (professionals i.e. , PA, MAINTENANCE MANAGER, lab, RT, psych nurse, oncology social work, research tech, teacher, disciplinary hearing officer, correctional case manager)? Give summary @ -Case discussed with on-call system technologist for urgent dialysis Was smoking cessation discussed for >3mins.? @ -[No] Was critical care preformed (if so, how long)? @ -[No] Were there social determinants of health that impacted care today? How? (Homelessness, low income, unemployed, alcoholism, drug addiction, transportation, low edu. Level, literacy, decrease access to med. care, detention, rehab)? @ -[No] Was there de-escalation of care discussed even if they declined (Discuss DNR or withdrawal of care, Hospice)? DNR status @ -[No] What co-morbidities impacted this encounter? (DM, HTN, Smoking, COPD, CAD, Cancer, CVA, ARF, Chemo, Hep., AIDS, mental health diagnosis, sleep apnea, morbid obesity)? @ -[None] Was patient admitted / discharged? Hospital course, mention meds given and route, prescriptions, significant lab abnormalities, going to OR and other pertinent info. @ -22-year-old male presents emergency department for shortness of breath and missed hemodialysis. Vital signs upon arrival shows blood pressure of 211/120, rest of vital signs within acceptable limits. Patient states she's dyspneic however he is not showing any respiratory distress at the bedside. Laboratory evaluation obtained. CBC unremarkable. Metabolic panel shows potassium 6.0 with a BNP of 24,600. Creatinine 8.87. Nephrology was contacted for stat hemodialysis group. Admitted to [facility] emergency department physician group Undiagnosed new problem with uncertain prognosis? @ -[No] Drug Therapy requiring intensive monitoring for toxicity (Heparin, Nitro, Insulin, Cardizem)? @ -[No] Were any procedures done? @ -[No] Diagnosis/symptom? Acute, or Chronic, or Acute on Chronic? Uncomplicated (without systemic symptoms) or Complicated (systemic symptoms)? @ -Fluid overload secondary to missed HD Side effects of treatment? @ -[No] Exacerbation, Progression, or Severe Exacerbation? @ -[No] Poses a threat to life or bodily function? How? (Chest pain, [place], [place], pneumonia, PE, COPD, DKA, ARF, appy, cholecystitis, CVA, Diverticulitis, Homicidal, Suicidal, threat to staff... and all critical care pts) @ -yes - Lab Data Result diagrams: 05/21/23 15:39 05/21/23 15:39 Lab Results 05/21/23 05/21/23 Range/Units 15:39 15:39 WBC 11.2 H (3.8-10.6) k/uL RBC 5.18 (4.30-5.90) m/uL Hgb 14.3 (13.0-17.5) gm/dL Hct 46.2 (39.0-53.0) % MCV 89.0 (80.0-100.0) fL MCH 27.6 (25.0-35.0) pg MCHC 31.0 (31.0-37.0) g/dL RDW 15.9 H (11.5-15.5) % Plt Count 203 (150-450) k/uL MPV 8.8 Neutrophils % 77 % Lymphocytes % 13 % Monocytes % 6 % Eosinophils % 2 % Basophils % 0 % Neutrophils # 8.6 H (1.3-7.7) k/uL Lymphocytes # 1.4 (1.0-4.8) k/uL Monocytes # 0.7 (0-1.0) k/uL Eosinophils # 0.3 (0-0.7) k/uL Basophils # 0.0 (0-0.2) k/uL Hypochromasia Marked Sodium 135 L (137-145) mmol/L Potassium 6.0 H (3.5-5.1) mmol/L Chloride 93 L (98-107) mmol/L Carbon Dioxide 25 (22-30) mmol/L Anion Gap 17 mmol/L BUN 44 H (9-20) mg/dL Creatinine 8.87 H* (0.66-1.25) mg/dL Est GFR (CKD-EPI)AfAm 8 (>60 ml/min/1.73 sqM) Est GFR (CKD-EPI)NonAf 7 (>60 ml/min/1.73 sqM) Glucose 92 (74-99) mg/dL Calcium 9.4 (8.4-10.2) mg/dL NT-Pro-B Natriuret Pep 79986 pg/mL Disposition Clinical Impression: Fluid overload Disposition: ADMITTED IP TO THIS HOSP Condition: Serious Referrals: Yash Watson MD [Primary Care Provider] - 1-2 days Decision Time: 16:51
[2023-05-21 15:59] LABS: Basophils % (A) 0 %; Eosinophils # (A) 0.3 k/uL (0-0.7); Eosinophils % (A) 2 %; HCT 46.2 % (39.0-53.0); HGB 14.3 gm/dL (13.0-17.5); Hypochromasia Marked; Lymphocytes # (A) 1.4 k/uL (1.0-4.8); Lymphocytes % (A) 13 %; MCH 27.6 pg (25.0-35.0); Mean Platelet Volume 8.8; Monocytes # (A) 0.7 k/uL (0-1.0); Monocytes % (A) 6 %; Neutrophils # (A) 8.6 k/uL (1.3-7.7); Neutrophils % (A) 77 %; Platelet Count 203 k/uL (150-450); RBC 5.18 m/uL (4.30-5.90); RDW 15.9 % (11.5-15.5); WBC 11.2 k/uL (3.8-10.6)
[2023-05-21 16:09] LABS: African American GFR (CKD) 8 (>60 ml/min/1.73 sqM); Anion Gap 17 mmol/L; Blood Urea Nitrogen 44 mg/dL (9-20); Calcium 9.4 mg/dL (8.4-10.2); Carbon Dioxide 25 mmol/L (22-30); Chloride 93 mmol/L (98-107); Glucose 92 mg/dL (74-99); Non-African American GFR(CKD) 7 (>60 ml/min/1.73 sqM); Sodium 135 mmol/L (137-145)
[2023-05-21 16:18] LABS: NT-Pro-B-Type Natriuretic Pept 24600 pg/mL
--- NOTE | 2023-05-21 16:29 | XR ---
EXAMINATION TYPE: XR chest 2V DATE OF EXAM: 05/21/2023 COMPARISON: 12/26/2022 HISTORY: Dyspnea TECHNIQUE: Frontal and lateral views of the chest are obtained. FINDINGS: There is moderate elevation right hemidiaphragm which was seen previously. There is a small focal inf iltrate in the right lung base similar to that seen on the prior study. There is a small amount of fl uid in the minor fissure. The left lung is clear. The heart and pulmonary vasculature are normal. The osseous structures are intact. IMPRESSION: 1. Moderate elevation right hemidiaphragm. 2. Small focal infiltrate in the right lung base with mild fluid in the minor fissure.
[2023-05-21] MEDS ORDERED: NALOXONE 0.4 MG/ML 1 ML VIAL IV PRN ×2 (16:37→17:03)
[2023-05-21] MEDS ORDERED: ACETAMINOPHEN TAB 325 MG TAB PO PRN (17:03)
[2023-05-21] MEDS ORDERED: traMADol 50 MG TAB PO PRN (17:03)
--- NOTE | 2023-05-21 17:06 | P.HPIM ---
History of Present Illness H&P Date: 05/21/23 Chief Complaint: missed dialysis, dyspnea 42-year-old man with medical history of end-stage renal disease on Monday dialysis sessions via left upper extremity AV fistula, diabetes type 2, hypertension, hyperlipidemia, chronic narcotic dependence on methadone presented after missed dialysis session with dyspnea, headache. Patient says that he missed his Monday session of dialysis and since that time his been developing significant dyspnea, especially orthopnea as well as headache. Based on the symptoms coming presented to the hospital for further evaluation. He denies fevers, chills, nausea, vomiting, chest pain, palpitations, syncope, presyncope, cough. He denies abdominal pain, constipation, diarrhea, dysuria, dyschezia, numbness of extremities. In the emergency room, patient was afebrile, 225/146, heart rate 85, 98% on 2 L of nasal cannula. CBC demonstrated leukocytosis to 11.2, otherwise unremarkable. Basic metabolic panel showed sodium of 135, potassium of 6, chloride 93, BUN of 44, creatinine of 8.9. BNP was 24,600. EKG showed normal sinus rhythm with borderline left axis deviation, peaked T waves in V2 through V4 leads. Chest x-ray showed cardiomegaly with volume overload, fluid in the minor fissure. Case was discussed the emergency room for incision was made to admit the patient to observation for dialysis. All Systems reviewed and pertinent positives and negatives noted in HPI, all other symptoms are negative Gen: in no apparent distress, resting comfortably in bed Eyes: PERRL, no scleral injection or icterus HENT: normocephalic, atraumatic, good hearing acuity, moist mucous membranes Neck: no tracheal deviation, full range of motion Resp: no tactile fremitus, diffuse crackles throughout all lung jensen CVS: good distal perfusion x 4, no pitting edema, regular rate and rhythm with no murmurs. GI: soft, NTTP, ND, no hepatosplenomegaly : no suprapubic tenderness, no CVAT, ching catheter not present MSK: no clubbing, no cyanosis, no noted contractures of extremities, left upper extremity fistulas functioning well, bilateral BKA Skin: no noted rashes, petechiae; temperature of skin is appropriate Neuro: moving all extremities without signs of weakness, CN II-XII intact Psych: cooperative, euthymic mood, insight and judgment intact Labs and imaging as above Assessment/plan: Acute on chronic diastolic heart failure End-stage renal disease with missed dialysis Hyperkalemia with EKG changes Hypertensive emergency with headache -Admit to observation, discussed with the emergency room provider -Discussed with the senior portfolio analyst, patient will undergo emergent dialysis today; they would also like to start labetalol 10 mg IV push every 4 hours when necessary -Resume home blood pressure medication -Repeat labs tonight after dialysis and again tomorrow morning Diabetes type 2 Chronic narcotic dependence -Home medications reviewed and reconciled Patient is full code Past Medical History Past Medical History: Coronary Artery Disease (CAD), CVA/TIA, Diabetes Mellitus, Dialysis, Eye Disorder, GERD/Reflux, Renal Disease, Vascular Disorder Additional Past Medical History / Comment(s): Hx CVA 11 yrs ago, no residual effects. Diet Controlled Diabetes. Chiari malformation. Dialysis, [facility]. Legally blind. History of Any Multi-Drug Resistant Organisms: None Reported Past Surgical History: Orthopedic Surgery Additional Past Surgical History / Comment(s): Eye surgery, fistula, right below the knee amputation. Bypass. Past Anesthesia/Blood Transfusion Reactions: No Reported Reaction Past Psychological History: No Psychological Hx Reported Smoking Status: Former smoker Past Alcohol Use History: None Reported Past Drug Use History: Marijuana - Past Family History Father Family Medical History: Hypertension Additional Family Medical History / Comment(s): Father passed of [place] 10 years ago. Mother Family Medical History: Diabetes Mellitus Additional Family Medical History / Comment(s): [place] (2021) with stent. Medications and Allergies Home Medications Medication Instructions Recorded Confirmed Type Methadone [Dolophine] 15 mg PO BID 02/29/16 05/21/23 History Gabapentin [Neurontin] 100 mg PO TID 09/13/22 05/21/23 History Pantoprazole [Protonix] 40 mg PO DAILY 09/13/22 05/21/23 History Sevelamer [Renvela] 4,800 mg PO W/SUPPER 09/13/22 05/21/23 History rOPINIRole HCL [Requip] 5 mg PO DAILY 09/13/22 05/21/23 History rOPINIRole HCL [Requip] 10 mg PO HS 09/13/22 05/21/23 History Famotidine [Pepcid] 20 mg PO BID 05/21/23 05/21/23 History Allergies Allergy/AdvReac Type Severity Reaction Status Date / Time Penicillins Allergy Rash/Hives Verified 05/21/23 16:53 baclofen AdvReac Confusion Verified 05/21/23 16:53 Physical Exam Osteopathic Statement: *. No significant issues noted on an osteopathic structural exam other than those noted in the History and Physical/Consult. Vitals: Vital Signs Temp Pulse Resp BP Pulse Ox 05/21/23 16:35 85 225/146 05/21/23 15:18 97.9 F 82 18 185/102 100 05/21/23 15:15 20 05/21/23 15:02 97.4 F L 80 18 211/120 99 Intake and Output 05/21/23 05/21/23 05/21/23 06:59 14:59 22:59 Other: Weight 81.5 kg Results CBC & Chem 7: 05/21/23 15:39 05/21/23 15:39 Labs: Abnormal Lab Results - Last 24 Hours (Table) 05/21/23 05/21/23 Range/Units 15:39 15:39 WBC 11.2 H (3.8-10.6) k/uL RDW 15.9 H (11.5-15.5) % Neutrophils # 8.6 H (1.3-7.7) k/uL Sodium 135 L (137-145) mmol/L Potassium 6.0 H (3.5-5.1) mmol/L Chloride 93 L (98-107) mmol/L BUN 44 H (9-20) mg/dL Creatinine 8.87 H* (0.66-1.25) mg/dL
[2023-05-21] MEDS ORDERED: LABETALOL 5 MG/ML VIAL MDV IVP PRN (17:15)
[2023-05-21] MEDS ORDERED: SEVELAMER 800 MG TAB PO SCH (17:30)
[2023-05-21] MEDS ORDERED: MORPHINE SULFATE 4 MG/ML SYRINGE IV STA (18:11)
[2023-05-21] MEDS ORDERED: HYDROmorphone 0.5 MG/0.5 ML SYRINGE IVP STA (20:06)
[2023-05-21] MEDS ORDERED: rOPINIRole HCL 4 MG TABLET PO SCH (21:00)
[2023-05-21] MEDS ORDERED: FAMOTIDINE 20 MG TAB PO SCH ×2 (21:00)
[2023-05-21] MEDS ORDERED: METHADONE 5 MG TAB PO SCH (21:00)
[2023-05-21] MEDS ORDERED: GABAPENTIN 100 MG CAP PO SCH (22:00)
[2023-05-21 22:17] VITALS: RESP 18; TEMP 97.8
[2023-05-21 23:09] VITALS: BP 185/114; PULSE 78
[2023-05-22] MEDS ORDERED: PANTOPRAZOLE 40 MG TABLET PO SCH (07:30)
[2023-05-22] MEDS ORDERED: rOPINIRole HCL 4 MG TABLET PO SCH (09:00)
--- NOTE | 2023-05-23 07:36 | P.DS ---
Providers Date of admission: 05/21/23 16:37 Expected date of discharge: 05/21/23 Attending physician: Iraida Peñaloza DO Consults: 05/21/23 16:36 Consult Physician Stat Consulting Provider: Yari Baker Consult Reason/Comments: urgent dialysis Do you want consulting provider notified?: Already Contacted Primary care physician: Yash Watson [facility] Hospital Course: Patient left AMA. Patient Condition at Discharge: Undetermined Plan - Discharge Summary New Discharge Prescriptions: No Action Methadone [Dolophine] 15 mg PO BID rOPINIRole HCL [Requip] 5 mg PO DAILY Pantoprazole [Protonix] 40 mg PO DAILY Gabapentin [Neurontin] 100 mg PO TID Famotidine [Pepcid] 20 mg PO BID rOPINIRole HCL [Requip] 10 mg PO HS Sevelamer [Renvela] 4,800 mg PO W/SUPPER Discharge Medication List Methadone [Dolophine] 15 mg PO BID 02/29/16 [History] Gabapentin [Neurontin] 100 mg PO TID 09/13/22 [History] Pantoprazole [Protonix] 40 mg PO DAILY 09/13/22 [History] Sevelamer [Renvela] 4,800 mg PO W/SUPPER 09/13/22 [History] rOPINIRole HCL [Requip] 5 mg PO DAILY 09/13/22 [History] rOPINIRole HCL [Requip] 10 mg PO HS 09/13/22 [History] Famotidine [Pepcid] 20 mg PO BID 05/21/23 [History] Follow up Appointment(s)/Referral(s): Yash Watson MD [Primary Care Provider] - 1-2 days Discharge Disposition: LEFT AGAINST MEDICAL ADVICE
== END 2023-05-21 23:28 | disposition left against medical advice (07) ==
LOC: EC 15:00 → 3SCARD 16:37
PROVIDERS: ADMIT Internal Medicine; ATTEND Internal Medicine
DX: I16.1 Hypertensive emergency (principal); I13.2 Hypertensive heart and chronic kidney disease with heart failure and with stage 5 chronic kidney disease, or end stage renal disease; I50.33 Acute on chronic diastolic (congestive) heart failure; N18.6 End stage renal disease; E87.5 Hyperkalemia; Z53.29 Procedure and treatment not carried out because of patient's decision for other reasons; I25.10 Atherosclerotic heart disease of native coronary artery without angina pectoris; E11.22 Type 2 diabetes mellitus with diabetic chronic kidney disease; K21.9 Gastro-esophageal reflux disease without esophagitis; E78.5 Hyperlipidemia, unspecified; Z86.73 Personal history of transient ischemic attack (TIA), and cerebral infarction without residual deficits; Z87.891 Personal history of nicotine dependence; Z99.2 Dependence on renal dialysis; Z79.02 Long term (current) use of antithrombotics/antiplatelets; Z79.899 Other long term (current) drug therapy; Z88.0 Allergy status to penicillin
CPT/HCPCS: 96374; 96375; 99285; 36415; 93005; 83880; 80048; 85025; 71046; G0378; J2270; J1170; J1920; 90935

== ENCOUNTER → 2023-09-27 | Day surgery (SDC) | payer MEDICARE, OTHER ==
[~2023-09-27] MED LIST: LIDOCAINE 1% INJ 10MG/ML (20 ML MDV) ONE; fentaNYL (PF) 50 MCG/ML 2 ML AMP ONE
[2023-09-27] MEDS: SODIUM CHLORIDE 0.9% 1,000 ML IV ONE (06:22)
[2023-09-27 06:33] LABS: Basophils # (A) 0.1 k/uL (0-0.2); Basophils % (A) 1 %; Eosinophils # (A) 0.3 k/uL (0-0.7); Eosinophils % (A) 5 %; HCT 41.9 % (39.0-53.0); HGB 12.4 gm/dL (13.0-17.5); Hypochromasia Moderate; Lymphocytes # (A) 1.3 k/uL (1.0-4.8); Lymphocytes % (A) 18 %; MCH 26.9 pg (25.0-35.0); MCHC 29.7 g/dL (31.0-37.0); MCV 90.5 fL (80.0-100.0); Mean Platelet Volume 7.9; Monocytes # (A) 0.6 k/uL (0-1.0); Monocytes % (A) 8 %; Neutrophils # (A) 4.7 k/uL (1.3-7.7); Neutrophils % (A) 66 %; Platelet Count 226 k/uL (150-450); RBC 4.63 m/uL (4.30-5.90); RDW 15.8 % (11.5-15.5); WBC 7.1 k/uL (3.8-10.6)
[2023-09-27 06:35] VITALS: TEMP 100.1
[2023-09-27] MEDS: fentaNYL (PF) 50 MCG/ML 2 ML AMP IVP ONE (07:34)
[2023-09-27] MEDS: MIDAZOLAM 2 MG/2 ML VIAL IVP ONE (07:34)
[2023-09-27 07:43] LABS: African American GFR (CKD) 6 (>60 ml/min/1.73 sqM); Anion Gap 17 mmol/L; Blood Urea Nitrogen 95 mg/dL (9-20); Calcium 8.4 mg/dL (8.4-10.2); Carbon Dioxide 21 mmol/L (22-30); Chloride 97 mmol/L (98-107); Glucose 91 mg/dL (74-99); Non-African American GFR(CKD) 5 (>60 ml/min/1.73 sqM); Sodium 135 mmol/L (137-145)
[2023-09-27] MEDS: IOPAMIDOL-370 100ML BTL INTRATHECA ONE (08:00)
--- NOTE | 2023-09-27 08:25 | P.OP ---
Date of Procedure: 09/27/23 Description of Procedure: Preoperative diagnosis: End-stage renal disease, issues with dialysis Postoperative diagnosis: Same Procedure: Ultrasound-guided left AV fistula access Fistulogram Percutaneous transluminal balloon venoplasty with 7 x 40 balloon and 8 x 60 drug-coated balloon Moderate conscious sedation x 25 minutes with personal monitoring of certified RN administration with hemodynamic monitoring Surgeon: Faith Hays D.O. EBL: 10 cc IV fluids: See records Urine output: Not measured Drains: None Complications: None immediately apparent Condition: Stable Operative indication and findings: Patient is a 42-year-old male on dialysis via a left upper extremity brachial to axillary CryoVein graft that has previously had revision due to aneurysmal disease and replacement of the segment with CryoVein. Occasionally at dialysis to have issues with flow therefore he presents today for a fistulogram. Risks and benefits were discussed. He seemingly understood and was willing to proceed. Procedure in detail: Patient was taken to the special suite and placed in supine position. The left upper extremity was prepped and draped in usual sterile fashion. A preprocedural timeout was performed, all parties were in agreement. Using ultrasound, the fistula was identified the skin overlying was anesthetized. Using the ultrasound guidance, the vein was accessed with no issues. Seldinger technique was then used to place a micro access sheath and a fistulogram was performed. This showed outflow stenosis. Seldinger technique was then used to place a 6 [place] sheath. Catheters and wires were used to cross the lesion. A venoplasty was performed with a 7 x 40 balloon with improvement of the stenosis. An 8 x 60 drug-coated balloon was then utilized in this area. While this was inflated, and inflow image was performed showing no significant areas of stenosis or occlusion the balloon was desufflated. Flow was allowed to flush through with good washing of contrast. Repeat images performed showing improvement of the area of stenosis. Catheters and wires were then removed. The sheath was removed with a hemostatic [id number] suture. Pressure was held until hemostasis is adequate. Patient was transported back to recovery in stable condition having tolerated the procedure well. Plan - Discharge Summary Discharge Rx Participant: No New Discharge Prescriptions: No Action Methadone [Dolophine] 15 mg PO BID rOPINIRole HCL [Requip] 5 mg PO DAILY Pantoprazole [Protonix] 40 mg PO DAILY Gabapentin [Neurontin] 100 mg PO TID Famotidine [Pepcid] 20 mg PO BID rOPINIRole HCL [Requip] 10 mg PO HS Sevelamer [Renvela] 4,800 mg PO W/SUPPER Discharge Medication List Methadone [Dolophine] 15 mg PO BID 02/29/16 [History] Gabapentin [Neurontin] 100 mg PO TID 09/13/22 [History] Pantoprazole [Protonix] 40 mg PO DAILY 09/13/22 [History] Sevelamer [Renvela] 4,800 mg PO W/SUPPER 09/13/22 [History] rOPINIRole HCL [Requip] 5 mg PO DAILY 09/13/22 [History] rOPINIRole HCL [Requip] 10 mg PO HS 09/13/22 [History] Famotidine [Pepcid] 20 mg PO BID 05/21/23 [History] Follow up Appointment(s)/Referral(s): Faith Hays DO [STAFF PHYSICIAN] - 4 Weeks () Activity/Diet/Wound Care/Special Instructions: May utilize for dialysis. May remove suture at dialysis. Follow-up in the office in about 1 month with repeat ultrasound. Return to regular diet and activity. Discharge Disposition: HOME SELF-CARE
[2023-09-27 09:05] VITALS: BP 178/90; PULSE 72; RESP 16
--- NOTE | 2023-09-29 11:36 | IR ---
EXAMINATION TYPE: IR fistula/abscess/sinus tract DATE OF EXAM: 09/27/2023 COMPARISON: NONE HISTORY: Fluoroscopy time. Fluoroscopy was provided to the referring clinician.
== END | disposition home or self-care (01) ==
LOC: CATHCVL 05:39
PROVIDERS: ATTEND Surgery
DX: N18.6 End stage renal disease (principal); Z99.2 Dependence on renal dialysis; Z79.02 Long term (current) use of antithrombotics/antiplatelets; Z79.899 Other long term (current) drug therapy; Z88.0 Allergy status to penicillin
CPT/HCPCS: 76080; 80048; 85025; 36902; J2250; J3010; Q9967

== ENCOUNTER 2024-04-15 16:39 | Emergency (ER) | payer MEDICARE, OTHER ==
[2024-04-15 16:49] VITALS: RESP 18; TEMP 98.6
[2024-04-15] MEDS: HYDROmorphone 1 MG/ML 1 ML SYRINGE IM STA ×2 (17:47→20:01)
--- NOTE | 2024-04-15 17:58 | ED ---
General Adult HPI - General Chief complaint: Extremity Injury, Upper Stated complaint: Shoulder Pain Time Seen by Provider: 04/15/24 17:09 Source: patient Mode of arrival: wheelchair Limitations: physical limitation - History of Present Illness Initial comments: 43-year-old male with past medical history of end-stage renal disease on hemodialysis who presents to the emergency department reporting right shoulder pain. States that he has had right shoulder pain for years. He was following up with an orthopedist and having injections performed. States he has not followed up recently with them. Over the past couple of days he has had increased pain. Denies fevers or redness. Admits to swelling. Patient denies that he takes any home pain medications. He has pain when attempting to abduct his arm. Denies any numbness, tingling or weakness into his hands. No other alleviating, precipitating or modifying factors - Related Data Home Medications Medication Instructions Recorded Confirmed Methadone [Dolophine] 15 mg PO BID 02/29/16 09/27/23 Gabapentin [Neurontin] 100 mg PO TID 09/13/22 09/27/23 Pantoprazole [Protonix] 40 mg PO DAILY 09/13/22 09/27/23 Sevelamer [Renvela] 4,800 mg PO W/SUPPER 09/13/22 09/27/23 rOPINIRole HCL [Requip] 5 mg PO DAILY 09/13/22 09/27/23 rOPINIRole HCL [Requip] 10 mg PO HS 09/13/22 09/27/23 Famotidine [Pepcid] 20 mg PO BID 05/21/23 09/27/23 Previous Rx's Medication Instructions Recorded HYDROcodone/APAP 10-325MG [[place] 1 tab PO Q6HR PRN 3 Days #12 tab 04/15/24 10-325] Allergies Allergy/AdvReac Type Severity Reaction Status Date / Time Penicillins Allergy Rash/Hives Verified 04/15/24 16:49 baclofen AdvReac Confusion Verified 04/15/24 16:49 Review of Systems ROS Statement: Those systems with pertinent positive or pertinent negative responses have been documented in the HPI. ROS Other: All systems not noted in ROS Statement are negative. Past Medical History Past Medical History: Coronary Artery Disease (CAD), CVA/TIA, Diabetes Mellitus, Dialysis, Eye Disorder, GERD/Reflux, Renal Disease, Vascular Disorder Additional Past Medical History / Comment(s): Hx CVA 11 yrs ago, no residual effects. Diet Controlled Diabetes. Chiari malformation. Dialysis, [facility]. Legally blind. History of Any Multi-Drug Resistant Organisms: None Reported Past Surgical History: Orthopedic Surgery Additional Past Surgical History / Comment(s): Eye surgery, fistula, right below the knee amputation. Bypass. Past Anesthesia/Blood Transfusion Reactions: No Reported Reaction Past Psychological History: No Psychological Hx Reported Smoking Status: Former smoker Past Alcohol Use History: None Reported Past Drug Use History: Marijuana - Past Family History Father Family Medical History: Hypertension Additional Family Medical History / Comment(s): Father passed of NM 10 years ago. Mother Family Medical History: Diabetes Mellitus Additional Family Medical History / Comment(s): NM (2021) with stent. General Exam Limitations: physical limitation General appearance: alert Head exam: Present: atraumatic, normocephalic, normal inspection Eye exam: Present: normal appearance, PERRL, EOMI. Absent: scleral icterus, conjunctival injection, periorbital swelling ENT exam: Present: normal exam, mucous membranes moist Neck exam: Present: normal inspection Respiratory exam: Present: normal lung sounds bilaterally. Absent: respiratory distress, wheezes, rales, rhonchi, stridor Cardiovascular Exam: Present: regular rate, normal rhythm, normal heart sounds. Absent: systolic murmur, diastolic murmur, rubs, gallop, clicks Extremities exam: Present: other (Patient has pain with range of motion to the right shoulder. He does have some joint effusion. No redness or swelling. Patient could not abduct his arm higher than 90 degrees without significant pain. Equal exhibit display representative strength) Course Vital Signs 04/15/24 04/15/24 16:45 21:59 Temperature 98.6 F Pulse Rate 76 106 H Respiratory 18 18 Rate Blood Pressure 163/122 164/98 O2 Sat by Pulse 99 96 Oximetry Medical Decision Making - Medical Decision Making Was pt. sent in by a medical professional or institution (, PA, [employer], urgent care, hospital, or [facility]...) When possible be specific @ -No Did you speak to anyone other than the patient for history (EMS, parent, family, police, friend...)? What history was obtained from this source @ -Spoke with patient's mom for history Did you review nursing and triage notes (agree or disagree)? Why? @ -I reviewed and agree with nursing and triage notes Were old charts reviewed (outside hosp., previous admission, EMS record, old EKG , old radiological studies, urgent care reports/EKG's, [facility] records)? Report findings @ -No old charts were reviewed Differential Diagnosis (chest pain, altered mental status, abdominal pain women, abdominal pain men, vaginal bleeding, weakness, fever, dyspnea, syncope, headache, dizziness, GI bleed, back pain, seizure, CVA, palpatations, mental health, musculoskeletal)? @ -Differential Musculoskeletal Muscular strain, contusion, ligament sprain, fracture, arthritis, septic arthritis, bursitis, cellulitis, muscle spasm, nerve compression, DVT, arterial occlusion, herpes zoster, electrolyte abnormality, tumor.... This is not meant to be in all inclusive list EKG interpreted by me (3pts min.). @ -Yes and demonstrates sinus rhythm with a rate of 76. DE interval 158. QRS 107. QTc 402. No acute ST segment elevations or depressions X-rays interpreted by me (1pt min.). @ -Yes and the radiologist does read concerns for osteomyelitis CT interpreted by me (1pt min.). @ -None done U/S interpreted by me (1pt. min.). @ -None done What testing was considered but not performed or refused? (CT, X-rays, U/S, labs)? Why? @ -None What meds were considered but not given or refused? Why? @ -None Did you discuss the management of the patient with other professionals (professionals i.e. , PA, [employer], lab, RT, psych nurse, social problems specialist, forms builder, teacher, marine safety officer, transplant case manager)? Give summary @ -No Was smoking cessation discussed for >3mins.? @ -No Was critical care preformed (if so, how long)? @ -No Were there social determinants of health that impacted care today? How? (Homelessness, low income, unemployed, alcoholism, drug addiction, transportation, low edu. Level, literacy, decrease access to med. care, shelter, rehab)? @ -No Was there de-escalation of care discussed even if they declined (Discuss DNR or withdrawal of care, Hospice)? DNR status @ -No What co-morbidities impacted this encounter? (DM, HTN, Smoking, COPD, CAD, Cancer, CVA, ARF, Chemo, Hep., AIDS, mental health diagnosis, sleep apnea, morbid obesity)? @ -End-stage renal disease on hemodialysis Was patient admitted / discharged? Hospital course, mention meds given and route, prescriptions, significant lab abnormalities, going to OR and other pertinent info. @ -Upon arrival patient seen and evaluated in bed 31. Thorough history and physical exam was performed. Patient was given pain medications here in the emergency department. X-ray was performed. Radiology has a significant delay in reads. Imaging is reviewed by myself. I did discuss the case with the patient and he wants to leave. I did inform him that I would call him with the results of the x-ray. Patient did deny that he was taking any pain medications at home and therefore I did give him a short course of [place]. Stressed that he needs to follow-up with orthopedics for further evaluation. Patient was agreeable to this and was discharged in stable condition I did call the patient back to notify him of the abnormal x-ray read. His mother was also notified. They are instructed to return to the emergency department should they not be able to get an immediate appointment with orthopedics I received a call from the pharmacy stating that the patient does take methadone at home and therefore I instructed them not to fill the patient's [place] Undiagnosed new problem with uncertain prognosis? @ -No Drug Therapy requiring intensive monitoring for toxicity (Heparin, Nitro, Insulin, Cardizem)? @ -No Were any procedures done? @ -No Diagnosis/symptom? @ -Acute right shoulder pain Acute, or Chronic, or Acute on Chronic? @ -Acute on chronic Uncomplicated (without systemic symptoms) or Complicated (systemic symptoms)? @ -Complicated Side effects of treatment? @ -No Exacerbation, Progression, or Severe Exacerbation? @ -No Poses a threat to life or bodily function? How? (Chest pain, [place], [place], pneumonia, PE, COPD, DKA, ARF, appy, cholecystitis, CVA, Diverticulitis, Homicidal, Suicidal, threat to staff... and all critical care pts) @ -No Disposition Clinical Impression: Right shoulder pain Disposition: HOME SELF-CARE Condition: Stable Instructions (If sedation given, give patient instructions): Shoulder Pain (ED) Additional Instructions: Please follow-up with the orthopedist. You will need an MRI of your shoulder. Take the pain medications as directed and return for any new or worsening symptoms Prescriptions: HYDROcodone/APAP 10-325MG [[place] 10-325] 1 tab PO Q6HR PRN 3 Days #12 tab PRN Reason: Pain Is patient prescribed a controlled substance at d/c from ED?: Yes When asked, does pt state using other controlled substances?: No If prescribed controlled substance>3 days was MAPS reviewed?: Prescribed <3 Days If opioid is for acute pain is fill amount 7 days or less?: Yes Referrals: Yash Watson MD [Primary Care Provider] - 1-2 days Nomi Chaudhry MD [Medical Doctor] - 1-2 days Time of Disposition: 21:53
[2024-04-15] MEDS: ACET/COD 300 MG/30 MG STARTER PACK 6 TAB BTL PO STA (21:56)
[2024-04-15 22:00] VITALS: BP 164/98; PULSE 106
--- NOTE | 2024-04-15 22:21 | XR ---
EXAMINATION TYPE: XR shoulder complete RT DATE OF EXAM: 04/15/2024 6:09 PM CLINICAL INDICATION:Male, 43 years old with history of pain; [facility] COMPARISON: TECHNIQUE: XR shoulder complete RT; shoulder was examined in AP, internally rotated and scapular Y p rojections. FINDINGS: Examination limited by generalized osteopenia and mild-moderate degenerative changes. No acute fractu re or dislocation is seen. However, there seems to be a small moth-eaten area at the inferior aspect of the humeral head near the articular surface with possible involvement of the adjacent lip of the b sage glenoid. There also appears to be significant soft tissue swelling, especially superior lateral t o the proximal humerus, which is suspicious for underlying joint effusion and/or abscess. IMPRESSION: 1. Changes in the inferior humeral head and with possible involvement of the adjacent lip of the bon y glenoid, highly concerning for septic joint/osteomyelitis. 2. Prominent soft tissues about the shoulder, suspicious for underlying joint effusion and/or absces s. [facility], , 04/15/2024 10:18 PM
== END 2024-04-15 22:00 | disposition home or self-care (01) ==
LOC: EC 16:39
CPT/HCPCS: 96372; 99284

== ENCOUNTER 2024-05-09 21:31 | Inpatient (IN) | payer MEDICARE, OTHER ==
--- NOTE | 2024-05-09 21:33 | ED ---
SOB HPI - General Stated Complaint: RAMOS Time Seen by Provider: 05/09/24 21:32 Source: RN notes reviewed, old records reviewed Mode of arrival: EMS Limitations: altered mental status, physical limitation - History of Present Illness Initial Comments: This is a 43-year-old male in severe respiratory distress unable to provide history secondary to significant current breathing condition MD Complaint: shortness of breath, "asthma attack", anxiety -: days(s) Severity: severe Severity scale (1-10): 10 Consistency: constant Improves With: nothing Worsens With: nothing Known History Of: congestive heart failure Associated Symptoms: chest pain, sputum production, diaphoresis, nausea/vomiting Treatments Prior to Arrival: none - Related Data Home Medications Medication Instructions Recorded Confirmed Methadone [Dolophine] 10 mg PO TID 02/29/16 05/10/24 Gabapentin [Neurontin] 100 mg PO BID 09/13/22 05/10/24 Pantoprazole [Protonix] 40 mg PO DAILY 09/13/22 05/10/24 Sevelamer [Renvela] 1,600 - 6,400 mg PO TID-W/MEALS 09/13/22 05/10/24 rOPINIRole HCL [Requip] 5 mg PO DAILY 09/13/22 05/10/24 rOPINIRole HCL [Requip] 10 mg PO HS 09/13/22 05/10/24 Famotidine [Pepcid] 20 mg PO BID 05/21/23 05/10/24 Acetaminophen [Tylenol] 650 mg PO Q4H PRN 05/10/24 05/10/24 Atropine Sulfate/Pf [Atropine 1% 1 drop RIGHT EYE DAILY 05/10/24 05/10/24 Eye Drops] Clopidogrel [Plavix] 75 mg PO DAILY 05/10/24 05/10/24 Folic Acid/Vit B Complex and C 0.8 mg PO DAILY 05/10/24 05/10/24 [Alyssa-Reilly Tablet] Lanthanum Carbonate [Lanthanum 2,000 mg PO TID-W/MEALS 05/10/24 05/10/24 Carbonate Chewable] diphenhydrAMINE HCL [Benadryl] 50 mg PO BID 05/10/24 05/10/24 Previous Rx's Medication Instructions Recorded Apixaban [Eliquis] 2.5 mg PO BID #120 tab 11/12/24 Aspirin 81 mg PO DAILY #7 tab 05/14/24 Atorvastatin [Lipitor] 80 mg PO HS #60 tab 05/14/24 Metoprolol Succinate (ER) [Toprol 25 mg PO DAILY #60 tab 05/14/24 XL] Allergies Allergy/AdvReac Type Severity Reaction Status Date / Time Penicillins Allergy Rash/Hives Verified 05/10/24 10:46 baclofen AdvReac Confusion Verified 05/10/24 10:46 Review of Systems ROS Statement: Those systems with pertinent positive or pertinent negative responses have been documented in the HPI. ROS Other: All systems not noted in ROS Statement are negative. Past Medical History Past Medical History: Coronary Artery Disease (CAD), CVA/TIA, Diabetes Mellitus, Dialysis, Eye Disorder, GERD/Reflux, Renal Disease, Vascular Disorder Additional Past Medical History / Comment(s): Hx CVA 11 yrs ago, no residual effects. Diet Controlled Diabetes. Chiari malformation. Dialysis, [facility]. Legally blind. History of Any Multi-Drug Resistant Organisms: None Reported Past Surgical History: Orthopedic Surgery Additional Past Surgical History / Comment(s): Eye surgery, fistula, right below the knee amputation. Bypass. Past Anesthesia/Blood Transfusion Reactions: No Reported Reaction Past Psychological History: No Psychological Hx Reported Smoking Status: Former smoker Past Alcohol Use History: None Reported Past Drug Use History: Marijuana - Past Family History Father Family Medical History: Hypertension Additional Family Medical History / Comment(s): Father passed of KS 10 years ago. Mother Family Medical History: Diabetes Mellitus Additional Family Medical History / Comment(s): KS (2021) with stent. General Exam Limitations: altered mental status, physical limitation General appearance: anxious, in distress Head exam: Present: atraumatic, normocephalic, normal inspection Eye exam: Present: normal appearance, PERRL, EOMI. Absent: scleral icterus, conjunctival injection, periorbital swelling ENT exam: Present: normal exam, mucous membranes moist Neck exam: Present: normal inspection. Absent: tenderness, meningismus, l ymphadenopathy Respiratory exam: Present: normal lung sounds bilaterally. Absent: respiratory distress, wheezes, rales, rhonchi, stridor Cardiovascular Exam: Present: regular rate, normal rhythm, normal heart sounds. Absent: systolic murmur, diastolic murmur, rubs, gallop, clicks GI/Abdominal exam: Present: soft, normal bowel sounds. Absent: distended, tenderness, guarding, rebound, rigid Extremities exam: Present: normal inspection, full ROM, normal capillary refill. Absent: tenderness, pedal edema, joint swelling, calf tenderness Back exam: Present: normal inspection Neurological exam: Present: alert, oriented X3, CN II-XII intact Psychiatric exam: Present: normal affect, normal mood Skin exam: Present: warm, dry, intact, normal color. Absent: rash Course Vital Signs 05/09/24 05/09/24 05/09/24 21:33 21:37 21:43 Temperature 97.2 F L Pulse Rate 139 H 122 H Pulse Rate [ Pulse Oximetery ] Respiratory 28 H Rate Blood Pressure 122/105 Blood Pressure [Right Arm] O2 Sat by Pulse 86 L 88 L Oximetry Fraction of 100 Inspired Oxygen (FIO2) 05/09/24 05/09/24 05/09/24 21:45 22:01 22:10 Temperature Pulse Rate 146 H 134 H Pulse Rate [ Pulse Oximetery ] Respiratory 28 H 17 Rate Blood Pressure 129/91 125/114 Blood Pressure [Right Arm] O2 Sat by Pulse 90 L 91 L Oximetry Fraction of Inspired Oxygen (FIO2) 05/09/24 05/09/24 05/09/24 22:20 22:30 22:47 Temperature Pulse Rate 112 H 102 H 119 H Pulse Rate [ Pulse Oximetery ] Respiratory 16 16 25 H Rate Blood Pressure 94/74 105/91 Blood Pressure [Right Arm] O2 Sat by Pulse 90 L 88 L Oximetry Fraction of Inspired Oxygen (FIO2) 05/09/24 05/09/24 05/09/24 22:54 23:10 23:33 Temperature Pulse Rate 105 H 115 H 101 H Pulse Rate [ Pulse Oximetery ] Respiratory 26 H 25 H 16 Rate Blood Pressure 95/73 97/47 Blood Pressure [Right Arm] O2 Sat by Pulse 99 98 Oximetry Fraction of Inspired Oxygen (FIO2) 05/10/24 05/10/24 05/10/24 00:12 00:40 00:45 Temperature Pulse Rate 87 85 Pulse Rate [ Pulse Oximetery ] Respiratory 16 16 Rate Blood Pressure 84/54 85/56 Blood Pressure [Right Arm] O2 Sat by Pulse 97 98 Oximetry Fraction of 70 Inspired Oxygen (FIO2) 05/10/24 05/10/24 05/10/24 01:03 01:48 02:23 Temperature Pulse Rate 89 79 78 Pulse Rate [ Pulse Oximetery ] Respiratory 16 16 16 Rate Blood Pressure 100/60 96/61 91/77 Blood Pressure [Right Arm] O2 Sat by Pulse 97 99 98 Oximetry Fraction of Inspired Oxygen (FIO2) 05/10/24 05/10/24 05/10/24 02:52 03:31 03:58 Temperature Pulse Rate 71 74 Pulse Rate [ Pulse Oximetery ] Respiratory 16 16 Rate Blood Pressure 110/49 Blood Pressure [Right Arm] O2 Sat by Pulse 99 93 L Oximetry Fraction of 70 Inspired Oxygen (FIO2) 05/10/24 05/10/24 05/10/24 07:48 07:50 09:50 Temperature Pulse Rate 82 82 Pulse Rate [ Pulse Oximetery ] Respiratory 20 20 Rate Blood Pressure 120/89 95/75 Blood Pressure [Right Arm] O2 Sat by Pulse 96 98 94 L Oximetry Fraction of Inspired Oxygen (FIO2) 05/10/24 05/10/24 05/10/24 12:50 14:00 16:59 Temperature 98.9 F 98.1 F 99.2 F Pulse Rate 88 93 Pulse Rate [ 83 Pulse Oximetery ] Respiratory 26 H 16 16 Rate Blood Pressure 112/85 96/66 Blood Pressure 110/76 [Right Arm] O2 Sat by Pulse 98 94 L Oximetry Fraction of Inspired Oxygen (FIO2) - Reevaluation(s) Reevaluation #1: 05/09/24 21:53 Medical records reviewed Reevaluation #2: 05/09/24 21:54 Patient symptoms unchanged Reevaluation #3: Patient informed of results and questions answered Reevaluation #4: Was pt. sent in by a medical professional or institution (, PA, GREEN HOUSE MANAGER, urgent care, hospital, or [facility]...) When possible be specific @ -no Did you speak to anyone other than the patient for history (EMS, parent, family, police, friend...)? What history was obtained from this source @ -no Did you review nursing and triage notes (agree or disagree)? Why? @ -agree Are old charts reviewed (outside hosp., previous admission, EMS record, old EKG, old radiological studies, urgent care reports/EKG's, [facility] records)? Report findings @ -yes Differential Diagnosis (chest pain, altered mental status, abdominal pain women, abdominal pain men, vaginal bleeding, weakness, fever, dyspnea, syncope, headache, dizziness, GI bleed, back pain, seizure, CVA, palpatations, mental health, musculoskeletal)? @ -prior EKG interpreted by me (3pts min.). @ -yes X-rays interpreted by me (1pt min.). @ -yes CHF CT interpreted by me (1pt min.). @ -no U/S interpreted by me (1pt. min.). @ -no What testing was considered but not performed or refused? (CT, X-rays, U/S, labs)? Why? @ -none What meds were considered but not given or refused? Why? @ -none Did you discuss the management of the patient with other professionals (professionals i.e. , PA, GREEN HOUSE MANAGER, lab, RT, psych nurse, school social worker, citizen participation specialist, teacher, parole or probation officer, rehabilitation case coordinator)? Give summary @ -no Was smoking cessation discussed for >3mins.? @ -no Was critical care preformed (if so, how long)? @ -yes31 Were there social determinants of health that impacted care today? How? (H omelessness, low income, unemployed, alcoholism, drug addiction, transportation, low edu. Level, literacy, decrease access to med. care, penitentiary, rehab)? @ -none Was there de-escalation of care discussed even if they declined (Discuss DNR or withdrawal of care, Hospice)? DNR status @ -no What co-morbidities impacted this encounter? (DM, HTN, Smoking, COPD, CAD, Cancer, CVA, ARF, Chemo, Hep., AIDS, mental health diagnosis, sleep apnea, morbid obesity)? @ -none Was patient admitted / discharged? Hospital course, mention meds given and route, prescriptions, significant lab abnormalities, going to OR and other pertinent info. @ - 43 male to the ER for evaluation of severe respiratory distress volume overload fluid overload CHF and hypoxia Admitted Undiagnosed new problem with uncertain prognosis? @ -no Drug Therapy requiring intensive monitoring for toxicity (Heparin, Nitro, Insulin, Cardizem)? @ -no Were any procedures done? @ -no Diagnosis/symptom? @ -Respiratory distress with hypoxia CHF Acute, or Chronic, or Acute on Chronic? @ -Acute Uncomplicated (without systemic symptoms) or Complicated (systemic symptoms)? @ -Complicated Side effects of treatment? @ -no Exacerbation, Progression, or Severe Exacerbation? @ -exacerbation Poses a threat to life or bodily function? How? (Chest pain, [place], [place], pneumonia, PE, COPD, DKA, ARF, appy, cholecystitis, CVA, Diverticulitis, Homicidal, Suicidal, threat to staff... and all critical care pts) @ -yes significant respiratory distress and hypoxia Reevaluation #5: Differential Dyspnea: Coronary syndrome, arrhythmia, tamponade, asthma, COPD, pulmonary embolism, pneumonia, pneumothorax, pulmonary effusion, anaphylaxis, diabetic ketoacidosis, flailed chest, pulmonary contusion, diaphragmatic rupture, anemia, neuromuscular, this is not meant to be an all-inclusive list. - Consultations Consultation #1: Spoke with sound who will admit this patient Medical Decision Making - Medical Decision Making 43 male to the ER for evaluation of severe respiratory distress volume overload fluid overload CHF and hypoxia - Lab Data Result diagrams: 05/14/24 06:18 05/14/24 06:18 Lab Results 05/09/24 05/09/24 05/09/24 Range/Units 21:32 21:32 21:32 WBC 12.4 H (3.8-10.6) k/uL RBC 5.15 (4.30-5.90) m/uL Hgb 13.2 (13.0-17.5) gm/dL Hct 45.3 (39.0-53.0) % MCV 88.0 (80.0-100.0) fL MCH 25.6 (25.0-35.0) pg MCHC 29.1 L (31.0-37.0) g/dL RDW 16.1 H (11.5-15.5) % Plt Count 619 H (150-450) k/uL MPV 7.3 Neutrophils % 72 % Lymphocytes % 19 % Monocytes % 5 % Eosinophils % 1 % Basophils % 1 % Neutrophils # 8.9 H (1.3-7.7) k/uL Lymphocytes # 2.4 (1.0-4.8) k/uL Monocytes # 0.7 (0-1.0) k/uL Eosinophils # 0.1 (0-0.7) k/uL Basophils # 0.1 (0-0.2) k/uL Hypochromasia Marked Anisocytosis Slight PT 12.0 (10.0-12.5) sec INR 1.1 (<1.2) APTT 27.9 (22.0-30.0) sec Sodium 135 L (137-145) mmol/L Potassium 5.5 H (3.5-5.1) mmol/L Chloride 92 L (98-107) mmol/L Carbon Dioxide 19 L (22-30) mmol/L Anion Gap 24 mmol/L BUN 83 H (9-20) mg/dL Creatinine 9.79 H* (0.66-1.25) mg/dL Est GFR (CKD-EPI)AfAm 7 (>60 ml/min/1.73 sqM) Est GFR (CKD-EPI)NonAf 6 (>60 ml/min/1.73 sqM) Glucose 113 H (74-99) mg/dL Plasma Lactic Acid [place] (0.7-2.0) mmol/L Calcium 9.0 (8.4-10.2) mg/dL Magnesium 2.6 H (1.6-2.3) mg/dL Total Bilirubin 1.1 (0.2-1.3) mg/dL AST 17 (17-59) U/L ALT 14 (4-49) U/L Alkaline Phosphatase 225 H (38-126) U/L Troponin I (0.000-0.034) ng/mL NT-Pro-B Natriuret Pep 64852 pg/mL Total Protein 8.2 (6.3-8.2) g/dL Albumin 4.0 (3.5-5.0) g/dL 05/09/24 05/09/24 Range/Units 21:32 21:32 WBC (3.8-10.6) k/uL RBC (4.30-5.90) m/uL Hgb (13.0-17.5) gm/dL Hct (39.0-53.0) % MCV (80.0-100.0) fL MCH (25.0-35.0) pg MCHC (31.0-37.0) g/dL RDW (11.5-15.5) % Plt Count (150-450) k/uL MPV Neutrophils % % Lymphocytes % % Monocytes % % Eosinophils % % Basophils % % Neutrophils # (1.3-7.7) k/uL Lymphocytes # (1.0-4.8) k/uL Monocytes # (0-1.0) k/uL Eosinophils # (0-0.7) k/uL Basophils # (0-0.2) k/uL Hypochromasia Anisocytosis PT (10.0-12.5) sec INR (<1.2) APTT (22.0-30.0) sec Sodium (137-145) mmol/L Potassium (3.5-5.1) mmol/L Chloride (98-107) mmol/L Carbon Dioxide (22-30) mmol/L Anion Gap mmol/L BUN (9-20) mg/dL Creatinine (0.66-1.25) mg/dL Est GFR (CKD-EPI)AfAm (>60 ml/min/1.73 sqM) Est GFR (CKD-EPI)NonAf (>60 ml/min/1.73 sqM) Glucose (74-99) mg/dL Plasma Lactic Acid [place] 4.5 H* (0.7-2.0) mmol/L Calcium (8.4-10.2) mg/dL Magnesium (1.6-2.3) mg/dL Total Bilirubin (0.2-1.3) mg/dL AST (17-59) U/L ALT (4-49) U/L Alkaline Phosphatase (38-126) U/L Troponin I 0.141 H* (0.000-0.034) ng/mL NT-Pro-B Natriuret Pep pg/mL Total Protein (6.3-8.2) g/dL Albumin (3.5-5.0) g/dL - EKG Data -: EKG Interpreted by Me (EKG is A-fib with RVR 149 QRS 137 QTc 365) - Radiology Data Radiology results: report reviewed (CXR is positive for pulmonary edema), image reviewed Critical Care Time Critical Care Time: Yes Total Critical Care Time: 31 Disposition Clinical Impression: ESRD (end stage renal disease) on dialysis, Hypertensive emergency, Volume overload, Dyspnea, Hypoxia, Atrial fibrillation with rapid ventricular response, CHF (congestive heart failure), Pulmonary edema Disposition: ADMITTED IP TO THIS [facility] Condition: Stable Is patient prescribed a controlled substance at d/c from ED?: No Time of Disposition: 22:00
[2024-05-09] MEDS: LORazepam 2 MG/ML INJ IV STA ×2 (21:39→23:31)
[2024-05-09] MEDS: HYDROmorphone 1 MG/ML 1 ML SYRINGE IVP STA (21:40)
--- NOTE | 2024-05-09 21:58 | XR ---
EXAMINATION TYPE: XR chest 1V portable DATE OF EXAM: 05/09/2024 9:54 PM COMPARISON: 05/21/2023 CLINICAL INDICATION: Male, 43 years old with history of sob, TECHNIQUE: XR chest 1V portable view(s) obtained. FINDINGS: The heart size is normal. The pulmonary vasculature is normal. Diffuse patchy infiltrate is present slightly greater on the left. Correlate for atypical pneumonia. Pneumonia pulmonary edema can be considered. IMPRESSION: 1. Patchy diffuse infiltrate. Correlate for atypical pneumonia. [facility], , 05/09/2024 9:56 PM
[2024-05-09] MEDS ORDERED: NALOXONE 0.4 MG/ML 1 ML VIAL IV PRN (22:10)
[2024-05-09] MEDS: DILTIAZEM DRIP BOLUS FROM BAG 1 MG SOLN IV ONE (22:11)
[2024-05-09 22:12] LABS: Anisocytosis Slight; Basophils # (A) 0.1 k/uL (0-0.2); Basophils % (A) 1 %; Eosinophils # (A) 0.1 k/uL (0-0.7); Eosinophils % (A) 1 %; HCT 45.3 % (39.0-53.0); HGB 13.2 gm/dL (13.0-17.5); Hypochromasia Marked; Lymphocytes # (A) 2.4 k/uL (1.0-4.8); Lymphocytes % (A) 19 %; MCH 25.6 pg (25.0-35.0); MCHC 29.1 g/dL (31.0-37.0); Mean Platelet Volume 7.3; Monocytes # (A) 0.7 k/uL (0-1.0); Monocytes % (A) 5 %; Neutrophils # (A) 8.9 k/uL (1.3-7.7); Neutrophils % (A) 72 %; Platelet Count 619 k/uL (150-450); RBC 5.15 m/uL (4.30-5.90); RDW 16.1 % (11.5-15.5); WBC 12.4 k/uL (3.8-10.6)
[2024-05-09] MEDS: DILTIAZEM 125 MG in SODIUM CHLORIDE 0.9% 100 ML IV SCH (22:13)
[2024-05-09] MEDS: SODIUM CHLORIDE 0.9% 1,000 ML IV SCH (22:18)
[2024-05-09 22:25] LABS: ALT 14 U/L (4-49); AST 17 U/L (17-59); African American GFR (CKD) 7 (>60 ml/min/1.73 sqM); Alkaline Phosphatase 225 U/L (38-126); Anion Gap 24 mmol/L; Blood Urea Nitrogen 83 mg/dL (9-20); Carbon Dioxide 19 mmol/L (22-30); Chloride 92 mmol/L (98-107); Glucose 113 mg/dL (74-99); INR 1.1 (<1.2); Magnesium 2.6 mg/dL (1.6-2.3); Non-African American GFR(CKD) 6 (>60 ml/min/1.73 sqM); Partial Thromboplastin Time 27.9 sec (22.0-30.0); Potassium 5.5 mmol/L (3.5-5.1); Sodium 135 mmol/L (137-145); Total Bilirubin 1.1 mg/dL (0.2-1.3); Total Protein 8.2 g/dL (6.3-8.2)
[2024-05-09] MEDS: PANTOPRAZOLE 40 MG/10 ML VIAL IV SCH (22:26)
[2024-05-09] MEDS: IPRATROPIUM-ALBUTEROL 3 ML NEB INHALATION STA (22:47)
[2024-05-09] MEDS: ACETAMINOPHEN IV (For NPO) 1,000 MG in EMPTY BAG 1 BAG IVPB STA (23:06)
[2024-05-09] MEDS: SODIUM CHLORIDE 0.9% 1,000 ML IV STA (23:10)
[2024-05-09 23:31] LABS: NT-Pro-B-Type Natriuretic Pept 53200 pg/mL
[2024-05-09] MEDS: MORPHINE SULFATE 2 MG/ML SYRINGE IVP STA (23:46)
[2024-05-10] MEDS: MORPHINE SULFATE 2 MG/ML SYRINGE IVP STA (01:43)
--- NOTE | 2024-05-10 02:29 | P.HPIM ---
History of Present Illness H&P Date: 05/09/24 History of present illness; 43-year-old man with a past medical history significant for blindness, coronary artery disease, CVA/TIA, diabetes mellitus, ESRD needing dialysis and GERD/reflux. Presented to the emergency department in severe respiratory distress. The patient states that around 8 PM on 05/09 he was noted to be having increased pain and difficulty breathing. He notes difficulty breathing as a 10/10 difficulty, he was unable to catch his breath at any point. Mother states that this has happened previously at times and the patient misses his hemodialysis sessions which occurred today (05/09). Additionally the patient states that upon getting in the car, following the difficulty breathing, he noted an intense pressure-like feeling in his chest. Patient states his chest pain is like an elephant sitting on his chest, however he notes that at the time of our conversation this pain had improved. He states that he follows up with a pain clinic, as he states that he is in constant pain. He states the pain earlier in the evening was an 8-9/10, however at the time of our conversation he rated as a 7/10. He was noted to be in atrial fibrillation with RVR upon arriva l in the emergency department. After discussion with the patient and his mother, they agree that this is something he has never had before and never been diagnosed with before. The patient is currently sitting in bed, remaining uncomfortable as he states the pain is not well-controlled. Initial lab work done in the ER showed WBCs 12.4, Hgb 13.2, hct 45.3, PLT 619; sodium 135, potassium 5.5, BUN 83, creatinine 9.79, magnesium 2.6, alkaline phosphatase 225 Troponin 0.141 EKG showed a rate of 149 and atrial fibrillation with RVR, QTc 365 Subsequent EKG showed a rate of 108, QTc 394 and atrial flutter with RVR Chest x-ray completed in the emergency department showed patchy diffuse infilt rate slightly greater in the left side. Patient admitted to internal medicine service REVIEW OF SYSTEMS: CONSTITUTIONAL: No fever, no malaise, no fatigue. States he has generalized body pain, as though he is being crushed. HEENT: No recent visual problems or hearing problems. Denied any sore throat. CARDIOVASCULAR: No orthopnea, PND, no palpitations, no syncope. Endorses having had severe chest pain earlier in the evening. PULMONARY: No shortness of breath, no cough, no hemoptysis. GASTROINTESTINAL: No diarrhea, no nausea, no vomiting, no abdominal pain. NEUROLOGICAL: No headaches, no weakness, no numbness. HEMATOLOGICAL: Denies any bleeding or petechiae. GENITOURINARY: Denies any burning micturition, frequency, or urgency. MUSCULOSKELETAL/RHEUMATOLOGICAL: Denies any joint pain, swelling, or any muscle pain. ENDOCRINE: Denies any polyuria or polydipsia. The rest of the 14-point review of systems is negative. PHYSICAL EXAMINATION: GENERAL: The patient is alert and oriented x3, in some distress. on bipap, obese appearing with limb amputations. HEENT: No scleral icterus. No conjunctival pallor. Normocephalic, atraumatic. CARDIOVASCULAR: S1 and S2 present. No murmurs, rubs, or gallops. PULMONARY: Chest is clear to auscultation, no wheezing or crackles. ABDOMEN: Soft, nontender, nondistended, normoactive bowel sounds. No palpable organomegaly. MUSCULOSKELETAL: No joint swelling. Right leg below knee amputation. Left foot partial amputation, with wounds noted at various points of healing and dry looking and scaly skin noted on the lateral aspect of his left lower leg. Left hand with 3 digits amputated. left upper extremity fistulas functioning well for hemodialysis EXTREMITIES: No cyanosis, clubbing, or pedal edema. NEUROLOGICAL: Gross neurological examination did not reveal any focal deficits. SKIN: No rashes. Assessment and plan # NSTEMI -Initiate Heparin infusion -Initiate Aspirin -Trend troponin -Cardiac monitoring -Case discussed with Cardiology database consultant Dr Gunderson who recommended initiating heparin infusion #New onset atrial fibrillation with rapid ventricular rate -Patient states no history of atrial fibrillation, and is unfamiliar with what is -Started on Cardizem drip in the emergency department -Subsequent EKG showed the patient in atrial flutter with RVR - Cardiology consulted - Cardiac monitoring - Check TSH #ESRD on hemodialysis #Chronic mild hyponatremia #Chronic hypermagnesemia #Chronic hyperkalemia -Patient endorses being on a Monday, , Monday hemodialysis schedule -Patient missed hemodialysis this (05/09) -Continue medications (sevelamer) when verified by pharmacy -During dialysis consider challenge UF -Sodium 135 on arrival -Magnesium 2.6 on arrival -Potassium on arrival 5.5 -Nephrology consulted #Acute hypoxic respiratory failure: DDx -> PE v. Pneumonia v. CHF #SIRS #Leukocytosis #Lactic acidosis -Patient currently on BiPAP requiring no oxygen at home -WBCs 12.4, Heart rate 139 on arrival yes, respiratory rate 28 -Lactic acid on arrival 4.5 -Chest x-ray showed patchy diffuse infiltrates -Assess for potential pneumonia, bacterial/viral/atypical -ProBNP 53, 200 -Chronically elevated ProBNP, most recent echo on record 12/27/2022 showed EF 60- 65% followin ProBNP 41,000 on 12/26/2022 -Consider PE evaluation w/D-Dimer and potential V/Q scan -Check procalcitonin levels #Thrombocytosis possibly reactive -PLT 619 -Continue to monitor CBC #Peripheral neuropathy -Continue home medication (gabapentin) once verified by pharmacy #Restless leg syndrome -Continue home medication (ropinirole) when verified by pharmacy GI prohylaxis: Protonix 40 mg daily DVT prophylaxis: Heparin subq Continue to monitor vital signs Monitor CBC, monitor CMP, magnesium, phosphorous, TSH, D-Dimer, Troponin Continue telemetry monitoring. Continue with symptomatic treatment Resume home medication Further condition as per the clinical course of the patient Dictation was produced using [employer] dictation software. please excuse any grammatical, word or spelling errors. Past Medical History Past Medical History: Coronary Artery Disease (CAD), CVA/TIA, Diabetes Mellitus, Dialysis, Eye Disorder, GERD/Reflux, Renal Disease, Vascular Disorder Additional Past Medical History / Comment(s): Hx CVA 11 yrs ago, no residual effects. Diet Controlled Diabetes. Chiari malformation. Dialysis, [facility]. Legall y blind. History of Any Multi-Drug Resistant Organisms: None Reported Past Surgical History: Orthopedic Surgery Additional Past Surgical History / Comment(s): Eye surgery, fistula, right below the knee amputation. Bypass. Past Anesthesia/Blood Transfusion Reactions: No Reported Reaction Past Psychological History: No Psychological Hx Reported Smoking Status: Former smoker Past Alcohol Use History: None Reported Past Drug Use History: Marijuana - Past Family History Father Family Medical History: Hypertension Additional Family Medical History / Comment(s): Father passed of [place] 10 years ago. Mother Family Medical History: Diabetes Mellitus Additional Family Medical History / Comment(s): [place] (2021) with stent. Medications and Allergies Home Medications Medication Instructions Recorded Confirmed Type Methadone [Dolophine] 15 mg PO BID 02/29/16 09/27/23 History Gabapentin [Neurontin] 100 mg PO TID 09/13/22 09/27/23 History Pantoprazole [Protonix] 40 mg PO DAILY 09/13/22 09/27/23 History Sevelamer [Renvela] 4,800 mg PO W/SUPPER 09/13/22 09/27/23 History rOPINIRole HCL [Requip] 5 mg PO DAILY 09/13/22 09/27/23 History rOPINIRole HCL [Requip] 10 mg PO HS 09/13/22 09/27/23 History Famotidine [Pepcid] 20 mg PO BID 05/21/23 09/27/23 History HYDROcodone/APAP 10-325MG [[place] 1 tab PO Q6HR PRN 3 Days #12 tab 04/15/24 Rx 10-325] Allergies Allergy/AdvReac Type Severity Reaction Status Date / Time Penicillins Allergy Rash/Hives Verified 05/09/24 21:36 baclofen AdvReac Confusion Verified 05/09/24 21:36 Physical Exam Vitals: Vital Signs Temp Pulse Resp BP Pulse Ox FiO2 05/09/24 22:54 105 H 26 H 05/09/24 22:47 119 H 25 H 05/09/24 22:30 102 H 16 105/91 88 L 05/09/24 22:20 112 H 16 94/74 90 L 05/09/24 22:10 134 H 125/114 91 L 05/09/24 22:01 146 H 17 129/91 90 L 05/09/24 21:43 100 05/09/24 21:37 122 H 122/105 88 L 05/09/24 21:33 97.2 F L 139 H 28 H 86 L Intake and Output 05/09/24 05/09/24 05/09/24 06:59 14:59 22:59 Other: Weight 84 kg Results CBC & Chem 7: 05/09/24 21:32 05/09/24 21:32 Labs: Abnormal Lab Results - Last 24 Hours (Table) 05/09/24 05/09/24 05/09/24 Range/Units 21:32 21:32 21:32 WBC 12.4 H (3.8-10.6) k/uL MCHC 29.1 L (31.0-37.0) g/dL RDW 16.1 H (11.5-15.5) % Plt Count 619 H (150-450) k/uL Neutrophils # 8.9 H (1.3-7.7) k/uL Sodium 135 L (137-145) mmol/L Potassium 5.5 H (3.5-5.1) mmol/L Chloride 92 L (98-107) mmol/L Carbon Dioxide 19 L (22-30) mmol/L BUN 83 H (9-20) mg/dL Creatinine 9.79 H* (0.66-1.25) mg/dL Glucose 113 H (74-99) mg/dL Plasma Lactic Acid [place] 4.5 H* (0.7-2.0) mmol/L Magnesium 2.6 H (1.6-2.3) mg/dL Alkaline Phosphatase 225 H (38-126) U/L Troponin I (0.000-0.034) ng/mL 05/09/24 Range/Units 21:32 WBC (3.8-10.6) k/uL MCHC (31.0-37.0) g/dL RDW (11.5-15.5) % Plt Count (150-450) k/uL Neutrophils # (1.3-7.7) k/uL Sodium (137-145) mmol/L Potassium (3.5-5.1) mmol/L Chloride (98-107) mmol/L Carbon Dioxide (22-30) mmol/L BUN (9-20) mg/dL Creatinine (0.66-1.25) mg/dL Glucose (74-99) mg/dL Plasma Lactic Acid [place] (0.7-2.0) mmol/L Magnesium (1.6-2.3) mg/dL Alkaline Phosphatase (38-126) U/L Troponin I 0.141 H* (0.000-0.034) ng/mL
[2024-05-10 03:42] LABS: Anisocytosis Slight; Basophils % (A) 0 %; Eosinophils # (A) 0.1 k/uL (0-0.7); Eosinophils % (A) 1 %; HCT 37.1 % (39.0-53.0); HGB 10.8 gm/dL (13.0-17.5); Hypochromasia Marked; Lymphocytes # (A) 0.6 k/uL (1.0-4.8); Lymphocytes % (A) 5 %; MCH 25.5 pg (25.0-35.0); Mean Platelet Volume 7.3; Monocytes # (A) 0.6 k/uL (0-1.0); Monocytes % (A) 5 %; Neutrophils # (A) 10.5 k/uL (1.3-7.7); Neutrophils % (A) 88 %; Platelet Count 390 k/uL (150-450); RBC 4.21 m/uL (4.30-5.90); RDW 16.2 % (11.5-15.5)
[2024-05-10 04:01] LABS: INR 1.2 (<1.2); Partial Thromboplastin Time 29.6 sec (22.0-30.0); Prothrombin Time 12.9 sec (10.0-12.5)
[2024-05-10] MEDS: HEPARIN SOD,PORK IN 0.45% NACL 25,000 UNIT in 0.45% NACL 1 250ML.BAG IV SCH (04:36)
[2024-05-10] MEDS: HEPARIN SODIUM 1,000 UN/ML (10ML VL) IV ONE (04:39)
[2024-05-10] MEDS: ASPIRIN 325 MG TAB PO STA (04:46)
[2024-05-10] MEDS: ATORVASTATIN 80 MG TAB PO STA (04:46)
[2024-05-10] MEDS: HYDROmorphone 1 MG/ML 1 ML SYRINGE IVP PRN ×2 (05:22→18:02)
[2024-05-10 06:56] LABS: Anisocytosis Slight; Basophils % (A) 0 %; Eosinophils % (A) 0 %; HCT 37.8 % (39.0-53.0); HGB 11.2 gm/dL (13.0-17.5); Hypochromasia Marked; Lymphocytes # (A) 0.7 k/uL (1.0-4.8); Lymphocytes % (A) 5 %; MCH 26.2 pg (25.0-35.0); MCHC 29.6 g/dL (31.0-37.0); MCV 88.4 fL (80.0-100.0); Mean Platelet Volume 7.5; Monocytes # (A) 0.6 k/uL (0-1.0); Monocytes % (A) 5 %; Neutrophils # (A) 11.7 k/uL (1.3-7.7); Neutrophils % (A) 89 %; Platelet Count 404 k/uL (150-450); RBC 4.28 m/uL (4.30-5.90); RDW 16.3 % (11.5-15.5); WBC 13.2 k/uL (3.8-10.6)
[2024-05-10 07:28] LABS: ALT 12 U/L (4-49); AST 32 U/L (17-59); African American GFR (CKD) 7 (>60 ml/min/1.73 sqM); Albumin 3.4 g/dL (3.5-5.0); Alkaline Phosphatase 156 U/L (38-126); Anion Gap 20 mmol/L; Blood Urea Nitrogen 90 mg/dL (9-20); Calcium 8.1 mg/dL (8.4-10.2); Carbon Dioxide 22 mmol/L (22-30); Chloride 92 mmol/L (98-107); Glucose 172 mg/dL (74-99); Magnesium 2.4 mg/dL (1.6-2.3); Non-African American GFR(CKD) 6 (>60 ml/min/1.73 sqM); Sodium 134 mmol/L (137-145); Total Bilirubin 0.6 mg/dL (0.2-1.3); Total Protein 6.9 g/dL (6.3-8.2)
[2024-05-10 07:37] LABS: Potassium 6.3 mmol/L (3.5-5.1)
[2024-05-10] MEDS ORDERED: DEXTROSE 50% SYRINGE 50 ML IVP PRN ×2 (08:00)
--- NOTE | 2024-05-10 08:04 | XR ---
EXAMINATION TYPE: XR chest 1V DATE OF EXAM: 05/10/2024 5:19 AM COMPARISON: 05/09/2024 CLINICAL INDICATION: Male, 43 years old with history of chf, TECHNIQUE: XR chest 1V view(s) obtained. FINDINGS: The heart size is normal. The pulmonary vasculature is normal. Patchy infiltrates are present throughout the bilateral lung jensen. Correlate for pneumonia and atyp ical pneumonia. Pulmonary edema could be considered. IMPRESSION: 1. Worsening patchy bilateral lung infiltrates. Correlate for pneumonia and atypical pneumonia. [facility], , 05/10/2024 8:02 AM
[2024-05-10] MEDS: DEXTROSE 50% SYRINGE 50 ML IVP STA (08:29)
[2024-05-10 08:33] LABS: Phosphorus 10.4 mg/dL (2.5-4.5)
[2024-05-10] MEDS: INSULIN REGULAR 100 UNIT/ML VIAL (IV) IV ONE (08:33)
[2024-05-10] MEDS: CALCIUM GLUCONATE IN NACL 1 GM in SALINE 1 100ML.BAG IVPB ONE (08:35)
[2024-05-10] MEDS: ASPIRIN 81 MG PO SCH (08:35)
[2024-05-10 09:27] LABS: Glucose,Whole Blood 189 mg/dL (70-110)
--- NOTE | 2024-05-10 09:47 | P.NPCON ---
History of Present Illness - Reason for Consult end stage renal disease - History of Present Illness Reason for consultation: End-stage renal disease History of present illness: Patient is a 43-year-old male seen in renal consultation for end-stage renal disease. Patient was seen and examined in the emergency room. He is maintained on hemodialysis on Monday schedule. Last dialysis was on Monday. Patient came to the hospital due to shortness of breath. Patient has longstanding history of diabetes. Denies history of coronary artery disease. He does have history of peripheral vascular disease and has undergone right below the knee amputation and stenting in the left lower extremities with amputation of toes. He does not make much urine. Potassium level this morning was 6.3 which was treated with IV calcium, IV insulin and D50. He is scheduled to undergo dialysis today. Hemodynamically stable. He is currently on IV heparin and is being followed by cardiology. Echocardiogram is pending. Patient also noted to be in A-fib with RVR on admission and is now off Cardizem drip. Vital signs are stable. General: No acute distress. HEENT: Head exam is unremarkable. On nasal cannula. LUNGS: No audible rhonchi or wheezes. HEART: Rate and Rhythm are regular. ABDOMEN: Nontender. EXTREMITITES: Right below the knee amputation. Left toes amputated. Past Medical History Past Medical History: Coronary Artery Disease (CAD), CVA/TIA, Diabetes Mellitus, Dialysis, Eye Disorder, GERD/Reflux, Renal Disease, Vascular Disorder Additional Past Medical History / Comment(s): Hx CVA 11 yrs ago, no residual effects. Diet Controlled Diabetes. Chiari malformation. Dialysis, [facility]. Legally blind. History of Any Multi-Drug Resistant Organisms: None Reported Past Surgical History: Orthopedic Surgery Additional Past Surgical History / Comment(s): Eye surgery, fistula, right below the knee amputation. Bypass. Past Anesthesia/Blood Transfusion Reactions: No Reported Reaction Past Psychological History: No Psychological Hx Reported Smoking Status: Former smoker Past Alcohol Use History: None Reported Past Drug Use History: Marijuana - Past Family History Father Family Medical History: Hypertension Additional Family Medical History / Comment(s): Father passed of [place] 10 years ago. Mother Family Medical History: Diabetes Mellitus Additional Family Medical History / Comment(s): [place] (2021) with stent. Medications and Allergies Home Medications Medication Instructions Recorded Confirmed Type Methadone [Dolophine] 15 mg PO BID 02/29/16 09/27/23 History Gabapentin [Neurontin] 100 mg PO TID 09/13/22 09/27/23 History Pantoprazole [Protonix] 40 mg PO DAILY 09/13/22 09/27/23 History Sevelamer [Renvela] 4,800 mg PO W/SUPPER 09/13/22 09/27/23 History rOPINIRole HCL [Requip] 5 mg PO DAILY 09/13/22 09/27/23 History rOPINIRole HCL [Requip] 10 mg PO HS 09/13/22 09/27/23 History Famotidine [Pepcid] 20 mg PO BID 05/21/23 09/27/23 History HYDROcodone/APAP 10-325MG [[place] 1 tab PO Q6HR PRN 3 Days #12 tab 04/15/24 Rx 10-325] Allergies Allergy/AdvReac Type Severity Reaction Status Date / Time Penicillins Allergy Rash/Hives Verified 05/09/24 21:36 baclofen AdvReac Confusion Verified 05/09/24 21:36 Physical Exam Vitals: Vital Signs Temp Pulse Resp BP Pulse Ox FiO2 05/10/24 07:50 82 20 120/89 98 05/10/24 07:48 96 05/10/24 03:58 74 16 93 L 05/10/24 03:31 70 05/10/24 02:52 71 16 110/49 99 05/10/24 02:23 78 16 91/77 98 05/10/24 01:48 79 16 96/61 99 05/10/24 01:03 89 16 100/60 97 05/10/24 00:45 85 16 85/56 98 05/10/24 00:40 87 16 84/54 97 05/10/24 00:12 70 05/09/24 23:33 101 H 16 97/47 98 05/09/24 23:10 115 H 25 H 95/73 99 05/09/24 22:54 105 H 26 H 05/09/24 22:47 119 H 25 H 05/09/24 22:30 102 H 16 105/91 88 L 05/09/24 22:20 112 H 16 94/74 90 L 05/09/24 22:10 134 H 125/114 91 L 05/09/24 22:01 146 H 17 129/91 90 L 05/09/24 21:45 28 H 05/09/24 21:43 100 05/09/24 21:37 122 H 122/105 88 L 05/09/24 21:33 97.2 F L 139 H 28 H 86 L Intake and Output 05/09/24 05/10/24 05/10/24 22:59 06:59 14:59 Other: Weight 84 kg Results - Lab Results Most recent lab results Calcium 8.1 mg/dL (8.4-10.2) L 05/10/24 06:13 Phosphorus 10.4 mg/dL (2.5-4.5) H* 05/10/24 06:13 Magnesium 2.4 mg/dL (1.6-2.3) H 05/10/24 06:13 05/10/24 06:13 05/10/24 06:13 Assessment and Plan Plan: Assessment: 1. End-stage renal disease maintained on hemodialysis on Monday schedule via left upper extremity AV graft. 2. Hyperkalemia secondary to missed dialysis yesterday and chronic kidney disease. 3. Volume overload. 4. Acute hypoxic respiratory failure. 5. Chronic kidney disease mineral bone disease. Phosphorus level 10.4. 6. Peripheral vascular disease with left lower extremity stenting. 7. Status post right BKA. Plan: Hemodialysis today and again tomorrow per his outpatient schedule. Challenge ultrafiltration. Resume Renvela with meals. Follow-up echocardiogram. Thank you for the consultation. I will continue to follow the patient with you during his hospital stay.
--- NOTE | 2024-05-10 11:48 | P.CRDCN ---
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 He has not had a car cath in the past. He has a past medical history of PAD status post right BKA, left leg stent as well as toe amputations and finger amputations, end-stage renal disease on hemodialysis, hyperlipidemia, GERD. We have been asked to evaluate the patient for A-fib with RVR. Patient states that he missed his dialysis treatment on because h e is trying to get off methadone and he was having significant pain would not have been able to sit through dialysis treatments so it has been rescheduled for today. However, due to significant shortness of breath last evening, patient came into the emergency center for treatment. The shortness of breath started about 830 last evening. Nephrology is on consult and correcting potassium and HD is to start this morning. Blood pressure 120/89, heart rate 82, pulse ox 98% on 5 L nasal cannula. Due to concern for atrial fibrillation, patient was started on a heparin drip and also was on a Cardizem drip for approximately 6 hours and stopped. Heart rate is currently controlled. EKGs and telemetry have been reviewed. Appears the patient is more likely sinus rhythm with sinus tach and PVCs versus atrial fibrillation. He also was noted to have a rate induced IVCD. Patient is seen today in the emergency center waiting for bed on the cardiac stepdown unit. EKG: Most likely sinus rhythm with PVCs and rate induced IVCD, however, atrial fibrillation not completely ruled out Chest x-ray: Patchy diffuse infiltrates correlate for atypical pneumonia, #2 worsening patchy bilateral lung infiltrates. Correlate for pneumonia and atypical pneumonia. Laboratory studies: WBC 13.2, hemoglobin 11.2. Potassium 6.3, BUN 90 creatinine 9.85. Troponins 0.141, 1.09, 6.55. proBNP 53,200. TSH 1.54. Influenza A, influenza B, RSV, COVID-19 not detected. D-dimer 5.52. Home cardiac medications: Plavix 75 mg daily. Review Of Systems: At the time of my exam: CONSTITUTIONAL: Denies fever or chills. HEENT: Denies blurred vision, vision changes, or eye pain. Denies hemoptysis CARDIOVASCULAR: Denies chest pain. Denies orthopnea. Denies PND. Denies palpitations RESPIRATORY: Denies shortness of breath. GASTROINTESTINAL: Denies abdominal pain. Denies nausea or vomiting. HEMATOLOGIC: Denies bleeding disorders. GENITOURINARY: Denies any blood in urine. SKIN: Denies puritis. Denies rash. Physical examination: Gen: This is a 43-year-old male in no acute distress dress VS: reviewed HEENT: Head is atraumatic, normocephalic. Pupils equal, round. Sclerae is anicteric. NECK: Supple. Mild JVD. LUNGS: Clear to auscultation. No wheezes or rhonchi. No intercostal retractions. HEART: Irregular rate and rhythm. Systolic murmur. ABDOMEN: Soft No tenderness. EXTREMITIES: No pedal edema. No calf tenderness. NEUROLOGICAL: Patient is awake, alert and oriented x3. Assessment: Acute hypoxic respiratory failure secondary to flash pulmonary edema from missed dialysis treatment End-stage renal disease on hemodialysis Monday Hyperkalemia Elevated troponins secondary to type II CT, tachycardia, hypoxia and poor renal clearance Tachyarrhythmia most likely sinus rhythm sinus tachycardia with PVCs but atrial fibrillation not completely ruled out Peripheral vascular disease with left lower extremity stenting and right BKA, left fingers and left toes amputated Plan: Resume patient's home cardiac medications Continue heparin drip Discontinue Cardizem drip Start patient on aspirin 81 mg daily and statin Obtain limited 2-D echocardiogram and Doppler study Further recommendations to follow based upon clinical course Thank you kindly for this consultation. Nurse practitioner note has been reviewed, I agree with documented findings and plan of care. Patient was seen and examined. Past Medical History Past Medical History: Coronary Artery Disease (CAD), CVA/TIA, Diabetes Mellitus, Dialysis, Eye Disorder, GERD/Reflux, Renal Disease, Vascular Disorder Additional Past Medical History / Comment(s): Hx CVA 11 yrs ago, no residual effects. Diet Controlled Diabetes. Chiari malformation. Dialysis, [facility]. Legally blind. History of Any Multi-Drug Resistant Organisms: None Reported Past Surgical History: Orthopedic Surgery Additional Past Surgical History / Comment(s): Eye surgery, fistula, right below the knee amputation. Bypass. Past Anesthesia/Blood Transfusion Reactions: No Reported Reaction Past Psychological History: No Psychological Hx Reported Smoking Status: Former smoker Past Alcohol Use History: None Reported Past Drug Use History: Marijuana - Past Family History Father Family Medical History: Hypertension Additional Family Medical History / Comment(s): Father passed of CT 10 years ago. Mother Family Medical History: Diabetes Mellitus Additional Family Medical History / Comment(s): CT (2021) with stent. Medications and Allergies Home Medications Medication Instructions Recorded Confirmed Type Methadone [Dolophine] 10 mg PO TID 02/29/16 05/10/24 History Gabapentin [Neurontin] 100 mg PO BID 09/13/22 05/10/24 History Pantoprazole [Protonix] 40 mg PO DAILY 09/13/22 05/10/24 History Sevelamer [Renvela] 1,600 - 6,400 mg PO TID-W/MEALS 09/13/22 05/10/24 History rOPINIRole HCL [Requip] 5 mg PO DAILY 09/13/22 05/10/24 History rOPINIRole HCL [Requip] 10 mg PO HS 09/13/22 05/10/24 History Famotidine [Pepcid] 20 mg PO BID 05/21/23 05/10/24 History Acetaminophen [Tylenol] 650 mg PO Q4H PRN 05/10/24 05/10/24 History Atropine Sulfate/Pf [Atropine 1% 1 drop RIGHT EYE DAILY 05/10/24 05/10/24 History Eye Drops] Clopidogrel [Plavix] 75 mg PO DAILY 05/10/24 05/10/24 History Folic Acid/Vit B Complex and C 0.8 mg PO DAILY 05/10/24 05/10/24 History [Alyssa-Reilly Tablet] Lanthanum Carbonate [Lanthanum 2,000 mg PO TID-W/MEALS 05/10/24 05/10/24 History Carbonate Chewable] diphenhydrAMINE HCL [Benadryl] 50 mg PO BID 05/10/24 05/10/24 History Allergies Allergy/AdvReac Type Severity Reaction Status Date / Time Penicillins Allergy Rash/Hives Verified 05/10/24 10:46 baclofen AdvReac Confusion Verified 05/10/24 10:46 Physical Exam Vitals: Vital Signs Temp Pulse Resp BP Pulse Ox FiO2 05/10/24 07:50 82 20 120/89 98 05/10/24 07:48 96 05/10/24 03:58 74 16 93 L 05/10/24 03:31 70 05/10/24 02:52 71 16 110/49 99 05/10/24 02:23 78 16 91/77 98 05/10/24 01:48 79 16 96/61 99 05/10/24 01:03 89 16 100/60 97 05/10/24 00:45 85 16 85/56 98 05/10/24 00:40 87 16 84/54 97 05/10/24 00:12 70 05/09/24 23:33 101 H 16 97/47 98 05/09/24 23:10 115 H 25 H 95/73 99 05/09/24 22:54 105 H 26 H 05/09/24 22:47 119 H 25 H 05/09/24 22:30 102 H 16 105/91 88 L 05/09/24 22:20 112 H 16 94/74 90 L 05/09/24 22:10 134 H 125/114 91 L 05/09/24 22:01 146 H 17 129/91 90 L 05/09/24 21:45 28 H 05/09/24 21:43 100 05/09/24 21:37 122 H 122/105 88 L 05/09/24 21:33 97.2 F L 139 H 28 H 86 L Intake and Output 05/09/24 05/10/24 05/10/24 22:59 06:59 14:59 Other: Weight 84 kg Results 05/10/24 06:13 05/10/24 06:13 Cardiac Enzymes 05/09/24 05/09/24 05/10/24 Range/Units 21:32 21:32 01:59 AST 17 (17-59) U/L Troponin I 0.141 H* 1.090 H* (0.000-0.034) ng/mL 05/10/24 05/10/24 Range/Units 06:13 06:13 AST 32 (17-59) U/L Troponin I 6.550 H* (0.000-0.034) ng/mL Coagulation 05/09/24 05/10/24 Range/Units 21:32 03:30 PT 12.0 12.9 H (10.0-12.5) sec APTT 27.9 29.6 (22.0-30.0) sec CBC 05/09/24 05/10/24 05/10/24 Range/Units 21:32 03:30 06:13 WBC 12.4 H 12.0 H 13.2 H (3.8-10.6) k/uL RBC 5.15 4.21 L 4.28 L (4.30-5.90) m/uL Hgb 13.2 10.8 L 11.2 L (13.0-17.5) gm/dL Hct 45.3 37.1 L 37.8 L (39.0-53.0) % Plt Count 619 H 390 404 (150-450) k/uL Comprehensive Metabolic Panel 05/09/24 05/10/24 Range/Units 21:32 06:13 Sodium 135 L 134 L (137-145) mmol/L Potassium 5.5 H 6.3 H* (3.5-5.1) mmol/L Chloride 92 L 92 L (98-107) mmol/L Carbon Dioxide 19 L 22 (22-30) mmol/L BUN 83 H 90 H (9-20) mg/dL Creatinine 9.79 H* 9.85 H* (0.66-1.25) mg/dL Glucose 113 H 172 H (74-99) mg/dL Calcium 9.0 8.1 L (8.4-10.2) mg/dL AST 17 32 (17-59) U/L ALT 14 12 (4-49) U/L Alkaline Phosphatase 225 H 156 H (38-126) U/L Total Protein 8.2 6.9 (6.3-8.2) g/dL Albumin 4.0 3.4 L (3.5-5.0) g/dL Current Medications Generic Name Dose Route Start Last Admin Trade Name Freq PRN Reason Stop Dose Admin Aspirin 81 mg 05/10/24 09:00 Aspirin 81 Mg PO DAILY GLORIA Atorvastatin Calcium 80 mg 05/10/24 21:00 Atorvastatin 80 Mg Tab PO HS GLORIA Dextrose/Water 50 ml 05/10/24 08:00 Dextrose 50% Syringe 50 Ml IVP PER PROTOCOL PRN Hypoglycemia Protocol Dextrose/Water 25 ml 05/10/24 08:00 Dextrose 50% Syringe 50 Ml IVP PER PROTOCOL PRN Hypoglycemia Protocol Heparin Sodium (Porcine) 0 unit 05/10/24 03:09 Heparin Sodium 1,000 Un/Ml (10ml Vl) IV PER PROTOCOL PRN Low PTT Protocol Hydromorphone HCl 1 mg 05/10/24 08:01 Hydromorphone 2 Mg/Ml 1 Ml Syringe IVP Q3HR PRN Severe Pain (Scale 7 to 10) Sodium Chloride 1,000 mls @ 20 mls/hr 05/09/24 21:32 05/09/24 23:10 Saline 0.9% IV 05/10/24 21:31 Not Given .Q24H STA Diltiazem HCl 125 mg/ Sodium 125 mls @ 5 mls/hr 05/09/24 22:15 05/09/24 22:13 Chloride IV 5 mg/hr .Q24H GLORIA 5 mls/hr Administration 5 MG/HR Heparin Sodium/Sodium Chloride 250 mls @ 10.08 mls/hr 05/10/24 03:15 05/10/24 04:36 25,000 unit/ Sodium Chloride IV 11.9 units/kg/hr .Q24H GLORIA 10 mls/hr Administration Protocol 12 UNITS/KG/HR Insulin Aspart 0 unit 05/10/24 12:30 Insulin Aspart (Novolog) 100 Unit/Ml Vial SQ ACHS GLORIA Protocol Naloxone HCl 0.2 mg 05/09/24 22:10 Naloxone 0.4 Mg/Ml 1 Ml Vial IV Q2M PRN Opioid Reversal Pantoprazole Sodium 40 mg 05/09/24 22:15 05/09/24 22:26 Pantoprazole 40 Mg/10 Ml Vial IV 40 mg DAILY GLORIA Administration Intake and Output 05/09/24 05/10/24 05/10/24 22:59 06:59 14:59 Other: Weight 84 kg 05/10/24 06:13 05/10/24 06:13
[2024-05-10] MEDS ORDERED: SEVELAMER 800 MG TAB PO SCH (12:30)
[2024-05-10] MEDS: HYDROmorphone 2 MG/ML 1 ML SYRINGE IVP PRN (12:58)
--- NOTE | 2024-05-10 13:14 | P.PN ---
Subjective Progress Note Date: 05/10/24 Hospital course: Subjective: This is a 43-year-old male with history of peripheral vascular disease status post stent to left lower extremity, CVA, type 2 diabetes mellitus, end-stage renal disease with dialysis on Tuesdays, and Saturdays and GERD presented to ER with severe respiratory distress associated with shortness of breath and chest tightness. Initial lab work done in the ER shows that his white blood cell count were 12.4, hemoglobin 13.2, hematocrit 45.3, platelet 619, sodium 135, potassium 5.5, BUN 83, creatinine 9.79, magnesium 2.6, ALP 225. His troponin level initially was 0.141 but has been trending upward. Initial EKG shows that he is in A-fib with RVR with a heart rate of 149 and repeat EKG shows him being A-fib/a flutter with RVR. Patient was started on heparin and Cardizem drip. Cardiology and nephrology are on board. Echocardiogram pending. Patient is getting dialysis. All Systems reviewed and pertinent positives and negatives noted in HPI, all other symptoms are negative Objective: Vital signs reviewed. General: non toxic, no distress, appears older than stated age, overweight Derm: no unusual rashes/lesions, warm, Functioning AV graft on left upper extremity Head: atraumatic, normocephalic, symmetric Eyes: EOMI, no lid lag, anicteric sclera, pupils equal round reactive to light ENT: Nose and ears atraumatic Neck: No cervical lymphadenopathy, trachea midline, supple Mouth: no lip lesion, mucus membranes moist Cardiovascular: S1S2 reg, no murmur, positive dorsalis pedis pulse bilateral, no edema Lungs: CTA bilateral, no rhonchi, no rales, no accessory muscle use Abdominal: soft, nontender to palpation, no guarding Ext: Right below-knee amputation, left foot partial amputation, left hand with amputation of the 3 phalanxes Neuro: CN II-XI grossly intact, no gross focal neuro deficits Psych: Alert, oriented, appropriate affect Data reviewed today: Labs: WBC 13.2, hemoglobin 11.2, hematocrit 37.8, platelet count 404, potassium 6.3, chloride 92, bicarb 22, anion gap 20, BUN 90, creatinine 9.85, calcium 8.1, phosphorus 10.4, magnesium 2.4, alkaline phosphatase 156, troponin I 6.550, TSH 1.54 Images: Chest x-ray shows diffuse patchy bilateral infiltrate with right pleural effusion Assessment and Plan: # Acute NSTEMI Continue with heparin drip Aspirin 81 mg p.o. daily and Lipitor 80 mg p.o. daily Continue to trend troponin Continue cardiac monitoring Case discussed with Cardiology; note reviewed; consider coronary angiogram Order echocardiogram Order lipid panel #Paroxysmal atrial fibrillation/atrial flutter with variable block with rapid ventricular rate Patient converted to normal sinus rhythm Subsequent EKG showed the patient in atrial flutter with variable block Cardizem drip discontinued Patient continue be on heparin drip for NSTEMI Cardiology following Continue with cardiac monitoring TSH 1.54 Previous echocardiogram shows left atrium dilatation Order echocardiogram #ESRD on hemodialysis #mild hyponatremia # hypermagnesemia # hyperkalemia #Hyperphosphatemia Hyperkalemia with a potassium level of 6.3 Order IV calcium gluconate, insulin and D50 Resume sevelamer Nephrology consulted, note reviewed, dialysis with challenge UF Continue monitor BMP, mag and phosphorus #Acute hypoxic respiratory failure likely secondary to acute pulmonary edema Other differential: Pulmonary embolism versus bacterial pneumonia #SIRS #Leukocytosis #Lactic acidosis, resolved Patient currently on 5 L via nasal cannula Lactic acid on arrival 4.5, trending down Repeat chest x-ray showed worsening diffuse pulmonary edema Assess for potential pneumonia, bacterial/viral/atypical Procalcitonin is 5.45 likely in the setting of ESRD ProBNP 53,200 Chronically elevated ProBNP, most recent echo on record 12/27/2022 showed EF 60- 65% following ProBNP 41,000 on 12/26/[address] angio if concerning for PE #Thrombocytosis possibly reactive, resolved -PLT 404 -Continue to monitor CBC #Chronic conditions: GERD: Resume Pepcid Opiate use disorder:Resume methadone Peripheral neuropathy: resume gabapentin Restless leg syndrome: resume ropinirole GI prohylaxis: Protonix 40 mg daily DVT prophylaxis: Heparin subq F: IV normal saline at KVO E: Replete as needed with dialysis N: N.p.o. and then renal diet A: Wheelchair-bound with debility DVT ppx: Heparin drip Code Status: Full code Anticipated discharge place: Pending clinical course Anticipated discharge date: Pending clinical course I have seen and evaluated the patient today. Discussed with the resident and agree with the residents finding and plan as documented in the resident's note. Changes highlighted in blue font. Objective - Vital Signs Vital signs: Vital Signs Temp 97.2 F L 05/09/24 21:33 Pulse 82 05/10/24 09:50 Resp 20 05/10/24 09:50 BP 95/75 05/10/24 09:50 Pulse Ox 94 L 05/10/24 09:50 FiO2 70 05/10/24 03:31 Intake & Output 05/09/24 05/10/24 05/10/24 18:59 06:59 18:59 Weight 84 kg - Labs CBC & Chem 7: 05/10/24 06:13 05/10/24 06:13 Labs: Abnormal Lab Results - Last 24 Hours (Table) 05/09/24 05/09/24 05/09/24 Range/Units 21:32 21:32 21:32 WBC 12.4 H (3.8-10.6) k/uL RBC (4.30-5.90) m/uL Hgb (13.0-17.5) gm/dL Hct (39.0-53.0) % MCHC 29.1 L (31.0-37.0) g/dL RDW 16.1 H (11.5-15.5) % Plt Count 619 H (150-450) k/uL Neutrophils # 8.9 H (1.3-7.7) k/uL Lymphocytes # (1.0-4.8) k/uL PT (10.0-12.5) sec INR (<1.2) APTT (22.0-30.0) sec D-Dimer (<0.60) mg/L FEU Sodium 135 L (137-145) mmol/L Potassium 5.5 H (3.5-5.1) mmol/L Chloride 92 L (98-107) mmol/L Carbon Dioxide 19 L (22-30) mmol/L BUN 83 H (9-20) mg/dL Creatinine 9.79 H* (0.66-1.25) mg/dL Glucose 113 H (74-99) mg/dL POC Glucose (mg/dL) (70-110) mg/dL Plasma Lactic Acid [place] 4.5 H* (0.7-2.0) mmol/L Calcium (8.4-10.2) mg/dL Phosphorus (2.5-4.5) mg/dL Magnesium 2.6 H (1.6-2.3) mg/dL Alkaline Phosphatase 225 H (38-126) U/L Troponin I (0.000-0.034) ng/mL Albumin (3.5-5.0) g/dL Procalcitonin (0.02-0.50) ng/mL 05/09/24 05/10/24 05/10/24 Range/Units 21:32 01:59 03:30 WBC (3.8-10.6) k/uL RBC (4.30-5.90) m/uL Hgb (13.0-17.5) gm/dL Hct (39.0-53.0) % MCHC (31.0-37.0) g/dL RDW (11.5-15.5) % Plt Count (150-450) k/uL Neutrophils # (1.3-7.7) k/uL Lymphocytes # (1.0-4.8) k/uL PT 12.9 H (10.0-12.5) sec INR 1.2 H (<1.2) APTT (22.0-30.0) sec D-Dimer 5.52 H (<0.60) mg/L FEU Sodium (137-145) mmol/L Potassium (3.5-5.1) mmol/L Chloride (98-107) mmol/L Carbon Dioxide (22-30) mmol/L BUN (9-20) mg/dL Creatinine (0.66-1.25) mg/dL Glucose (74-99) mg/dL POC Glucose (mg/dL) (70-110) mg/dL Plasma Lactic Acid [place] (0.7-2.0) mmol/L Calcium (8.4-10.2) mg/dL Phosphorus (2.5-4.5) mg/dL Magnesium (1.6-2.3) mg/dL Alkaline Phosphatase (38-126) U/L Troponin I 0.141 H* 1.090 H* (0.000-0.034) ng/mL Albumin (3.5-5.0) g/dL Procalcitonin (0.02-0.50) ng/mL 05/10/24 05/10/2405/10/24 Range/Units 03:30 03:45 06:13 WBC 12.0 H 13.2 H (3.8-10.6) k/uL RBC 4.21 L 4.28 L (4.30-5.90) m/uL Hgb 10.8 L 11.2 L (13.0-17.5) gm/dL Hct 37.1 L 37.8 L (39.0-53.0) % MCHC 29.0 L 29.6 L (31.0-37.0) g/dL RDW 16.2 H 16.3 H (11.5-15.5) % Plt Count (150-450) k/uL Neutrophils # 10.5 H 11.7 H (1.3-7.7) k/uL Lymphocytes # 0.6 L 0.7 L (1.0-4.8) k/uL PT (10.0-12.5) sec INR (<1.2) APTT (22.0-30.0) sec D-Dimer (<0.60) mg/L FEU Sodium (137-145) mmol/L Potassium (3.5-5.1) mmol/L Chloride (98-107) mmol/L Carbon Dioxide (22-30) mmol/L BUN (9-20) mg/dL Creatinine (0.66-1.25) mg/dL Glucose (74-99) mg/dL POC Glucose (mg/dL) (70-110) mg/dL Plasma Lactic Acid [place] (0.7-2.0) mmol/L Calcium (8.4-10.2) mg/dL Phosphorus (2.5-4.5) mg/dL Magnesium (1.6-2.3) mg/dL Alkaline Phosphatase (38-126) U/L Troponin I (0.000-0.034) ng/mL Albumin (3.5-5.0) g/dL Procalcitonin 5.45 H (0.02-0.50) ng/mL 05/10/24 05/10/24 05/10/24 Range/Units 06:13 06:13 09:25 WBC (3.8-10.6) k/uL RBC (4.30-5.90) m/uL Hgb (13.0-17.5) gm/dL Hct (39.0-53.0) % MCHC (31.0-37.0) g/dL RDW (11.5-15.5) % Plt Count (150-450) k/uL Neutrophils # (1.3-7.7) k/uL Lymphocytes # (1.0-4.8) k/uL PT (10.0-12.5) sec INR (<1.2) APTT (22.0-30.0) sec D-Dimer (<0.60) mg/L FEU Sodium 134 L (137-145) mmol/L Potassium 6.3 H* (3.5-5.1) mmol/L Chloride 92 L (98-107) mmol/L Carbon Dioxide (22-30) mmol/L BUN 90 H (9-20) mg/dL Creatinine 9.85 H* (0.66-1.25) mg/dL Glucose 172 H (74-99) mg/dL POC Glucose (mg/dL) 189 H (70-110) mg/dL Plasma Lactic Acid [place] (0.7-2.0) mmol/L Calcium 8.1 L (8.4-10.2) mg/dL Phosphorus 10.4 H* (2.5-4.5) mg/dL Magnesium 2.4 H (1.6-2.3) mg/dL Alkaline Phosphatase 156 H (38-126) U/L Troponin I 6.550 H* (0.000-0.034) ng/mL Albumin 3.4 L (3.5-5.0) g/dL Procalcitonin (0.02-0.50) ng/mL 05/10/24 Range/Units 10:24 WBC (3.8-10.6) k/uL RBC (4.30-5.90) m/uL Hgb (13.0-17.5) gm/dL Hct (39.0-53.0) % MCHC (31.0-37.0) g/dL RDW (11.5-15.5) % Plt Count (150-450) k/uL Neutrophils # (1.3-7.7) k/uL Lymphocytes # (1.0-4.8) k/uL PT (10.0-12.5) sec INR (<1.2) APTT 38.1 H (22.0-30.0) sec D-Dimer (<0.60) mg/L FEU Sodium (137-145) mmol/L Potassium (3.5-5.1) mmol/L Chloride (98-107) mmol/L Carbon Dioxide (22-30) mmol/L BUN (9-20) mg/dL Creatinine (0.66-1.25) mg/dL Glucose (74-99) mg/dL POC Glucose (mg/dL) (70-110) mg/dL Plasma Lactic Acid [place] (0.7-2.0) mmol/L Calcium (8.4-10.2) mg/dL Phosphorus (2.5-4.5) mg/dL Magnesium (1.6-2.3) mg/dL Alkaline Phosphatase (38-126) U/L Troponin I (0.000-0.034) ng/mL Albumin (3.5-5.0) g/dL Procalcitonin (0.02-0.50) ng/mL
[2024-05-10] MEDS: HEPARIN SODIUM 1,000 UN/ML (10ML VL) IV PRN (13:19)
[2024-05-10] MEDS: rOPINIRole HCL 4 MG TABLET PO SCH (13:22)
[2024-05-10] MEDS: INSULIN ASPART (NovoLOG) 100 UNIT/ML VIAL SQ SCH (13:26)
[2024-05-10 13:27] LABS: Glucose,Whole Blood 69 mg/dL (70-110)
[2024-05-10] MEDS: SEVELAMER 800 MG TAB PO SCH (13:29)
[2024-05-10] MEDS: METHADONE 10 MG TAB PO SCH (15:14)
[2024-05-10 15:27] LABS: Chol/HDL Ratio 2.27 Ratio; VLDL Calculation 11.58 mg/dL (5.00-40.00)
[2024-05-10 17:52] LABS: Glucose,Whole Blood 67 mg/dL (70-110)
[2024-05-10 18:19] LABS: Glucose,Whole Blood 85 mg/dL (70-110)
[2024-05-10 19:46] LABS: Glucose,Whole Blood 138 mg/dL (70-110)
[2024-05-10] MEDS ORDERED: FAMOTIDINE 20 MG TAB PO SCH (21:00)
[2024-05-10] MEDS: ATORVASTATIN 80 MG TAB PO SCH (22:16)
[2024-05-10] MEDS: GABAPENTIN 100 MG CAP PO SCH (22:16)
[2024-05-10] MEDS: FAMOTIDINE 20 MG TAB PO SCH (22:53)
[2024-05-11 06:11] LABS: Glucose,Whole Blood 86 mg/dL (70-110)
[2024-05-11 06:55] LABS: Anisocytosis Slight; Basophils # (A) 0.1 k/uL (0-0.2); Basophils % (A) 1 %; Eosinophils # (A) 0.1 k/uL (0-0.7); Eosinophils % (A) 2 %; HCT 32.5 % (39.0-53.0); Hypochromasia Marked; Lymphocytes # (A) 1.1 k/uL (1.0-4.8); Lymphocytes % (A) 15 %; MCH 25.9 pg (25.0-35.0); MCHC 29.7 g/dL (31.0-37.0); MCV 87.3 fL (80.0-100.0); Monocytes # (A) 0.5 k/uL (0-1.0); Monocytes % (A) 7 %; Neutrophils # (A) 5.7 k/uL (1.3-7.7); Neutrophils % (A) 75 %; Platelet Count 368 k/uL (150-450); RBC 3.72 m/uL (4.30-5.90); RDW 16.1 % (11.5-15.5); WBC 7.6 k/uL (3.8-10.6)
[2024-05-11 07:00] LABS: HGB 9.6 gm/dL (13.0-17.5)
[2024-05-11 07:05] LABS: INR 1.2 (<1.2); Prothrombin Time 12.4 sec (10.0-12.5)
[2024-05-11 07:09] LABS: African American GFR (CKD) 11 (>60 ml/min/1.73 sqM); Anion Gap 11 mmol/L; Blood Urea Nitrogen 46 mg/dL (9-20); Calcium 8.2 mg/dL (8.4-10.2); Carbon Dioxide 30 mmol/L (22-30); Chloride 92 mmol/L (98-107); Glucose 75 mg/dL (74-99); Magnesium 2.3 mg/dL (1.6-2.3); Non-African American GFR(CKD) 10 (>60 ml/min/1.73 sqM); Potassium 4.7 mmol/L (3.5-5.1); Sodium 133 mmol/L (137-145)
[2024-05-11] MEDS: ATROPINE OPHTH SOLN 1% 5ML BTL RIGHT EYE SCH (08:24)
--- NOTE | 2024-05-11 08:54 | P.PN ---
Subjective Patient is seen in follow-up for end-stage renal disease. He is maintained on hemodialysis on Monday schedule. Tolerated 3.5 L ultrafiltration yesterday. Denies chest pain or shortness of breath. On heparin drip due to elevated troponin levels. Denies chest pain. Vital signs are stable. General: No acute distress. HEENT: Head exam is unremarkable. LUNGS: No audible rhonchi or wheezes. HEART: Rate and Rhythm are regular. ABDOMEN: Nontender. EXTREMITITES: Right BKA noted. Left toes amputated. No edema. Objective - Vital Signs Vital signs: Vital Signs Temp 98.4 F 05/11/24 03:16 Pulse 84 05/11/24 08:04 Resp 18 05/11/24 08:04 BP 141/88 05/11/24 08:04 Pulse Ox 94 L 05/11/24 08:04 FiO2 70 05/10/24 03:31 Intake & Output 05/10/24 05/11/24 05/11/24 18:59 06:59 18:59 Intake Total 487 163.000 36.061 Output Total 7400 0 Balance -6913 163.000 36.061 Weight 84 kg Intake: Intake, IV Titration 87 163.000 36.061 Amount Heparin Sod,Pork in 0.45% 87 163.000 36.061 NaCl 25,000 unit In 0.45 % NaCl 1 250ml.bag @ 12 UNITS/KG/HR 10.08 mls/hr IV .Q24H [facility] Rx#: [id number] Hemodialysis 400 Output: Urine 0 Hemodialysis 3900 Hemodialysis Net Amount 3500 Other: Voiding Method Toilet - Labs CBC & Chem 7: 05/11/24 06:09 05/11/24 06:09 Labs: Abnormal Lab Results - Last 24 Hours (Table) 05/10/24 05/10/24 05/10/24 Range/Units 03:45 09:25 10:24 RBC (4.30-5.90) m/uL Hgb (13.0-17.5) gm/dL Hct (39.0-53.0) % MCHC (31.0-37.0) g/dL RDW (11.5-15.5) % INR (<1.2) APTT 38.1 H (22.0-30.0) sec Sodium (137-145) mmol/L Potassium (3.5-5.1) mmol/L Chloride (98-107) mmol/L BUN (9-20) mg/dL Creatinine (0.66-1.25) mg/dL POC Glucose (mg/dL) 189 H (70-110) mg/dL Calcium (8.4-10.2) mg/dL Troponin I (0.000-0.034) ng/mL HDL Cholesterol (40.00-60.00) mg/dL Procalcitonin 5.45 H (0.02-0.50) ng/mL 05/10/24 05/10/24 05/10/24 Range/Units 10:24 13:26 16:35 RBC (4.30-5.90) m/uL Hgb (13.0-17.5) gm/dL Hct (39.0-53.0) % MCHC (31.0-37.0) g/dL RDW (11.5-15.5) % INR (<1.2) APTT (22.0-30.0) sec Sodium (137-145) mmol/L Potassium (3.5-5.1) mmol/L Chloride (98-107) mmol/L BUN (9-20) mg/dL Creatinine (0.66-1.25) mg/dL POC Glucose (mg/dL) 69 L (70-110) mg/dL Calcium (8.4-10.2) mg/dL Troponin I 11.800 H* (0.000-0.034) ng/mL HDL Cholesterol 34.40 L (40.00-60.00) mg/dL Procalcitonin (0.02-0.50) ng/mL 05/10/24 05/10/24 05/10/24 Range/Units 17:51 19:36 19:45 RBC (4.30-5.90) m/uL Hgb (13.0-17.5) gm/dL Hct (39.0-53.0) % MCHC (31.0-37.0) g/dL RDW (11.5-15.5) % INR (<1.2) APTT 35.8 H (22.0-30.0) sec Sodium (137-145) mmol/L Potassium (3.5-5.1) mmol/L Chloride (98-107) mmol/L BUN (9-20) mg/dL Creatinine (0.66-1.25) mg/dL POC Glucose (mg/dL) 67 L 138 H (70-110) mg/dL Calcium (8.4-10.2) mg/dL Troponin I (0.000-0.034) ng/mL HDL Cholesterol (40.00-60.00) mg/dL Procalcitonin (0.02-0.50) ng/mL 05/10/24 05/11/24 05/11/24 Range/Units 23:25 06:09 06:09 RBC 3.72 L (4.30-5.90) m/uL Hgb 9.6 L D (13.0-17.5) gm/dL Hct 32.5 L (39.0-53.0) % MCHC 29.7 L (31.0-37.0) g/dL RDW 16.1 H (11.5-15.5) % INR (<1.2) APTT (22.0-30.0) sec Sodium 133 L (137-145) mmol/L Potassium 7.0 H* (3.5-5.1) mmol/L Chloride 92 L (98-107) mmol/L BUN 46 H (9-20) mg/dL Creatinine 6.43 H (0.66-1.25) mg/dL POC Glucose (mg/dL) (70-110) mg/dL Calcium 8.2 L (8.4-10.2) mg/dL Troponin I (0.000-0.034) ng/mL HDL Cholesterol (40.00-60.00) mg/dL Procalcitonin (0.02-0.50) ng/mL 05/11/24 05/11/24 05/11/24 Range/Units 06: 06:09 06:09 RBC (4.30-5.90) m/uL Hgb (13.0-17.5) gm/dL Hct (39.0-53.0) % MCHC (31.0-37.0) g/dL RDW (11.5-15.5) % INR 1.2 H (<1.2) APTT 35.2 H (22.0-30.0) sec Sodium (137-145) mmol/L Potassium (3.5-5.1) mmol/L Chloride (98-107) mmol/L BUN (9-20) mg/dL Creatinine (0.66-1.25) mg/dL POC Glucose (mg/dL) (70-110) mg/dL Calcium (8.4-10.2) mg/dL Troponin I 8.550 H* (0.000-0.034) ng/mL HDL Cholesterol (40.00-60.00) mg/dL Procalcitonin (0.02-0.50) ng/mL Assessment and Plan Plan: Assessment: 1. End-stage renal disease maintained on hemodialysis on Monday schedule via left upper extremity AV graft. 2. Hyperkalemia secondary to missed dialysis yesterday and chronic kidney disease. Improved postdialysis. 3. Volume overload. Improved with UF. 4. Acute hypoxic respiratory failure. Now on room air. 5. Chronic kidney disease mineral bone disease. Phosphorus level 10.4. Renvela resumed. 6. Peripheral vascular disease with left lower extremity stenting. 7. Status post right BKA. 8. Elevated troponins. Concern for acute coronary syndrome. On IV heparin. Cardiology following. Plan: Hemodialysis today per his outpatient schedule. Follow-up echocardiogram.
[2024-05-11] MEDS ORDERED: PANTOPRAZOLE 40 MG TABLET PO SCH (09:00)
[2024-05-11] MEDS: ONDANSETRON 4 MG/2 ML VIAL IVP PRN (09:32)
--- NOTE | 2024-05-11 11:10 | P.PN ---
Subjective Progress Note Date: 05/11/24 Hospital course: Subjective: This is a 43-year-old male with history of peripheral vascular disease status post stent to left lower extremity, CVA, type 2 diabetes mellitus, end-stage renal disease with dialysis on Tuesdays, and Saturdays and GERD presented to ER with severe respiratory distress associated with shortness of breath and chest tightness. Initial lab work done in the ER shows that his white blood cell count were 12.4, hemoglobin 13.2, hematocrit 45.3, platelet 619, sodium 135, potassium 5.5, BUN 83, creatinine 9.79, magnesium 2.6, ALP 225. His troponin level initially was 0.141 but has been trending upward. Initial EKG shows that he is in A-fib with RVR with a heart rate of 149 and repeat EKG shows him being A-fib/a flutter with RVR. Patient was started on heparin and Cardizem drip. Cardiology and nephrology are on board. Echocardiogram pending. Patient is getting dialysis. All Systems reviewed and pertinent positives and negatives noted in HPI, all other symptoms are negative Objective: Vital signs reviewed. General: non toxic, no distress, appears older than stated age, overweight Derm: no unusual rashes/lesions, warm, Functioning AV graft on left upper extremity Head: atraumatic, normocephalic, symmetric Eyes: EOMI, no lid lag, anicteric sclera, pupils equal round reactive to light ENT: Nose and ears atraumatic Neck: No cervical lymphadenopathy, trachea midline, supple Mouth: no lip lesion, mucus membranes moist Cardiovascular: S1S2 reg, no murmur, positive dorsalis pedis pulse bilateral, no edema Lungs: CTA bilateral, no rhonchi, no rales, no accessory muscle use Abdominal: soft, nontender to palpation, no guarding Ext: Right below-knee amputation, left foot partial amputation, left hand with amputation of the 3 phalanxes Neuro: CN II-XI grossly intact, no gross focal neuro deficits Psych: Alert, oriented, appropriate affect Data reviewed today: Labs: WBC 7.6, hemoglobin 9.6, platelet count 368, PT 12.4, INR 1.2, APTT 35.2, sodium 133, potassium 4.7, chloride 92, bicarb 30, BUN 46, creatinine 6.43, glucose 75, HbA1c 6.2, calcium 8.2 Troponin I 8.5 Images: No new imaging Assessment and Plan: # Acute NSTEMI Continue with heparin drip Aspirin 81 mg p.o. daily and Lipitor 80 mg p.o. daily Troponin I is trending down Continue cardiac monitoring Cardiology following; consider coronary angiogram Order echocardiogram, pending results Lipid panel: LDL 32, HDL 34.4 #Paroxysmal atrial fibrillation/atrial flutter with variable block with rapid ventricular rate, now in sinus Patient converted to normal sinus rhythm Subsequent EKG showed the patient in atrial flutter with variable block Cardizem drip discontinued Patient continue be on heparin drip for NSTEMI Cardiology following Continue with cardiac monitoring TSH 1.54 Previous echocardiogram shows left atrium dilatation #ESRD on hemodialysis #mild hyponatremia # hypermagnesemia, resolved # hyperkalemia, resolved #Hyperphosphatemia #Normocytic anemia in the setting of ESRD Potassium level improved to 4.7 Continue with sevelamer Nephrology consulted, note reviewed, dialysis today as per schedule Hemoglobin dropped to 9.6 from baseline of 13.2 No active bleeding Continue monitor CBC, BMP, mag and phosphorus Repeat CBC this afternoon at 1600-hour #Acute hypoxic respiratory failure likely secondary to acute pulmonary edema, resolved Other differential: Pulmonary embolism versus bacterial pneumonia #SIRS #Leukocytosis #Lactic acidosis, resolved Patient currently on room air Suspicion for underlying infection is low at this time Will repeat chest x-ray and assess for potential pneumonia, bacterial/viral/atypical with correlating signs or symptoms for infection Procalcitonin is 5.45 likely in the setting of ESRD ProBNP 53,200; chronically elevated as most recent echo on record 12/27/2022 showed EF 60-65% following ProBNP 41,000 on 12/26/[address] angio if concerning for PE, low suspicion as of now #Thrombocytosis possibly reactive, resolved -PLT 404 -Continue to monitor CBC #Chronic conditions: GERD: Resume Pepcid Opiate use disorder:Resume methadone Peripheral neuropathy: resume gabapentin Restless leg syndrome: resume ropinirole GI prohylaxis: Protonix 40 mg daily DVT prophylaxis: Heparin drip F: IV normal saline at KVO E: Replete as needed with dialysis N: N.p.o. and then renal diet A: Wheelchair-bound with debility DVT ppx: Heparin drip Code Status: Full code Anticipated discharge place: Pending clinical course Anticipated discharge date: Pending clinical course I have seen and evaluated the patient today. Discussed with the resident and agree with the residents finding and plan as documented in the resident's note. Changes highlighted in blue font. Objective - Vital Signs Vital signs: Vital Signs Temp 98.4 F 05/11/24 03:16 Pulse 84 05/11/24 10:10 Resp 18 05/11/24 10:10 BP 141/88 05/11/24 08:04 Pulse Ox 96 05/11/24 09:23 FiO2 70 05/10/24 03:31 Intake & Output 05/10/24 05/11/24 05/11/24 18:59 06:59 18:59 Intake Total 487 163.000 36.061 Output Total 7400 0 Balance -6913 163.000 36.061 Weight 84 kg Intake: Intake, IV Titration 87 163.000 36.061 Amount Heparin Sod,Pork in 0.45% 87 163.000 36.061 NaCl 25,000 unit In 0.45 % NaCl 1 250ml.bag @ 12 UNITS/KG/HR 10.08 mls/hr IV .Q24H [facility] Rx#: [id number] Hemodialysis 400 Output: Urine 0 Hemodialysis 3900 Hemodialysis Net Amount 3500 Other: Voiding Method Toilet Toilet # Voids 1 # Bowel Movements 1 - Labs CBC & Chem 7: 05/11/24 06:09 05/11/24 06:09 Labs: Abnormal Lab Results - Last 24 Hours (Table) 05/10/24 05/10/24 05/10/24 Range/Units 10:24 10: 13:26 RBC (4.30-5.90) m/uL Hgb (13.0-17.5) gm/dL Hct (39.0-53.0) % MCHC (31.0-37.0) g/dL RDW (11.5-15.5) % INR (<1.2) APTT 38.1 H (22.0-30.0) sec Sodium (137-145) mmol/L Potassium (3.5-5.1) mmol/L Chloride (98-107) mmol/L BUN (9-20) mg/dL Creatinine (0.66-1.25) mg/dL POC Glucose (mg/dL) 69 L (70-110) mg/dL Hemoglobin A1c (<=6.0) % Calcium (8.4-10.2) mg/dL Troponin I (0.000-0.034) ng/mL HDL Cholesterol 34.40 L (40.00-60.00) mg/dL 05/10/24 05/10/24 05/10/24 Range/Units 16:35 17:51 19:36 RBC (4.30-5.90) m/uL Hgb (13.0-17.5) gm/dL Hct (39.0-53.0) % MCHC (31.0-37.0) g/dL RDW (11.5-15.5) % INR (<1.2) APTT 35.8 H (22.0-30.0) sec Sodium (137-145) mmol/L Potassium (3.5-5.1) mmol/L Chloride (98-107) mmol/L BUN (9-20) mg/dL Creatinine (0.66-1.25) mg/dL POC Glucose (mg/dL) 67 L (70-110) mg/dL Hemoglobin A1c (<=6.0) % Calcium (8.4-10.2) mg/dL Troponin I 11.800 H* (0.000-0.034) ng/mL HDL Cholesterol (40.00-60.00) mg/dL 05/10/24 05/10/24 05/11/24 Range/Units 19:45 23:25 06:09 RBC (4.30-5.90) m/uL Hgb (13.0-17.5) gm/dL Hct (39.0-53.0) % MCHC (31.0-37.0) g/dL RDW (11.5-15.5) % INR (<1.2) APTT (22.0-30.0) sec Sodium (137-145) mmol/L Potassium 7.0 H* (3.5-5.1) mmol/L Chloride (98-107) mmol/L BUN (9-20) mg/dL Creatinine (0.66-1.25) mg/dL POC Glucose (mg/dL) 138 H (70-110) mg/dL Hemoglobin A1c 6.2 H (<=6.0) % Calcium (8.4-10.2) mg/dL Troponin I (0.000-0.034) ng/mL HDL Cholesterol (40.00-60.00) mg/dL 05/11/24 05/11/24 05/11/24 Range/Units 06:09 06:09 06:09 RBC 3.72 L (4.30-5.90) m/uL Hgb 9.6 L D (13.0-17.5) gm/dL Hct 32.5 L (39.0-53.0) % MCHC 29.7 L (31.0-37.0) g/dL RDW 16.1 H (11.5-15.5) % INR 1.2 H (<1.2) APTT (22.0-30.0) sec Sodium 133 L (137-145) mmol/L Potassium (3.5-5.1) mmol/L Chloride 92 L (98-107) mmol/L BUN 46 H (9-20) mg/dL Creatinine 6.43 H (0.66-1.25) mg/dL POC Glucose (mg/dL) (70-110) mg/dL Hemoglobin A1c (<=6.0) % Calcium 8.2 L (8.4-10.2) mg/dL Troponin I (0.000-0.034) ng/mL HDL Cholesterol (40.00-60.00) mg/dL 05/11/24 05/11/24 Range/Units 06:09 06:09 RBC (4.30-5.90) m/uL Hgb (13.0-17.5) gm/dL Hct (39.0-53.0) % MCHC (31.0-37.0) g/dL RDW (11.5-15.5) % INR (<1.2) APTT 35.2 H (22.0-30.0) sec Sodium (137-145) mmol/L Potassium (3.5-5.1) mmol/L Chloride (98-107) mmol/L BUN (9-20) mg/dL Creatinine (0.66-1.25) mg/dL POC Glucose (mg/dL) (70-110) mg/dL Hemoglobin A1c (<=6.0) % Calcium (8.4-10.2) mg/dL Troponin I 8.550 H* (0.000-0.034) ng/mL HDL Cholesterol (40.00-60.00) mg/dL
[2024-05-11 11:24] LABS: Glucose,Whole Blood 89 mg/dL (70-110)
[2024-05-11 13:06] LABS: Chol/HDL Ratio 2.43 Ratio
[2024-05-11 13:10] LABS: LDL Cholesterol,Calculated 24.2 mg/dL (0.0-131.0); VLDL Calculation 19.36 mg/dL (5.00-40.00)
[2024-05-11 16:26] LABS: Glucose,Whole Blood 107 mg/dL (70-110)
[2024-05-11 16:35] LABS: Anisocytosis Slight; Basophils # (A) 0.1 k/uL (0-0.2); Basophils % (A) 1 %; Eosinophils # (A) 0.1 k/uL (0-0.7); Eosinophils % (A) 1 %; HCT 33.8 % (39.0-53.0); HGB 9.9 gm/dL (13.0-17.5); Hypochromasia Marked; Lymphocytes # (A) 0.9 k/uL (1.0-4.8); Lymphocytes % (A) 13 %; MCH 25.8 pg (25.0-35.0); MCHC 29.4 g/dL (31.0-37.0); MCV 87.7 fL (80.0-100.0); Mean Platelet Volume 7.6; Monocytes # (A) 0.4 k/uL (0-1.0); Monocytes % (A) 6 %; Neutrophils # (A) 5.2 k/uL (1.3-7.7); Neutrophils % (A) 77 %; Platelet Count 375 k/uL (150-450); RBC 3.85 m/uL (4.30-5.90); RDW 16.3 % (11.5-15.5); WBC 6.7 k/uL (3.8-10.6)
[2024-05-11 20:39] LABS: Glucose,Whole Blood 190 mg/dL (70-110)
[2024-05-11 20:48] LABS: % Iron Saturation 11.89 (15.00-50.00)
[2024-05-12 05:58] LABS: Glucose,Whole Blood 140 mg/dL (70-110)
--- NOTE | 2024-05-12 09:19 | P.PN ---
Subjective Patient is seen in follow-up for end-stage renal disease. He is maintained on hemodialysis on Monday schedule. Tolerated 1.7 L ultrafiltration yesterday. Denies chest pain or shortness of breath. On heparin drip due to elevated troponin levels. Denies chest pain. Cardiac cath tomorrow. Vital signs are stable. General: No acute distress. HEENT: Head exam is unremarkable. LUNGS: No audible rhonchi or wheezes. HEART: Rate and Rhythm are regular. ABDOMEN: Nontender. EXTREMITITES: Right BKA noted. Left toes amputated. No edema. Objective - Vital Signs Vital signs: Vital Signs Temp 98.2 F 05/12/24 07:31 Pulse 83 05/12/24 07:31 Resp 18 05/12/24 07:31 BP 134/85 05/12/24 07:31 Pulse Ox 97 05/12/24 08:58 FiO2 70 05/10/24 03:31 Intake & Output 05/11/24 05/12/24 05/12/24 18:59 06:59 18:59 Intake Total 2456.061 213.939 Output Total 2180 0 Balance 276.061 213.939 Intake: Intake, IV Titration 36.061 213.939 Amount Heparin Sod,Pork in 0.45% 36.061 213.939 NaCl 25,000 unit In 0.45 % NaCl 1 250ml.bag @ 12 UNITS/KG/HR 10.08 mls/hr IV .Q24H [facility] Rx#: [id number] Oral 240 Hemodialysis 2180 Output: Urine 0 Hemodialysis 400 Hemodialysis Net Amount 1780 Other: Voiding Method Toilet Toilet # Voids 1 # Bowel Movements 1 - Labs CBC & Chem 7: 05/11/24 16:12 05/11/24 06:09 Labs: Abnormal Lab Results - Last 24 Hours (Table) 05/11/24 05/11/24 05/11/24 Range/Units 06:09 06:09 08:50 RBC (4.30-5.90) m/uL Hgb (13.0-17.5) gm/dL Hct (39.0-53.0) % MCHC (31.0-37.0) g/dL RDW (11.5-15.5) % Lymphocytes # (1.0-4.8) k/uL APTT (22.0-30.0) sec POC Glucose (mg/dL) (70-110) mg/dL Hemoglobin A1c 6.2 H (<=6.0) % Iron 17 L (65-175) UG/DL TIBC 143 L (228-460) UG/DL % Saturation 11.89 L (15.00-50.00) Transferrin 102.0 L (204.0-354.0) mg/dL Troponin I (0.000-0.034) ng/mL HDL Cholesterol 30.40 L (40.00-60.00) mg/dL 05/11/24 05/11/24 05/11/24 Range/Units 11:51 15:10 16:12 RBC 3.85 L (4.30-5.90) m/uL Hgb 9.9 L (13.0-17.5) gm/dL Hct 33.8 L (39.0-53.0) % MCHC 29.4 L (31.0-37.0) g/dL RDW 16.3 H (11.5-15.5) % Lymphocytes # 0.9 L (1.0-4.8) k/uL APTT 47.2 H (22.0-30.0) sec POC Glucose (mg/dL) (70-110) mg/dL Hemoglobin A1c (<=6.0) % Iron (65-175) UG/DL TIBC (228-460) UG/DL % Saturation (15.00-50.00) Transferrin (204.0-354.0) mg/dL Troponin I 5.660 H* (0.000-0.034) ng/mL HDL Cholesterol (40.00-60.00) mg/dL 05/11/24 05/12/24 Range/Units 20:38 05:55 RBC (4.30-5.90) m/uL Hgb (13.0-17.5) gm/dL Hct (39.0-53.0) % MCHC (31.0-37.0) g/dL RDW (11.5-15.5) % Lymphocytes # (1.0-4.8) k/uL APTT (22.0-30.0) sec POC Glucose (mg/dL) 190 H 140 H (70-110) mg/dL Hemoglobin A1c (<=6.0) % Iron (65-175) UG/DL TIBC (228-460) UG/DL % Saturation (15.00-50.00) Transferrin (204.0-354.0) mg/dL Troponin I (0.000-0.034) ng/mL HDL Cholesterol (40.00-60.00) mg/dL Assessment and Plan Plan: Assessment: 1. End-stage renal disease maintained on hemodialysis on Monday Satu schedule via left upper extremity AV graft. 2. Hyperkalemia secondary to missed dialysis yesterday and chronic kidney disease. Improved postdialysis. 3. Volume overload. Improved with UF. 4. Acute hypoxic respiratory failure. Now on room air. 5. Chronic kidney disease mineral bone disease. Phosphorus level 10.4. Renvela resumed. 6. Peripheral vascular disease with left lower extremity stenting. 7. Status post right BKA. 8. Elevated troponins. Concern for acute coronary syndrome. On IV heparin. Cardiology following. Plan: Hemodialysis Monday. Cardiac cath tomorrow.
[2024-05-12 10:37] LABS: Anisocytosis Slight; Basophils % (A) 1 %; Eosinophils # (A) 0.2 k/uL (0-0.7); Eosinophils % (A) 3 %; HGB 9.6 gm/dL (13.0-17.5); Hypochromasia Marked; Lymphocytes # (A) 1.2 k/uL (1.0-4.8); Lymphocytes % (A) 22 %; MCH 25.9 pg (25.0-35.0); MCHC 29.2 g/dL (31.0-37.0); MCV 88.9 fL (80.0-100.0); Mean Platelet Volume 8.3; Monocytes # (A) 0.4 k/uL (0-1.0); Monocytes % (A) 8 %; Neutrophils # (A) 3.6 k/uL (1.3-7.7); Neutrophils % (A) 64 %; Platelet Count 362 k/uL (150-450); RBC 3.72 m/uL (4.30-5.90); RDW 16.1 % (11.5-15.5); WBC 5.7 k/uL (3.8-10.6)
[2024-05-12 10:55] LABS: African American GFR (CKD) 14 (>60 ml/min/1.73 sqM); Anion Gap 12 mmol/L; Blood Urea Nitrogen 35 mg/dL (9-20); Calcium 8.2 mg/dL (8.4-10.2); Carbon Dioxide 28 mmol/L (22-30); Chloride 93 mmol/L (98-107); Glucose 140 mg/dL (74-99); Magnesium 2.2 mg/dL (1.6-2.3); Non-African American GFR(CKD) 12 (>60 ml/min/1.73 sqM); Potassium 4.4 mmol/L (3.5-5.1); Sodium 133 mmol/L (137-145)
[2024-05-12 11:23] LABS: Glucose,Whole Blood 147 mg/dL (70-110)
[2024-05-12] MEDS: ACETAMINOPHEN TAB 325 MG TAB PO PRN (12:38)
--- NOTE | 2024-05-12 13:28 | P.PN ---
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 He has not had a car cath in the past. He has a past medical history of PAD status post right BKA, left leg stent as well as toe amputations and finger amputations, end-stage renal disease on hemodialysis, hyperlipidemia, GERD. We have been asked to evaluate the patient for A-fib with RVR. Patient states that he missed his dialysis treatment on because he is trying to get off methadone and he was having significant pain would not have been able to sit through dialysis treatments so it has been rescheduled for today. However, due to significant shortness of breath last evening, patient came into the emergency center for treatment. The shortness of breath started about 830 last evening. Nephrology is on consult and correcting potassium and HD is to start this morning. Blood pressure 120/89, heart rate 82, pulse ox 98% on 5 L nasal cannula. Due to concern for atrial fibrillation, patient was started on a heparin drip and also was on a Cardizem drip for approximately 6 hours and stopped. Heart rate is currently controlled. EKGs and telemetry have been reviewed. Appears the patient is more likely sinus rhythm with sinus tach and PVCs versus atrial fibrillation. He also was noted to have a rate induced IVCD. Patient is seen today in the emergency center waiting for bed on the cardiac stepdown unit. EKG: Most likely sinus rhythm with PVCs and rate induced IVCD, however, atrial fibrillation not completely ruled out Chest x-ray: Patchy diffuse infiltrates correlate for atypical pneumonia, #2 worsening patchy bilateral lung infiltrates. Correlate for pneumonia and atypical pneumonia. Laboratory studies: WBC 13.2, hemoglobin 11.2. Potassium 6.3, BUN 90 creatinine 9.85. Troponins 0.141, 1.09, 6.55. proBNP 53,200. TSH 1.54. Influenza A, influenza B, RSV, COVID-19 not detected. D-dimer 5.52. Home cardiac medications: Plavix 75 mg daily. May 11, 2024 Patient is seen and examined at bedside this a.m. He reports feeling much better in terms of shortness of breath after his hemodialysis session. Denies any chest pain chest pressure at this time. Physical examination: Gen: This is a 43-year-old male in no acute distress dress VS: reviewed HEENT: Head is atraumatic, normocephalic. Pupils equal, round. Sclerae is anicteric. NECK: Supple. Mild JVD. LUNGS: Clear to auscultation. No wheezes or rhonchi. No intercostal retractions. HEART: Irregular rate and rhythm. Systolic murmur. ABDOMEN: Soft No tenderness. EXTREMITIES: No pedal edema. No calf tenderness. NEUROLOGICAL: Patient is awake, alert and oriented x3. Assessment: Acute hypoxic respiratory failure secondary to flash pulmonary edema from missed dialysis treatment End-stage renal disease on hemodialysis Monday Hyperkalemia Elevated troponins secondary to type II [place], tachycardia, hypoxia and poor renal clearance Tachyarrhythmia most likely sinus rhythm sinus tachycardia with PVCs but atrial fibrillation not completely ruled out Peripheral vascular disease with left lower extremity stenting and right BKA, left fingers and left toes amputated Plan: Continue IV heparin drip, aspirin, statin Plan for heart catheterization on Monday. Await echocardiogram results Start patient on aspirin 81 mg daily and statin Objective - Vital Signs Vital signs: Vital Signs Temp 98.2 F 05/12/24 07:31 Pulse 80 05/12/24 12:47 Resp 18 05/12/24 12:47 BP 144/93 05/12/24 12:47 Pulse Ox 93 L 05/12/24 12:47 FiO2 70 05/10/24 03:31 Intake & Output 05/11/24 05/12/24 05/12/24 18:59 06:59 18:59 Intake Total 2456.061 213.939 174.668 Output Total 2180 0 Balance 276.061 213.939 174.668 Intake: Intake, IV Titration 36.061 213.939 174.668 Amount Heparin Sod,Pork in 0.45% 36.061 213.939 174.668 NaCl 25,000 unit In 0.45 % NaCl 1 250ml.bag @ 12 UNITS/KG/HR 10.08 mls/hr IV .Q24H [facility] Rx#: [id number] Oral 240 Hemodialysis 2180 Output: Urine 0 Hemodialysis 400 Hemodialysis Net Amount 1780 Other: Voiding Method Toilet Toilet Toilet # Voids 1 # Bowel Movements 1 - Labs CBC & Chem 7: 05/12/24 10:21 11/10/24 10:21 Labs: Abnormal Lab Results - Last 24 Hours (Table) 05/11/24 05/11/24 05/11/24 Range/Units 08:50 15:10 16:12 RBC 3.85 L (4.30-5.90) m/uL Hgb 9.9 L (13.0-17.5) gm/dL Hct 33.8 L (39.0-53.0) % MCHC 29.4 L (31.0-37.0) g/dL RDW 16.3 H (11.5-15.5) % Lymphocytes # 0.9 L (1.0-4.8) k/uL APTT 47.2 H (22.0-30.0) sec Sodium (137-145) mmol/L Chloride (98-107) mmol/L BUN (9-20) mg/dL Creatinine (0.66-1.25) mg/dL Glucose (74-99) mg/dL POC Glucose (mg/dL) (70-110) mg/dL Calcium (8.4-10.2) mg/dL Iron 17 L (65-175) UG/DL TIBC 143 L (228-460) UG/DL % Saturation 11.89 L (15.00-50.00) Transferrin 102.0 L (204.0-354.0) mg/dL 05/11/24 05/12/24 05/12/24 Range/Units 20:38 05:55 10:21 RBC 3.72 L (4.30-5.90) m/uL Hgb 9.6 L (13.0-17.5) gm/dL Hct 33.0 L (39.0-53.0) % MCHC 29.2 L (31.0-37.0) g/dL RDW 16.1 H (11.5-15.5) % Lymphocytes # (1.0-4.8) k/uL APTT (22.0-30.0) sec Sodium (137-145) mmol/L Chloride (98-107) mmol/L BUN (9-20) mg/dL Creatinine (0.66-1.25) mg/dL Glucose (74-99) mg/dL POC Glucose (mg/dL) 190 H 140 H (70-110) mg/dL Calcium (8.4-10.2) mg/dL Iron (65-175) UG/DL TIBC (228-460) UG/DL % Saturation (15.00-50.00) Transferrin (204.0-354.0) mg/dL 05/12/24 05/12/24 05/12/24 Range/Units 10:21 10:21 11:17 RBC (4.30-5.90) m/uL Hgb (13.0-17.5) gm/dL Hct (39.0-53.0) % MCHC (31.0-37.0) g/dL RDW (11.5-15.5) % Lymphocytes # (1.0-4.8) k/uL APTT 40.5 H (22.0-30.0) sec Sodium 133 L (137-145) mmol/L Chloride 93 L (98-107) mmol/L BUN 35 H (9-20) mg/dL Creatinine 5.37 H (0.66-1.25) mg/dL Glucose 140 H (74-99) mg/dL POC Glucose (mg/dL) 147 H (70-110) mg/dL Calcium 8.2 L (8.4-10.2) mg/dL Iron (65-175) UG/DL TIBC (228-460) UG/DL % Saturation (15.00-50.00) Transferrin (204.0-354.0) mg/dL
--- NOTE | 2024-05-12 13:31 | P.PN ---
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 He has not had a car cath in the past. He has a past medical history of PAD status post right BKA, left leg stent as well as toe amputations and finger amputations, end-stage renal disease on hemodialysis, hyperlipidemia, GERD. We have been asked to evaluate the patient for A-fib with RVR. Patient states that he missed his dialysis treatment on because he is trying to get off methadone and he was having significant pain would not have been able to sit through dialysis treatments so it has been rescheduled for today. However, due to significant shortness of breath last evening, patient came into the emergency center for treatment. The shortness of breath started about 830 last evening. Nephrology is on consult and correcting potassium and HD is to start this morning. Blood pressure 120/89, heart rate 82, pulse ox 98% on 5 L nasal cannula. Due to concern for atrial fibrillation, patient was started on a heparin drip and also was on a Cardizem drip for approximately 6 hours and stopped. Heart rate is currently controlled. EKGs and telemetry have been reviewed. Appears the patient is more likely sinus rhythm with sinus tach and PVCs versus atrial fibrillation. He also was noted to have a rate induced IVCD. Patient is seen today in the emergency center waiting for bed on the cardiac stepdown unit. EKG: Most likely sinus rhythm with PVCs and rate induced IVCD, however, atrial fibrillation not completely ruled out Chest x-ray: Patchy diffuse infiltrates correlate for atypical pneumonia, #2 worsening patchy bilateral lung infiltrates. Correlate for pneumonia and atypical pneumonia. Laboratory studies: WBC 13.2, hemoglobin 11.2. Potassium 6.3, BUN 90 creatinine 9.85. Troponins 0.141, 1.09, 6.55. proBNP 53,200. TSH 1.54. Influenza A, influenza B, RSV, COVID-19 not detected. D-dimer 5.52. Home cardiac medications: Plavix 75 mg daily. May 11, 2024 Patient is seen and examined at bedside this a.m. He reports feeling much better in terms of shortness of breath after his hemodialysis session. Denies any chest pain chest pressure at this time. May 12, 2024 Patient is seen and examined at bedside this a.m. Patient denies any active ch est pain chest pressure. He reports that he is back to his normal self. Blood pressure and heart rate is controlled. Physical examination: Gen: This is a 43-year-old male in no acute distress dress VS: reviewed HEENT: Head is atraumatic, normocephalic. Pupils equal, round. Sclerae is anicteric. NECK: Supple. Mild JVD. LUNGS: Clear to auscultation. No wheezes or rhonchi. No intercostal retra ctions. HEART: Irregular rate and rhythm. Systolic murmur. ABDOMEN: Soft No tenderness. EXTREMITIES: No pedal edema. No calf tenderness. NEUROLOGICAL: Patient is awake, alert and oriented x3. Assessment: Acute hypoxic respiratory failure secondary to flash pulmonary edema from missed dialysis treatment End-stage renal disease on hemodialysis Monday Hyperkalemia Elevated troponins secondary to type II [place], tachycardia, hypoxia and poor renal clearance Tachyarrhythmia most likely sinus rhythm sinus tachycardia with PVCs but atrial fibrillation not completely ruled out Peripheral vascular disease with left lower extremity stenting and right BKA, left fingers and left toes amputated Plan: Completed 48 hours of IV heparin. Discontinue it. Continue aspirin and statin. Add metoprolol succinate 25 mg daily. Plan for heart catheterization on Monday. Await echocardiogram results Consider outpatient 14-day extended Holter monitor to screen for atrial fibrillation. No evidence of A-fib on telemetry in the hospital Objective - Vital Signs Vital signs: Vital Signs Temp 98.2 F 05/12/24 07:31 Pulse 80 05/12/24 12:47 Resp 18 05/12/24 12:47 BP 144/93 05/12/24 12:47 Pulse Ox 93 L 05/12/24 12:47 FiO2 70 05/10/24 03:31 Intake & Output 05/11/24 05/12/24 05/12/24 18:59 06:59 18:59 Intake Total 2456.061 213.939 174.668 Output Total 2180 0 Balance 276.061 213.939 174.668 Intake: Intake, IV Titration 36.061 213.939 174.668 Amount Heparin Sod,Pork in 0.45% 36.061 213.939 174.668 NaCl 25,000 unit In 0.45 % NaCl 1 250ml.bag @ 12 UNITS/KG/HR 10.08 mls/hr IV .Q24H [facility] Rx#: [id number] Oral 240 Hemodialysis 2180 Output: Urine 0 Hemodialysis 400 Hemodialysis Net Amount 1780 Other: Voiding Method Toilet Toilet Toilet # Voids 1 # Bowel Movements 1 - Labs CBC & Chem 7: 05/12/24 10:21 05/12/24 10:21 Labs: Abnormal Lab Results - Last 24 Hours (Table) 05/11/24 05/11/24 05/11/24 Range/Units 08:50 15:10 16:12 RBC 3.85 L (4.30-5.90) m/uL Hgb 9.9 L (13.0-17.5) gm/dL Hct 33.8 L (39.0-53.0) % MCHC 29.4 L (31.0-37.0) g/dL RDW 16.3 H (11.5-15.5) % Lymphocytes # 0.9 L (1.0-4.8) k/uL APTT 47.2 H (22.0-30.0) sec Sodium (137-145) mmol/L Chloride (98-107) mmol/L BUN (9-20) mg/dL Creatinine (0.66-1.25) mg/dL Glucose (74-99) mg/dL POC Glucose (mg/dL) (70-110) mg/dL Calcium (8.4-10.2) mg/dL Iron 17 L (65-175) UG/DL TIBC 143 L (228-460) UG/DL % Saturation 11.89 L (15.00-50.00) Transferrin 102.0 L (204.0-354.0) mg/dL 05/11/24 05/12/24 05/12/24 Range/Units 20:38 05:55 10:21 RBC 3.72 L (4.30-5.90) m/uL Hgb 9.6 L (13.0-17.5) gm/dL Hct 33.0 L (39.0-53.0) % MCHC 29.2 L (31.0-37.0) g/dL RDW 16.1 H (11.5-15.5) % Lymphocytes # (1.0-4.8) k/uL APTT (22.0-30.0) sec Sodium (137-145) mmol/L Chloride (98-107) mmol/L BUN (9-20) mg/dL Creatinine (0.66-1.25) mg/dL Glucose (74-99) mg/dL POC Glucose (mg/dL) 190 H 140 H (70-110) mg/dL Calcium (8.4-10.2) mg/dL Iron (65-175) UG/DL TIBC (228-460) UG/DL % Saturation (15.00-50.00) Transferrin (204.0-354.0) mg/dL 05/12/24 05/12/24 05/12/24 Range/Units 10:21 10:21 11:17 RBC (4.30-5.90) m/uL Hgb (13.0-17.5) gm/dL Hct (39.0-53.0) % MCHC (31.0-37.0) g/dL RDW (11.5-15.5) % Lymphocytes # (1.0-4.8) k/uL APTT 40.5 H (22.0-30.0) sec Sodium 133 L (137-145) mmol/L Chloride 93 L (98-107) mmol/L BUN 35 H (9-20) mg/dL Creatinine 5.37 H (0.66-1.25) mg/dL Glucose 140 H (74-99) mg/dL POC Glucose (mg/dL) 147 H (70-110) mg/dL Calcium 8.2 L (8.4-10.2) mg/dL Iron (65-175) UG/DL TIBC (228-460) UG/DL % Saturation (15.00-50.00) Transferrin (204.0-354.0) mg/dL
[2024-05-12] MEDS: METOPROLOL SUCCINATE (ER) 25 MG TAB.ER.24H PO SCH (13:59)
--- NOTE | 2024-05-12 14:47 | P.PN ---
Subjective Progress Note Date: 05/12/24 This is a 43-year-old male with history of peripheral vascular disease status post stent to left lower extremity, CVA, type 2 diabetes mellitus, end-stage renal disease with dialysis on Tuesdays, and Saturdays and GERD presented to ER with severe respiratory distress associated with shortness of breath and chest tightness. Initial lab work done in the ER shows that his white blood cell count were 12.4, hemoglobin 13.2, hematocrit 45.3, platelet 619, sodium 135, potassium 5.5, BUN 83, creatinine 9.79, magnesium 2.6, ALP 225. His troponin level initially was 0.141 but has been trending upward. Initial EKG shows that he is in A-fib with RVR with a heart rate of 149 and repeat EKG shows him being A-fib/a flutter with RVR. Patient was started on heparin and Cardizem drip. Cardiology and nephrology are on board. Echocardiogram pending. Electrolytes improved with dialysis. Plan for heart cath on Monday Patient seen and examined at bedside. No acute events overnight. Denies any chest pain. All Systems reviewed and pertinent positives and negatives noted in HPI, all o ther symptoms are negative Objective: Vital signs reviewed. General: non toxic, no distress, appears older than stated age, overweight Derm: no unusual rashes/lesions, warm, Functioning AV graft on left upper extremity Head: atraumatic, normocephalic, symmetric Eyes: EOMI, no lid lag, anicteric sclera, pupils equal round reactive to light ENT: Nose and ears atraumatic Neck: No cervical lymphadenopathy, trachea midline, supple Mouth: no lip lesion, mucus membranes moist Cardiovascular: S1S2 reg, no murmur, positive dorsalis pedis pulse bilateral, no edema Lungs: CTA bilateral, no rhonchi, no rales, no accessory muscle use Abdominal: soft, nontender to palpation, no guarding Ext: Right below-knee amputation, left foot partial amputation, left hand with amputation of the 3 phalanxes Neuro: CN II-XI grossly intact, no gross focal neuro deficits Psych: Alert, oriented, appropriate affect Data reviewed today: Labs: WBC 5.7, hemoglobin 9.6, creatinine 5.37, potassium 4.4, sodium 133, magnesium 2.2, blood sugars range between 1 40-1 90 Images: No new imaging Assessment and Plan: # Acute NSTEMI Cardiology note reviewed, on heparin drip discontinued, started on metoprolol 25 daily Aspirin 81 mg p.o. daily and Lipitor 80 mg p.o. daily Cardiac cath tomorrow Continue telemetry Echo pending #Paroxysmal atrial fibrillation/atrial flutter with variable block with rapid ventricular rate, now in sinus -Consider oral anticoagulant, cardiology following -Patient on metoprolol 25 daily TSH 1.54 #ESRD on hemodialysis #mild hyponatremia # hypermagnesemia, resolved # hyperkalemia, resolved #Hyperphosphatemia #Normocytic anemia in the setting of ESRD -Nephrology note reviewed, dialysis on Monday -No active bleeding -Continue monitor electrolytes #Acute hypoxic respiratory failure likely secondary to acute pulmonary edema, resolved #SIRS resolved #Leukocytosis, resolved #Lactic acidosis, resolved Patient currently on room air #Thrombocytosis possibly reactive, resolved #Chronic conditions: GERD: Resume Pepcid Opiate use disorder:Resume methadone Peripheral neuropathy: resume gabapentin Restless leg syndrome: resume ropinirole GI prohylaxis: Protonix 40 mg daily DVT prophylaxis: Subcu heparin F: IV normal saline at KVO E: Replete as needed with dialysis N: N.p.o. and then renal diet A: Wheelchair-bound with debility DVT ppx: Heparin SQ Code Status: Full code Anticipated discharge place: Pending clinical course Anticipated discharge date: Pending clinical course Objective - Vital Signs Vital signs: Vital Signs Temp 98.2 F 05/12/24 07:31 Pulse 80 05/12/24 14:45 Resp 18 05/12/24 14:45 BP 144/93 05/12/24 12:47 Pulse Ox 93 L 05/12/24 12:47 FiO2 70 05/10/24 03:31 Intake & Output 05/11/24 05/12/24 05/12/24 18:59 06:59 18:59 Intake Total 2456.061 213.939 174.668 Output Total 2180 0 Balance 276.061 213.939 174.668 Intake: Intake, IV Titration 36.061 213.939 174.668 Amount Heparin Sod,Pork in 0.45% 36.061 213.939 174.668 NaCl 25,000 unit In 0.45 % NaCl 1 250ml.bag @ 12 UNITS/KG/HR 10.08 mls/hr IV .Q24H [facility] Rx#: [id number] Oral 240 Hemodialysis 2180 Output: Urine 0 Hemodialysis 400 Hemodialysis Net Amount 1780 Other: Voiding Method Toilet Toilet Toilet # Voids 1 # Bowel Movements 1 - Labs CBC & Chem 7: 05/12/24 10:21 05/12/24 10:21 Labs: Abnormal Lab Results - Last 24 Hours (Table) 05/11/24 05/11/24 05/11/24 Range/Units 08:50 15:10 16:12 RBC 3.85 L (4.30-5.90) m/uL Hgb 9.9 L (13.0-17.5) gm/dL Hct 33.8 L (39.0-53.0) % MCHC 29.4 L (31.0-37.0) g/dL RDW 16.3 H (11.5-15.5) % Lymphocytes # 0.9 L (1.0-4.8) k/uL APTT 47.2 H (22.0-30.0) sec Sodium (137-145) mmol/L Chloride (98-107) mmol/L BUN (9-20) mg/dL Creatinine (0.66-1.25) mg/dL Glucose (74-99) mg/dL POC Glucose (mg/dL) (70-110) mg/dL Calcium (8.4-10.2) mg/dL Iron 17 L (65-175) UG/DL TIBC 143 L (228-460) UG/DL % Saturation 11.89 L (15.00-50.00) Transferrin 102.0 L (204.0-354.0) mg/dL 05/11/24 05/12/24 05/12/24 Range/Units 20:38 05:55 10:21 RBC 3.72 L (4.30-5.90) m/uL Hgb 9.6 L (13.0-17.5) gm/dL Hct 33.0 L (39.0-53.0) % MCHC 29.2 L (31.0-37.0) g/dL RDW 16.1 H (11.5-15.5) % Lymphocytes # (1.0-4.8) k/uL APTT (22.0-30.0) sec Sodium (137-145) mmol/L Chloride (98-107) mmol/L BUN (9-20) mg/dL Creatinine (0.66-1.25) mg/dL Glucose (74-99) mg/dL POC Glucose (mg/dL) 190 H 140 H (70-110) mg/dL Calcium (8.4-10.2) mg/dL Iron (65-175) UG/DL TIBC (228-460) UG/DL % Saturation (15.00-50.00) Transferrin (204.0-354.0) mg/dL 05/12/24 05/12/24 05/12/24 Range/Units 10:21 10:21 11:17 RBC (4.30-5.90) m/uL Hgb (13.0-17.5) gm/dL Hct (39.0-53.0) % MCHC (31.0-37.0) g/dL RDW (11.5-15.5) % Lymphocytes # (1.0-4.8) k/uL APTT 40.5 H (22.0-30.0) sec Sodium 133 L (137-145) mmol/L Chloride 93 L (98-107) mmol/L BUN 35 H (9-20) mg/dL Creatinine 5.37 H (0.66-1.25) mg/dL Glucose 140 H (74-99) mg/dL POC Glucose (mg/dL) 147 H (70-110) mg/dL Calcium 8.2 L (8.4-10.2) mg/dL Iron (65-175) UG/DL TIBC (228-460) UG/DL % Saturation (15.00-50.00) Transferrin (204.0-354.0) mg/dL
[2024-05-12 16:13] LABS: Glucose,Whole Blood 148 mg/dL (70-110)
[2024-05-12] MEDS: HEPARIN SODIUM,PORCINE 5,000 UNIT/ML 1 ML VIAL SQ SCH (17:04)
[2024-05-12 19:56] LABS: Glucose,Whole Blood 142 mg/dL (70-110)
[2024-05-12] MEDS: SODIUM CHLORIDE 0.9% 1,000 ML in EMPTY BAG 1 BAG IV SCH (23:50)
[2024-05-13 06:04] LABS: Glucose,Whole Blood 95 mg/dL (70-110)
[2024-05-13 06:52] LABS: Anisocytosis Slight; Basophils % (A) 0 %; Eosinophils # (A) 0.2 k/uL (0-0.7); Eosinophils % (A) 3 %; HCT 35.9 % (39.0-53.0); HGB 10.5 gm/dL (13.0-17.5); Hypochromasia Marked; Lymphocytes # (A) 1.6 k/uL (1.0-4.8); Lymphocytes % (A) 22 %; MCH 25.8 pg (25.0-35.0); MCHC 29.1 g/dL (31.0-37.0); MCV 88.6 fL (80.0-100.0); Mean Platelet Volume 7.1; Monocytes # (A) 0.5 k/uL (0-1.0); Monocytes % (A) 7 %; Neutrophils # (A) 4.7 k/uL (1.3-7.7); Neutrophils % (A) 65 %; Platelet Count 393 k/uL (150-450); RBC 4.05 m/uL (4.30-5.90); RDW 16.3 % (11.5-15.5); WBC 7.2 k/uL (3.8-10.6)
[2024-05-13 07:16] LABS: African American GFR (CKD) 10 (>60 ml/min/1.73 sqM); Anion Gap 14 mmol/L; Blood Urea Nitrogen 45 mg/dL (9-20); Calcium 8.5 mg/dL (8.4-10.2); Carbon Dioxide 28 mmol/L (22-30); Chloride 91 mmol/L (98-107); Glucose 98 mg/dL (74-99); Magnesium 2.3 mg/dL (1.6-2.3); Non-African American GFR(CKD) 8 (>60 ml/min/1.73 sqM); Potassium 5.2 mmol/L (3.5-5.1); Sodium 133 mmol/L (137-145)
[2024-05-13] MEDS: IV FLUID CONTINUATION 550 ML IV ONE (07:22)
[2024-05-13] MEDS: MIDAZOLAM 2 MG/2 ML VIAL IVP ONE ×3 (07:49→11:59)
[2024-05-13] MEDS: ASPIRIN 81 MG PO ONE (07:53)
[2024-05-13] MEDS: LIDOCAINE 1% INJ 10MG/ML (20 ML MDV) SQ ONE (07:59)
[2024-05-13] MEDS: fentaNYL (PF) 50 MCG/ML 2 ML AMP IVP ONE ×2 (08:01→11:59)
[2024-05-13] MEDS: VERAPAMIL SYRINGE (5 MG/10 ML) INTRAARTER ONE ×2 (08:06→12:05)
[2024-05-13] MEDS: IOPAMIDOL-370 100ML BTL INJ ONE ×2 (08:42→12:35)
[2024-05-13] MEDS: CLOPIDOGREL 75 MG TAB PO ONE (08:52)
--- NOTE | 2024-05-13 09:04 | P.CARDCATH ---
Date of Procedure: 05/13/24 Description of Procedure: DIAGNOSTIC CORONARY ANGIOGRAPHY and LEFT HEART CATH REPORT PROCEDURES PERFORMED: Left heart catheterization Selective coronary angiography Moderate conscious sedation 44 mins [Ultrasound assisted] Right radial access INDICATION: NSTEMI Patient is a 43-year-old male who is end-stage renal disease on hemodialysis, he also has bilateral above-knee amputations. He presented to the hospital because of increased shortness of breath concerns of flash pulmonary edema after missing 1 episode of hemodialysis. He also had some substernal chest pressure along with elevation of troponin which was out of proportion from his ESRD. We treated for NSTEMI and stabilized him and plan for cardiac catheterization. CONSENT: I have explained the procedural steps of above-mentioned procedures in layman's terms to the patient. I discussed the risks (including but not limited to stroke, emergent vascular or cardiac surgery or ), benefits and alternative therapies for the above-mentioned procedure. I discussed the risks of sedation/analgesia and blood product administration (if indicated). The patient has indicated understanding and acceptance of these risks. Conscious Sedation: Patient's ECG, heart rate, blood pressure, pulse oximetry were monitored throughout the duration of procedure under my direct supervision. 3 mg Versed and 50 mcg Fentanyl were used for induction of moderate conscious sedation. Total duration of moderate concious sedation 44 minutes. PROCEDURE: After explaining the risks, benefits and alternatives of the above mentioned procedures in detail to the patient, informed consent was obtained. Patient was taken to the catheterization lab, prepped and draped in usual sterile fashion using universal precuations. Ultrasound was used to identify the radial artery. 1% lidocaine was infiltrated over the right radial artery. A 6-Cypriot sheath was placed and secured in the right radial artery using modified Seldinger technique. The sheath was flushed and 5 mg verapamil was administered intra-arterially. J tipped wire was advanced under fluoroscopic guidance. Once the wire tip reached aortic root 5000 units of IV heparin was given. The wire was advanced under fluoroscopy guidance to reach the aortic root. Over the wire JR4 5 Cypriot catheter was loaded which could not engage the right coronary ostium. The catheter was used to manipulate the wire across the aortic valve. The catheter was advanced across the aortic valve into the LV to obtain the LV pressures. Pullback was performed. This catheter was exchanged for a 5 Cypriot JL 3.5 diagnostic catheter. This catheter could not engage the left coronary ostium. This catheter was exchanged for a Teo catheter. Only 6 Cypriot Teo catheter was available. This catheter was manipulated to engage the left coronary ostium. Left coronary angiogram was performed in different a ngiographic projections. This catheter was manipulated to attempt engaging right coronary ostium but because of lack of maneuverability the catheter could not exchange the right coronary ostium. This catheter was exchanged for a 5 Cypriot Marshall catheter. This catheter was manipulated to engage the right coronary ostium. Right coronary angiogram was performed. After reviewing the images, we decided to proceed with the intervention for LCx. Case was discussed with Dr. Menchaca. Catheter was removed, wire was removed. Radial sheath was placed. 2000 units of IV heparin was administered in the radial sheath. 600 mg of Plavix was given. ACT sample was obtained and it was measured at 220. Patient was explained about the cardiac findings in the further plan of intervention. Technical details Fluoroscopy time 19.5 minutes, radiation 565 mGy Total contrast used 60 mL of Isovue Blood loss, 15 mL Complications: None Catheters used, unsuccessful JR4, JL 3.5. 6 Cypriot Teo for left, 5 Cypriot Marshall for right HEMODYNAMICS: Aortic Pressure: 105/60 mmHg. LV pressure: 109/10 mmHg. LVEDP 25 mmHg. There was no significant gradient across the aortic valve. SELECTIVE CORONARY ARTERIOGRAPHY: LEFT MAIN: The left main is short vessel. It bifurcates into the LAD and circumflex. Left main appears angiographically normal. LEFT ANTERIOR DESCENDING CORONARY ARTERY: LAD is a moderate caliber vessel which wraps around to the apex. Proximal mid and distal LAD has mild diffuse calcific luminal irregularities. Gives rise to small diagonal branches which are angiographically patent. LEFT CIRCUMFLEX CORONARY ARTERY: LCx is a dominant vessel. It is a large- caliber vessel. Proximal LCx from the ostium has severely calcific 99% occlusion. LCx gives rise to a large OM1 branch and a large AV groove branch and distal OM branches. They appear to have mild luminal irregularities and are otherwise patent. LCx beyond the occlusion has MOUNA II flow. RIGHT CORONARY ARTERY: Nondominant is small vessel. IMPRESSION: 99% calcific subtotal proximal LCx stenosis with MOUNA II flow Mild diffuse calcific luminal irregularities otherwise. Nondominant RCA Very short ascending aorta PLAN: Aggressive risk factor modification per most recent ACC/AHA guidelines. 125 cc fluids for 4 hours Discharge home in 4 hours Follow-up in the office in 1-2 weeks. Performing Physician Myron Joyce MD, FACC, RPVI Thank you for allowing [facility] to participate in this patient's care. Feel free to reach out in case of any followup questions.
[2024-05-13] MEDS: diphenhydrAMINE 50 MG/ML 1 ML VIAL IVP STA (10:45)
--- NOTE | 2024-05-13 11:46 | P.PN ---
Subjective Progress Note Date: 05/13/24 This is a 43-year-old male with history of peripheral vascular disease status post stent to left lower extremity, CVA, type 2 diabetes mellitus, end-stage renal disease with dialysis on Tuesdays, and Saturdays and GERD presented to ER with severe respiratory distress associated with shortness of breath and chest tightness. Initial lab work done in the ER shows that his white blood cell count were 12.4, hemoglobin 13.2, hematocrit 45.3, platelet 619, sodium 135, potassium 5.5, BUN 83, creatinine 9.79, magnesium 2.6, ALP 225. His troponin level initially was 0.141 but has been trending upward. Initial EKG shows that he is in A-fib with RVR with a heart rate of 149 and repeat EKG shows him being A-fib/a flutter with RVR. Patient was started on heparin and Cardizem drip. Cardiology and nephrology are on board. Echocardiogram pending. Electrolytes improved with dialysis. Left heart cath on 05/13/2024 shows 99% left circumflex occlusion with a plan for PCI today. Patient seen and examined at bedside. No acute events overnight. Denies any chest pain. All Systems reviewed and pertinent positives and negatives noted in HPI, all other symptoms are negative Objective: Vital signs reviewed. General: non toxic, no distress, appears older than stated age, overweight Derm: no unusual rashes/lesions, warm, Functioning AV graft on left upper extremity Head: atraumatic, normocephalic, symmetric Eyes: EOMI, no lid lag, anicteric sclera, pupils equal round reactive to light ENT: Nose and ears atraumatic Neck: No cervical lymphadenopathy, trachea midline, supple Mouth: no lip lesion, mucus membranes moist Cardiovascular: S1S2 reg, no murmur, positive dorsalis pedis pulse bilateral, no edema Lungs: CTA bilateral, no rhonchi, no rales, no accessory muscle use Abdominal: soft, nontender to palpation, no guarding Ext: Right below-knee amputation, left foot partial amputation, left hand with amputation of the 3 phalanxes Neuro: CN II-XI grossly intact, no gross focal neuro deficits Psych: Alert, oriented, appropriate affect Data reviewed today: Labs: WBC 7.2, hemoglobin 10.5, platelet count 393, sodium 133, potassium 4.2, chloride 91, bicarb 28, BUN 45, creatinine 7.4, glucose 95, calcium 8.5, magnesium 2.3 Images: No new imaging Assessment and Plan: #Acute NSTEMI Cardiology note reviewed, left heart catheterization shows 99% left circumflex occlusion with intervention this afternoon Continue with metoprolol 25 mg p.o. daily Aspirin 81 mg p.o. daily and Lipitor 80 mg p.o. daily Continue telemetry Echocardiogram pending #Paroxysmal atrial fibrillation/atrial flutter with variable block with rapid ventricular rate, now in sinus -Consider oral anticoagulant, cardiology following -Patient on metoprolol 25 daily TSH 1.54 #ESRD on hemodialysis #mild hyponatremia # hypermagnesemia, resolved # hyperkalemia, resolved #Hyperphosphatemia #Normocytic anemia in the setting of ESRD -Nephrology note reviewed, dialysis on Monday -No active bleeding -Continue monitor electrolytes #Acute hypoxic respiratory failure likely secondary to acute pulmonary edema, resolved #SIRS resolved #Leukocytosis, resolved #Lactic acidosis, resolved Patient currently on room air #Thrombocytosis possibly reactive, resolved #Chronic conditions: GERD: Resume Pepcid Opiate use disorder:Resume methadone Peripheral neuropathy: resume gabapentin Restless leg syndrome: resume ropinirole GI prohylaxis: Protonix 40 mg daily DVT prophylaxis: Subcu heparin F: P.o. E: Replete as needed with dialysis N: N.p.o. and then renal diet A: Wheelchair-bound with debility DVT ppx: Heparin SQ Code Status: Full code Anticipated discharge place: Pending clinical course Anticipated discharge date: Pending clinical course I have seen and evaluated the patient today. Discussed with the resident and agree with the residents finding and plan as documented in the resident's note. Changes highlighted in blue font. Objective - Vital Signs Vital signs: Vital Signs Temp 97.5 F L 05/13/24 04:07 Pulse 61 05/13/24 04:07 Resp 16 05/13/24 04:07 BP 117/75 05/13/24 04:07 Pulse Ox 99 05/13/24 04:07 FiO2 70 05/10/24 03:31 Intake & Output 05/12/24 05/13/24 05/13/24 18:59 06:59 18:59 Intake Total 414.668 20 200 Balance 414.668 20 200 Intake: IV 20 200 Invasive Line 1 10 Invasive Line 2 10 Intake, IV Titration 174.668 Amount Heparin Sod,Pork in 0.45% 174.668 NaCl 25,000 unit In 0.45 % NaCl 1 250ml.bag @ 12 UNITS/KG/HR 10.08 mls/hr IV .Q[facility]H [facility] Rx#: [id number] Oral 240 Other: Voiding Method Toilet Toilet - Labs CBC & Chem 7: 05/13/24 06:39 05/13/24 06:36 Labs: Abnormal Lab Results - Last 24 Hours (Table) 05/12/24 05/12/24 05/13/24 Range/Units 16:05 19:55 06:36 RBC (4.30-5.90) m/uL Hgb (13.0-17.5) gm/dL Hct (39.0-53.0) % MCHC (31.0-37.0) g/dL RDW (11.5-15.5) % Sodium 133 L (137-145) mmol/L Potassium 5.2 H (3.5-5.1) mmol/L Chloride 91 L (98-107) mmol/L BUN 45 H (9-20) mg/dL Creatinine 7.24 H* (0.66-1.25) mg/dL POC Glucose (mg/dL) 148 H 142 H (70-110) mg/dL 05/13/24 Range/Units 06:39 RBC 4.05 L (4.30-5.90) m/uL Hgb 10.5 L (13.0-17.5) gm/dL Hct 35.9 L (39.0-53.0) % MCHC 29.1 L (31.0-37.0) g/dL RDW 16.3 H (11.5-15.5) % Sodium (137-145) mmol/L Potassium (3.5-5.1) mmol/L Chloride (98-107) mmol/L BUN (9-20) mg/dL Creatinine (0.66-1.25) mg/dL POC Glucose (mg/dL) (70-110) mg/dL
[2024-05-13 11:54] LABS: Glucose,Whole Blood 79 mg/dL (70-110)
[2024-05-13] MEDS: HEPARIN SODIUM 1,000 UN/ML (10ML VL) IVP ONE ×2 (11:56→12:47)
[2024-05-13] MEDS: IV FLUID CONTINUATION 1,000 ML IV ONE (12:05)
[2024-05-13 12:38] LABS: Glucose,Whole Blood 90 mg/dL (70-110)
[2024-05-13] MEDS: HEPARIN SODIUM,PORCINE 10,000 UNIT in SODIUM CHLORIDE 0.9% 1,000 ML IRRIGATION PRN (12:43)
[2024-05-13] MEDS: HEPARIN SODIUM,PORCINE (1 ML) 2,500 UNIT in SODIUM CHLORIDE 0.9% 250 ML IRRIGATION PRN (12:43)
[2024-05-13] MEDS ORDERED: MAG HYDROX/AL HYDROX/SIMETH 30 ML CUP PO PRN (13:17)
[2024-05-13] MEDS ORDERED: RX INFO: IV CONTRAST WAS GIVEN 1 EACH MISC MISCELLANE PRN (13:17)
[2024-05-13] MEDS ORDERED: ZOLPIDEM 5 MG TAB PO PRN (13:17)
[2024-05-13] MEDS ORDERED: ATROPINE SULFATE 0.1 MG/ML 10ML SYRINGE IV PRN (13:17)
--- NOTE | 2024-05-13 13:50 | P.PRCINT ---
Percutaneous Coronary Int. - Percutaneous Coronary Intervention Percutaneous Coronary Intervention: PROCEDURES PERFORMED: Left coronary angiography, shockwave lithotripsy of the proximal circumflex with a 3.0mm balloon, PCI of proximal circumflex with a 3.25 x 15mm Xience LAZARO, post dilated with a 3.25mm NC balloon, IVUS circumflex INDICATION: NSTEMI CONSENT:I have discussed the risks, benefits and alternative therapies for the above-mentioned procedure and for both sedation/analgesia as well as necessary blood product administration, if indicated, as they pertain to this patient. The patient has indicated understanding and acceptance of the risks and procedures discussed. PROCEDURE: After the risks, benefits and alternatives of the above mentioned procedure explained in detail with the patient, informed consent was obtained. Patient was taken to the catheterization lab and prepped and draped in usual fashion. A 6-Upper Sorbian sheath had been placed in the right radial artery. the decision was made to perform PCI of the circumflex. Heparin was given. A 6-Upper Sorbian CLS 3.0 guide was used to engage the left main. There was somewhat of a short aorta however able to gauge properly. A 0.014 BMW wire was advanced in the distal circumflex. Predilation was performed with a 2.5 x 12 mm balloon. Intravascular ultrasound was performed which showed reference vessel 3.25 mm with diffuse calcification throughout the entire artery. Therefore decision was made to perform lithotripsy. Shock wave lithotripsy was performed with a 3.0 x 12 mm balloon. Next a 3.25 x 15 mm Xience drug-eluting stent was placed at the proximal circumflex. Repeat intravascular ultrasound showed some underexpansion the proximal segment. Therefore the stent was postdilated with a 3.25 mm noncompliant balloon.final angiograms were performed. Pre-intervention there was 99% stenosis and MOUNA 2 flow postintervention there was less than 10% stenosis and MOUNA-3 flow. The right radial sheath was removed and a TR band was placed with hemostasis achieved. The patient tolerated the procedure well. Patient was transported back to the post catheterization holding area in stable condition. Conscious Sedation: Patient was monitored under the direct supervision of myself for conscious sedation using Versed and fentanyl for a total duration of 33 minutes HEMODYNAMICS: aorta: 118/78 SELECTIVE CORONARY ARTERIOGRAPHY: LEFT MAIN: The left main is a large caliber vessel which bifurcates into the LAD and circumflex. There is mild 10-20% stenosis. LEFT ANTERIOR DESCENDING CORONARY ARTERY: LAD is a large caliber vessel which wraps around to the apex. There is diffuse 20-30% proximal and mid LAD calcified stenosis LEFT CIRCUMFLEX CORONARY ARTERY: Left circumflex is a moderate to large caliber vessel witha proximal 99% stenosis. There is other diffuse 30-40% mid and distal circumflex stenosis. RIGHT CORONARY ARTERY: The right coronary artery was not imaged, see separate report FINAL IMPRESSION: 1. CAD as described above including 20-30% LAD and 99% proximal circumflex stenosis 2. S/p PCI of proximal circumflex with a 3.25 x 15mm Xience LAZARO, post dilated with a 3.25mm NC balloon PLAN: 1. Aggressive risk factor modification per most recent ACC/AHA guidelines. 2. Continue dual antiplatelets with aspirin and Plavix for 12 months. Goal LDL < 70.
[2024-05-13 16:32] LABS: Glucose,Whole Blood 192 mg/dL (70-110)
[2024-05-13] MEDS: SODIUM CHLORIDE 0.9% 1,000 ML in EMPTY BAG 1 BAG IV SCH (18:22)
[2024-05-13 19:58] LABS: Glucose,Whole Blood 130 mg/dL (70-110)
[2024-05-14 06:10] LABS: Glucose,Whole Blood 121 mg/dL (70-110)
[2024-05-14 07:55] LABS: African American GFR (CKD) 8 (>60 ml/min/1.73 sqM); Anion Gap 10 mmol/L; Blood Urea Nitrogen 59 mg/dL (9-20); Calcium 8.4 mg/dL (8.4-10.2); Carbon Dioxide 32 mmol/L (22-30); Chloride 89 mmol/L (98-107); Glucose 98 mg/dL (74-99); Magnesium 2.6 mg/dL (1.6-2.3); Non-African American GFR(CKD) 7 (>60 ml/min/1.73 sqM); Sodium 131 mmol/L (137-145)
[2024-05-14 07:58] LABS: Anisocytosis Slight; Basophils # (A) 0.1 k/uL (0-0.2); Basophils % (A) 1 %; Eosinophils # (A) 0.3 k/uL (0-0.7); Eosinophils % (A) 5 %; HCT 31.9 % (39.0-53.0); HGB 9.4 gm/dL (13.0-17.5); Hypochromasia Marked; Lymphocytes # (A) 1.2 k/uL (1.0-4.8); Lymphocytes % (A) 22 %; MCH 26.3 pg (25.0-35.0); MCHC 29.6 g/dL (31.0-37.0); MCV 88.9 fL (80.0-100.0); Mean Platelet Volume 7.7; Monocytes # (A) 0.5 k/uL (0-1.0); Monocytes % (A) 9 %; Neutrophils # (A) 3.3 k/uL (1.3-7.7); Neutrophils % (A) 61 %; Platelet Count 352 k/uL (150-450); RBC 3.58 m/uL (4.30-5.90); RDW 16.3 % (11.5-15.5); WBC 5.5 k/uL (3.8-10.6)
[2024-05-14 08:36] VITALS: TEMP 97.9
[2024-05-14] MEDS: CLOPIDOGREL 75 MG TAB PO SCH (08:43)
--- NOTE | 2024-05-14 09:22 | CA ---
Transthoracic Echo Report Name: Reece Li Age: 43 Gender: M : 1980 Exam Date: 05/10/2024 09:03 Exam Location: [facility] Ht (in): 69 Wt (lb): 185 Ordering Physician: Gian Sheikh MD Attending/Referring Phys: Hardware Designer Sil Perez RDCS Procedure CPT: Indications: afib w rvr, nstemi Cardiac Hx: limited study Technical Quality: Fair Contrast 1: Total Dose (mL): Contrast 2: Total Dose (mL): MEASUREMENTS (Male / Female) Normal Values 2D ECHO RV Internal Dim ED PLAX 3.1 cm LVOT Diameter 2.1 cm LV Diastolic Volume MOD 4C 113.8 cm??? LV Systolic Volume MOD 4C 53.9 cm??? LV Ejection Fraction MOD 4C 52.6 % LV Cardiac Index MOD 4C 2498.1 cm???/min???m??? LV Diastolic Length 4C 8.1 cm LV Systolic Length 4C 6.8 cm LV Diastolic Volume MOD 2C 106.0 cm??? LV Systolic Volume MOD 2C 32.1 cm??? LV Ejection Fraction MOD 2C 69.7 % LV Cardiac Index MOD 2C 3080.7 cm???/min???m??? LV Diastolic Length 2C 8.4 cm LV Systolic Length 2C 7.4 cm DOPPLER AV Peak Velocity 235.9 cm/s AV Peak Gradient 22.3 mmHg AV Mean Velocity 138.3 cm/s AV Mean Gradient 9.8 mmHg AV Velocity Time Integral 37.0 cm TR Peak Velocity 241.9 cm/s TR Peak Gradient 23.4 mmHg Right Ventricular Systolic Press 35.0 mmHg FINDINGS Left Ventricle Left ventricular ejection fraction is estimated at 55-60 %. No obvious regional wall motion abnormalities. Right Ventricle Normal right ventricular size and function. Mild pulmonary hypertension. Right Atrium Normal right atrial size. No right atrial thrombus or mass seen. Left Atrium Mitral Valve Mitral valve thickened. Mild mitral annular calcification. Trace to mild mitral regurgitation. Aortic Valve Trileaflet aortic valve. Aortic valve sclerosis. Mild aortic stenosis with a peak gradient of 22 mmHg and a mean gradient of 10 mmHg. Tricuspid Valve Structurally normal tricuspid valve. Mild tricuspid regurgitation. Pulmonic Valve Pericardium No pericardial or pleural effusion. Aorta Normal size aortic root and proximal ascending aorta. CONCLUSIONS Normal LV function Mild aortic stenosis Previewed by: Dr. Esteban Duarte MD (Electronically Signed) Final Date: 10 May 2024 12:07
--- NOTE | 2024-05-14 11:01 | P.DS ---
Providers Date of admission: 05/09/24 22:38 Expected date of discharge: 05/14/24 Attending physician: Ace Bose MD Consults: 05/09/24 22:10 Consult Physician Routine Consulting Provider: Sharad Solorio Consult Reason/Comments: CKD Do you want consulting provider notified?: Yes Consult Physician Routine Consulting Provider: Edy Duval Consult Reason/Comments: chf Do you want consulting provider notified?: Yes 05/13/24 13:17 Consult Physician Routine Consulting Provider: [facility] Consult Reason/Comments: Post Interventional Patient Do you want consulting provider notified?: Already Contacted Primary care physician: [facility] Hospital Course: Discharge Diagnosis: #Acute NSTEMI status post stent to left circumflex artery on 05/13/2024 #Paroxysmal atrial fibrillation/atrial flutter with variable block with rapid ventricular rate, now in sinus #ESRD on hemodialysis #mild hyponatremia #hypermagnesemia #hyperkalemia #Hyperphosphatemia #Normocytic anemia in the setting of ESRD #Acute hypoxic respiratory failure likely secondary to acute pulmonary edema #SIRS #Leukocytosis #Lactic acidosis #Thrombocytosis possibly reactive Hospital Course: This is a 43-year-old male with history of peripheral vascular disease status post stent to left lower extremity, CVA, type 2 diabetes mellitus, end-stage renal disease with dialysis on Tuesdays, and Saturdays and GERD presented to ER with severe respiratory distress associated with shortness of breath and chest tightness. Initial lab work done in the ER shows that his white blood cell count were 12.4, hemoglobin 13.2, hematocrit 45.3, platelet 619, sodium 135, potassium 5.5, BUN 83, creatinine 9.79, magnesium 2.6, ALP 225. His troponin level initially was 0.141 but has been trending upward. Initial EKG shows that he is in A-fib with RVR with a heart rate of 149 and repeat EKG shows him being A-fib/a flutter with RVR. Patient was started on heparin and Cardizem drip. Cardiology and nephrology are on board. Echocardiogram shows LVEF of 55 to 60% with no LV wall motion abnormality. Left heart cath with stent to left circumflex artery on 05/13/2024. Dialysis sessions on 05/10/2024 and 05/14/2024 improved his electrolyte derangement. Patient is hemodynamically stable and optimized for discharge. Patient to be discharged on aspirin 81 mg p.o. daily, Plavix 75 mg p.o. daily, Eliquis 2.5 mg p.o. twice daily, atorvastatin 80 mg p.o. at bedtime and metoprolol succinate 25 mg p.o. daily. Advised to continue with his regular home medications as directed. Discharge instruction: Patient has been instructed to discontinue aspirin after 1 week and continue with Plavix 75 mg p.o. daily and Eliquis 2.5 mg p.o. twice daily. Patient is advised to see PCP and cardiology. Patient is provided with instructions on heart diet, CAD, dialysis diet, ESRD Vital signs reviewed. General: non toxic, no distress, appears older than stated age, overweight Derm: no unusual rashes/lesions, warm, Functioning AV graft on left upper extremity Head: atraumatic, normocephalic, symmetric Eyes: EOMI, no lid lag, anicteric sclera, pupils equal round reactive to light ENT: Nose and ears atraumatic Neck: No cervical lymphadenopathy, trachea midline, supple Mouth: no lip lesion, mucus membranes moist Cardiovascular: S1S2 reg, no murmur, positive dorsalis pedis pulse bilateral, no edema Lungs: CTA bilateral, no rhonchi, no rales, no accessory muscle use Abdominal: soft, nontender to palpation, no guarding Ext: Right below-knee amputation, left foot partial amputation, left hand with amputation of the 3 phalanxes Neuro: CN II-XI grossly intact, no gross focal neuro deficits Psych: Alert, oriented, appropriate affect A total of 33 minutes of time were spent preparing this complex discharge summary. Patient was discharged on 05/14/2024 at 1024. I have seen and evaluated the patient today. Discussed with the resident and agree with the residents finding and plan as documented in the resident's note. Changes highlighted in blue font. Patient Condition at Discharge: Stable Plan - Discharge Summary Discharge Rx Participant: Yes New Discharge Prescriptions: New Atorvastatin [Lipitor] 80 mg PO HS #60 tab Metoprolol Succinate (ER) [Toprol XL] 25 mg PO DAILY #60 tab Aspirin 81 mg PO DAILY #7 tab Apixaban [Eliquis] 2.5 mg PO BID #120 tab Continue Methadone [Dolophine] 10 mg PO TID rOPINIRole HCL [Requip] 5 mg PO DAILY Pantoprazole [Protonix] 40 mg PO DAILY Gabapentin [Neurontin] 100 mg PO BID Famotidine [Pepcid] 20 mg PO BID diphenhydrAMINE HCL [Benadryl] 50 mg PO BID Acetaminophen [Tylenol] 650 mg PO Q4H PRN PRN Reason: Pain Clopidogrel [Plavix] 75 mg PO DAILY rOPINIRole HCL [Requip] 10 mg PO HS Sevelamer [Renvela] 1,600 - 6,400 mg PO TID-W/MEALS Lanthanum Carbonate [Lanthanum Carbonate Chewable] 2,000 mg PO TID-W/MEALS Folic Acid/Vit B Complex and C [Alyssa-Reilly Tablet] 0.8 mg PO DAILY Atropine Sulfate/Pf [Atropine 1% Eye Drops] 1 drop RIGHT EYE DAILY Discharge Medication List Methadone [Dolophine] 10 mg PO TID 02/29/16 [History] Gabapentin [Neurontin] 100 mg PO BID 09/13/22 [History] Pantoprazole [Protonix] 40 mg PO DAILY 09/13/22 [History] Sevelamer [Renvela] 1,600 - 6,400 mg PO TID-W/MEALS 09/13/22 [History] rOPINIRole HCL [Requip] 5 mg PO DAILY 09/13/22 [History] rOPINIRole HCL [Requip] 10 mg PO HS 09/13/22 [History] Famotidine [Pepcid] 20 mg PO BID 05/21/23 [History] Acetaminophen [Tylenol] 650 mg PO Q4H PRN 05/10/24 [History] Atropine Sulfate/Pf [Atropine 1% Eye Drops] 1 drop RIGHT EYE DAILY 05/10/24 [History] Clopidogrel [Plavix] 75 mg PO DAILY 05/10/24 [History] Folic Acid/Vit B Complex and C [Alyssa-Reilly Tablet] 0.8 mg PO DAILY 05/10/24 [History] Lanthanum Carbonate [Lanthanum Carbonate Chewable] 2,000 mg PO TID-W/MEALS 05/10/24 [History] diphenhydrAMINE HCL [Benadryl] 50 mg PO BID 05/10/24 [History] Apixaban [Eliquis] 2.5 mg PO BID #120 tab 05/14/24 [Rx] Aspirin 81 mg PO DAILY #7 tab 05/14/24 [Rx] Atorvastatin [Lipitor] 80 mg PO HS #60 tab 05/14/24 [Rx] Metoprolol Succinate (ER) [Toprol XL] 25 mg PO DAILY #60 tab 05/14/24 [Rx] Follow up Appointment(s)/Referral(s): Virgilio Gunderson MD [STAFF PHYSICIAN] - 05/22/24 10:30 am Yash Watson MD [Primary Care Provider] - 1-2 days Patient Instructions/Handouts: Heart Attack (DC), Coronary Artery Disease (DC), Dialysis Diet (DC), End Stage Kidney Disease (DC), After Radial Heart Catheterization (GEN) Activity/Diet/Wound Care/Special Instructions: Please take aspirin only for the next 7 days, and continue taking plavix and eliquis throughout. You will need to see your PCP and cardiology. Discharge Disposition: HOME SELF-CARE
[2024-05-14 11:48] LABS: Glucose,Whole Blood 103 mg/dL (70-110)
[2024-05-14 12:08] VITALS: PULSE 62
--- NOTE | 2024-05-14 12:27 | P.PN ---
Subjective patient is seen for follow-up for end-stage renal disease. Seen on hemodialysis today. Tolerating treatment well. Objective - Vital Signs Vital signs: Vital Signs Temp 97.9 F 05/14/24 08:34 Pulse 62 05/14/24 12:08 Resp 20 05/14/24 12:08 BP 104/57 05/14/24 12:08 Pulse Ox 97 05/14/24 12:08 FiO2 70 05/10/24 03:31 Intake & Output 05/13/24 05/14/24 05/14/24 18:59 06:59 18:59 Intake Total 536 1650 118 Output Total 0 Balance 536 1650 118 Weight 73.6 kg Intake: IV 300 10 Invasive Line 5 10 Oral 236 1640 118 Output: Urine 0 Other: Voiding Method Toilet Toilet Toilet - Exam patient is awake, comfortable, no acute distress Examination shows no evidence of edema in the lower extremities, right BKA Alert oriented 3 SURGICAL TRAINING SPECIALIST exam grossly intact - Labs CBC & Chem 7: 05/14/24 06:18 05/14/24 06:18 Labs: Abnormal Lab Results - Last 24 Hours (Table) 05/13/24 05/13/24 05/14/24 Range/Units 16:21 19:57 06:09 RBC (4.30-5.90) m/uL Hgb (13.0-17.5) gm/dL Hct (39.0-53.0) % MCHC (31.0-37.0) g/dL RDW (11.5-15.5) % Sodium (137-145) mmol/L Potassium (3.5-5.1) mmol/L Chloride (98-107) mmol/L Carbon Dioxide (22-30) mmol/L BUN (9-20) mg/dL Creatinine (0.66-1.25) mg/dL POC Glucose (mg/dL) 192 H 130 H 121 H (70-110) mg/dL Magnesium (1.6-2.3) mg/dL 05/14/24 05/14/24 Range/Units 06:18 06:18 RBC 3.58 L (4.30-5.90) m/uL Hgb 9.4 L (13.0-17.5) gm/dL Hct 31.9 L (39.0-53.0) % MCHC 29.6 L (31.0-37.0) g/dL RDW 16.3 H (11.5-15.5) % Sodium 131 L (137-145) mmol/L Potassium 6.0 H (3.5-5.1) mmol/L Chloride 89 L (98-107) mmol/L Carbon Dioxide 32 H (22-30) mmol/L BUN 59 H (9-20) mg/dL Creatinine 8.55 H* (0.66-1.25) mg/dL POC Glucose (mg/dL) (70-110) mg/dL Magnesium 2.6 H (1.6-2.3) mg/dL Assessment and Plan Assessment: 1. End-stage renal disease maintained on hemodialysis on Monday schedule via left upper extremity AV graft. 2. Hyperkalemia secondary to missed dialysis yesterday and chronic kidney disease. Improved postdialysis. 3. Volume overload. Improved with UF. 4. Acute hypoxic respiratory failure. Now on room air. 5. Chronic kidney disease mineral bone disease. Phosphorus level 10.4. Renvela resumed. 6. Peripheral vascular disease with left lower extremity stenting. 7. Status post right BKA. 8. Elevated troponins. Concern for acute coronary syndrome. status post cardiac catheterization and angioplasty. Plan: okay for discharge post dialysis
--- NOTE | 2024-05-14 12:33 | P.PN ---
Subjective HISTORY OF PRESENT ILLNESS: Patient underwent cardiac catheterization yesterday with Dr. Joyce revealing 20 to 30% LAD stenosis and 99% proximal circumflex stenosis. He underwent stenting of the proximal circumflex with Dr. Menchaca. Patient examined this morning at the bedside. He denies any chest pain or pressure. He denies any shortness of breath. He states that he has increased energy today. Vital signs are stable. Limited echocardiogram completed reveals ejection fraction 55 to 60%, mild pulmonary hypertension, trace to mild MR, mild aortic stenosis, and mild tricuspid regurgitation. PHYSICAL EXAM: VITAL SIGNS: Reviewed. GENERAL: Well-developed in no acute distress. NECK: Supple. No JVD or thyromegaly LUNGS: Respirations even and unlabored. Lungs essentially clear to auscultation bilaterally. HEART: Regular rate and rhythm. S1 and S2 heard. EXTREMITIES: Normal range of motion. No clubbing or cyanosis. Right BKA ASSESSMENT: Non-STEMI, status post cardiac catheterization with stenting to the proximal circumflex End-stage renal disease on hemodialysis Acute hypoxic respiratory failure secondary to flash pulmonary edema from missed dialysis treatment New onset paroxysmal atrial fibrillation, currently maintaining sinus mechanism Peripheral vascular disease History of right BKA PLAN: Add Eliquis 2.5 mg twice a day. Continue aspirin and Plavix. After 1 week, discontinue aspirin and then continue with just Eliquis and Plavix. Continue high intensity statin. LDL goal less than 70 Continue additional cardiac medications Will consider placing event monitor at follow-up appointment [facility] Patient is stable for discharge today from a cardiac standpoint Nurse practitioner note has been reviewed by physician. Signing provider agrees with the documented findings, assessment, and plan of care documented by EXPANDING MACHINE OPERATOR as a scribe. Objective - Vital Signs Vital signs: Vital Signs Temp 97.9 F 05/14/24 08:34 Pulse 63 05/14/24 08:34 Resp 18 05/14/24 08:34 BP 150/85 05/14/24 08:34 Pulse Ox 97 05/14/24 08:34 FiO2 70 05/10/24 03:31 Intake & Output 05/13/24 05/14/24 05/14/24 18:59 06:59 18:59 Intake Total 536 1650 118 Output Total 0 Balance 536 1650 118 Weight 73.6 kg Intake: IV 300 10 Invasive Line 5 10 Oral 236 1640 118 Output: Urine 0 Other: Voiding Method Toilet Toilet Toilet - Labs CBC & Chem 7: 05/14/24 06:18 05/14/24 06:18 Labs: Abnormal Lab Results - Last 24 Hours (Table) 05/13/24 05/13/24 05/14/24 Range/Units 16:21 19:57 06:09 RBC (4.30-5.90) m/uL Hgb (13.0-17.5) gm/dL Hct (39.0-53.0) % MCHC (31.0-37.0) g/dL RDW (11.5-15.5) % Sodium (137-145) mmol/L Potassium (3.5-5.1) mmol/L Chloride (98-107) mmol/L Carbon Dioxide (22-30) mmol/L BUN (9-20) mg/dL Creatinine (0.66-1.25) mg/dL POC Glucose (mg/dL) 192 H 130 H 121 H (70-110) mg/dL Magnesium (1.6-2.3) mg/dL 05/14/24 05/14/24 Range/Units 06:18 06:18 RBC 3.58 L (4.30-5.90) m/uL Hgb 9.4 L (13.0-17.5) gm/dL Hct 31.9 L (39.0-53.0) % MCHC 29.6 L (31.0-37.0) g/dL RDW 16.3 H (11.5-15.5) % Sodium 131 L (137-145) mmol/L Potassium 6.0 H (3.5-5.1) mmol/L Chloride 89 L (98-107) mmol/L Carbon Dioxide 32 H (22-30) mmol/L BUN 59 H (9-20) mg/dL Creatinine 8.55 H* (0.66-1.25) mg/dL POC Glucose (mg/dL) (70-110) mg/dL Magnesium 2.6 H (1.6-2.3) mg/dL
[2024-05-14 12:42] VITALS: BP 108/55; RESP 16
[2024-05-14] MEDS: APIXABAN 2.5 MG TABLET PO SCH (12:53)
[2024-05-14 14:11] VITALS: BMI 23.9
== END 2024-05-14 14:34 | disposition home or self-care (01) | DRG 323 ==
LOC: EC 21:31 → 3SCARD 22:38
PROVIDERS: ADMIT Internal Medicine; ATTEND Internal Medicine
PROC: 4A023N7 Measurement of Cardiac Sampling and Pressure, Left Heart, Percutaneous Approach (ICD-10-PCS; 2024-05-13)
PROC: B2111ZZ Fluoroscopy of Multiple Coronary Arteries using Low Osmolar Contrast (ICD-10-PCS; 2024-05-13)
PROC: B2151ZZ Fluoroscopy of Left Heart using Low Osmolar Contrast (ICD-10-PCS; 2024-05-13)
PROC: 027034Z Dilation of Coronary Artery, One Artery with Drug-eluting Intraluminal Device, Percutaneous Approach (ICD-10-PCS; principal; 2024-05-13 08:15)
PROC: 02F03ZZ Fragmentation in Coronary Artery, One Artery, Percutaneous Approach (ICD-10-PCS; 2024-05-13 12:00)
PROC: B240ZZ3 Ultrasonography of Single Coronary Artery, Intravascular (ICD-10-PCS; 2024-05-13 12:00)
DX: I21.4 Non-ST elevation (NSTEMI) myocardial infarction (principal); J96.01 Acute respiratory failure with hypoxia; N18.6 End stage renal disease; E87.1 Hypo-osmolality and hyponatremia; E87.20 Acidosis, unspecified; I16.1 Hypertensive emergency; I48.92 Unspecified atrial flutter; R65.10 Systemic inflammatory response syndrome (SIRS) of non-infectious origin without acute organ dysfunction; D63.1 Anemia in chronic kidney disease; E11.22 Type 2 diabetes mellitus with diabetic chronic kidney disease; I25.10 Atherosclerotic heart disease of native coronary artery without angina pectoris; E78.5 Hyperlipidemia, unspecified; K21.9 Gastro-esophageal reflux disease without esophagitis; E11.42 Type 2 diabetes mellitus with diabetic polyneuropathy; I48.0 Paroxysmal atrial fibrillation; D75.839 Thrombocytosis, unspecified; E83.41 Hypermagnesemia; E83.39 Other disorders of phosphorus metabolism; E11.51 Type 2 diabetes mellitus with diabetic peripheral angiopathy without gangrene; F11.10 Opioid abuse, uncomplicated; E87.5 Hyperkalemia; F41.9 Anxiety disorder, unspecified; G25.81 Restless legs syndrome; H54.8 Legal blindness, as defined in USA; M89.8X9 Other specified disorders of bone, unspecified site; Z89.022 Acquired absence of left finger(s); Z89.422 Acquired absence of other left toe(s); Z79.01 Long term (current) use of anticoagulants; Z79.02 Long term (current) use of antithrombotics/antiplatelets; Z79.82 Long term (current) use of aspirin; Z79.899 Other long term (current) drug therapy; Z82.49 Family history of ischemic heart disease and other diseases of the circulatory system; Z86.73 Personal history of transient ischemic attack (TIA), and cerebral infarction without residual deficits; Z87.891 Personal history of nicotine dependence; Z89.611 Acquired absence of right leg above knee; Z89.612 Acquired absence of left leg above knee; Z95.820 Peripheral vascular angioplasty status with implants and grafts; Z99.2 Dependence on renal dialysis; Z99.3 Dependence on wheelchair
CPT/HCPCS: 36415; 71045; 80048; 80053; 80061; 82728; 83036; 83540; 83550; 83605; 83735; 83880; 84100; 84132; 84145; 84443; 84484; 85025; 85379; 85610; 85730; 87636; 90935; 92972; 92978; 93005; 93308; 93458; 94640; 94660; 94760; 96361; 96365; 96366; 96368; 96375; 96376; 99291

== ENCOUNTER 2024-05-29 01:47 | Observation (INO) | payer MEDICARE, OTHER ==
[2024-05-29] MEDS: NITROGLYCERIN SL TABS 0.4 MG TAB SUBLINGUAL STA (01:52)
--- NOTE | 2024-05-29 02:04 | ED ---
General Adult HPI - General Chief complaint: Shortness of Breath Stated complaint: Difficulty Breathing Time Seen by Provider: 05/29/24 01:59 Source: patient, EMS Mode of arrival: EMS Limitations: no limitations - History of Present Illness Initial comments: Patient is a 43-year-old M with a past medical history of end-stage renal disease on dialysis typically Monday, , Monday, CAD status post stenting approximately 2 weeks ago, presenting today for shortness of breath. Sudden onset. History limited by acuity of condition. Patient was at home this evening when he had sudden onset difficulty in breathing. Per EMS report patient was pale and sweaty on their arrival, they did not obtain a pulse ox on room air but immediately placed him on CPAP. On CPAP after approximately 2 to 3 minutes his pulse ox was 70% and came up to 89% and route to the ED. The patient denies any chest pain. Is currently taking Plavix and Eliquis. States that his last round of dialysis was this past Monday but left an hour early. He is due for dialysis today. Has not had dialysis since Monday. - Related Data Home Medications Medication Instructions Recorded Confirmed Methadone [Dolophine] 10 mg PO TID 02/29/16 05/29/24 Gabapentin [Neurontin] 100 mg PO BID 09/13/22 05/29/24 Pantoprazole [Protonix] 40 mg PO DAILY 09/13/22 05/29/24 Sevelamer [Renvela] 1,600 - 6,400 mg PO TID-W/MEALS 09/13/22 05/29/24 rOPINIRole HCL [Requip] 5 mg PO DAILY 09/13/22 05/29/24 rOPINIRole HCL [Requip] 10 mg PO HS 09/13/22 05/29/24 Famotidine [Pepcid] 20 mg PO BID 05/21/23 05/29/24 Acetaminophen [Tylenol] 650 mg PO Q4H PRN 05/10/24 05/29/24 Atropine Sulfate/Pf [Atropine 1% 1 drop RIGHT EYE DAILY 05/10/24 05/29/24 Eye Drops] Clopidogrel [Plavix] 75 mg PO DAILY 05/10/24 05/29/24 Folic Acid/Vit B Complex and C 0.8 mg PO DAILY 05/10/24 05/29/24 [Alyssa-Reilly Tablet] Lanthanum Carbonate [Lanthanum 2,000 mg PO TID-W/MEALS 05/10/24 05/29/24 Carbonate Chewable] diphenhydrAMINE HCL [Benadryl] 50 mg PO BID 05/10/24 05/29/24 Previous Rx's Medication Instructions Recorded Apixaban [Eliquis] 2.5 mg PO BID #120 tab 05/14/24 Atorvastatin [Lipitor] 80 mg PO HS #60 tab 05/14/24 Metoprolol Succinate (ER) [Toprol 25 mg PO DAILY #60 tab 05/14/24 XL] Allergies Allergy/AdvReac Type Severity Reaction Status Date / Time Penicillins Allergy Rash/Hives Verified 05/29/24 07:08 baclofen AdvReac Confusion Verified 05/29/24 07:08 Review of Systems ROS Statement: Those systems with pertinent positive or pertinent negative responses have been documented in the HPI. Limitations: ROS unobtainable due to patients medical condition Past Medical History Past Medical History: Coronary Artery Disease (CAD), CVA/TIA, Diabetes Mellitus, Dialysis, Eye Disorder, GERD/Reflux, Renal Disease, Vascular Disorder Additional Past Medical History / Comment(s): Hx CVA 11 yrs ago, no residual effects. Diet Controlled Diabetes. Chiari malformation. Dialysis, [facility]. Legally blind. History of Any Multi-Drug Resistant Organisms: None Reported Past Surgical History: Orthopedic Surgery Additional Past Surgical History / Comment(s): Eye surgery, fistula, right below the knee amputation. Bypass. Past Anesthesia/Blood Transfusion Reactions: No Reported Reaction Past Psychological History: No Psychological Hx Reported Smoking Status: Former smoker Past Alcohol Use History: None Reported Past Drug Use History: Marijuana - Past Family History Father Family Medical History: Hypertension Additional Family Medical History / Comment(s): Father passed of AL 10 years ago. Mother Family Medical History: Diabetes Mellitus Additional Family Medical History / Comment(s): AL (2021) with stent. General Exam - General Exam Comments Initial Comments: PE: CONSTITUTIONAL: In acute distress, tachypneic, pale, ill-appearing SKIN: Pale and cool skin, damp, no jaundice hives or petechiae EYES: Pupils are equally round, extraocular movements intact without nystagmus, clear conjunctiva, non-icteric sclera HENT: Normocephalic, atraumatic, moist mucus membranes, oropharynx clear without exudates NECK: , Full range of motion, normal appearance PULMONARY: Diffuse crackles and rales in the bilateral lung jensen, worse on the left than the right, leaning forward to breathe, no stridor or wheezes, increased excursion, tachypnea CARDIOVASCULAR: Tachycardia, regular rhythm, normal S1 and S2. No appreciated murmurs, rubs or gallops. Strong radial pulses with intact distal perfusion. No lower extremity edema. Palpable thrill in the left upper extremity fistula GASTROINTESTINAL: Soft, active bowel sounds throughout, non-tender, non- distended, no palpable masses, no rebound or guarding. No hepatosplenomegaly GENITOURINARY: MUSCULOSKELETAL: Right AKA, Left LE s/p toe removal, otherwise Extremities have no gross deformity, no edema, redness, or swelling. No calf swelling NEUROLOGIC:_a/o x 3, GCS 15, normal mentation and speech. Moves all extremities x 4 without motor or sensory deficit PSYCHIATRIC: Anxious mood and affect, thought process is clear and linear Limitations: no limitations Course Vital Signs 05/29/24 05/29/24 05/29/24 01:53 01:58 01:59 Temperature 98.6 F Pulse Rate 98 Respiratory 24 24 Rate Blood Pressure 191/136 O2 Sat by Pulse 100 Oximetry Fraction of 100 100 Inspired Oxygen (FIO2) 05/29/24 05/29/24 05/29/24 02:00 02:01 02:08 Temperature Pulse Rate 93 Respiratory 20 Rate Blood Pressure 176/90 O2 Sat by Pulse 99 Oximetry Fraction of 70 50 Inspired Oxygen (FIO2) 05/29/24 05/29/24 05/29/24 02:10 02:40 03:41 Temperature Pulse Rate 92 94 89 Respiratory 20 16 Rate Blood Pressure 153/97 147/90 O2 Sat by Pulse 98 100 Oximetry Fraction of 40 Inspired Oxygen (FIO2) 05/29/24 05/29/24 05/29/24 04:00 04:01 06:45 Temperature 99.0 F Pulse Rate 89 87 Respiratory 16 Rate Blood Pressure 126/89 O2 Sat by Pulse 100 Oximetry Fraction of Inspired Oxygen (FIO2) 05/29/24 05/29/24 05/29/24 07:14 07:28 07:30 Temperature Pulse Rate 74 Respiratory 17 Rate Blood Pressure 117/75 O2 Sat by Pulse 100 Oximetry Fraction of 40 30 Inspired Oxygen (FIO2) - Reevaluation(s) Reevaluation #1: Notified by lab the patient potassium 6.5. Is not a hemolyzed specimen. Ordered insulin, dextrose and high dose albuterol. Paged Dr. Fleming for emergent dialysis, kindly agreed and requests we pgae dialysis team to initiate emergent dialysis. Will admit patient to [facility]. 05/29/24 03:13 05/31/24 12:50 EKG Findings - EKG Comments: EKG Findings:: EKG performed at 1:51 AM, sinus tachycardia, rate 106 bpm, IN interval 168 ms, QRS duration 117 ms, QT/QTc 321/3 3 ms, left axis deviation, peaked T waves in leads V3 and V4, minimal ST elevation in lead V1, no reciprocal depressions, T wave inversion in lead aVL, artifact present throughout, Compared to EKG performed on 05/14/2024, peak T waves are new from prior, T waves are now upright in leads V5 and V6 when compared to prior T wave inversions lead I, aVL new from prior Medical Decision Making - Medical Decision Making Was pt. sent in by a medical professional or institution (, PA, INVENTORY CONTROL PLANNER, urgent care, hospital, or fci...) When possible be specific @ -No Did you speak to anyone other than the patient for history (EMS, parent, family, police, friend...)? What history was obtained from this source @ -No Did you review nursing and triage notes (agree or disagree)? Why? @ -I reviewed and agree with nursing and triage notes Were old charts reviewed (outside hosp., previous admission, EMS record, old EKG, old radiological studies, urgent care reports/EKG's, fci records)? Report findings @Medical records reviewed, patient was recently admitted to the hospital, on 07/09/2023 discharge on 05/14/2024, during that admission patient did have a cardiac cath performed, with stenting to the left circumflex artery echocardiogram performed at that time showed ejection fraction of 55 to 60%. Differential Diagnosis (chest pain, altered mental status, abdominal pain women, abdominal pain men, vaginal bleeding, weakness, fever, dyspnea, syncope, headache, dizziness, GI bleed, back pain, seizure, CVA, palpatations, mental health, musculoskeletal)? @Differential Dyspnea: Coronary syndrome, arrhythmia, tamponade, asthma, COPD, pulmonary embolism, pneumonia, pneumothorax, pulmonary effusion, anaphylaxis, diabetic ketoacidosis, flailed chest, pulmonary contusion, diaphragmatic rupture, anemia, neuromuscular, this is not meant to be an all-inclusive list. D-dimer and CT PE study were not obtained given patient is anticoagulated on Eliquis and Plavix and had pulmonary exam, physical exam findings and vital signs findings consistent with flash pulmonary edema secondary to fluid overload and hypertension EKG interpreted by me (3pts min.). @ -As above X-rays interpreted by me (1pt min.). @Findings consistent with pulmonary edema, possible infiltrate versus pleural effusion the left lower lobe CT interpreted by me (1pt min.). @ -None done U/S interpreted by me (1pt. min.). @ -None done What testing was considered but not performed or refused? (CT, X-rays, U/S, labs)? Why? @ -None What meds were considered but not given or refused? Why? @ -None Did you discuss the management of the patient with other professionals (professionals i.e. , PA, INVENTORY CONTROL PLANNER, lab, RT, psych nurse, social professionals, technology analyst, teacher, aeronautical engineering officer, catalytic case operator)? Give summary Case discussed with Dr. Fleming, nephrology, please see below Was smoking cessation discussed for >3mins.? @ -No Was critical care preformed (if so, how long)? @45 minutes Were there social determinants of health that impacted care today? How? (Homelessness, low income, unemployed, alcoholism, drug addiction, tr ansportation, low edu. Level, literacy, decrease access to med. care, long term, rehab)? @ -No Was there de-escalation of care discussed even if they declined (Discuss DNR or withdrawal of care, Hospice)? @ -No What co-morbidities impacted this encounter? (DM, HTN, Smoking, COPD, CAD, Cancer, CVA, ARF, Chemo, Hep., AIDS, mental health diagnosis, sleep apnea, morbid obesity)? @ -CAD, ESRD on dialysis, HTN Was patient admitted / discharged? Hospital course, mention meds given and route, prescriptions, significant lab abnormalities, going to OR and other pertinent info. @Admission Patient is a 43-year-old with a past complex past medical history ESRD on dialysis, typically Monday, CAD with recent admission for chest pain, during which he was in A-fib with RVR, required cardiac stenting discharge 05/14/2024. Patient discharged on Plavix and Eliquis. On my assessment patient is in acute distress, ill-appearing, on CPAP, transition to BiPAP immediately on arrival. Pulse ox 89% on initial assessment. He is pale, diaphoretic, tachypneic. He denies any chest pain currently. After BiPAP placed, patient's coloring and respiratory work of breathing improved, he does have crackles and rales in bilateral lung jensen worse in the left than the right, palpable thrill in the left fistula, normal S1-S2 on cardiac exam with tachycardia. Blood pressure on arrival 191/136. Out of concern for pulmonary edema secondary to hypertensive emergency versus fluid overload 2/2 missed dialysis, 3 sublingual nitroglycerin given with improvement in blood pressure and symptoms. Reviewed EKG no ST elevations or depressions however T wave appears peaked in leads V3, V4, CMP pending however will page for emergent dialysis given patient's pulmonary edema, increased work of breathing and peaked T waves on EKG. Reviewed patient's labs, potassium 6.5 hemoglobin 10.2, appears baseline for the patient last on 05/14/2024 was 9.4 no leukocytosis; neutrophils elevated at 8.7, sodium 132, chloride 94, creatinine 8.13, GFR 7, BUN 88, glucose 211, calcium 8.2, phosphorus 6.6. Administered one dose rocephin and azithromycin out of concern for possible LLL pneumonia, though I suspect findings on x-ray more likely 2/2 pulmonary edema. Patient restless and anxious, administered 1 mg ativan to assist with bipap dependance, work of breathing appears much more comfortable and improved. Case discussed with Dr. Fleming, agrees with plan for emergent dialysis, compounding assistant paged. Case discussed with Dr. Reynaga, [facility], kindly accepts patient for admission. Admission orders placed. Undiagnosed new problem with uncertain prognosis? @ -No Drug Therapy requiring intensive monitoring for toxicity (Heparin, Nitro, Insulin, Cardizem)? @ -No Were any procedures done? @ -No Diagnosis/symptom? @ -Acute pulm edema, acute hypoxic respiratory failure, hyperkalemia Acute, or Chronic, or Acute on Chronic? @Acute Uncomplicated (without systemic symptoms) or Complicated (systemic symptoms)? @Complicated Side effects of treatment? @ -No Exacerbation, Progression, or Severe Exacerbation? @ -No Poses a threat to life or bodily function? How? (Chest pain, USA, AL, pneumonia, PE, COPD, DKA, ARF, appy, cholecystitis, CVA, Diverticulitis, Homicidal, Suicidal, threat to staff... and all critical care pts) @Yes, if allowed to continue untreated could result in complete respiratory failure and cardiac arrest - Lab Data Result diagrams: 05/30/24 09:32 05/30/24 09:32 Lab Results 05/29/24 05/29/24 05/29/24 Range/Units 02:02 02:02 02:02 WBC 10.4 (3.8-10.6) k/uL RBC 4.10 L (4.30-5.90) m/uL Hgb 10.2 L (13.0-17.5) gm/dL Hct 35.5 L (39.0-53.0) % MCV 86.6 (80.0-100.0) fL MCH 25.0 (25.0-35.0) pg MCHC 28.8 L (31.0-37.0) g/dL RDW 17.1 H (11.5-15.5) % Plt Count 469 H (150-450) k/uL MPV 7.8 Neutrophils % 84 % Lymphocytes % 8 % Monocytes % 5 % Eosinophils % 1 % Basophils % 1 % Neutrophils # 8.7 H (1.3-7.7) k/uL Lymphocytes # 0.9 L (1.0-4.8) k/uL Monocytes # 0.5 (0-1.0) k/uL Eosinophils # 0.1 (0-0.7) k/uL Basophils # 0.1 (0-0.2) k/uL Hypochromasia Marked Anisocytosis Slight PT 11.3 (10.0-12.5) sec INR 1.0 (<1.2) APTT 31.8 H (22.0-30.0) sec Sodium 132 L (137-145) mmol/L Potassium 6.5 H* (3.5-5.1) mmol/L Chloride 94 L (98-107) mmol/L Carbon Dioxide 22 (22-30) mmol/L Anion Gap 16 mmol/L BUN 88 H (9-20) mg/dL Creatinine 8.13 H* (0.66-1.25) mg/dL Est GFR (CKD-EPI)AfAm 8 (>60 ml/min/1.73 sqM) Est GFR (CKD-EPI)NonAf 7 (>60 ml/min/1.73 sqM) Glucose 211 H (74-99) mg/dL Calcium 8.2 L (8.4-10.2) mg/dL Phosphorus 6.6 H (2.5-4.5) mg/dL Magnesium 2.2 (1.6-2.3) mg/dL Total Bilirubin 0.8 (0.2-1.3) mg/dL AST 17 (17-59) U/L ALT 13 (4-49) U/L Alkaline Phosphatase 202 H (38-126) U/L Troponin I (0.000-0.034) ng/mL NT-Pro-B Natriuret Pep 31538 pg/mL Total Protein 7.7 (6.3-8.2) g/dL Albumin 3.7 (3.5-5.0) g/dL Hep Bs Antigen (Nonreactive) Hep Bs Antibody (Negative) Hep Bs Antibody, Quant mIU/mL 05/29/24 05/29/24 Range/Units 02:02 02:02 WBC (3.8-10.6) k/uL RBC (4.30-5.90) m/uL Hgb (13.0-17.5) gm/dL Hct (39.0-53.0) % MCV (80.0-100.0) fL MCH (25.0-35.0) pg MCHC (31.0-37.0) g/dL RDW (11.5-15.5) % Plt Count (150-450) k/uL MPV Neutrophils % % Lymphocytes % % Monocytes % % Eosinophils % % Basophils % % Neutrophils # (1.3-7.7) k/uL Lymphocytes # (1.0-4.8) k/uL Monocytes # (0-1.0) k/uL Eosinophils # (0-0.7) k/uL Basophils # (0-0.2) k/uL Hypochromasia Anisocytosis PT (10.0-12.5) sec INR (<1.2) APTT (22.0-30.0) sec Sodium (137-145) mmol/L Potassium (3.5-5.1) mmol/L Chloride (98-107) mmol/L Carbon Dioxide (22-30) mmol/L Anion Gap mmol/L BUN (9-20) mg/dL Creatinine (0.66-1.25) mg/dL Est GFR (CKD-EPI)AfAm (>60 ml/min/1.73 sqM) Est GFR (CKD-EPI)NonAf (>60 ml/min/1.73 sqM) Glucose (74-99) mg/dL Calcium (8.4-10.2) mg/dL Phosphorus (2.5-4.5) mg/dL Magnesium (1.6-2.3) mg/dL Total Bilirubin (0.2-1.3) mg/dL AST (17-59) U/L ALT (4-49) U/L Alkaline Phosphatase (38-126) U/L Troponin I 0.054 H* (0.000-0.034) ng/mL NT-Pro-B Natriuret Pep pg/mL Total Protein (6.3-8.2) g/dL Albumin (3.5-5.0) g/dL Hep Bs Antigen Nonreactive (Nonreactive) Hep Bs Antibody A (Negative) Hep Bs Antibody, Quant 628.0 mIU/mL Disposition Clinical Impression: Acute hypoxic respiratory failure, Hyperkalemia, Acute pulmonary edema Disposition: ADMITTED IP TO THIS [facility] Condition: Stable
[2024-05-29] MEDS: ASPIRIN 81 MG PO STA (02:09)
[2024-05-29 02:19] LABS: Anisocytosis Slight; Basophils # (A) 0.1 k/uL (0-0.2); Basophils % (A) 1 %; Eosinophils # (A) 0.1 k/uL (0-0.7); Eosinophils % (A) 1 %; HCT 35.5 % (39.0-53.0); HGB 10.2 gm/dL (13.0-17.5); Hypochromasia Marked; Lymphocytes # (A) 0.9 k/uL (1.0-4.8); Lymphocytes % (A) 8 %; MCHC 28.8 g/dL (31.0-37.0); MCV 86.6 fL (80.0-100.0); Mean Platelet Volume 7.8; Monocytes # (A) 0.5 k/uL (0-1.0); Monocytes % (A) 5 %; Neutrophils # (A) 8.7 k/uL (1.3-7.7); Neutrophils % (A) 84 %; Platelet Count 469 k/uL (150-450); RDW 17.1 % (11.5-15.5); WBC 10.4 k/uL (3.8-10.6)
--- NOTE | 2024-05-29 02:19 | XR ---
EXAM: XR Chest, 1 View CLINICAL HISTORY: ITS.REASON XR Reason: SOB TECHNIQUE: Frontal view of the chest. COMPARISON: May 10, 2024 FINDINGS: Lungs: Left lower lobe infiltrate. Pleural space: Unremarkable. No pneumothorax. Heart: Unremarkable. No cardiomegaly. Mediastinum: Unremarkable. Normal mediastinal contour. Bones/joints: Unremarkable. No acute fracture. IMPRESSION: Left lower lobe pneumonia
[2024-05-29] MEDS: LORazepam 2 MG/ML INJ IV STA ×2 (02:26→03:27)
[2024-05-29 02:31] LABS: Partial Thromboplastin Time 31.8 sec (22.0-30.0); Prothrombin Time 11.3 sec (10.0-12.5)
[2024-05-29] MEDS: cefTRIAXone IN SWFI 1,000 MG/10 ML SYRINGE IVP STA (02:32)
[2024-05-29] MEDS: AZITHROMYCIN 500 MG in SODIUM CHLORIDE 0.9% 250 ML IVPB STA (02:37)
[2024-05-29 02:59] LABS: ALT 13 U/L (4-49); AST 17 U/L (17-59); African American GFR (CKD) 8 (>60 ml/min/1.73 sqM); Albumin 3.7 g/dL (3.5-5.0); Alkaline Phosphatase 202 U/L (38-126); Anion Gap 16 mmol/L; Blood Urea Nitrogen 88 mg/dL (9-20); Calcium 8.2 mg/dL (8.4-10.2); Carbon Dioxide 22 mmol/L (22-30); Chloride 94 mmol/L (98-107); Glucose 211 mg/dL (74-99); Magnesium 2.2 mg/dL (1.6-2.3); Non-African American GFR(CKD) 7 (>60 ml/min/1.73 sqM); Phosphorus 6.6 mg/dL (2.5-4.5); Sodium 132 mmol/L (137-145); Total Bilirubin 0.8 mg/dL (0.2-1.3); Total Protein 7.7 g/dL (6.3-8.2)
[2024-05-29 03:08] LABS: Potassium 6.5 mmol/L (3.5-5.1)
[2024-05-29] MEDS: DEXTROSE 50% SYRINGE 50 ML IVP ONE (03:21)
[2024-05-29] MEDS ORDERED: NALOXONE 0.4 MG/ML 1 ML VIAL IV PRN (03:21)
[2024-05-29] MEDS: CALCIUM GLUCONATE IN NACL 1 GM in SALINE 1 100ML.BAG IVPB ONE (03:24)
[2024-05-29] MEDS: INSULIN REGULAR 100 UNIT/ML VIAL (IV) IV ONE (03:30)
[2024-05-29 03:39] LABS: NT-Pro-B-Type Natriuretic Pept 83900 pg/mL
[2024-05-29] MEDS: ALBUTEROL NEB (CONC) 2.5 MG/0.5 ML INHALATION ONE (03:40)
[2024-05-29 06:21] LABS: Glucose,Whole Blood 84 mg/dL (70-110)
--- NOTE | 2024-05-29 06:28 | P.HPIM ---
History of Present Illness H&P Date: 05/29/24 Chief Complaint: SOB History of present illness; 43-year-old PMH blindness, CVA/TIA, diabetes mellitus, ESRD needing dialysis (TTS schedule), CAD s/p stenting approximately 2 weeks ago. He has been in the emergency department today for sudden onset shortness of breath. Patient home this evening when he had a sudden onset difficulty of breathing. Per the EMS the patient was pale and sweaty upon their arrival, they did not obtain a pulse oximetry on room air but immediately placed on CPAP. After 2-3 minutes on CPAP his pulse ox was 70% and came up to 89% while en route to the emergency department. Patient denies any chest pain however reports that he has had shortness of breath and chest tightness for approximately 1 hour. He is currently taking Plavix and Eliquis at home. He states that his last dialysis was this past Monday, however he left early. He was due for dialysis yesterday, however did not have it completed. Attempted to complete dialysis in the ED early this morning, however was unable to access current catheter. Per nephrology's recommendation, vascular surgery consulted for the insertion of a new permacath or temporary catheter in order to complete dialysis. Imaging: -Chest x-ray done in the ER showed possible left lower lobe pneumonia -EKG done in the ER showed sinus tachycardia heart rate of 106; QTc 383 Vitals: -Blood pressure 147/90, heart rate 94, respiratory rate 16, SpO2 100% on BiPAP (FiO2 40%) Patient admitted to internal medicine service REVIEW OF SYSTEMS: CONSTITUTIONAL: No fever, no malaise, no fatigue. HEENT: No recent visual problems or hearing problems. Denied any sore throat. CARDIOVASCULAR: No chest pain, orthopnea, PND, no palpitations, no syncope. PULMONARY: No cough, no hemoptysis. Shortness of breath. GASTROINTESTINAL: No diarrhea, no nausea, no vomiting, no abdominal pain. NEUROLOGICAL: No headaches, no weakness, no numbness. HEMATOLOGICAL: Denies any bleeding or petechiae. GENITOURINARY: Denies any burning micturition, frequency, or urgency. MUSCULOSKELETAL/RHEUMATOLOGICAL: Denies any joint pain, swelling, or any muscle pain. ENDOCRINE: Denies any polyuria or polydipsia. The rest of the 14-point review of systems is negative. PHYSICAL EXAMINATION: GENERAL: The patient is alert and oriented x3, in some distress. on bipap, obese appearing with limb amputations. HEENT: No scleral icterus. No conjunctival pallor. Normocephalic, atraumatic. CARDIOVASCULAR: S1 and S2 present. No murmurs, rubs, or gallops. PULMONARY: Crackles noted, most prominent in the LLL. ABDOMEN: Soft, nontender, nondistended, normoactive bowel sounds. No palpable organomegaly. MUSCULOSKELETAL: No joint. Right leg below knee amputation. Left foot partial amputation, with wounds noted at various points of healing and dry looking and scaly skin noted on the lateral aspect of his left lower leg. Left hand with 3 digits amputated. left upper extremity fistulas functioning well for hemodialysis EXTREMITIES: No cyanosis, clubbing, or pedal edema. NEUROLOGICAL: Gross neurological examination did not reveal any focal deficits. SKIN: No rashes. Assessment and plan 43-year-old man with PMH of blindness, CVA/TIA, diabetes mellitus, ESRD needing dialysis (TTS schedule), CAD s/p stenting approximately 2 weeks ago. Presents emergency department due to a sudden onset of shortness of breath after missing his most recent session of dialysis. Discussed with the ED and the patient has been admitted to the internal medicine service for further evaluation. #Acute hypoxic respiratory failure: DDx -> PE v. Pneumonia v. CHF exacerbation v possibly flash pulmonary edema -Patient currently on BiPAP requiring no oxygen at home -Lactic acid currently pending -Chest x-ray showed possible left lower lobe pneumonia -WBCs WNL, increased neutrophils at 8.7 -Assess for potential pneumonia, bacterial/viral/atypical -Patient received Zithromax 500 mg IVPB once in 2000 mg IVP Rocephin once in the ED -Continue supplemental oxygen support as needed -ProBNP 83,900 -Trend troponins; Initial troponin 0.054 -Chronically elevated ProBNP, most recent echo on record 12/27/2022 showed EF 60- 65% following ProBNP 41,000 on 12/26/2022 -REVIEW echocardiogram from 3 weeks ago showing normal LV function -Consider ruling out PE if symptoms does not improve with Dialysis and Bipap -Procalcitonin pending -Cardiology consulted #ESRD on hemodialysis #Chronic mild hyponatremia #Chronic hyperphosphatemia #Chronic hyperkalemia -Patient endorses being on a Monday, , Monday hemodialysis schedule -Last hemodialysis this past Monday (05/22/2024) however he left early -Continue medications (sevelamer) when verified by pharmacy -During dialysis consider challenge UF -Sodium 132 on arrival -Phosphorous on arrival 6.6 -Magnesium 2.2 on arrival -Potassium on arrival 6.5, patient given potassium lowering cocktails (Calcium gluconate IVP, albuterol linhaler 10 mg , and Insulin IV with D50 1 amp) -Nephrology consulted -Unable to gain access through current catheter for dialysis this morning (05/29), vascular surgery consulted. -Renal diet #Peripheral neuropathy -Continue home medication (gabapentin) once verified by pharmacy #Restless leg syndrome -Continue home medication (ropinirole) when verified by pharmacy #Diabetes mellitus -Accu-Cheks -Initiate sliding scale -Monitor for hypoglycemia CODE STATUS: Full code GI prohylaxis: Protonix 40 mg daily DVT prophylaxis: Heparin 5000 units subq every 8 hours Dictation was produced using Tun[employer] dictation software. please excuse any grammatical, word or spelling errors. Past Medical History Past Medical History: Coronary Artery Disease (CAD), CVA/TIA, Diabetes Mellitus, Dialysis, Eye Disorder, GERD/Reflux, Renal Disease, Vascular Disorder Additional Past Medical History / Comment(s): Hx CVA 11 yrs ago, no residual effects. Diet Controlled Diabetes. Chiari malformation. Dialysis, [facility]. L egally blind. History of Any Multi-Drug Resistant Organisms: None Reported Past Surgical History: Orthopedic Surgery Additional Past Surgical History / Comment(s): Eye surgery, fistula, right below the knee amputation. Bypass. Past Anesthesia/Blood Transfusion Reactions: No Reported Reaction Past Psychological History: No Psychological Hx Reported Smoking Status: Former smoker Past Alcohol Use History: None Reported Past Drug Use History: Marijuana - Past Family History Father Family Medical History: Hypertension Additional Family Medical History / Comment(s): Father passed of [place] 10 years ago. Mother Family Medical History: Diabetes Mellitus Additional Family Medical History / Comment(s): [place] (2021) with stent. Medications and Allergies Home Medications Medication Instructions Recorded Confirmed Type Methadone [Dolophine] 10 mg PO TID 02/29/16 05/10/24 History Gabapentin [Neurontin] 100 mg PO BID 09/13/22 05/10/24 History Pantoprazole [Protonix] 40 mg PO DAILY 09/13/22 05/10/24 History Sevelamer [Renvela] 1,600 - 6,400 mg PO TID-W/MEALS 09/13/22 05/10/24 History rOPINIRole HCL [Requip] 5 mg PO DAILY 09/13/22 05/10/24 History rOPINIRole HCL [Requip] 10 mg PO HS 09/13/22 05/10/24 History Famotidine [Pepcid] 20 mg PO BID 05/21/23 05/10/24 History Acetaminophen [Tylenol] 650 mg PO Q4H PRN 05/10/24 05/10/24 History Atropine Sulfate/Pf [Atropine 1% 1 drop RIGHT EYE DAILY 05/10/24 05/10/24 History Eye Drops] Clopidogrel [Plavix] 75 mg PO DAILY 05/10/24 05/10/24 History Folic Acid/Vit B Complex and C 0.8 mg PO DAILY 05/10/24 05/10/24 History [Alyssa-Reilly Tablet] Lanthanum Carbonate [Lanthanum 2,000 mg PO TID-W/MEALS 05/10/24 05/10/24 History Carbonate Chewable] diphenhydrAMINE HCL [Benadryl] 50 mg PO BID 05/10/24 05/10/24 History Apixaban [Eliquis] 2.5 mg PO BID #120 tab 05/14/24 Rx Aspirin 81 mg PO DAILY #7 tab 05/14/24 Rx Atorvastatin [Lipitor] 80 mg PO HS #60 tab 05/14/24 Rx Metoprolol Succinate (ER) [Toprol 25 mg PO DAILY #60 tab 05/14/24 Rx XL] Allergies Allergy/AdvReac Type Severity Reaction Status Date / Time Penicillins Allergy Rash/Hives Verified 05/29/24 01:57 baclofen AdvReac Confusion Verified 05/29/24 01:57 Physical Exam Vitals: Vital Signs Temp Pulse Resp BP Pulse Ox FiO2 05/29/24 04:01 87 05/29/24 03:41 89 40 05/29/24 02:40 94 16 147/90 100 05/29/24 02:10 92 20 153/97 98 05/29/24 02:08 50 05/29/24 02:01 70 05/29/24 02:00 93 20 176/90 99 11/27/24 01:59 24 100 05/29/24 01:58 100 05/29/24 01:53 98.6 F 98 24 191/136 100 Intake and Output 05/28/24 05/28/24 05/29/24 14:59 22:59 06:59 Other: Weight 85.729 kg Results CBC & Chem 7: 05/29/24 02:02 05/29/24 02:02 Labs: Abnormal Lab Results - Last 24 Hours (Table) 05/29/24 05/29/24 05/29/24 Range/Units 02:02 02:02 02:02 RBC 4.10 L (4.30-5.90) m/uL Hgb 10.2 L (13.0-17.5) gm/dL Hct 35.5 L (39.0-53.0) % MCHC 28.8 L (31.0-37.0) g/dL RDW 17.1 H (11.5-15.5) % Plt Count 469 H (150-450) k/uL Neutrophils # 8.7 H (1.3-7.7) k/uL Lymphocytes # 0.9 L (1.0-4.8) k/uL APTT 31.8 H (22.0-30.0) sec Sodium 132 L (137-145) mmol/L Potassium 6.5 H* (3.5-5.1) mmol/L Chloride 94 L (98-107) mmol/L BUN 88 H (9-20) mg/dL Creatinine 8.13 H* (0.66-1.25) mg/dL Glucose 211 H (74-99) mg/dL Calcium 8.2 L (8.4-10.2) mg/dL Phosphorus 6.6 H (2.5-4.5) mg/dL Alkaline Phosphatase 202 H (38-126) U/L Troponin I (0.000-0.034) ng/mL 05/29/24 Range/Units 02:02 RBC (4.30-5.90) m/uL Hgb (13.0-17.5) gm/dL Hct (39.0-53.0) % MCHC (31.0-37.0) g/dL RDW (11.5-15.5) % Plt Count (150-450) k/uL Neutrophils # (1.3-7.7) k/uL Lymphocytes # (1.0-4.8) k/uL APTT (22.0-30.0) sec Sodium (137-145) mmol/L Potassium (3.5-5.1) mmol/L Chloride (98-107) mmol/L BUN (9-20) mg/dL Creatinine (0.66-1.25) mg/dL Glucose (74-99) mg/dL Calcium (8.4-10.2) mg/dL Phosphorus (2.5-4.5) mg/dL Alkaline Phosphatase (38-126) U/L Troponin I 0.054 H* (0.000-0.034) ng/mL Assessment and Plan Assessment: I have seen and evaluated the patient today. I Discussed the case with the resident and agree with the resident's findings I edited the assessment and plan as necessary as documented in the resident's note.
[2024-05-29] MEDS: LIDOCAINE 1% INJ 10MG/ML (20 ML MDV) SQ ONE (07:59)
[2024-05-29] MEDS ORDERED: HEPARIN SODIUM,PORCINE 5,000 UNIT/ML 1 ML VIAL SQ SCH (08:00)
[2024-05-29 08:37] LABS: Glucose,Whole Blood 101 mg/dL (70-110)
--- NOTE | 2024-05-29 08:39 | IR ---
EXAMINATION TYPE: IR cvc insert non tunneled DATE OF EXAM: 05/29/2024 COMPARISON: NONE CLINICAL INDICATION: Male, 43 years old with history of hemodialysis catheter insertion. 0.1min fluo ro, [id number]; Fluoroscopy was provided to the referring clinician. [facility], , 05/29/2024 8:37 AM
[2024-05-29] MEDS: INSULIN ASPART (NovoLOG) 100 UNIT/ML VIAL SQ SCH (08:52)
--- NOTE | 2024-05-29 08:52 | P.GSCN ---
History of Present Illness History of present illness: 43-year-old gentleman history of chronic renal failure. History of shortness of breath since on CPAP patient has a fistula in the left upper arm attempted by dialysis nurse could not access the fistula. Has a high potassium with BUN and creatinine ER doctor called me for placement of urgent dialysis catheter. On the right leg and transmetatarsal amputation on the left Medical history history of coronary artery disease history of CVA patient has a history of left B-K amputation right leg and transmetatarsal amputation of the left Chest few crackles the lung bases patient has a CPAP. Second sound present Abdomen soft nontender Femorals are 1+ bilateral patient has a right foot big B-K amputation left side transmetatarsal amputation Plan is placement of dialysis catheter risk and medication discussed Past Medical History Past Medical History: Coronary Artery Disease (CAD), CVA/TIA, Diabetes Mellitus, Dialysis, Eye Disorder, GERD/Reflux, Renal Disease, Vascular Disorder Additional Past Medical History / Comment(s): Hx CVA 11 yrs ago, no residual effects. Diet Controlled Diabetes. Chiari malformation. Dialysis, [facility]. Legally blind. History of Any Multi-Drug Resistant Organisms: None Reported Past Surgical History: Orthopedic Surgery Additional Past Surgical History / Comment(s): Eye surgery, fistula, right below the knee amputation. Bypass. Past Anesthesia/Blood Transfusion Reactions: No Reported Reaction Past Psychological History: No Psychological Hx Reported Smoking Status: Former smoker Past Alcohol Use History: None Reported Past Drug Use History: Marijuana - Past Family History Father Family Medical History: Hypertension Additional Family Medical History / Comment(s): Father passed of [place] 10 years ago. Mother Family Medical History: Diabetes Mellitus Additional Family Medical History / Comment(s): [place] (2021) with stent. Medications and Allergies Home Medications Medication Instructions Recorded Confirmed Type Methadone [Dolophine] 10 mg PO TID 02/29/16 05/29/24 History Gabapentin [Neurontin] 100 mg PO BID 09/13/22 05/29/24 History Pantoprazole [Protonix] 40 mg PO DAILY 09/13/22 05/29/24 History Sevelamer [Renvela] 1,600 - 6,400 mg PO TID-W/MEALS 09/13/22 05/29/24 History rOPINIRole HCL [Requip] 5 mg PO DAILY 09/13/22 05/29/24 History rOPINIRole HCL [Requip] 10 mg PO HS 09/13/22 05/29/24 History Famotidine [Pepcid] 20 mg PO BID 05/21/23 05/29/24 History Acetaminophen [Tylenol] 650 mg PO Q4H PRN 05/10/24 05/29/24 History Atropine Sulfate/Pf [Atropine 1% 1 drop RIGHT EYE DAILY 05/10/24 05/29/24 History Eye Drops] Clopidogrel [Plavix] 75 mg PO DAILY 05/10/24 05/29/24 History Folic Acid/Vit B Complex and C 0.8 mg PO DAILY 05/10/24 05/29/24 History [Alyssa-Reilly Tablet] Lanthanum Carbonate [Lanthanum 2,000 mg PO TID-W/MEALS 05/10/24 05/29/24 History Carbonate Chewable] diphenhydrAMINE HCL [Benadryl] 50 mg PO BID 05/10/24 05/29/24 History Apixaban [Eliquis] 2.5 mg PO BID #120 tab 05/14/24 05/29/24 Rx Aspirin 81 mg PO DAILY #7 tab 05/14/24 05/29/24 Rx Atorvastatin [Lipitor] 80 mg PO HS #60 tab 05/14/24 05/29/24 Rx Metoprolol Succinate (ER) [Toprol 25 mg PO DAILY #60 tab 05/14/24 05/29/24 Rx XL] Allergies Allergy/AdvReac Type Severity Reaction Status Date / Time Penicillins Allergy Rash/Hives Verified 05/29/24 07:08 baclofen AdvReac Confusion Verified 05/29/24 07:08 Surgical - Exam Vital Signs Temp Pulse Resp BP Pulse Ox 98.6 F 98 24 191/136 100 05/29/24 01:53 05/29/24 01:53 05/29/24 01:53 05/29/24 01:53 05/29/24 01:53 Results - Labs 05/29/24 02:02 05/29/24 06:51 Abnormal Lab Results - Last 24 Hours (Table) 05/29/24 05/29/24 05/29/24 Range/Units 02:02 02:02 02:02 RBC 4.10 L (4.30-5.90) m/uL Hgb 10.2 L (13.0-17.5) gm/dL Hct 35.5 L (39.0-53.0) % MCHC 28.8 L (31.0-37.0) g/dL RDW 17.1 H (11.5-15.5) % Plt Count 469 H (150-450) k/uL Neutrophils # 8.7 H (1.3-7.7) k/uL Lymphocytes # 0.9 L (1.0-4.8) k/uL APTT 31.8 H (22.0-30.0) sec Sodium 132 L (137-145) mmol/L Potassium 6.5 H* (3.5-5.1) mmol/L Chloride 94 L (98-107) mmol/L BUN 88 H (9-20) mg/dL Creatinine 8.13 H* (0.66-1.25) mg/dL Glucose 211 H (74-99) mg/dL Calcium 8.2 L (8.4-10.2) mg/dL Phosphorus 6.6 H (2.5-4.5) mg/dL Alkaline Phosphatase 202 H (38-126) U/L Troponin I (0.000-0.034) ng/mL 05/29/24 05/29/24 05/29/24 Range/Units 02:02 05:13 06:51 RBC (4.30-5.90) m/uL Hgb (13.0-17.5) gm/dL Hct (39.0-53.0) % MCHC (31.0-37.0) g/dL RDW (11.5-15.5) % Plt Count (150-450) k/uL Neutrophils # (1.3-7.7) k/uL Lymphocytes # (1.0-4.8) k/uL APTT (22.0-30.0) sec Sodium (137-145) mmol/L Potassium 6.5 H* (3.5-5.1) mmol/L Chloride (98-107) mmol/L BUN (9-20) mg/dL Creatinine (0.66-1.25) mg/dL Glucose (74-99) mg/dL Calcium (8.4-10.2) mg/dL Phosphorus (2.5-4.5) mg/dL Alkaline Phosphatase (38-126) U/L Troponin I 0.054 H* 0.065 H* (0.000-0.034) ng/mL Diabetes panel 05/29/24 05/29/24 Range/Units 02:02 06:51 Sodium 132 L (137-145) mmol/L Potassium 6.5 H* 6.5 H* (3.5-5.1) mmol/L Chloride 94 L (98-107) mmol/L Carbon Dioxide 22 (22-30) mmol/L BUN 88 H (9-20) mg/dL Creatinine 8.13 H* (0.66-1.25) mg/dL Glucose 211 H (74-99) mg/dL Calcium 8.2 L (8.4-10.2) mg/dL AST 17 (17-59) U/L ALT 13 (4-49) U/L Alkaline Phosphatase 202 H (38-126) U/L Total Protein 7.7 (6.3-8.2) g/dL Albumin 3.7 (3.5-5.0) g/dL Calcium panel 05/29/24 Range/Units 02:02 Calcium 8.2 L (8.4-10.2) mg/dL Phosphorus 6.6 H (2.5-4.5) mg/dL Albumin 3.7 (3.5-5.0) g/dL Pituitary panel 05/29/24 05/29/24 Range/Units 02:02 06:51 Sodium 132 L (137-145) mmol/L Potassium 6.5 H* 6.5 H* (3.5-5.1) mmol/L Chloride 94 L (98-107) mmol/L Carbon Dioxide 22 (22-30) mmol/L BUN 88 H (9-20) mg/dL Creatinine 8.13 H* (0.66-1.25) mg/dL Glucose 211 H (74-99) mg/dL Calcium 8.2 L (8.4-10.2) mg/dL Adrenal panel 05/29/24 05/29/24 Range/Units 02:02 06:51 Sodium 132 L (137-145) mmol/L Potassium 6.5 H* 6.5 H* (3.5-5.1) mmol/L Chloride 94 L (98-107) mmol/L Carbon Dioxide 22 (22-30) mmol/L BUN 88 H (9-20) mg/dL Creatinine 8.13 H* (0.66-1.25) mg/dL Glucose 211 H (74-99) mg/dL Calcium 8.2 L (8.4-10.2) mg/dL Total Bilirubin 0.8 (0.2-1.3) mg/dL AST 17 (17-59) U/L ALT 13 (4-49) U/L Alkaline Phosphatase 202 H (38-126) U/L Total Protein 7.7 (6.3-8.2) g/dL Albumin 3.7 (3.5-5.0) g/dL
--- NOTE | 2024-05-29 08:54 | P.PCN ---
Description of Procedure: Preop diagnosis is acute chronic renal failure. Difficulty in accessing the fistula. With high potassium Postop the same Procedure placement of a ultrasound-guided 30 cm dialysis catheter placed left femoral approach left groin was prepped and draped in Prestel manner 1% lidocaine were infiltrated ultrasound-guided micropuncture introduced left femoral vein micropuncture guide was passed then we passed a 4 [place] sheath the top of the guidewire then passed a regular guidewire without any resistance dilator was advanced on top of the guidewire then we placed 30 cm dialysis catheter flushed with heparin saline hep-locked secured with 3 nylon dressing applied patient tarted the procedure well
[2024-05-29] MEDS: SEVELAMER 800 MG TAB PO SCH (11:14)
[2024-05-29] MEDS: PANTOPRAZOLE 40 MG/10 ML VIAL IVP SCH (11:14)
--- NOTE | 2024-05-29 11:30 | P.CRDCN ---
History of Present Illness History of present illness: HISTORY OF PRESENT ILLNESS: This is a 43-year-old male with a past medical history significant for CAD with stenting, end-stage renal disease on hemodialysis, atrial fibrillation, and mild aortic stenosis. Patient follows in the office with Dr. Duarte. We have been asked to see the patient in consultation for hypertension and flash pulmonary edema. Patient examined at the bedside in the ESU. Patient presented to the hospital initially for shortness of breath. Patient is on hemodialysis Monday. Apparently the patient last had hemodialysis on Monday but left early. Patient's dialysis catheter was unable to be accessed and Dr. Vega took the patient this morning for left femoral temporary dialysis catheter. Patient is seen laying in the bed. He is lethargic at the time of examination. Patient's nurse states that the patient does get agitated when ve rbally stimulated. He is currently on BiPAP. Blood pressures are stable in the 120s. DIAGNOSTICS: - EKG reveals sinus tachycardia with IVCD - Chest xray left lower lobe pneumonia - Laboratory data: WBC 10.4. Hemoglobin 10.2. Platelet count 469. Sodium 132. Potassium 6.5. BUN 88. Creatinine 8.13. Troponin 0.054. 0.065. proBNP 83,900. - Current home cardiac medications include Eliquis 2.5 mg twice a day, aspirin 81 mg daily, Lipitor 80 mg at night, Plavix 75 mg daily, metoprolol succinate 25 mg daily - Most recent echocardiogram obtained on 05/10/2024 revealed ejection fraction 55 to 60%, trace to mild MR, mild pulmonary hypertension, mild TR, mild aortic stenosis - Cardiac catheterization history: 05/13/2024 revealing 2030% LAD and 99% proximal circumflex stenosis. Patient underwent PCI of proximal circumflex. REVIEW OF SYSTEMS: At the time of my exam: Unable to assess the review of system secondary to lethargy PHYSICAL EXAM: VITAL SIGNS: Reviewed. GENERAL: Well-developed in no acute distress. HEENT: Head is normocephalic. Pupils are equal, round. Sclerae anicteric. Mucous membranes of the mouth are moist. Neck supple. No JVD or thyromegaly LUNGS: Respirations even and unlabored. Lungs essentially clear to auscultation bilaterally. HEART: Regular rate and rhythm. S1 and S2 heard. ABDOMEN: Soft. Nondistended. Nontender. EXTREMITIES: Normal range of motion. No clubbing or cyanosis. Right BKA. NEUROLOGIC: Lethargic ASSESSMENT: Shortness of breath Acute hypoxic respiratory failure Fluid overload secondary to end-stage renal disease, patient left last hemodi alysis session early Malfunction of hemodialysis catheter Hyperkalemia Coronary artery disease with recent stenting of the proximal circumflex, 05/13/2024 Paroxysmal atrial fibrillation Mild aortic stenosis End-stage renal disease on hemodialysis Chronically elevated troponins History of right BKA PLAN: No need to repeat echocardiogram as this was performed earlier this month Resume home cardiac medications Continue Eliquis. Continue Plavix due to recent stenting. May discontinue aspirin. Hemodialysis per nephrology Further recommendations pending patient course Nurse practitioner note has been reviewed by physician. Signing provider agrees with the documented findings, assessment, and plan of care documented by ANNEALING OVEN OPERATOR as a scribe. Past Medical History Past Medical History: Coronary Artery Disease (CAD), CVA/TIA, Diabetes Mellitus, Dialysis, Eye Disorder, GERD/Reflux, Renal Disease, Vascular Disorder Additional Past Medical History / Comment(s): Hx CVA 11 yrs ago, no residual effects. Diet Controlled Diabetes. Chiari malformation. Dialysis, TUTHSA. Legally blind. History of Any Multi-Drug Resistant Organisms: None Reported Past Surgical History: Orthopedic Surgery Additional Past Surgical History / Comment(s): Eye surgery, fistula, right below the knee amputation. Bypass. Past Anesthesia/Blood Transfusion Reactions: No Reported Reaction Past Psychological History: No Psychological Hx Reported Smoking Status: Former smoker Past Alcohol Use History: None Reported Past Drug Use History: Marijuana - Past Family History Father Family Medical History: Hypertension Additional Family Medical History / Comment(s): Father passed of [place] 10 years ago. Mother Family Medical History: Diabetes Mellitus Additional Family Medical History / Comment(s): [place] (2021) with stent. Medications and Allergies Home Medications Medication Instructions Recorded Confirmed Type Methadone [Dolophine] 10 mg PO TID 02/29/16 05/29/24 History Gabapentin [Neurontin] 100 mg PO BID 09/13/22 05/29/24 History Pantoprazole [Protonix] 40 mg PO DAILY 09/13/22 05/29/24 History Sevelamer [Renvela] 1,600 - 6,400 mg PO TID-W/MEALS 09/13/22 05/29/24 History rOPINIRole HCL [Requip] 5 mg PO DAILY 09/13/22 05/29/24 History rOPINIRole HCL [Requip] 10 mg PO HS 09/13/22 05/29/24 History Famotidine [Pepcid] 20 mg PO BID 05/21/23 05/29/24 History Acetaminophen [Tylenol] 650 mg PO Q4H PRN 05/10/24 05/29/24 History Atropine Sulfate/Pf [Atropine 1% 1 drop RIGHT EYE DAILY 05/10/24 05/29/24 History Eye Drops] Clopidogrel [Plavix] 75 mg PO DAILY 05/10/24 05/29/24 History Folic Acid/Vit B Complex and C 0.8 mg PO DAILY 05/10/24 05/29/24 History [Alyssa-Reilly Tablet] Lanthanum Carbonate [Lanthanum 2,000 mg PO TID-W/MEALS 05/10/24 05/29/24 History Carbonate Chewable] diphenhydrAMINE HCL [Benadryl] 50 mg PO BID 05/10/24 05/29/24 History Apixaban [Eliquis] 2.5 mg PO BID #120 tab 05/14/24 05/29/24 Rx Aspirin 81 mg PO DAILY #7 tab 05/14/24 05/29/24 Rx Atorvastatin [Lipitor] 80 mg PO HS #60 tab 05/14/24 05/29/24 Rx Metoprolol Succinate (ER) [Toprol 25 mg PO DAILY #60 tab 05/14/24 05/29/24 Rx XL] Allergies Allergy/AdvReac Type Severity Reaction Status Date / Time Penicillins Allergy Rash/Hives Verified 05/29/24 07:08 baclofen AdvReac Confusion Verified 05/29/24 07:08 Physical Exam Vitals: Vital Signs Temp Pulse Resp BP Pulse Ox FiO2 05/29/24 07:30 30 05/29/24 07:28 40 05/29/24 07:14 74 17 117/75 100 05/29/24 06:45 99.0 F 05/29/24 04:01 87 05/29/24 04:00 89 16 126/89 100 05/29/24 03:41 89 40 05/29/24 02:40 94 16 147/90 100 05/29/24 02:10 92 20 153/97 98 05/29/24 02:08 50 05/29/24 02:01 70 05/29/24 02:00 93 20 176/90 99 05/29/24 01:59 24 100 05/29/24 01:58 100 05/29/24 01:53 98.6 F 98 24 191/136 100 Intake and Output 05/28/24 05/29/24 05/29/24 22:59 06:59 14:59 Other: Weight 85.729 kg Results 05/29/24 02:02 05/29/24 06:51 Cardiac Enzymes 05/29/24 05/29/24 05/29/24 Range/Units 02:02 02:02 05:13 AST 17 (17-59) U/L Troponin I 0.054 H* 0.065 H* (0.000-0.034) ng/mL Coagulation 05/29/24 Range/Units 02:02 PT 11.3 (10.0-12.5) sec APTT 31.8 H (22.0-30.0) sec CBC 05/29/24 Range/Units 02:02 WBC 10.4 (3.8-10.6) k/uL RBC 4.10 L (4.30-5.90) m/uL Hgb 10.2 L (13.0-17.5) gm/dL Hct 35.5 L (39.0-53.0) % Plt Count 469 H (150-450) k/uL Comprehensive Metabolic Panel 05/29/24 05/29/24 Range/Units 02:02 06:51 Sodium 132 L (137-145) mmol/L Potassium 6.5 H* 6.5 H* (3.5-5.1) mmol/L Chloride 94 L (98-107) mmol/L Carbon Dioxide 22 (22-30) mmol/L BUN 88 H (9-20) mg/dL Creatinine 8.13 H* (0.66-1.25) mg/dL Glucose 211 H (74-99) mg/dL Calcium 8.2 L (8.4-10.2) mg/dL AST 17 (17-59) U/L ALT 13 (4-49) U/L Alkaline Phosphatase 202 H (38-126) U/L Total Protein 7.7 (6.3-8.2) g/dL Albumin 3.7 (3.5-5.0) g/dL Current Medications Generic Name Dose Route Start Last Admin Trade Name Freq PRN Reason Stop Dose Admin Acetaminophen 650 mg 05/29/24 03:21 Acetaminophen Tab 325 Mg Tab PO Q6HR PRN Mild Pain or Fever > 100.5 Apixaban 2.5 mg 05/29/24 09:00 Apixaban 2.5 Mg Tablet PO BID GLORIA Protocol Atorvastatin Calcium 80 mg 05/29/24 21:00 Atorvastatin 80 Mg Tab PO HS GLORIA Clopidogrel Bisulfate 75 mg 05/29/24 09:00 Clopidogrel 75 Mg Tab PO DAILY GLORIA Insulin Aspart 0 unit 05/29/24 07:30 Insulin Aspart (Novolog) 100 Unit/Ml Vial SQ ACHS [facility] Protocol Lorazepam 0.5 mg 05/29/24 03:21 Lorazepam 0.5 Mg Tab PO Q6HR PRN Anxiety Metoprolol Succinate 25 mg 05/29/24 09:00 Metoprolol Succinate (Er) 25 Mg Tab.Er.24h PO DAILY GLORIA Naloxone HCl 0.2 mg 05/29/24 03:21 Naloxone 0.4 Mg/Ml 1 Ml Vial IV Q2M PRN Opioid Reversal Pantoprazole Sodium 40 mg 05/29/24 09:00 Pantoprazole 40 Mg/10 Ml Vial IVP DAILY GLORIA Sevelamer Carbonate 1,600 mg 05/29/24 07:30 Sevelamer 800 Mg Tab PO TID-W/MEALS [facility] Intake and Output 05/28/24 05/29/24 05/29/24 22:59 06:59 14:59 Other: Weight 85.729 kg 05/29/24 02:02 05/29/24 06:51
[2024-05-29] MEDS: LANTHANUM CARBONATE 1000 MG PO SCH (14:40)
[2024-05-29 16:07] LABS: Glucose,Whole Blood 101 mg/dL (70-110)
[2024-05-29] MEDS: METOPROLOL SUCCINATE (ER) 25 MG TAB.ER.24H PO SCH (17:53)
[2024-05-29] MEDS: APIXABAN 2.5 MG TABLET PO SCH (18:18)
[2024-05-29] MEDS: CLOPIDOGREL 75 MG TAB PO SCH (18:38)
[2024-05-29 20:06] LABS: Glucose,Whole Blood 183 mg/dL (70-110)
[2024-05-29] MEDS: FAMOTIDINE 20 MG TAB PO SCH (20:16)
[2024-05-29] MEDS: ACETAMINOPHEN TAB 325 MG TAB PO PRN (20:16)
[2024-05-29] MEDS: ATORVASTATIN 80 MG TAB PO SCH (20:16)
[2024-05-29] MEDS: GABAPENTIN 100 MG CAP PO SCH (20:16)
[2024-05-29] MEDS: rOPINIRole HCL 4 MG TABLET PO SCH (20:55)
[2024-05-29] MEDS: METHADONE 10 MG TAB PO SCH (20:55)
[2024-05-29 21:16] LABS: Glucose,Whole Blood 238 mg/dL (70-110)
[2024-05-30 04:09] LABS: Hepatitis B Surface Antigen Nonreactive (Nonreactive)
[2024-05-30] MEDS: LORazepam 0.5 MG TAB PO PRN (05:48)
[2024-05-30] MEDS: GABAPENTIN 100 MG CAP PO STA (05:48)
[2024-05-30 06:05] LABS: Glucose,Whole Blood 290 mg/dL (70-110)
[2024-05-30] MEDS: rOPINIRole HCL 4 MG TABLET PO SCH (07:56)
[2024-05-30] MEDS: ASPIRIN 81 MG PO SCH (07:56)
[2024-05-30] MEDS: FOLIC ACID-VIT B COMPLEX-VIT C 1 CAP PO SCH (07:57)
[2024-05-30] MEDS: HYDROmorphone 1 MG/ML 1 ML SYRINGE IVP PRN (08:58)
[2024-05-30] MEDS ORDERED: ATROPINE OPHTH SOLN 1% 5ML BTL RIGHT EYE SCH (09:00)
[2024-05-30 10:17] LABS: Anisocytosis Slight; Basophils # (A) 0.1 k/uL (0-0.2); Basophils % (A) 1 %; Eosinophils # (A) 0.2 k/uL (0-0.7); Eosinophils % (A) 3 %; Hypochromasia Marked; Lymphocytes # (A) 1.3 k/uL (1.0-4.8); Lymphocytes % (A) 16 %; MCH 25.4 pg (25.0-35.0); MCHC 29.5 g/dL (31.0-37.0); MCV 86.1 fL (80.0-100.0); Mean Platelet Volume 7.2; Monocytes # (A) 0.8 k/uL (0-1.0); Monocytes % (A) 11 %; Neutrophils # (A) 5.2 k/uL (1.3-7.7); Neutrophils % (A) 67 %; Platelet Count 343 k/uL (150-450); RBC 3.37 m/uL (4.30-5.90); WBC 7.8 k/uL (3.8-10.6)
[2024-05-30 10:25] LABS: HGB 8.6 gm/dL (13.0-17.5)
[2024-05-30 10:31] LABS: African American GFR (CKD) 13 (>60 ml/min/1.73 sqM); Anion Gap 6 mmol/L; Blood Urea Nitrogen 51 mg/dL (9-20); Calcium 8.1 mg/dL (8.4-10.2); Carbon Dioxide 30 mmol/L (22-30); Chloride 97 mmol/L (98-107); Glucose 91 mg/dL (74-99); Non-African American GFR(CKD) 11 (>60 ml/min/1.73 sqM); Potassium 5.4 mmol/L (3.5-5.1); Sodium 133 mmol/L (137-145)
--- NOTE | 2024-05-30 10:58 | P.NPCON ---
History of Present Illness - Reason for Consult end stage renal disease - History of Present Illness patient is a 43-year-old male with end-stage renal disease on hemodialysis on Monday schedule. Patient was admitted to the hospitalwith complaints of shortness of breath. He was noted to be in volume overload. AV fistula was accessed for dialysis at night on admission. Patient's needles came out and could not be placed again by ID stamps or coins salesperson nurse. Therefore vascular surgery was consulted and temporary femoral dialysis catheter was placed in the left femoral vein. Next morning the AV fistula was easily accessed by the dialysis staff and patient had a treatment yesterday. The dialysis catheter in the left groin is scheduled to be removed by vascular surgery today. No complaints of shortness of breath today. Potassium was 5.4. Past Medical History Past Medical History: Coronary Artery Disease (CAD), CVA/TIA, Diabetes Mellitus, Dialysis, Eye Disorder, GERD/Reflux, Renal Disease, Vascular Disorder Additional Past Medical History / Comment(s): Hx CVA 11 yrs ago, no residual effects. Diet Controlled Diabetes. Chiari malformation. Dialysis, TUTHSA. Legally blind. History of Any Multi-Drug Resistant Organisms: None Reported Past Surgical History: Orthopedic Surgery Additional Past Surgical History / Comment(s): Eye surgery, fistula, right below the knee amputation. Bypass. Past Anesthesia/Blood Transfusion Reactions: No Reported Reaction Past Psychological History: No Psychological Hx Reported Additional Psychological History / Comment(s): Relates that his family is quite supportive including his parents in which he lives with. Is not able to work o utside of the home, is medically disabled due to his blindness. He has no experience or extensive travels. Smoking Status: Former smoker Past Alcohol Use History: None Reported Additional Past Alcohol Use History / Comment(s): Quit smoking 15 yrs ago, current daily marajuana smoker.. Past Drug Use History: Marijuana Additional Drug Use History / Comment(s): Marijuana use daily. - Past Family History Father Family Medical History: Hypertension Additional Family Medical History / Comment(s): Father passed of [place] 10 years ago. Mother Family Medical History: Diabetes Mellitus Additional Family Medical History / Comment(s): [place] (2021) with stent. Medications and Allergies Home Medications Medication Instructions Recorded Confirmed Type Methadone [Dolophine] 10 mg PO TID 02/29/16 05/29/24 History Gabapentin [Neurontin] 100 mg PO BID 09/13/22 05/29/24 History Pantoprazole [Protonix] 40 mg PO DAILY 09/13/22 05/29/24 History Sevelamer [Renvela] 1,600 - 6,400 mg PO TID-W/MEALS 09/13/22 05/29/24 History rOPINIRole HCL [Requip] 5 mg PO DAILY 09/13/22 05/29/24 History rOPINIRole HCL [Requip] 10 mg PO HS 09/13/22 05/29/24 History Famotidine [Pepcid] 20 mg PO BID 05/21/23 05/29/24 History Acetaminophen [Tylenol] 650 mg PO Q4H PRN 05/10/24 05/29/24 History Atropine Sulfate/Pf [Atropine 1% 1 drop RIGHT EYE DAILY 05/10/24 05/29/24 History Eye Drops] Clopidogrel [Plavix] 75 mg PO DAILY 05/10/24 05/29/24 History Folic Acid/Vit B Complex and C 0.8 mg PO DAILY 05/10/24 05/29/24 History [Alyssa-Reilly Tablet] Lanthanum Carbonate [Lanthanum 2,000 mg PO TID-W/MEALS 05/10/24 05/29/24 History Carbonate Chewable] diphenhydrAMINE HCL [Benadryl] 50 mg PO BID 05/10/24 05/29/24 History Apixaban [Eliquis] 2.5 mg PO BID #120 tab 05/14/24 05/29/24 Rx Aspirin 81 mg PO DAILY #7 tab 05/14/24 05/29/24 Rx Atorvastatin [Lipitor] 80 mg PO HS #60 tab 05/14/24 05/29/24 Rx Metoprolol Succinate (ER) [Toprol 25 mg PO DAILY #60 tab 05/14/24 05/29/24 Rx XL] Allergies Allergy/AdvReac Type Severity Reaction Status Date / Time Penicillins Allergy Rash/Hives Verified 05/29/24 07:08 baclofen AdvReac Confusion Verified 05/29/24 07:08 Physical Exam Vitals: Vital Signs Temp Pulse Resp BP Pulse Ox FiO2 05/30/24 07:54 98.5 F 82 18 136/56 96 05/30/24 03:42 98.7 F 61 17 123/77 91 L 05/29/24 23:42 99.8 F H 85 17 124/79 95 05/29/24 20:00 99.7 F H 103 H 17 117/75 93 L 05/29/24 17:38 98.6 F 79 16 150/81 05/29/24 15:45 98.6 F 79 16 150/81 05/29/24 15:31 79 15 131/83 96 05/29/24 14:45 98.0 F 75 17 161/78 96 05/29/24 12:32 98.0 F 75 17 161/78 96 05/29/24 12:25 30 05/29/24 11:31 64 11 L 118/63 99 30 05/29/24 10:56 30 Intake and Output 05/29/24 05/30/24 05/30/24 22:59 06:59 14:59 Intake Total 400 720 Output Total 6400 Balance -6000 720 Intake: Oral 720 Hemodialysis 400 Output: Hemodialysis 3400 Hemodialysis Net Amount 3000 Other: # Voids 0 # Bowel Movements 1 Weight 90.2 kg examination of the heart S1 and S2 Examination the lungs bilateral breath sounds are heard Abdomen is soft nontender Examination of lower extremities shows right BKA 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 End-stage renal disease on hemodialysis on Monday schedule 2. Volume overload, improved 3. Hyperkalemia improved with hemodialysis Plan: discontinue left femoral temporary dialysis catheter as AV fistula was functioning well with hemodialysis yesterday. Hemodialysis in a.m. if patient is not discharged.
--- NOTE | 2024-05-30 10:59 | PCN ---
PROCEDURE NOTE PROCEDURE PERFORMED: Removal of the dialysis catheter, left femoral approach. DESCRIPTION OF PROCEDURE: The patient was seen in his room. The left groin was prepped. His stitches were removed. The catheter was removed. Pressure was held. Pressure dressing applied. The patient tolerated the procedure well. The patient should be on bedrest for 4 hours. MMODL / GENOVEVAN: [id number] /
[2024-05-30 11:11] VITALS: PULSE 75
[2024-05-30 11:13] LABS: Glucose,Whole Blood 154 mg/dL (70-110)
[2024-05-30] MEDS: SODIUM ZIRCONIUM CYCLOSILICATE 10 GM PACKET PO ONE (11:42)
--- NOTE | 2024-05-30 13:24 | P.DS ---
Providers Date of admission: 05/29/24 03:21 Expected date of discharge: 05/30/24 Attending physician: Avle Reynaga MD Consults: 05/29/24 03:11 Consult Physician Urgent Consulting Provider: Caitlyn Fleming Consult Reason/Comments: Hyperkalemia Do you want consulting provider notified?: Already Contacted 05/29/24 03:21 Consult Physician Routine Consulting Provider: Virgilio Gunderson Consult Reason/Comments: HTN, flash pulmonary edema Do you want consulting provider notified?: Yes, Notify in am 05/29/24 06:36 Consult Physician Urgent Consulting Provider: Tom Vega Consult Reason/Comments: AV fistula malfunction Do you want consulting provider notified?: Yes Primary care physician: Yash Whyte [facility] Hospital Course: Final Diagnosis: #. Pulmonary edema secondary to hypervolemia #. ESRD on hemodialysis Monday and Monday #. Chronic mild hyponatremia #. Chronic hyperphosphatemia #. Chronic hyperkalemia #. Paroxysmal atrial fibrillation #. Coronary artery disease with recent stenting of the proximal circumflex, 05/13/2024 #. Restless leg syndrome #. Peripheral neuropathy #. Diabetes mellitus Hospital Course: 43-year-old PMH blindness, CVA/TIA, diabetes mellitus, ESRD needing dialysis (TTS schedule), CAD s/p stenting approximately 2 weeks ago. He has been in the emergency department today for sudden onset shortness of breath. Patient home this evening when he had a sudden onset difficulty of breathing. Per the EMS the patient was pale and sweaty upon their arrival, they did not obtain a pulse oximetry on room air but immediately placed on CPAP. After 2-3 minutes on CPAP his pulse ox was 70% and came up to 89% while en route to the emergency department. Patient denies any chest pain however reports that he has had shortness of breath and chest tightness for approximately 1 hour. He is currently taking Plavix and Eliquis at home. He states that his last dialysis was this past Monday, however he left early. He was due for dialysis yesterday, however did not have it completed. Attempted to complete dialysis in the ED early this morning, however was unable to access current catheter. Per nephrology's recommendation, vascular surgery consulted for the insertion of a new permacath or temporary catheter in order to complete dialysis. Imaging on admission reported chest x-ray done in the ER showed possible left lower lobe pneumonia. EKG done in the ER showed sinus tachycardia heart rate of 106; QTc 383. Blood pressure 147/90, heart rate 94, respiratory rate 16, SpO2 100% on BiPAP (FiO2 40%) Patient was evaluated for pulmonary edema secondary to hypervolemia. Patient underwent emergent dialysis catheter placement on the left groin. Patient eventually weaned off BiPAP. Dialysis attempted on admission was able to use original dialysis port which led to removal of left groin port. Patient recently had CAD and was stented on 05/13 and a proximal circumflex and cardiology was consulted. Advised to continue Eliquis and discontinue aspirin. Patient's electrolytes and symptoms improved he did not have any new symptoms or complications after dialysis. Patient is discharged today with advised to foll ow-up with PCP, vascular surgery and nephrology on outpatient basis. Aspirin discontinued from home meds. Advised to have next dialysis session on 05/31 on outpatient basis. Physical examination: Vital signs reviewed General: non toxic, no distress, appears at stated age, normal weight Derm: no unusual rashes/lesions, warm Head: atraumatic, normocephalic, symmetric Eyes: EOMI, no lid lag, anicteric sclera, pupils equal round reactive to light ENT: Nose and ears atraumatic Neck: No cervical lymphadenopathy, trachea midline, supple Mouth: no lip lesion, mucus membranes moist Cardiovascular: S1S2 reg, no murmur, Lungs: CTA bilateral, no rhonchi, no rales, no accessory muscle use Abdominal: soft, nondistended, nontender to palpation, no guarding Ext: muscle strength 5 out of 5 in all 4 extremities grossly, no gross muscle atrophy, no contractures, positive dorsalis pedis pulse bilateral, no edema, Left foot partial amputation, with wounds noted at various points of healing and dry looking and scaly skin noted on the lateral aspect of his left lower leg. Left hand with 3 digits amputated. left upper extremity fistulas functioning well for hemodialysis. Left groin dressing dry and clean with no areas above surrounding skin and no discharge Neuro: CN II-XI grossly intact, no gross focal neuro deficits Psych: Alert, oriented, appropriate affect and mood A total of 36 minutes of time were spent preparing this complex discharge summary. Patient was discharged on 05/30/2024 at 1149. I have seen and evaluated the patient today. Discussed with the resident and agree with the residents finding and plan as documented in the resident's note. Changes highlighted in blue font. Patient Condition at Discharge: Stable Plan - Discharge Summary New Discharge Prescriptions: Continue Methadone [Dolophine] 10 mg PO TID rOPINIRole HCL [Requip] 5 mg PO DAILY Pantoprazole [Protonix] 40 mg PO DAILY Gabapentin [Neurontin] 100 mg PO BID Famotidine [Pepcid] 20 mg PO BID diphenhydrAMINE HCL [Benadryl] 50 mg PO BID Acetaminophen [Tylenol] 650 mg PO Q4H PRN PRN Reason: Pain Clopidogrel [Plavix] 75 mg PO DAILY Atorvastatin [Lipitor] 80 mg PO HS #60 tab Metoprolol Succinate (ER) [Toprol XL] 25 mg PO DAILY #60 tab rOPINIRole HCL [Requip] 10 mg PO HS Sevelamer [Renvela] 1,600 - 6,400 mg PO TID-W/MEALS Lanthanum Carbonate [Lanthanum Carbonate Chewable] 2,000 mg PO TID-W/MEALS Folic Acid/Vit B Complex and C [Alyssa-Reilly Tablet] 0.8 mg PO DAILY Atropine Sulfate/Pf [Atropine 1% Eye Drops] 1 drop RIGHT EYE DAILY Apixaban [Eliquis] 2.5 mg PO BID #120 tab Discontinued Aspirin 81 mg PO DAILY #7 tab Discharge Medication List Methadone [Dolophine] 10 mg PO TID 02/29/16 [History] Gabapentin [Neurontin] 100 mg PO BID 09/13/22 [History] Pantoprazole [Protonix] 40 mg PO DAILY 09/13/22 [History] Sevelamer [Renvela] 1,600 - 6,400 mg PO TID-W/MEALS 09/13/22 [History] rOPINIRole HCL [Requip] 5 mg PO DAILY 09/13/22 [History] rOPINIRole HCL [Requip] 10 mg PO HS 09/13/22 [History] Famotidine [Pepcid] 20 mg PO BID 05/21/23 [History] Acetaminophen [Tylenol] 650 mg PO Q4H PRN 05/10/24 [History] Atropine Sulfate/Pf [Atropine 1% Eye Drops] 1 drop RIGHT EYE DAILY 05/10/24 [History] Clopidogrel [Plavix] 75 mg PO DAILY 05/10/24 [History] Folic Acid/Vit B Complex and C [Alyssa-Reilly Tablet] 0.8 mg PO DAILY 05/10/24 [History] Lanthanum Carbonate [Lanthanum Carbonate Chewable] 2,000 mg PO TID-W/MEALS 05/10/24 [History] diphenhydrAMINE HCL [Benadryl] 50 mg PO BID 05/10/24 [History] Apixaban [Eliquis] 2.5 mg PO BID #120 tab 05/14/24 [Rx] Atorvastatin [Lipitor] 80 mg PO HS #60 tab 05/14/24 [Rx] Metoprolol Succinate (ER) [Toprol XL] 25 mg PO DAILY #60 tab 05/14/24 [Rx] Follow up Appointment(s)/Referral(s): Caitlyn Fleming MD [STAFF PHYSICIAN] - 1 Week Yash Watson MD [Primary Care Provider] - 1-2 days Patient Instructions/Handouts: End Stage Kidney Disease (DC), Hemodialysis (DC) Activity/Diet/Wound Care/Special Instructions: Please see PCP and Nephrology. Please call dialysis unit for next dialysis session on 05/31 Discharge Disposition: HOME SELF-CARE
--- NOTE | 2024-05-30 13:48 | P.PN ---
Subjective HISTORY OF PRESENT ILLNESS: This is a 43-year-old male with a past medical history significant for CAD with stenting, end-stage renal disease on hemodialysis, atrial fibrillation, and mild aortic stenosis. Patient follows in the office with Dr. Duarte. We have been asked to see the patient in consultation for hypertension and flash pulmonary ed keli. Patient examined at the bedside in the [facility]. Patient presented to the hospital initially for shortness of breath. Patient is on hemodialysis Monday. Apparently the patient last had hemodialysis on Monday but left early. Patient's dialysis catheter was unable to be accessed and Dr. Vega took the patient this morning for left femoral temporary dialysis catheter. Patient is seen laying in the bed. He is lethargic at the time of examination. Patient's nurse states that the patient does get agitated when verbally stimulated. He is currently on BiPAP. Blood pressures are stable in the 120s. DIAGNOSTICS: - EKG reveals sinus tachycardia with IVCD - Chest xray left lower lobe pneumonia - Laboratory data: WBC 10.4. Hemoglobin 10.2. Platelet count 469. Sodium 132. Potassium 6.5. BUN 88. Creatinine 8.13. Troponin 0.054. 0.065. proBNP 83,900. - Current home cardiac medications include Eliquis 2.5 mg twice a day, aspirin 81 mg daily, Lipitor 80 mg at night, Plavix 75 mg daily, metoprolol succinate 25 mg daily - Most recent echocardiogram obtained on 05/10/2024 revealed ejection fraction 55 to 60%, trace to mild MR, mild pulmonary hypertension, mild TR, mild aortic stenosis - Cardiac catheterization history: 05/13/2024 revealing 2030% LAD and 99% pr oximal circumflex stenosis. Patient underwent PCI of proximal circumflex. 05/30/2024 Patient examined this morning the bedside. Patient states he underwent hemodialysis yesterday without any complications. He denies chest pain or pressure. Denies shortness of breath. Blood pressure is stable with a systolic between [id number]. PHYSICAL EXAM: VITAL SIGNS: Reviewed. GENERAL: Well-developed in no acute distress. HEENT: Head is normocephalic. Pupils are equal, round. Sclerae anicteric. Mucous membranes of the mouth are moist. Neck supple. No JVD or thyromegaly LUNGS: Respirations even and unlabored. Lungs essentially clear to auscultation bilaterally. HEART: Regular rate and rhythm. S1 and S2 heard. Systolic murmur noted EXTREMITIES: Normal range of motion. No clubbing or cyanosis. Right BKA. ASSESSMENT: Shortness of breath Acute hypoxic respiratory failure Fluid overload secondary to end-stage renal disease, patient left last hemodialysis session early Malfunction of hemodialysis catheter Hyperkalemia Coronary artery disease with recent stenting of the proximal circumflex, 1 07/13/2023 Paroxysmal atrial fibrillation Mild aortic stenosis End-stage renal disease on hemodialysis Chronically elevated troponins History of right BKA PLAN: Continue current cardiac medications Patient is stable for discharge home today from a cardiac standpoint Patient to follow-up in the office with Dr. Duarte Nurse practitioner note has been reviewed by physician. Signing provider agrees with the documented findings, assessment, and plan of care documented by TRAY CHECKER as a scribe. Objective - Vital Signs Vital signs: Vital Signs Temp 98.5 F 05/30/24 07:54 Pulse 75 05/30/24 11:09 Resp 16 05/30/24 11:09 BP 129/61 05/30/24 11:09 Pulse Ox 96 05/30/24 11:09 FiO2 30 05/29/24 12:25 Intake & Output 05/29/24 05/30/24 05/30/24 18:59 06:59 18:59 Intake Total 1120 840 Output Total 6400 Balance -5280 840 Weight 85.729 kg 90.2 kg Intake: Oral 720 840 Hemodialysis 400 Output: Hemodialysis 3400 Hemodialysis Net Amount 3000 Other: # Voids 0 # Bowel Movements 1 - Labs CBC & Chem 7: 05/30/24 09:32 05/30/24 09:32 Labs: Abnormal Lab Results - Last 24 Hours (Table) 05/29/24 05/29/24 05/29/24 Range/Units 02:02 06:51 20:05 RBC (4.30-5.90) m/uL Hgb (13.0-17.5) gm/dL Hct (39.0-53.0) % MCHC (31.0-37.0) g/dL RDW (11.5-15.5) % Sodium (137-145) mmol/L Potassium (3.5-5.1) mmol/L Chloride (98-107) mmol/L BUN (9-20) mg/dL Creatinine (0.66-1.25) mg/dL POC Glucose (mg/dL) 183 H (70-110) mg/dL Calcium (8.4-10.2) mg/dL Procalcitonin 2.07 H (0.02-0.50) ng/mL Hep Bs Antibody A (Negative) 05/29/24 05/30/24 05/30/24 Range/Units 21:14 06:03 09:32 RBC (4.30-5.90) m/uL Hgb (13.0-17.5) gm/dL Hct (39.0-53.0) % MCHC (31.0-37.0) g/dL RDW (11.5-15.5) % Sodium 133 L (137-145) mmol/L Potassium 5.4 H (3.5-5.1) mmol/L Chloride 97 L (98-107) mmol/L BUN 51 H (9-20) mg/dL Creatinine 5.61 H (0.66-1.25) mg/dL POC Glucose (mg/dL) 238 H 290 H (70-110) mg/dL Calcium 8.1 L (8.4-10.2) mg/dL Procalcitonin (0.02-0.50) ng/mL Hep Bs Antibody (Negative) 05/30/24 05/30/24 Range/Units 09:32 11:11 RBC 3.37 L (4.30-5.90) m/uL Hgb 8.6 L D (13.0-17.5) gm/dL Hct 29.0 L (39.0-53.0) % MCHC 29.5 L (31.0-37.0) g/dL RDW 17.0 H (11.5-15.5) % Sodium (137-145) mmol/L Potassium (3.5-5.1) mmol/L Chloride (98-107) mmol/L BUN (9-20) mg/dL Creatinine (0.66-1.25) mg/dL POC Glucose (mg/dL) 154 H (70-110) mg/dL Calcium (8.4-10.2) mg/dL Procalcitonin (0.02-0.50) ng/mL Hep Bs Antibody (Negative)
[2024-05-30] MEDS ORDERED: INSULIN DETEMIR (LEVEMIR) 100 UNIT/ML SYR SQ SCH (21:00)
[2024-05-30] MEDS ORDERED: APIXABAN 5 MG TAB PO SCH (21:00)
[2024-05-31] MEDS ORDERED: FAMOTIDINE 20 MG TAB PO SCH (09:00)
[2024-05-31] MEDS ORDERED: APIXABAN 2.5 MG TABLET PO SCH (09:00)
[2024-06-06 02:32] VITALS: BP 124/70; RESP 24; TEMP 97.6
== END 2024-05-30 14:45 | disposition home or self-care (01) ==
LOC: EC 01:47 → 3SCARD 03:21 → INTOOBSV 03:21 → 3SCARD 11:47 → UNDODISIN 05-30 14:45
PROVIDERS: ADMIT Internal Medicine; ATTEND Internal Medicine
DX: T82.49XA Other complication of vascular dialysis catheter, initial encounter (principal); Y82.8 Other medical devices associated with adverse incidents; J81.1 Chronic pulmonary edema; E87.70 Fluid overload, unspecified; J96.01 Acute respiratory failure with hypoxia; E87.5 Hyperkalemia; E87.1 Hypo-osmolality and hyponatremia; E83.39 Other disorders of phosphorus metabolism; E11.42 Type 2 diabetes mellitus with diabetic polyneuropathy; G25.81 Restless legs syndrome; N18.6 End stage renal disease; E11.22 Type 2 diabetes mellitus with diabetic chronic kidney disease; R79.89 Other specified abnormal findings of blood chemistry; I35.0 Nonrheumatic aortic (valve) stenosis; I25.10 Atherosclerotic heart disease of native coronary artery without angina pectoris; K21.9 Gastro-esophageal reflux disease without esophagitis; I48.0 Paroxysmal atrial fibrillation; Z86.73 Personal history of transient ischemic attack (TIA), and cerebral infarction without residual deficits; Z87.891 Personal history of nicotine dependence; Z89.511 Acquired absence of right leg below knee; Z95.5 Presence of coronary angioplasty implant and graft; Z99.2 Dependence on renal dialysis; Z79.02 Long term (current) use of antithrombotics/antiplatelets; Z79.899 Other long term (current) drug therapy; Z88.0 Allergy status to penicillin
CPT/HCPCS: 96375 ×2; 96376 ×2; 96365; 96366; 99285; 36415; 94660; 94640; 93005; 36556; 83880; 80053; 80048; 83605; 83735; 84100; 84132; 84484; 85025 ×2; 85610; 85730; 86706; 87340; 84145; 71045; G0378 ×2; J2060; J0456; J2003; J0696; S0109 ×2; J1171; J0613; J2470 ×2; 90935; 99291

== ENCOUNTER 2024-07-16 11:44 | Emergency (ER) | payer MEDICARE, OTHER ==
--- NOTE | 2024-07-16 11:54 | ED ---
General Adult HPI - General Chief complaint: Extremity Problem,Nontraumatic Stated complaint: Dialysis site wont stop bleeding Time Seen by Provider: 07/16/24 11:53 Source: patient, family, RN notes reviewed Mode of arrival: wheelchair Limitations: no limitations - History of Present Illness Initial comments: This is a 43-year-old male with history of end-stage renal disease on hemodialysis Monday, , Monday presents emergency room for complaint of bleeding from his left arm fistula site. Patient states that he had a dialysis session yesterday, 07/15/2024, due to incomplete session on 07/13/24 stating that the dialysis center did not have sufficient supplies. He states that there has been a small amount of continuous blood from his fistula site, and he has been unable to stop the bleeding over the past 24 hours. patient is on plavix and eliquis with history of cardiac stenting. He denies shortness of breath, dizziness, lightheadedness, heart palpitations. States that he has attempted to use compression dressing at home with some relief however minor bleeding still persisted. patient had fistula grafted approximately one year ago with Dr. Hays. - Related Data Home Medications Medication Instructions Recorded Confirmed Methadone [Dolophine] 10 mg PO TID 02/29/16 05/29/24 Gabapentin [Neurontin] 100 mg PO BID 09/13/22 05/29/24 Pantoprazole [Protonix] 40 mg PO DAILY 09/13/22 05/29/24 Sevelamer [Renvela] 1,600 - 6,400 mg PO TID-W/MEALS 09/13/22 05/29/24 rOPINIRole HCL [Requip] 5 mg PO DAILY 09/13/22 05/29/24 rOPINIRole HCL [Requip] 10 mg PO HS 09/13/22 05/29/24 Famotidine [Pepcid] 20 mg PO BID 05/21/23 05/29/24 Acetaminophen [Tylenol] 650 mg PO Q4H PRN 05/10/24 05/29/24 Atropine Sulfate/Pf [Atropine 1% 1 drop RIGHT EYE DAILY 05/10/24 05/29/24 Eye Drops] Clopidogrel [Plavix] 75 mg PO DAILY 05/10/24 05/29/24 Folic Acid/Vit B Complex and C 0.8 mg PO DAILY 05/10/24 05/29/24 [Alyssa-Reilly Tablet] Lanthanum Carbonate [Lanthanum 2,000 mg PO TID-W/MEALS 05/10/24 05/29/24 Carbonate Chewable] diphenhydrAMINE HCL [Benadryl] 50 mg PO BID 05/10/24 05/29/24 Previous Rx's Medication Instructions Recorded Apixaban [Eliquis] 2.5 mg PO BID #120 tab 05/14/24 Atorvastatin [Lipitor] 80 mg PO HS #60 tab 05/14/24 Metoprolol Succinate (ER) [Toprol 25 mg PO DAILY #60 tab 05/14/24 XL] Allergies Allergy/AdvReac Type Severity Reaction Status Date / Time Penicillins Allergy Rash/Hives Verified 07/16/24 11:47 baclofen AdvReac Confusion Verified 07/16/24 11:47 Review of Systems ROS Statement: Those systems with pertinent positive or pertinent negative responses have been documented in the HPI. ROS Other: All systems not noted in ROS Statement are negative. Past Medical History Past Medical History: Coronary Artery Disease (CAD), CVA/TIA, Diabetes Mellitus, Dialysis, Eye Disorder, GERD/Reflux, Renal Disease, Vascular Disorder Additional Past Medical History / Comment(s): Hx CVA 11 yrs ago, no residual effects. Diet Controlled Diabetes. Chiari malformation. Dialysis, [facility]. Legally blind. History of Any Multi-Drug Resistant Organisms: None Reported Past Surgical History: Orthopedic Surgery Additional Past Surgical History / Comment(s): Eye surgery, fistula, right below the knee amputation. Bypass. Past Anesthesia/Blood Transfusion Reactions: No Reported Reaction Past Psychological History: No Psychological Hx Reported Smoking Status: Former smoker Past Alcohol Use History: None Reported Past Drug Use History: Marijuana - Past Family History Father Family Medical History: Hypertension Additional Family Medical History / Comment(s): Father passed of LA 10 years ago. Mother Family Medical History: Diabetes Mellitus Additional Family Medical History / Comment(s): LA (2021) with stent. General Exam Limitations: no limitations General appearance: alert, in no apparent distress Eye exam: Present: normal appearance, PERRL, EOMI. Absent: scleral icterus, conjunctival injection, periorbital swelling Neck exam: Present: normal inspection. Absent: tenderness, meningismus, lymphadenopathy Respiratory exam: Present: normal lung sounds bilaterally. Absent: respiratory distress, wheezes, rales, rhonchi, stridor Cardiovascular Exam: Present: regular rate, normal rhythm, normal heart sounds. Absent: systolic murmur, diastolic murmur, rubs, gallop, clicks GI/Abdominal exam: Present: soft, normal bowel sounds. Absent: distended, tenderness, guarding, rebound, rigid Extremities exam: Present: normal inspection, full ROM, normal capillary refill. Absent: tenderness, pedal edema, joint swelling, calf tenderness Left Upper Arm exam: Present: swelling, other (mid arm 1 mm area of light active bleeding with no overyling erythema, purulence, or discharge. ) Vascular: Present: normal capillary refill, radial pulse (2+). Absent: vascular compromise Back exam: Present: normal inspection Skin exam: Present: warm, dry, intact, normal color. Absent: rash Course Vital Signs 07/16/24 07/16/24 11:47 12:56 Temperature 97.9 F 97.8 F Pulse Rate 67 68 Respiratory 20 18 Rate Blood Pressure 196/92 178/89 O2 Sat by Pulse 96 96 Oximetry Medical Decision Making - Medical Decision Making Was pt. sent in by a medical professional or institution (, PA, ORNAMENTAL BRONZE WORKER, urgent care, hospital, or senior care...) When possible be specific @ -No Did you speak to anyone other than the patient for history (EMS, parent, family, police, friend...)? What history was obtained from this source @ -No Did you review nursing and triage notes (agree or disagree)? Why? @ -I reviewed and agree with nursing and triage notes Were old charts reviewed (outside hosp., previous admission, EMS record, old EKG, old radiological studies, urgent care reports/EKG's, senior care records)? Report findings @ -No old charts were reviewed Differential Diagnosis (chest pain, altered mental status, abdominal pain women, abdominal pain men, vaginal bleeding, weakness, fever, dyspnea, syncope, headache, dizziness, GI bleed, back pain, seizure, CVA, palpatations, mental health, musculoskeletal)? @ -AV fistula bleeding EKG interpreted by me (3pts min.). @ -none X-rays interpreted by me (1pt min.). @ -None done CT interpreted by me (1pt min.). @ -None done U/S interpreted by me (1pt. min.). @ -None done What testing was considered but not performed or refused? (CT, X-rays, U/S, labs)? Why? @ -None What meds were considered but not given or refused? Why? @ -None Did you discuss the management of the patient with other professionals (professionals i.e. DrAshleigh, PA, ORNAMENTAL BRONZE WORKER, lab, RT, psych nurse, social work faculty member, intermodal truck driver, teacher, founder chairman and chief creative officer, caser)? Give summary @ -No Was smoking cessation discussed for >3mins.? @ -No Was critical care preformed (if so, how long)? @ -No Were there social determinants of health that impacted care today? How? (Homelessness, low income, unemployed, alcoholism, drug addiction, transportation, low edu. Level, literacy, decrease access to med. care, fpc, rehab)? @ -No Was there de-escalation of care discussed even if they declined (Discuss DNR or withdrawal of care, Hospice)? DNR status @ -No What co-morbidities impacted this encounter? (DM, HTN, Smoking, COPD, CAD, Cancer, CVA, ARF, Chemo, Hep., AIDS, mental health diagnosis, sleep apnea, morbid obesity)? @ -None Was patient admitted / discharged? Hospital course, mention meds given and route, prescriptions, significant lab abnormalities, going to OR and other pertinent info. @ -Discharge. 43-year-old male presenting with bleeding from AV fistula site after dialysis. After removal of dressing there is noted to be a 1 mm area of mild continuous bleeding. Patient's vitals are stable. Topical let applied with Coban. On reevaluation after medication is after 20 minutes bleeding has a Gema resolved. Patient struck to follow-up with dialysis as scheduled or provide Emergency Department for any new or worsening symptoms. Discussed with Dr. Ann Undiagnosed new problem with uncertain prognosis? @ -No Drug Therapy requiring intensive monitoring for toxicity (Heparin, Nitro, Insulin, Cardizem)? @ -No Were any procedures done? @ -No Diagnosis/symptom? @ -AV fistula bleeding Acute, or Chronic, or Acute on Chronic? @ -Acute Uncomplicated (without systemic symptoms) or Complicated (systemic symptoms)? @ -uncomplicated Side effects of treatment? @ -No Exacerbation, Progression, or Severe Exacerbation? @ -No Poses a threat to life or bodily function? How? (Chest pain, USA, LA, pneumonia, PE, COPD, DKA, ARF, appy, cholecystitis, CVA, Diverticulitis, Homicidal, Suicidal, threat to staff... and all critical care pts) @ -No Disposition Clinical Impression: Hemodialysis graft malfunction Disposition: HOME SELF-CARE Condition: Good Additional Instructions: Please return to the Emergency Department if symptoms worsen or any other concerns. Is patient prescribed a controlled substance at d/c from ED?: No Referrals: Yash Watson MD [Primary Care Provider] - 1-2 days Time of Disposition: 12:37
[2024-07-16] MEDS: LIDOCAINE/EPINEPHR/TETRACAINE 5 ML BOTTLE TOPICAL ONE (12:15)
[2024-07-16 12:57] VITALS: BP 178/89; PULSE 68; RESP 18; TEMP 97.8
== END 2024-07-16 12:59 | disposition home or self-care (01) ==
LOC: EC 11:44
DX: T82.511A Breakdown (mechanical) of surgically created arteriovenous shunt, initial encounter (principal); Z87.891 Personal history of nicotine dependence; Z88.0 Allergy status to penicillin; Z86.73 Personal history of transient ischemic attack (TIA), and cerebral infarction without residual deficits; Z95.5 Presence of coronary angioplasty implant and graft; Z99.2 Dependence on renal dialysis; Z88.8 Allergy status to other drugs, medicaments and biological substances
CPT/HCPCS: 99283

== ENCOUNTER 2024-11-09 17:40 | Emergency (ER) | payer MEDICARE, OTHER ==
--- NOTE | 2024-11-09 18:17 | ED ---
General Adult HPI - General Chief complaint: Extremity Problem,Nontraumatic Stated complaint: L Knee Pain Time Seen by Provider: 11/09/24 18:02 Source: patient, family, RN notes reviewed Mode of arrival: wheelchair Limitations: no limitations - History of Present Illness Initial comments: This is a 43-year-old male with multiple comorbid conditions including end-stage renal disease on hemodialysis (monday, , Monday), peripheral vascular disease, diabetes, presenting to emergency department for complaints of nontraumatic left knee pain that started approximately 3 days ago. Patient does have extensive history of his left knee stating that in 2019 he had an injury with dislocation of his kneecap where surgery was prolonged and had removal. Is lost follow-up with financial reporting specialist. He denies fevers, chills, nausea, vomiting, falls or injuries to the left knee. [facility] that [facility] - Related Data Home Medications Medication Instructions Recorded Confirmed Methadone [Dolophine] 10 mg PO TID 02/29/16 05/29/24 Gabapentin [Neurontin] 100 mg PO BID 09/13/22 05/29/24 Pantoprazole [Protonix] 40 mg PO DAILY 09/13/22 05/29/24 Sevelamer [Renvela] 1,600 - 6,400 mg PO TID-W/MEALS 09/13/22 05/29/24 rOPINIRole HCL [Requip] 5 mg PO DAILY 09/13/22 05/29/24 rOPINIRole HCL [Requip] 10 mg PO HS 09/13/22 05/29/24 Famotidine [Pepcid] 20 mg PO BID 05/21/23 05/29/24 Acetaminophen [Tylenol] 650 mg PO Q4H PRN 05/10/24 05/29/24 Atropine Sulfate/Pf [Atropine 1% 1 drop RIGHT EYE DAILY 05/10/24 05/29/24 Eye Drops] Clopidogrel [Plavix] 75 mg PO DAILY 05/10/24 05/29/24 Folic Acid/Vit B Complex and C 0.8 mg PO DAILY 05/10/24 05/29/24 [Alyssa-Reilly Tablet] Lanthanum Carbonate [Lanthanum 2,000 mg PO TID-W/MEALS 05/10/24 05/29/24 Carbonate Chewable] diphenhydrAMINE HCL [Benadryl] 50 mg PO BID 05/10/24 05/29/24 Previous Rx's Medication Instructions Recorded Apixaban [Eliquis] 2.5 mg PO BID #120 tab 05/14/24 Atorvastatin [Lipitor] 80 mg PO HS #60 tab 05/14/24 Metoprolol Succinate (ER) [Toprol 25 mg PO DAILY #60 tab 05/14/24 XL] Allergies Allergy/AdvReac Type Severity Reaction Status Date / Time Penicillins Allergy Rash/Hives Verified 11/09/24 17:53 baclofen AdvReac Confusion Verified 11/09/24 17:53 Review of Systems ROS Statement: Those systems with pertinent positive or pertinent negative responses have been documented in the HPI. ROS Other: All systems not noted in ROS Statement are negative. Past Medical History Past Medical History: Coronary Artery Disease (CAD), CVA/TIA, Diabetes Mellitus, Dialysis, Eye Disorder, GERD/Reflux, Renal Disease, Vascular Disorder Additional Past Medical History / Comment(s): Hx CVA 11 yrs ago, no residual effects. Diet Controlled Diabetes. Chiari malformation. Dialysis, [facility]. Legally blind. History of Any Multi-Drug Resistant Organisms: None Reported Past Surgical History: Orthopedic Surgery Additional Past Surgical History / Comment(s): Eye surgery, fistula, right below the knee amputation. Bypass. Past Anesthesia/Blood Transfusion Reactions: No Reported Reaction Past Psychological History: No Psychological Hx Reported Smoking Status: Former smoker Past Alcohol Use History: None Reported Past Drug Use History: Marijuana - Past Family History Father Family Medical History: Hypertension Additional Family Medical History / Comment(s): Father passed of [place] 10 years ago. Mother Family Medical History: Diabetes Mellitus Additional Family Medical History / Comment(s): [place] (2021) with stent. General Exam Limitations: no limitations General appearance: alert, in no apparent distress Neck exam: Present: normal inspection. Absent: tenderness, meningismus, lymphadenopathy Respiratory exam: Present: normal lung sounds bilaterally. Absent: respiratory distress, wheezes, rales, rhonchi, stridor Cardiovascular Exam: Present: regular rate, normal rhythm, normal heart sounds. Absent: systolic murmur, diastolic murmur, rubs, gallop, clicks GI/Abdominal exam: Present: soft, normal bowel sounds. 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 Absent: full ROM, ecchymosis, deformity, crepitus, dislocation, erythema, effusion Back exam: Present: normal inspection. Absent: CVA tenderness (R), CVA tenderness (L) Skin exam: Present: warm, dry, intact, normal color. Absent: rash Course Vital Signs 11/09/24 11/09/24 11/09/24 17:51 18:38 21:20 Temperature 98.7 F 98.3 F Pulse Rate 96 69 85 Respiratory 20 20 18 Rate Blood Pressure 145/87 152/101 163/109 O2 Sat by Pulse 96 96 Oximetry Medical Decision Making - Medical Decision Making Was pt. sent in by a medical professional or institution (, PA, TOUCH UP EDGER, urgent care, hospital, or [facility]...) When possible be specific @ -No Did you speak to anyone other than the patient for history (EMS, parent, family, police, friend...)? What history was obtained from this source @ -No Did you review nursing and triage notes (agree or disagree)? Why? @ -I reviewed and agree with nursing and triage notes Were old charts reviewed (outside hosp., previous admission, EMS record, old EKG, old radiological studies, urgent care reports/EKG's, [facility] records)? Report findings @ -No old charts were reviewed Differential Diagnosis (chest pain, altered mental status, abdominal pain women, abdominal pain men, vaginal bleeding, weakness, fever, dyspnea, syncope, headache, dizziness, GI bleed, back pain, seizure, CVA, palpatations, mental health, musculoskeletal)? @ -Differential Musculoskeletal Muscular strain, contusion, ligament sprain, fracture, arthritis, septic arthritis, bursitis, cellulitis, muscle spasm, nerve compression, DVT, arterial occlusion, herpes zoster, electrolyte abnormality, tumor.... This is not meant to be in all inclusive list EKG interpreted by me (3pts min.). @ -As above X-rays interpreted by me (1pt min.). @ -X-ray of the left knee is severely limited with a high riding patella and severe atherosclerosis of the arterial vasculature and degeneration changes in the knee. CT interpreted by me (1pt min.). @ -CT of the left knee without contrast reveals a high riding patella with history of prior ligamental injury with no evidence for acute fracture with moderate to severe degeneration changes, moderate knee joint effusion U/S interpreted by me (1pt. min.). @ -None done What testing was considered but not performed or refused? (CT, X-rays, U/S, labs)? Why? @ -None What meds were considered but not given or refused? Why? @ -None Did you discuss the management of the patient with other professionals (prof stevens i.e. , PA, TOUCH UP EDGER, lab, RT, psych nurse, social sciences professor, drop wire hanger, teacher, dog license officer supervisor, manager of case)? Give summary @ -No Was smoking cessation discussed for >3mins.? @ -No Was critical care preformed (if so, how long)? @ -No Were there social determinants of health that impacted care today? How? (Homelessness, low income, unemployed, alcoholism, drug addiction, transportation, low edu. Level, literacy, decrease access to med. care, fpc, rehab)? @ -No Was there de-escalation of care discussed even if they declined (Discuss DNR or withdrawal of care, Hospice)? DNR status @ -No What co-morbidities impacted this encounter? (DM, HTN, Smoking, COPD, CAD, Cancer, CVA, ARF, Chemo, Hep., AIDS, mental health diagnosis, sleep apnea, morbid obesity)? @ -None Was patient admitted / discharged? Hospital course, mention meds given and route, prescriptions, significant lab abnormalities, going to OR and other pertinent info. @ - Discharge. 43-year-old male presenting to emergency room with complaints of nontraumatic left knee pain. Left knee is mildly swollen with no signs of erythema. Mildly tender to the touch. He is provided with dose of morphine for pain control. Initial vitals are stable. Laboratory testing reveals no signs of leukocytosis. Elevated creatinine, BUN and decreased GFR correlating with patient's end-stage renal disease. X-ray imaging completed that was limited due to patient's positioning and therefore CT imaging is ordered. CT reveals latera l dislocation of the patella that is high riding with moderate joint effusion no evidence of acute fracture. Patient is instructed to follow-up outpatient with provided financial reporting specialist for further evaluation. He is stable for discharge and return parameters discussed. Patient is following with pain management is prescribed methadone. Case discussed with Dr. Ybarra Undiagnosed new problem with uncertain prognosis? @ -No Drug Therapy requiring intensive monitoring for toxicity (Heparin, Nitro, Insulin, Cardizem)? @ -No Were any procedures done? @ -No Diagnosis/symptom? @ -Nontraumatic left knee pain, joint effusion Acute, or Chronic, or Acute on Chronic? @ -Acute Uncomplicated (without systemic symptoms) or Complicated (systemic symptoms)? @ -Uncomplicated Side effects of treatment? @ -No Exacerbation, Progression, or Severe Exacerbation? @ -No Poses a threat to life or bodily function? How? (Chest pain, [place], [place], pneumonia, PE, COPD, DKA, ARF, appy, cholecystitis, CVA, Diverticulitis, Homicidal, Suicidal, threat to staff... and all critical care pts) @ -No - Lab Data Result diagrams: 11/09/24 18:23 11/09/24 18:23 Lab Results 11/09/24 11/09/24 11/09/24 Range/Units 18:23 18:23 18:23 WBC 9.44 (4.50-10.00) 10*3/uL RBC 3.85 L (4.40-5.60) 10*6/uL Hgb 11.8 L (13.0-17.0) g/dL Hct 36.6 L (39.6-50.0) % MCV 95.1 (80.0-97.0) fL MCH 30.6 (27.0-32.0) pg MCHC 32.2 (32.0-37.0) g/dL Plt Count 219 (140-440) 10*3/uL MPV 9.7 (9.5-12.2) fL Immature Gran % (Auto) 0.4 % Neutrophils % 77.8 % Lymphocytes % 8.9 % Monocytes % 11.8 % Eosinophils % 0.7 % Basophils % 0.4 % Immature Gran # 0.04 (0.00-0.04) 10*3/uL Neutrophils # 7.34 (1.80-7.70) 10*3/uL Lymphocytes # 0.84 L (0.90-5.00) 10*3/uL Monocytes # 1.11 H (0.20-1.00) 10*3/uL Eosinophils # 0.07 (0.04-0.35) 10*3/uL Basophils # 0.04 (0.00-0.10) 10*3/uL Sodium 135 L (137-145) mmol/L Potassium 4.1 (3.5-5.1) mmol/L Chloride 90 L (98-107) mmol/L Carbon Dioxide 28 (22-30) mmol/L Anion Gap 17 mmol/L BUN 33 H (9-20) mg/dL Creatinine 4.79 H (0.66-1.25) mg/dL Est GFR (CKD-EPI)AfAm 16 (>60 ml/min/1.73 sqM) Est GFR (CKD-EPI)NonAf 14 (>60 ml/min/1.73 sqM) Glucose 232 H (74-99) mg/dL Plasma Lactic Acid [place] 1.3 (0.7-2.0) mmol/L Calcium 9.2 (8.4-10.2) mg/dL Total Bilirubin 0.8 (0.2-1.3) mg/dL AST 20 (17-59) U/L ALT 12 (4-49) U/L Alkaline Phosphatase 106 (38-126) U/L C-Reactive Protein 33.3 H (<1.0) mg/dL Total Protein 7.4 (6.3-8.2) g/dL Albumin 4.0 (3.5-5.0) g/dL Disposition Clinical Impression: Generalized nontraumatic pain of knee region Disposition: HOME SELF-CARE Condition: Stable Instructions (If sedation given, give patient instructions): Knee Pain (ED) Additional Instructions: Please return to the Emergency Department if symptoms worsen or any other concerns. Is patient prescribed a controlled substance at d/c from ED?: No Referrals: Yash Watson MD [Primary Care Provider] - 1-2 days Flavio Burns DO [Doctor of Osteopathic Medicine] - 1-2 days Time of Disposition: 21:00
[2024-11-09] MEDS: MORPHINE SULFATE 4 MG/ML SYRINGE IVP STA (18:37)
[2024-11-09 18:38] LABS: Basophils # (A) 0.04 10*3/uL (0.00-0.10); Basophils % (A) 0.4 %; Eosinophils # (A) 0.07 10*3/uL (0.04-0.35); Eosinophils % (A) 0.7 %; HCT 36.6 % (39.6-50.0); HGB 11.8 g/dL (13.0-17.0); Lymphocytes # (A) 0.84 10*3/uL (0.90-5.00); Lymphocytes % (A) 8.9 %; MCH 30.6 pg (27.0-32.0); MCHC 32.2 g/dL (32.0-37.0); MCV 95.1 fL (80.0-97.0); Mean Platelet Volume 9.7 fL (9.5-12.2); Monocytes # (A) 1.11 10*3/uL (0.20-1.00); Monocytes % (A) 11.8 %; Neutrophils # (A) 7.34 10*3/uL (1.80-7.70); Neutrophils % (A) 77.8 %; Platelet Count 219 10*3/uL (140-440); RBC 3.85 10*6/uL (4.40-5.60); RDW 14.5 % (11.5-14.5); WBC 9.44 10*3/uL (4.50-10.00)
--- NOTE | 2024-11-09 18:57 | XR ---
EXAMINATION TYPE: XR knee limited LT DATE OF EXAM: 11/09/2024 6:32 PM COMPARISON: None CLINICAL INDICATION: Male, 43 years old with history of pain, swelling; PHH, pain TECHNIQUE: XR knee limited LT 2 views submitted. FINDINGS/IMPRESSION: Severely limited exam due to patient positioning. 1. Unclear if there is dislocated knee given patient positioning and high riding patella. 2. Patellas high riding correlate for patellar injury. CT recommended. 3. Severe atherosclerosis of the arterial vasculature for patient's age. 4. Degeneration changes of the knee with osteophyte formation. 5. No definitive fracture identified. [facility], , 11/09/2024 6:54 PM
[2024-11-09 19:15] LABS: ALT 12 U/L (4-49); AST 20 U/L (17-59); African American GFR (CKD) 16 (>60 ml/min/1.73 sqM); Alkaline Phosphatase 106 U/L (38-126); Anion Gap 17 mmol/L; Blood Urea Nitrogen 33 mg/dL (9-20); Calcium 9.2 mg/dL (8.4-10.2); Carbon Dioxide 28 mmol/L (22-30); Chloride 90 mmol/L (98-107); Glucose 232 mg/dL (74-99); Non-African American GFR(CKD) 14 (>60 ml/min/1.73 sqM); Potassium 4.1 mmol/L (3.5-5.1); Sodium 135 mmol/L (137-145); Total Bilirubin 0.8 mg/dL (0.2-1.3); Total Protein 7.4 g/dL (6.3-8.2)
[2024-11-09] MEDS: HYDROmorphone 1 MG/ML 1 ML SYRINGE IVP STA (19:26)
[2024-11-09 19:49] LABS: C Reactive Protein 33.3 mg/dL (<1.0)
--- NOTE | 2024-11-09 20:43 | CT ---
EXAMINATION TYPE: CT knee LT wo con DATE OF EXAM: 11/09/2024 8:17 PM COMPARISON: . Extremity radiograph same day. CLINICAL INDICATION: Male, 43 years old with history of pain, swelling; PHH, left knee pain and swell ing TECHNIQUE: Axial images were obtained of the CT knee LT wo con, Additional coronal and sagittal refor matted images and soft tissue and bone window were obtained for review. 3-D reconstruction was create d on a separate workstation. Contrast used: mL of , (None if empty) Oral contrast used: (None if empty) CT DLP: 314.8 mGycm, Automated exposure control for dose reduction was used. FINDINGS: Severe degeneration changes of the knee with abnormal position of the tibia with respect to the femur . The patella is dislocated laterally and in high position, possibly from patellar ligament injury. T here is a moderate joint effusion. Severe atherosclerosis of the arterial vasculature. No evidence fo r acute fracture. IMPRESSION: 1. Lateral dislocation of the patella. 2. High riding patella correlate for prior ligament injury. 3. Moderate knee joint effusion. 4. Dislocated tibia with respect to the femur. Correlate with patient's history. This may be chronic . 5. No evidence for acute fracture. 6. Moderate to severe degeneration changes possibly secondary to dislocation. [facility], , 11/09/2024 8:40 PM
[2024-11-09 21:21] VITALS: BP 163/109; PULSE 85; RESP 18; TEMP 98.3
== END 2024-11-09 21:21 | disposition home or self-care (01) ==
LOC: EC 17:40
DX: M25.562 Pain in left knee (principal); Z86.73 Personal history of transient ischemic attack (TIA), and cerebral infarction without residual deficits; Z87.891 Personal history of nicotine dependence; Z88.0 Allergy status to penicillin; Z88.8 Allergy status to other drugs, medicaments and biological substances
CPT/HCPCS: 36415; 80053; 83605; 85025; 86140; 73560; 73700; 99284; 96374; 96375; J2270; J1171